=== PATIENT | female | born 1945 | race Caucasian/White ===

== ENCOUNTER 2018-12-29 08:24 | Day surgery (SDC) | payer OTHER ==
[2018-12-29] MEDS ORDERED: Ringers Lactate 0 ML IV ONE (08:47)
[2018-12-29] MEDS ORDERED: CEFAZOLIN/SWI 1gm 1 GM/10 ML SYR ONE (08:47)
[2018-12-29] MEDS ORDERED: NA CHLORIDE 0.9% 1,000 ML ONE (08:52)
[2018-12-29] MEDS ORDERED: GENTAMICIN 100 MG/100 ML BAG 100 ML IV ONE (09:32)
[2018-12-29] MEDS ORDERED: PROPOFOL 200 MG/20 ML VIAL IV ONE (09:50)
[2018-12-29] MEDS ORDERED: FENTANYL CITR 100 MCG/2 ML ONE (09:51)
[2018-12-29] MEDS ORDERED: MIDAZOLAM HCL 2 MG/2 ML INJ ONE (09:51)
[2018-12-29] MEDS ORDERED: LIDOCAINE 2% MPF 5 ML VIAL ONE (09:54)
--- NOTE | 2018-12-29 20:52 | OP ---
Date of Procedure: 12/29/2018 Surgeon: Bakari Greene MD Service Dismantler: ROBBIN Bermudez. Preoperative Diagnoses: Symptomatic scalp mass x3. Two of them were right next to each other, and t he left hand mass. Postoperative Diagnoses: Symptomatic scalp mass x3. Two of them were right next to each other, and the left hand mass. Procedures: Wide excision of scalp mass x3, but 2 of them were in the same location and that area wa s 5 x 3 cm, and the one was by itself, it was 4 x 2 cm with layered closure, and then left hand was 4 x 2 cm with layered closure. Estimated Blood Loss: Minimal. Specimen: Scalp mass and left hand mass, likely benign. Finding: As above. Anesthesia: General. Complications: None. Disposition: The patient tolerated the procedure in stable condition and taken to Recovery in good g eneral condition. Procedure In Detail: The patient was brought to the OR and placed in supine position. General anest hesia was begun. The patient was prepped and draped in usual sterile fashion. Lidocaine 1% was infi ltrated locally. A 15-blade was used to make a 5 x 3 cm incision, and a 4 x 2 cm incision on the sca lp, and a 4 x 2 cm incision on the left hand, and all of the benign cysts were excised down to the davies bcutaneous tissue and then labeled appropriately and sent to Pathology. Wound irrigated. Bleeding c ontrolled with cautery. Flaps created for tension-free closures. 4-0 chromic and 4-0 nylon were use d to close the hand wound. 3-0 chromic and 3-0 nylon were used to close both the scalpel wounds and then sterile dressing was applied. The patient was awakened and taken to Recovery in good general co ndition. /MODL Voice ID: [id number] Report ID: [id number]
--- NOTE | 2018-12-29 20:52 | DS ---
Date of Discharge: 12/29/2018 The patient will go to Day Surgery and home when stable. Disposition: Home. Condition: Stable. Discharge Instructions: Resume home medications and diet. Activity as tolerated. No heavy lifting. Remove outer dressing in 2 days. Shower. Keep wound clean, dry. Follow up in my office in 9 days , call for appointment. Tylenol No. 3 one tablet p.o. q.4 p.r.n. pain. JHONNY/ANGEL Voice ID: [id number] Report ID: [id number]
== END 2018-12-29 12:41 | disposition home or self-care (01) ==
LOC: OR 08:24
PROVIDERS: ATTEND Surgery
PROC: 0JB00ZZ Excision of Scalp Subcutaneous Tissue and Fascia, Open Approach (ICD-10-PCS; 2018-12-29)
PROC: 0JBK0ZX Excision of Left Hand Subcutaneous Tissue and Fascia, Open Approach, Diagnostic (ICD-10-PCS; 2018-12-29)
PROC: 0JB00ZZ Excision of Scalp Subcutaneous Tissue and Fascia, Open Approach (ICD-10-PCS; principal; 2018-12-29 10:00)
PROC: 0JB00ZZ Excision of Scalp Subcutaneous Tissue and Fascia, Open Approach (ICD-10-PCS; 2018-12-29 10:00)
DX: L72.11 Pilar cyst (principal); L98.8 Other specified disorders of the skin and subcutaneous tissue; E11.9 Type 2 diabetes mellitus without complications; E78.5 Hyperlipidemia, unspecified; I10 Essential (primary) hypertension; I48.92 Unspecified atrial flutter; Z79.84 Long term (current) use of oral hypoglycemic drugs; Z79.899 Other long term (current) drug therapy
CPT/HCPCS: 11426 ×3; 12034; 12042; 82962 ×2; 88304; J2704; J2250; J3010; J1580; J0690; J7030; 88305

== ENCOUNTER 2019-02-15 08:49 | Observation (INO) | payer OTHER ==
[2019-02-15 10:03] LABS: Absolute Lymphocytes (CBC) 0.5 K/uL (0.7-4.9); Basophils % 0.2 % (0-1.3); Eosinophils % 2.7 % (0-4.4); Hematocrit 30.9 % (36.0-45.0); Lymphocytes % 7.2 % (15.3-44.8); MPV 8.7 fL (7.6-11.3); Monocytes % 11.5 % (3.3-12.3); RBC Red Blood Cell Count 3.43 M/uL (3.86-4.86)
[2019-02-15 10:18] LABS: Urine Blood TRACE (NEG); Urine Glucose 1+ (NEG); Urine Protein 2+ (NEG); Urine Specific Gravity 1.015 (1.005-1.030)
[2019-02-15 10:20] LABS: Albumin 3.7 g/dL (3.4-5.0); Bilirubin Direct 0.2 mg/dL (0-0.2); Bilirubin Total 0.8 mg/dL (0.2-1.0); Protein, Total 7.2 g/dL (6.4-8.2)
--- NOTE | 2019-02-15 10:38 | RAD REPORT ---
EXAM DESCRIPTION: RAD - Chest Single View - 02/15/2019 9:42 am CLINICAL HISTORY: Dyspnea, hypoglycemia COMPARISON: December 21, 2018 TECHNIQUE: AP portable chest image was obtained 0938 hours . FINDINGS: Low lung volumes are noted. This accentuates the baseline interstitial pattern. No signifi cant failure or volume overload. No pulmonary edema pattern. Heart and vasculature are normal. No loyda surable pleural effusion and no pneumothorax. No acute bony abnormality seen. No acute aortic finding s suspected. IMPRESSION: Shallow inspiration film without acute cardiopulmonary finding.
[2019-02-15] MEDS ORDERED: D5 0.45 NS 1,000 ML IV ONE (10:42)
[2019-02-15 10:49] LABS: Urine Amorphous Sediment 3+ /HPF (NONE SEEN); Urine Bacteria LOADED /HPF (<20); Urine Culture Reflex Order REFLEXED; Urine RBC NONE SEEN /HPF (NONE SEEN)
--- NOTE | 2019-02-15 11:03 | RAD REPORT ---
EXAM DESCRIPTION: CT - Abdomen Pelvis Wo Contrast - 02/15/2019 10:45 am CLINICAL HISTORY: Abdominal pain COMPARISON: None TECHNIQUE: Computed axial tomography of the abdomen and pelvis was obtained. IV and oral contrast we re not requested. All CT scans are performed using dose optimization technique as appropriate and may include automated exposure control or mA/KV adjustment according to patient size. FINDINGS: The evaluation of solid organs, vessels and bowel is limited secondary to the lack of con trast administration. Gallstone without gallbladder wall thickening The liver, spleen, pancreas, adrenals and kidneys appear grossly normal. The appendix is normal. There is no evidence of diverticulitis. The cecum is present within the right upper quadrant. Minimal posterior subluxation L1 on L2 with subchondral sclerosis and cortical irregularity involving the vertebral endplates A hysterectomy Small pericardial effusion IMPRESSION: Minimal posterior subluxation L1 on L2 with subchondral sclerosis and cortical irregular ity involving the vertebral endplates. This all could be secondary to degenerative changes. Inflammat ion/infection also have this appearance and should be correlated clinically with appropriate lab valu es Cholelithiasis Small pericardial effusion
[2019-02-15] MEDS ORDERED: POTASSIUM CL SA 10 MEQ TAB PO ONE (11:27)
[2019-02-15] MEDS ORDERED: CEFTRIAXONE/SWI 1gm 1 GM/10 ML SYR ONE (11:27)
--- NOTE | 2019-02-15 12:41 | EDPHYS ---
Physician Documentation [facility] Name: Lazara Lozano Age: 73 yrs Sex: Female : 1945 Arrival Date: 02/15/2019 Time: 08:51 Bed 16 Private MD: ED Physician Marcelo Barnes HPI: 02/15 09:09 This 73 yrs old Female presents to ER via EMS with complaints of Low Blood jr8 Sugar. 09:09 Patient stated that she took her lantus this morning. Upon awakening patient felt jr8 slower then normal. Checked BGL showing to be 67. EMS called at that time and upon arrival sugar was 19 with slurred speech. Patient was given D50 and enroute sugar was in the 200s now in the 100s upon arrival. Patient pale in appearance. Stated that she has had black diarrhea for several months now. Severity of symptoms: At their worst the symptoms were moderate in the emergency department the symptoms are unchanged. The patient has not experienced similar symptoms in the past. The patient has not recently seen a physician. Historical: - Allergies: 09: No Known Allergies; bp - Home Meds: 09:01 Insulin: Lantus Sub-Q [Active]; bp - PMHx: 09:01 Diabetes - IDDM; Hypertension; bp - PSHx: 09:01 Hysterectomy; bp - Immunization history:: Adult Immunizations up to date. - Social history:: Smoking status: Patient/guardian denies using tobacco. - Ebola Screening: : No symptoms or risks identified at this time. ROS: 12:35 Eyes: Negative for injury, pain, redness, and discharge, ENT: Negative for injury, jr8 pain, and discharge, Neck: Negative for injury, pain, and swelling, Cardiovascular: Negative for chest pain, palpitations, and edema, Respiratory: Negative for shortness of breath, cough, wheezing, and pleuritic chest pain, Abdomen/GI: Negative for abdominal pain, nausea, vomiting, diarrhea, and constipation, Back: Negative for injury and pain, MS/Extremity: Negative for injury and deformity, Skin: Negative for injury, rash, and discoloration. 12:35 Neuro: Positive for altered mental status. Exam: 11:29 Eyes: Pupils equal round and reactive to light, extra-ocular motions intact. Lids and jr8 lashes normal. Conjunctiva and sclera are non-icteric and not injected. Mild pallor noted. Cornea within normal limits. Periorbital areas with no swelling, redness, or edema. ENT: Nares patent. No nasal discharge, no septal abnormalities noted. Tympanic membranes are normal and external auditory canals are clear. Oropharynx with no redness, swelling, or masses, exudates, or evidence of obstruction, uvula midline. Mucous membranes moist. Neck: Trachea midline, no thyromegaly or masses palpated, and no cervical lymphadenopathy. Supple, full range of motion without nuchal rigidity, or vertebral point tenderness. No Meningismus. Cardiovascular: Regular rate and rhythm with a normal S1 and S2. No gallops, murmurs, or rubs. Normal PMI, no JVD. No pulse deficits. Respiratory: Lungs have equal breath sounds bilaterally, clear to auscultation and percussion. No rales, rhonchi or wheezes noted. No increased work of breathing, no retractions or nasal flaring. Back: No spinal tenderness. No costovertebral tenderness. Full range of motion. Skin: Warm, dry with normal turgor. Normal color with no rashes, no lesions, and no evidence of cellulitis. MS/ Extremity: Pulses equal, no cyanosis. Neurovascular intact. Full, normal range of motion. Neuro: Awake and alert, GCS 15, oriented to person, place, time, and situation. Cranial nerves II-XII grossly intact. Motor strength 5/5 in all extremities. Sensory grossly intact. Cerebellar exam normal. Normal gait. 11:29 Abdomen/GI: Inspection: abdomen appears normal, Bowel sounds: active, all quadrants, Palpation: abdomen is soft and non-tender, in all quadrants, Rectal exam: rectal tone normal, Stool: guaiac negative, black, soft, Patient has been on Pepto-Bismol , hemorrhoid(s), external, without bleeding, without inflammation, without thrombosis, without pain, Indicators: McBurney's point is not tender, Chambers's sign is negative, Rovsing's sign is negative, Liver: tenderness, is not appreciated. 11:29 Skin: Appearance: Color: dusky, Temperature: cool. jr8 Vital Signs: 09:01 Weight 63.96 kg; bp 09:11 BP 99 / 77; Pulse 77; Resp 14; Temp 96.2; Pulse Ox 95% on R/A; Weight 63.96 kg; Pain ls4 0/10; 09:45 BP 104 / 70; Pulse 72; Resp 14; Pulse Ox 99% on R/A; Pain 0/10; ls4 10:45 BP 103 / 61; Pulse 72; Resp 14; Pulse Ox 95% on R/A; Pain 0/10; ls4 11:45 BP 114 / 70; Pulse 71; Resp 16; Temp 96.9; Pulse Ox 98% ; Pain 0/10; ls4 12:45 BP 121 / 71; Pulse 71; Resp 18; Pulse Ox 95% ; ls4 13:30 BP 112 / 69; Pulse 72; Resp 19; Temp 96.9; Pulse Ox 99% on R/A; Pain 0/10; ls4 MDM: 08:54 Patient medically screened. jr8 12:35 Data reviewed: vital signs, nurses notes, lab test result(s), EKG, radiologic studies, jr8 CT scan, plain films. Data interpreted: Pulse oximetry: on room air is 95 %. Interpretation: normal. Counseling: I had a detailed discussion with the patient and/or guardian regarding: the historical points, exam findings, and any diagnostic results supporting the discharge/admit diagnosis, lab results, radiology results, the need for further work-up and treatment in the hospital. Physician consultation: Vahid Mix MD was called at 12:36, was contacted at 12:36, regarding admission, to the telemetry unit. consult, patient's condition, and will see patient in ED. ED course: Patient's BGL continues to drop even on D5 drip. Will up the drip and admit . 02/15 09:03 Order name: Basic Metabolic Panel; Complete Time: 10:45 02/15 09:03 Order name: CBC with Diff; Complete Time: 10:18 02/15 09:03 Order name: Creatinine for Radiology; Complete Time: 10:19 02/15 09:03 Order name: Hepatic Function; Complete Time: 10:45 02/15 09:03 Order name: Lipase; Complete Time: 10:45 02/15 09:03 Order name: TS; Complete Time: 10:56 02/15 09:03 Order name: Urine Microscopic Only; Complete Time: 10:56 02/15 10:08 Order name: Urine Dipstick--Ancillary (enter results); Complete Time: 10:19 ag 02/15 10:54 Order name: Urine Culture [facility] 02/15 12:31 Order name: Glucose, Ancillary Testing; Complete Time: 12:33 [facility] 02/15 12:31 Order name: Glucose, Ancillary Testing [facility] 02/15 12:31 Order name: Glucose, Ancillary Testing; Complete Time: 12:33 [facility] 02/15 12:31 Order name: Glucose, Ancillary Testing; Complete Time: 12:33 [facility] 02/15 12:31 Order name: Glucose, Ancillary Testing; Complete Time: 12:33 [facility] 02/15 09:03 Order name: IV Saline Lock; Complete Time: 09:56 [facility] 02/15 09:03 Order name: Labs collected and sent; Complete Time: 09:56 [facility] 02/15 09:03 Order name: Urine Dipstick-Ancillary (obtain specimen); Complete Time: 09:56 [facility] 02/15 09:03 Order name: Straight Cath - Urine; Complete Time: 09:56 [facility] 02/15 09:03 Order name: XRAY Chest (1 view); Complete Time: 10:45 [facility] 02/15 10:20 Order name: CT Abd/Pelvis - Without Contrast; Complete Time: 11:04 [facility] Administered Medications: 10:47 Drug: D5-1/2 NS 1000 ml Route: IV; Rate: 75 calculated rate; Site: left antecubital; ls4 11:20 Drug: Potassium Chloride 40 mEq Route: PO; ls4 11:20 Drug: Rocephin 1 grams Route: IV; Rate: calculated rate; Site: left antecubital; ls4 12:15 Follow up: Response: No adverse reaction ls4 Point of Care Testing: Blood Glucose: 09:40 Blood Glucose: 118 mg/dL; ls4 Ranges: Critical Glucose Levels:Adult <50 mg/dl or >400 mg/dl <40 mg/dl or >180 mg/dl Disposition: 02/16 07:00 Co-signature as Attending Physician, Marcelo Barnes MD I agree with the assessment and wa plan of care. Disposition: 02/15/19 12:40 Hospitalization ordered by Vahid Mix for Observation. Preliminary diagnosis are Urinary tract infection, site not specified, Hypokalemia, Hypoglycemia, unspecified - Resistent to treatment . - Bed requested for Telemetry/MedSurg (observation). - Status is Observation. ls4 - Condition is Stable. - Problem is new. - Symptoms are unchanged. UTI on Admission? Yes Signatures: Dispatcher [employer] EDMS Filipe Marion PA PA jr8 eGSabina ag Marcelo Barnes MD MD wa Peltier, Brian, RN RN bp Maru Gonzalez RN RN ls4 Corrections: (The following items were deleted from the chart) 02/15 11:31 11:29 Eyes: Pupils equal round and reactive to light, extra-ocular motions intact. Lids jr8 and lashes normal. Conjunctiva and sclera are non-icteric and not injected. Cornea within normal limits. Periorbital areas with no swelling, redness, or edema. ENT: Nares patent. No nasal discharge, no septal abnormalities noted. Tympanic membranes are normal and external auditory canals are clear. Oropharynx with no redness, swelling, or masses, exudates, or evidence of obstruction, uvula midline. Mucous membranes moist. Neck: Trachea midline, no thyromegaly or masses palpated, and no cervical lymphadenopathy. Supple, full range of motion without nuchal rigidity, or vertebral point tenderness. No Meningismus. Cardiovascular: Regular rate and rhythm with a normal S1 and S2. No gallops, murmurs, or rubs. Normal PMI, no JVD. No pulse deficits. Respiratory: Lungs have equal breath sounds bilaterally, clear to auscultation and percussion. No rales, rhonchi or wheezes noted. No increased work of breathing, no retractions or nasal flaring. Back: No spinal tenderness. No costovertebral tenderness. Full range of motion. Skin: Warm, dry with normal turgor. Normal color with no rashes, no lesions, and no evidence of cellulitis. MS/ Extremity: Pulses equal, no cyanosis. Neurovascular intact. Full, normal range of motion. Neuro: Awake and alert, GCS 15, oriented to person, place, time, and situation. Cranial nerves II-XII grossly intact. Motor strength 5/5 in all extremities. Sensory grossly intact. Cerebellar exam normal. Normal gait. jr8 14:05 12:40 Hospitalization Ordered by Vahid Mix MD for Observation. Preliminary diagnosis ag is Urinary tract infection, site not specified; Hypokalemia; Hypoglycemia, unspecified - Resistent to treatment . Bed requested for Telemetry/MedSurg (observation). Status is Observation. Condition is Stable. Problem is new. Symptoms are unchanged. UTI on Admission? Yes. jr8 16:34 14:05 02/15/2019 12:40 Hospitalization Ordered by Vahid Mix MD for Observation. ls4 Preliminary diagnosis is Urinary tract infection, site not specified; Hypokalemia; Hypoglycemia, unspecified - Resistent to treatment . Bed requested for Telemetry/MedSurg (observation). Status is Observation. Condition is Stable. Problem is new. Symptoms are unchanged. UTI on Admission? Yes. ag
--- NOTE | 2019-02-15 12:41 | ER ---
Nurse's Notes [facility] Name: Lazara Lozano Age: 73 yrs Sex: Female : 1945 Arrival Date: 02/15/2019 Time: 08:51 Bed 16 Private MD: Diagnosis: Urinary tract infection, site not specified;Hypokalemia;Hypoglycemia, unspecified-Resistent to treatment Presentation: 02/15 08:56 Presenting complaint: EMS states: BGL 19 ON SCENE. Transition of care: patient was not bp received from another setting of care. Onset of symptoms is unknown. Risk Assessment: Do you want to hurt yourself or someone else? Patient reports no desire to harm self or others. Initial Sepsis Screen: Does the patient meet any 2 criteria? No. Patient's initial sepsis screen is negative. Does the patient have a suspected source of infection? No. Patient's initial sepsis screen is negative. Care prior to arrival: Medication(s) given: D50, 1 amp, IV initiated. 18 GA, in the right antecubital area, Glucose check: 223. 08:56 Method Of Arrival: EMS: [facility] bp 08:56 Acuity: ISAIAH 2 bp Triage Assessment: 09:01 General: Appears distressed, obese, Behavior is calm, cooperative. Pain: Denies pain. bp Historical: - Allergies: 09: No Known Allergies; bp - Home Meds: 09:01 Insulin: Lantus Sub-Q [Active]; bp - PMHx: 09:01 Diabetes - IDDM; Hypertension; bp - PSHx: 09:01 Hysterectomy; bp - Immunization history:: Adult Immunizations up to date. - Social history:: Smoking status: Patient/guardian denies using tobacco. - Ebola Screening: : No symptoms or risks identified at this time. Screenin:11 Abuse screen: Denies threats or abuse. Denies injuries from another. Nutritional ls4 screening: No deficits noted. Tuberculosis screening: No symptoms or risk factors identified. Fall Risk None identified. Assessment: 09:01 General: Appears in no apparent distress. ill, Behavior is calm, cooperative. Pain: ls4 Denies pain. Neuro: Level of Consciousness is awake, alert, obeys commands, Oriented to person, place, time, situation, slow responses . Air Conditioning Engineer are weak on left. Respiratory: No deficits noted. Reports Airway is patent Respiratory effort is even, unlabored, Respiratory pattern is regular. Derm: Skin is dry, Skin is dusky, pale, Skin temperature is warm. Musculoskeletal: 10:00 Reassessment: Patient and/or family updated on plan of care and expected duration. Pain ls4 level reassessed. Patient is alert, oriented x 3, equal unlabored respirations, skin warm/dry/pink. 11:00 Reassessment: Patient and/or family updated on plan of care and expected duration. Pain ls4 level reassessed. Patient is alert, oriented x 3, equal unlabored respirations, skin warm/dry/pink. 12:00 Reassessment: Patient appears in no apparent distress at this time. Patient and/or ls4 family updated on plan of care and expected duration. Pain level reassessed. Patient is alert, oriented x 3, equal unlabored respirations, skin warm/dry/pink. pt speech normal and at baseline. Patient states feeling better. Patient states symptoms have improved. 13:00 Reassessment: Patient appears in no apparent distress at this time. Patient and/or ls4 family updated on plan of care and expected duration. Pain level reassessed. Patient is alert, oriented x 3, equal unlabored respirations, skin warm/dry/pink. 14:37 Reassessment: Patient appears in no apparent distress at this time. Patient and/or ls4 family updated on plan of care and expected duration. Pain level reassessed. Patient is alert, oriented x 3, equal unlabored respirations, skin warm/dry/pink. 14:37 Reassessment: called to give report to floor, Marielle stated they will call back because ls4 they dont have a nurse yet. Vital Signs: 09:01 Weight 63.96 kg; bp 09:11 BP 99 / 77; Pulse 77; Resp 14; Temp 96.2; Pulse Ox 95% on R/A; Weight 63.96 kg; Pain ls4 0/10; 09:45 BP 104 / 70; Pulse 72; Resp 14; Pulse Ox 99% on R/A; Pain 0/10; ls4 10:45 BP 103 / 61; Pulse 72; Resp 14; Pulse Ox 95% on R/A; Pain 0/10; ls4 11:45 BP 114 / 70; Pulse 71; Resp 16; Temp 96.9; Pulse Ox 98% ; Pain 0/10; ls4 12:45 BP 121 / 71; Pulse 71; Resp 18; Pulse Ox 95% ; ls4 13:30 BP 112 / 69; Pulse 72; Resp 19; Temp 96.9; Pulse Ox 99% on R/A; Pain 0/10; ls4 ED Course: 08:51 Patient arrived in ED. bp 08:54 Filipe Marion PA is PHCP. jr8 08:54 Marcelo Barnes MD is Attending Physician. jr8 08:58 Triage completed. bp 09:00 Maru Gonzalez, LISA is Primary Nurse. ls4 09:01 Arm band placed on right wrist. bp 09:13 Patient has correct armband on for positive identification. Bed in low position. Call ls4 light in reach. Side rails up X 1. monitoring analyst on. Pulse ox on. NIBP on. Warm blanket given. Pillow given. Verbal reassurance given. 09:15 No provider procedures requiring assistance completed. Inserted saline lock: 20 gauge ls4 in left antecubital area, using aseptic technique. Blood collected. 09:41 X-ray completed. Portable x-ray completed in exam room. Patient tolerated procedure jb2 well. 09:42 XRAY Chest (1 view) In Process Unspecified. EDMS 10:45 CT Abd/Pelvis - Without Contrast In Process Unspecified. EDMS 10:45 CT completed. Patient tolerated procedure well. Patient moved to CT via stretcher. jg6 Patient moved back from CT. 12:39 Vahid Mix MD is Hospitalizing Provider. jr8 Administered Medications: 10:47 Drug: D5-1/2 NS 1000 ml Route: IV; Rate: 75 calculated rate; Site: left antecubital; ls4 11:20 Drug: Potassium Chloride 40 mEq Route: PO; ls4 11:20 Drug: Rocephin 1 grams Route: IV; Rate: calculated rate; Site: left antecubital; ls4 12:15 Follow up: Response: No adverse reaction ls4 Point of Care Testing: Blood Glucose: 09:40 Blood Glucose: 118 mg/dL; ls4 Ranges: Outcome: 12:40 Decision to Hospitalize by Provider. jr8 16:34 Patient left the ED. ls4 Signatures: Dispatcher [employer] EDMS Jaquan Black jb2 Filipe Marion PA PA jr8 Kalen Comer, LISA RN Sahara Davis jg6 Maru Gonzalez, RN RN ls4 Corrections: (The following items were deleted from the chart) 13:32 12:00 Reassessment: Patient appears in no apparent distress at this time. Patient ls4 and/or family updated on plan of care and expected duration. Pain level reassessed. Patient is alert, oriented x 3, equal unlabored respirations, skin warm/dry/pink. ls4
--- NOTE | 2019-02-15 16:24 | HP ---
Date of Admission: 02/15/2019 Primary Care Physician: Dr. López. Chief Complaint: Altered mental status, hypoglycemia. Code Status: Full History Of Present Illness: The patient is a 73-year-old female with past medical history of hypertension, diabetes, insulin-requiring, who was in her usual state of health until the night prior to admission when the patient had some episodes of confusion, did not eat dinner, and instead taking her Lantus. The patient was very lethargic this morning, had generalized weakness, found to have a sugar of 19, had some slurred speech. The patient was given D50 and brought by EMS. The patient's symptoms were constantly monitored, progressively worsening. No chest pain, palpitations. The patient had some nausea, but no vomiting. The patient did have some diarrhea, is being worked up by GI as outpatient. In the ER, her workup showed a white blood cell count of 6, creatinine was elevated at 1.88. The patient had a positive UA. She was given IV antibiotics and then referred for admission. When seen in the ER, she was awake, still somewhat lethargic. Her blood glucose has improved, but had been low and staying low despite D5 half NS for several hours. Past Medical History: Insulin-requiring diabetes, hypertension. Medications: List reviewed. Allergies: NO KNOWN DRUG ALLERGIES. Surgical History: Hysterectomy. The patient had minor surgery with lesions on her scalp and hand removed. Social History: The patient denies any tobacco use or alcohol use for the past 20 years. Lives at home with and daughter. Independent in her activities of daily living. Does not require any assistive ambulatory devices. Family History: Positive for coronary artery disease in the mom who after having heart catheterization and heart disease. Review of Systems: Ten-point system reviewed, negative except as per HPI. Physical Examination: Vital Signs: Blood pressure 99/77, pulse 77, respirations 14, temperature 96.2 , O2 95% on room air. General: Awake, alert, oriented x3, not in any acute distress. Elderly female , lethargic. HEENT: Normocephalic, atraumatic. PERRLA. EOMI. Dry mucous membranes. Oropharynx is clear. Conjunctivae anicteric. Neck: Supple. No JVD. Trachea midline. CV: S1, S2. Regular rate and rhythm. No murmurs. Respiratory: Moving air well bilaterally. No wheezing or stridor. Gastrointestinal: Abdomen is soft, nontender, nondistended. Positive bowel sounds. No guarding or rigidity. Extremities: No clubbing, cyanosis, or edema. No calf tenderness. Neuro: Cranial nerves 2-12 intact grossly. No focal neurological deficit. Speech is normal. Skin: No rashes. Normal skin turgor. Psych: Mood is okay. Affect is full. Insight and judgment are fair. Laboratory Data: Sodium 138, potassium 3, chloride 104, CO2 26, BUN 21, creatinine 1.88, glucose 103, calcium 9.9, albumin 3.7. WBC 6.8, H and H 10.6 and 30.9, platelets 214, neutrophils 78%. UA; negative nitrite, negative leukocyte esterase, less than 5 wbc's, loaded bacteria. Chest x-ray shows shallow inspiration film without acute pulmonary finding. CT scan of the abdomen and pelvis shows minimal posterior subluxation L1 on L2 with subchondral sclerosis and cortical irregularity involving the vertebral endplates, could all be secondary to degenerative changes. Inflammation, infection may also have this appearance and should be correlated clinically with appropriate lab values; physis, small pericardial effusion. Assessment And Plan: A 73-year-old female with: 1. Acute metabolic encephalopathy, likely secondary to urinary tract infection and hypoglycemia, which is persistent, improving. We will place her on bedrest with bedside commode and have PT work with the patient. 2. Acute cystitis without hematuria. We will continue with Rocephin. We will follow up on urine culture results. 3. Abnormal cortical irregularity involving the L1, L2 vertebral endplate, possible degenerative changes, however, need to rule out inflammation infection. We will check ESR and CRP. The patient may need MRI to rule out infectious process involving the lumbar spine. 4. Essential hypertension, acute hypotension. We will continue with IV fluids. 5. Hypokalemia. We will replace and monitor. 6. Acute on chronic kidney injury, stage 3. We will avoid NSAIDs and continue with IV fluids. Avoid nephrotoxins. 7. Diabetes mellitus type 2 with hypoglycemia, persistent, recurrent. We will continue with D5 half NS and monitor blood glucose levels for next 2 hours x2, if continue to be elevated above 80 then we will space out the a.c., at bedtime, hold off sliding scale insulin for the time being due to hypoglycemia. 8. Obesity. 9. Deep venous thrombosis prophylaxis with SCDs. Plan: Admit the patient to Med-Surg, place under observation. ELSY Voice ID: [id number]
[2019-02-15] MEDS ORDERED: D5 0.45 NS 1,000 ML IV SCH (18:03)
[2019-02-15] MEDS ORDERED: ONDANSETRON 4 MG/2 ML VIAL IV PRN (18:03)
[2019-02-15] MEDS ORDERED: ACETAMINOPHEN 500 MG TAB PO PRN (18:03)
[2019-02-15] MEDS ORDERED: D50W 25 GM/50 ML SYRINGE IV PRN (19:05)
[2019-02-15] MEDS ORDERED: GLUCAGON 1 MG/VIAL IM PRN (19:05)
[2019-02-15] MEDS: INSULIN -REGULAR HUMAN 50 UNIT/0.5 ML ML SQ SCH (21:15)
[2019-02-16 05:30] LABS: Absolute Lymphocytes (CBC) 1.5 K/uL (0.7-4.9); Basophils % 0.4 % (0-1.3); Eosinophils % 5.1 % (0-4.4); Hematocrit 28.7 % (36.0-45.0); MPV 8.2 fL (7.6-11.3); Monocytes % 11.3 % (3.3-12.3); RBC Red Blood Cell Count 3.17 M/uL (3.86-4.86)
[2019-02-16 05:56] LABS: ALT/SGPT 12 U/L (12-78); AST/SGOT 8 U/L (15-37); Albumin 3.2 g/dL (3.4-5.0); BUN Blood Urea Nitrogen 21 mg/dL (7-18); Bicarbonate 25 mmol/L (21-32); Bilirubin Total 0.5 mg/dL (0.2-1.0); Glucose Level 51 mg/dL (74-106); Potassium 3.5 mmol/L (3.5-5.1); Protein, Total 6.5 g/dL (6.4-8.2); Sodium Level 142 mmol/L (136-145)
[2019-02-16 05:59] LABS: Alkaline Phosphatase ND U/L (45-117)
[2019-02-16] MEDS: INSULIN -REGULAR HUMAN 50 UNIT/0.5 ML ML SQ SCH ×4 (07:30→21:47)
--- NOTE | 2019-02-16 07:55 | P.PN ---
Date of Service: 02/16/19 Called by nursing staff regarding patient with tachyarrhythmia. Heart rate went into the 130s. This was sinus. Came down on its own. Echocardiogram pending. May need cardiology consultation that may be done as an outpatient depending on patient's symptoms.
--- NOTE | 2019-02-16 08:28 | ECHO ---
HEIGHT: 5 ft 3 in WEIGHT: 140 lb oz DATE OF STUDY: 02/15/[address]: Vahid Mix MD 2-DIMENSIONAL: YES M.MODE: YES DOPPLER: YES COLOR FLOW: YES TDS: NO PORTABLE: NO DEFINITY: NO BUBBLE STUDY: NO DIAGNOSIS: PERICARDIAL EFFUSION CARDIAC HISTORY: CATHERIZATION: NO SURGERY: NO PROSTHETIC VALVE: NO PACEMAKER: NO MEASUREMENTS (cm) DIASTOLIC (NORMALS) SYSTOLIC (NORMALS) IVSd 0.9 (0.6-1.2) LA Diam 2.1 (1.9-4.0) LVEF 43% LVIDd 2.6 (3.5-5.7) LVIDs 2.0 (2.0-3.5) %FS 20% LVPWd 0.8 (0.6-1.2) Ao Diam 2.8 (2.0-3.7) 2 DIMENSIONAL ASSESSMENT: RIGHT ATRIUM: NORMAL LEFT ATRIUM: NORMAL RIGHT VENTRICLE: NORMAL LEFT VENTRICLE: NORMAL TRICUSPID VALVE: NORMAL MITRAL VALVE: MITRAL ANNULAR CALCIFICATION PULMONIC VALVE: NORMAL AORTIC VALVE: SCLEROSIS PERICARDIAL EFFUSION: SMALL AORTIC ROOT: NORMAL LEFT VENTRICULAR WALL MOTION: NORMAL DOPPLER/COLOR FLOW: MILD AORITC AND TRICUSPID REGURGITATION. COMMENTS: MILD AORITC AND TRICUSPID REGURGITATION. NORMAL LEFT VENTRICULAR EJECTION FRACTION AND SIZE. SMALL PERICARDIAL EFFUSION. NO TAMPONADE. MITRAL ANNULAR CALCIFICATION. AORITC SCLEROSIS WITH NO STENOSIS. TECHNOLOGIST: Matthew LONGORIA
[2019-02-16] MEDS: CEFTRIAXONE/SWI 1gm 1 GM/10 ML SYR IVP SCH (08:56)
[2019-02-16] MEDS ORDERED: CEFTRIAXONE 1 GM/NS 50 ML 1 GM/50 ML BAG IV SCH (09:00)
--- NOTE | 2019-02-16 14:01 | P.PN ---
Subjective Date of Service: 02/16/19 Chief Complaint: Hypoglycemia Subjective: Improving Patient seen and examined at bedside. No family at bedside. Chart reviewed and case discussed with nursing staff. Mentation back to baseline. No acute events noted overnight. Review of Systems 10-point ROS is otherwise unremarkable Physical Examination - Vital Signs Temperature: 98.6 F Blood Pressure: 117/71 Pulse: 96 Respirations: 18 Pulse Ox (%): 92 - Physical Exam General: Alert, In no apparent distress, Oriented x3 HEENT: Atraumatic, PERRLA, EOMI Neck: Supple, JVD not distended Respiratory: Clear to auscultation bilaterally, Normal air movement Cardiovascular: Normal S1 S2, Irregular heart rate/rhythm (Tachycardia) Gastrointestinal: Normal bowel sounds, No tenderness Musculoskeletal: No tenderness Integumentary: No rashes Neurological: Normal speech, Normal tone, Normal affect Lymphatics: No axilla or inguinal lymphadenopathy Assessment And Plan - Current Problems (Diagnosis) (1) Acute metabolic encephalopathy Current Visit: Yes Status: Resolved Plan: likely secondary to urinary tract infection and hypoglycemia. - Now back to baseline - We will place her on bedrest with bedside commode and have PT work with the patient. (2) Acute cystitis Current Visit: Yes Status: Acute Plan: We will continue with Rocephin. - We will follow up on urine culture results Qualifiers: Hematuria presence: without hematuria Qualified Code(s): N30.00 - Acute cystitis without hematuria (3) Abnormal cortical irregularity Current Visit: Yes Status: Acute Plan: involving the L1, L2 vertebral endplate, possible degenerative changes - ESR Normal and elevated CRP. (4) Essential (primary) hypertension Current Visit: Yes Status: Chronic Plan: Continue home medications. BP now stable. (5) Hypokalemia Current Visit: Yes Status: Resolved (6) Acute on chronic kidney failure Current Visit: Yes Status: Acute Plan: We will avoid NSAIDs and continue with IV fluids. Avoid nephrotoxins. (7) Diabetes mellitus Current Visit: No Status: Acute Plan: Diabetes mellitus type 2 with hypoglycemia, persistent, recurrent. - D5 half NS now discontinued. - Monitor blood glucose levels Qualifiers: Diabetes mellitus type: type 2 Diabetes mellitus usp insulin use: without manager intermediate use Diabetes mellitus complication status: with hypoglycemia Diabetes mellitus complication detail: without coma Qualified Code(s): E11.649 - Type 2 diabetes mellitus with hypoglycemia without coma (8) Failure of outpatient treatment Current Visit: Yes Status: Acute Plan: Completed 2 week course of nitrofurantoin as outpatient. - Plan DVT prophylaxis: SCDs GI Prophylaxis: None Diet: Heart Healthy/Diabetic Disposition: Pending improvement/stabalization of hypoglycemia and urine cultures. Discharge on PO antibiotics once cultures finalized and BS improved.
[2019-02-17] MEDS: INSULIN -REGULAR HUMAN 50 UNIT/0.5 ML ML SQ SCH ×2 (07:30→11:48)
[2019-02-17] MEDS: CEFTRIAXONE/SWI 1gm 1 GM/10 ML SYR IVP SCH (08:54)
--- NOTE | 2019-02-17 11:14 | P.SSS ---
Patient History Date of Service: 02/17/19 Reason for admission: Hypoglycemia History of Present Illness: The patient is a 73-year-old female with past medical history of hypertension, diabetes, insulin-requiring, who was in her usual state of health until the night prior to admission when the patient had some episodes of confusion, did not eat dinner, and instead taking her Lantus. The patient was very lethargic this morning, had generalized weakness, found to have a sugar of 19, had some slurred speech. The patient was given D50 and brought by EMS. The patient's symptoms were constantly monitored, progressively worsening. No chest pain, palpitations. The patient had some nausea, but no vomiting. The patient did have some diarrhea, is being worked up by GI as outpatient. In the ER, her workup showed a white blood cell count of 6, creatinine was elevated at 1.88. The patient had a positive UA. She was given IV antibiotics and then referred for admission. When seen in the ER, she was awake, still somewhat lethargic. Her blood glucose has improved, but had been low and staying low despite D5 half NS for several hours. Allergies No Known Allergies Allergy (Verified 12/29/18 08:25) Home medications list reviewed: Yes Home Medications: Carvedilol 12.5 mg PO BID 02/16/19 Fenugreek 610 Mg 2 tab PO BID 02/16/19 Flaxseed Oil 1,000 mg PO BID 02/16/19 Glimepiride 4 mg PO BID 02/16/19 [place] [[place] Berries] 2 cap PO BID 02/16/19 Losartan Potassium 50 mg PO DAILY 02/16/19 Metformin HCl 1,000 mg PO BIDWM 02/16/19 Pravastatin Sodium 40 mg PO BEDTIME 02/16/19 Women's 50+ Advanced 1 tab PO DAILY 02/16/19 hydroCHLOROthiazide [Hydrochlorothiazide] 12.5 mg PO DAILY 02/16/19 - Past Medical/Surgical History Has patient received pneumonia vaccine in the past: Yes Diabetic: Yes -: A-fibb -: HTN -: hyperlipidema -: 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 moist/pink, EOMI, Sclerae nonicteric Neck: Supple, 2+ carotid pulse no bruit, No LAD, Without JVD or thyroid abnormality Respiratory: Clear to auscultation bilaterally, Normal air movement Cardiovascular: Regular rate/rhythm, Normal S1 S2 Gastrointestinal: Normal bowel sounds, No tenderness Musculoskeletal: No tenderness Integumentary: No rashes Neurological: Normal gait, Normal speech, Normal strength at 5/5 x4 extr, Normal tone, Normal affect Lymphatics: No axilla or inguinal lymphadenopathy - Studies Microbiology Data (last 24 hrs): 02/15/19 09:49 Clean Catch Urine [place] Count - Final >100,000 CFU/ML. 02/15/19 09:49 Clean Catch Urine - Final Escherichia Coli - Diagnosis (Problem(s)) (1) Acute metabolic encephalopathy Current Visit: Yes Status: Resolved (2) Acute cystitis Current Visit: Yes Status: Acute Qualifiers: Hematuria presence: without hematuria Qualified Code(s): N30.00 - Acute cystitis without hematuria (3) Abnormal cortical irregularity Current Visit: Yes Status: Acute (4) Essential (primary) hypertension Current Visit: Yes Status: Chronic (5) Hypokalemia Current Visit: Yes Status: Resolved (6) Acute on chronic kidney failure Current Visit: Yes Status: Acute (7) Diabetes mellitus Current Visit: No Status: Acute Qualifiers: Diabetes mellitus type: type 2 Diabetes mellitus prison insulin use: without ad terminal makeup operator use Diabetes mellitus complication status: with hypoglycemia Diabetes mellitus complication detail: without coma Qualified Code(s): E11.649 - Type 2 diabetes mellitus with hypoglycemia without coma (8) Failure of outpatient treatment Current Visit: Yes Status: Acute Treatment Summary: Patient was admitted for acute metabolic encephalopathy, likely secondary to urinary tract infection, failure outpatient treatment and hypoglycemia. She was provided with IV antibiotics and IV fluids to help with her hypoglycemia. Her symptoms of metabolic encephalopathy resolved, her mentation returned back to baseline. She worked well with physical therapy. Her urine cultures were positive for E. coli, sensitive to Augmentin. She was switched from IV antibiotics to oral Augmentin on discharge. An echocardiogram was done, which was normal. She did have some abnormal cortical irregularity on her imaging involving L1, L2 vertebral endplate suspicious for possible degenerative changes. Her ESR was normal and her CRP was elevated. She had no complaints of back pain. She otherwise remained hemodynamically stable. Her blood sugars improved. Prior to discharge, she was alert oriented x3, in no acute distress, mentation was back to baseline and she was tolerating oral. She was working well with physical therapy. She was discharged home on oral Augmentin. And diagnoses and treatment plan were explained to her, all questions were answered and she verbalized understanding. She was then discharged home in a safe and stable manner. She will follow up with her primary care physician in 2-3 days. - Disposition Discharge Date: 02/17/19 Disposition: ROUTINE DISCHARGE Condition: GOOD Patient Discharge Instructions: Please follow up with the primary care physician in 2-3 days. Please return to the emergency room for worsening symptoms. New medications: Augmentin, an antibiotic for your urinary tract infection. Diet: ADA Activity: Ad grupo Time Spent Managing Pts Care (In Minutes): 45
[2019-02-17 17:34] VITALS: BP 135/79; TEMP 97.5; O2SAT 94; BMI 25.0
== END 2019-02-17 13:41 | disposition home or self-care (01) ==
LOC: ER 08:49 → ERHOLD 13:05 → 2ND 16:08
PROVIDERS: ADMIT Family Medicine; ATTEND Family Medicine
DX: N39.0 Urinary tract infection, site not specified (principal); B96.20 Unspecified Escherichia coli [E. coli] as the cause of diseases classified elsewhere; G93.41 Metabolic encephalopathy; I48.91 Unspecified atrial fibrillation; E78.5 Hyperlipidemia, unspecified; E87.6 Hypokalemia; I12.9 Hypertensive chronic kidney disease with stage 1 through stage 4 chronic kidney disease, or unspecified chronic kidney disease; E11.22 Type 2 diabetes mellitus with diabetic chronic kidney disease; N18.3 Chronic kidney disease, stage 3 (moderate); N17.9 Acute kidney failure, unspecified; E11.649 Type 2 diabetes mellitus with hypoglycemia without coma; E66.9 Obesity, unspecified; Z68.25 Body mass index [BMI] 25.0-25.9, adult
CPT/HCPCS: 93306; 87088; 85025 ×2; 87086; 80048; 36415; 86900; 86850; 86901; 82962 ×14; 80076; 85652; 87077; 87186; 83690; 80053; 86140; 74176; 71045; 97116; 97163; 97530; 94760 ×5; 96374; 99285; J0696 ×3; G0378 ×2; 81003; 81015

== ENCOUNTER 2019-11-08 06:43 | Emergency (ER) | payer OTHER ==
[2019-11-08] MEDS ORDERED: NA CHLORIDE 0.9% 500 ML ONE (07:38)
[2019-11-08 08:47] LABS: Absolute Lymphocytes (CBC) 1.2 K/uL (0.7-4.9); Basophils % 0.7 % (0-1.3); Hematocrit 26.3 % (36.0-45.0); MPV 8.1 fL (7.6-11.3); RBC Red Blood Cell Count 2.88 M/uL (3.86-4.86)
[2019-11-08 08:51] LABS: Protime INR 0.96
[2019-11-08 08:54] LABS: Potassium 4.4 mmol/L (3.5-5.1)
--- NOTE | 2019-11-08 08:54 | RAD REPORT ---
EXAM DESCRIPTION: USExtremity Venous Uni Ltd3 8:23 am CLINICAL HISTORY: Right leg swelling. COMPARISON: None. FINDINGS: Right common femoral, superficial femoral, popliteal and right posterior tibial veins are compressible and demonstrate augmentation. Doppler demonstrates good flow. IMPRESSION: No evidence of deep venous thrombosis involving the right lower extremity.
--- NOTE | 2019-11-08 08:54 | RAD REPORT ---
EXAM DESCRIPTION: US - UPPER EXTREMITY VENOUS UNILATE - 11/08/2019 8:23 am CLINICAL HISTORY: Right upper extremity swelling COMPARISON: None. FINDINGS: The right internal jugular, subclavian, brachial, axillary, cephalic, basilic, radial and ulnar veins demonstrate phasic signal. The veins are generally compressible. Doppler demonstrates good flow IMPRESSION: No evidence of thrombus involving the right upper extremity
--- NOTE | 2019-11-08 09:58 | RAD REPORT ---
EXAM DESCRIPTION: CT - Upper Ext Wo Con W/ Mpr - 11/08/2019 9:25 am CLINICAL HISTORY: Right shoulder pain status post fall COMPARISON: None. TECHNIQUE: Computed axial tomography right shoulder obtained with coronal and sagittal reconstructio n All CT scans are performed using dose optimization technique as appropriate and may include automated exposure control or mA/KV adjustment according to patient size. FINDINGS: A comminuted fracture involves the right humeral neck extending into the humeral diaphysis . There is moderate to marked displacement of fracture fragments and angulation present at the fracture site. No dislocation noted Incidental note is made of gallstones. IMPRESSION: Comminuted right humeral fracture
--- NOTE | 2019-11-08 10:34 | ER ---
Nurse's Notes [facility] Name: Lazara Lozano Age: 74 yrs Sex: Female : 1945 Arrival Date: 11/08/2019 Time: 06:45 Bed 14 Private MD: Diagnosis: Displaced comminuted fracture of shaft of humerus, right arm;Dehydration;Urinary tract infection, site not specified Presentation: 11/07 06:57 Chief complaint: Patient's son or daughter states: her right hand got swollen last rr5 night, then today morning her legs became swollen too. she complaints while in the bathroom she almost pass out. Coronavirus screen: Patient denies fever greater than 100.4F, cough, shortness of breath, or difficulty breathing. Proceed with normal triage process. Ebola Screen: Patient negative for fever greater than or equal to 101.5 degrees Fahrenheit, and additional compatible Ebola Virus Disease symptoms Patient denies exposure to infectious person. Patient denies travel to an Ebola-affected area in the 21 days before illness onset. Initial Sepsis Screen: Does the patient meet any 2 criteria? No. Patient's initial sepsis screen is negative. Initial Sepsis Screen: Does the patient have a suspected source of infection? No. Patient's initial sepsis screen is negative. Risk Assessment: Do you want to hurt yourself or someone else? Patient reports no desire to harm self or others. Note she had a history of fall last october 29 2019 they put a splint on her right arm and advised to follow up to dr. pan. Onset of symptoms was November 07, 2019. 06:57 Method Of Arrival: Wheelchair rr5 06:57 Acuity: ISAIAH 3 rr5 06:57 Note CBG checked at home 279 mg/dl. rr5 Triage Assessment: 06:57 General: Appears in no apparent distress. comfortable, Behavior is calm, cooperative, rr5 appropriate for age. 06:57 Pain: Complains of pain in right arm Pain does not radiate. Pain currently is 3 out of rr5 10 on a pain scale. at worst was 8 out of 10 on a pain scale. Quality of pain is described as aching, Pain began gradually, Is intermittent. Neuro: Level of Consciousness is awake, alert, obeys commands, Oriented to person, place, time, situation. Cardiovascular: Capillary refill < 3 seconds Patient's skin is warm and dry. Edema right arm and lower legs. Respiratory: Airway is patent Respiratory effort is even, unlabored, Respiratory pattern is regular, symmetrical. Historical: - Allergies: :57 No Known Allergies; rr5 - Home Meds: 06:57 hydrochlorothiazide 25 mg Oral tab 1 tab once daily [Active]; metformin 500 mg Oral tab rr5 1 tab 2 times per day [Active]; glimepiride 4 mg Oral tab 1 tab [Active]; losartan 50 mg oral tab 1 tab 2 times per day [Active]; pravastatin oral oral [Active]; cranberry oral oral [Active]; Aspirin Oral [Active]; Vitamin C Oral [Active]; multivitamin oral oral [Active]; - PMHx: :57 Hypertension; Diabetes - NIDDM; Hyperlipidemia; rr5 - PSHx: :57 Hysterectomy; Tonsillectomy; D \\T\\ C; rr5 - Immunization history:: Adult Immunizations up to date, Flu vaccine is up to date. - Social history:: Smoking status: unknown Patient/guardian denies using alcohol, street drugs, tobacco products. - Family history:: not pertinent. - Hospitalizations: : No recent hospitalization is reported. Screenin:00 Abuse screen: Denies threats or abuse. Denies injuries from another. Nutritional rr5 screening: No deficits noted. Tuberculosis screening: No symptoms or risk factors identified. Fall Risk Fall in past 12 months (25 points). Gait- Weak (10 pts.). Total Wilkins Fall Scale indicates Low Risk Score (25-44 pts). Fall prevention measures have been instituted. Side Rails Up X 2 Placed close to Nursing Station Frequent Obs/Assesments occuring Family Present and informed to notify staff if they need to leave bedside As available Patient and Family Educated on Fall Prevention Program and strategies. Assessment: 07:38 Reassessment: Patient appears in no apparent distress at this time. Patient and/or ph family updated on plan of care and expected duration. Pain level reassessed. Patient is alert, oriented x 3, equal unlabored respirations, skin warm/dry/pink. Pt taken to US via wheelchair. 08:20 General: Appears in no apparent distress. comfortable, well groomed, Behavior is calm, ph cooperative, appropriate for age, Denies fever, feeling ill. Pain: Complains of pain in right arm. Neuro: Level of Consciousness is awake, alert, obeys commands, Oriented to person, place, time, situation. Neuro: Reports weakness in "all over". Cardiovascular: Capillary refill < 3 seconds in bilateral fingers Edema is 2+ to right upper arm, right elbow, right forearm, right wrist, right hand, right upper thigh, right lower thigh, right knee, right midcalf, right ankle, right foot and right toes. Respiratory: Airway is patent Respiratory effort is even, unlabored, Respiratory pattern is regular, symmetrical. GI: No signs and/or symptoms were reported involving the gastrointestinal system. Derm: Skin is intact, is fragile, is thin, Skin is pink, warm \\T\\ dry. Bruising that is green, yellow, on right arm. Musculoskeletal: Circulation, motion, and sensation intact. 09:30 Reassessment: Patient appears in no apparent distress at this time. Patient and/or ph family updated on plan of care and expected duration. Pain level reassessed. Patient is alert, oriented x 3, equal unlabored respirations, skin warm/dry/pink. 10:30 Reassessment: Patient appears in no apparent distress at this time. Patient and/or ph family updated on plan of care and expected duration. Pain level reassessed. Patient is alert, oriented x 3, equal unlabored respirations, skin warm/dry/pink. Vital Signs: 06:57 BP 136 / 82; Pulse 109; Resp 19; Temp 98.5; Pulse Ox 96% ; Weight 58.97 kg; Height 5 rr5 ft. 3 in. (160.02 cm); Pain 3/10; 08:30 BP 140 / 92; Pulse 92; Resp 18; Pulse Ox 100% on R/A; ph 10:04 BP 152 / 87; Pulse 102; Resp 18; Pulse Ox 95% on R/A; ph 11:10 BP 144 / 82; Pulse 94; Resp 18; Temp 97.9; Pulse Ox 100% on R/A; ph 06:57 Body Mass Index 23.03 (58.97 kg, 160.02 cm) rr5 ED Course: 06:45 Patient arrived in ED. ds1 06:57 Arm band placed on right wrist. rr5 07:00 Braxton Jorge MD is Attending Physician. rn 07:00 Patient has correct armband on for positive identification. Bed in low position. Call rr5 light in reach. Pulse ox on. NIBP on. 07:02 Triage completed. rr5 07:20 Jenny Quinteros, RN is Primary Nurse. ph 07:46 Primary Nurse role handed off by Jenny Quinteros RN bd 08:24 Extremity Venous Uni Ltd US In Process Unspecified. EDMS 08:24 UPPER EXTREMITY VENOUS UNILATE In Process Unspecified. EDMS 08:25 Initial lab(s) drawn, by hi, sent to lab. Inserted saline lock: 20 gauge in left ph antecubital area, using aseptic technique. Blood collected. 08:36 Radiology exam delayed due to lab results not completed at this time. (BUN/Creatinine). sj 08:48 Jenny Quinteros RN is Primary Nurse. ph 09:26 Upper Ext Wo Con W/ Mpr In Process Unspecified. EDMS 10:40 Urine collected: clean catch specimen, cloudy. dh3 11:08 No provider procedures requiring assistance completed. IV discontinued, intact, ph bleeding controlled, No redness/swelling at site. Pressure dressing applied. Administered Medications: 08:30 Drug: NS 0.9% 500 ml Route: IV; Rate: bolus; Site: left antecubital; ph 11:07 Follow up: Response: No adverse reaction; IV Status: Completed infusion; IV Intake: ph 500ml Intake: 11:07 IV: 500ml; Total: 500ml. ph Outcome: 10:31 Discharge ordered by . rn 11:09 Discharged to home via wheelchair, with family. ph 11:09 Condition: good 11:09 Discharge instructions given to patient, family, Instructed on discharge instructions, follow up and referral plans. medication usage, Demonstrated understanding of instructions, follow-up care, medications, Prescriptions given X 1. 11:11 Patient left the ED. ph Addendum: 11/12/2019 07:31 Addendum: Culture Results: Positive urine culture. No further action required. Bacteria e b sensitive to prescribed antibiotic. Signatures: Dispatcher [employer] EDMS Princess Bobby Susan sj Sanford, Veronique ds1 Braxton Jorge MD MD rn Hall, Patricia, RN RN Faye Recio 3 Evelin Fish Raymond, RN RN rr5
--- NOTE | 2019-11-08 10:34 | EDPHYS ---
Physician Documentation [facility] Name: Lazara Lozano Age: 74 yrs Sex: Female : 1945 Arrival Date: 11/08/2019 Time: 06:45 Bed 14 Private MD: ED Physician Braxton Jorge HPI: 11/07 07:20 This 74 yrs old Female presents to ER via Wheelchair with complaints of R Arm rn Swelling, Weakness. 07:20 The patient or guardian complains of pain, swelling. The complaints affect the right rn antecubital area, dorsal aspect of right forearm and right hand. Onset: The symptoms/episode began/occurred. 07:21 Onset: The symptoms/episode began/occurred yesterday. Modifying factors: The symptoms rn are alleviated by nothing. the symptoms are aggravated by nothing. Severity of symptoms: At their worst the symptoms were mild, in the emergency department the symptoms are unchanged. The patient has not experienced similar symptoms in the past. Reports diagnosed with right radial head fracture 10 days ago, already f/u with ortho, reports persistent pain but increased swelling as of yesterday from right elbow to right hand. Also noticed swelling to RLE. No blood thinners, no hx of DVT. . Historical: - Allergies: 06:57 No Known Allergies; rr5 - Home Meds: 06:57 hydrochlorothiazide 25 mg Oral tab 1 tab once daily [Active]; metformin 500 mg Oral tab rr5 1 tab 2 times per day [Active]; glimepiride 4 mg Oral tab 1 tab [Active]; losartan 50 mg oral tab 1 tab 2 times per day [Active]; pravastatin oral oral [Active]; cranberry oral oral [Active]; Aspirin Oral [Active]; Vitamin C Oral [Active]; multivitamin oral oral [Active]; - PMHx: 06:57 Hypertension; Diabetes - NIDDM; Hyperlipidemia; rr5 - PSHx: 06:57 Hysterectomy; Tonsillectomy; D \T\ C; rr5 - Immunization history:: Adult Immunizations up to date, Flu vaccine is up to date. - Social history:: Smoking status: unknown Patient/guardian denies using alcohol, street drugs, tobacco products. - Family history:: not pertinent. - Hospitalizations: : No recent hospitalization is reported. ROS: 07:21 Constitutional: Negative for fever, chills, and weight loss, Eyes: Negative for injury, rn pain, redness, and discharge, Neck: Negative for injury, pain, and swelling, Cardiovascular: Negative for chest pain, palpitations, and edema, Respiratory: Negative for shortness of breath, cough, wheezing, and pleuritic chest pain, Abdomen/GI: Negative for abdominal pain, nausea, vomiting, diarrhea, and constipation, Back: Negative for injury and pain, MS/Extremity: + RUE and RLE swelling and pain Skin: + bruising to right forearm and hand Neuro: Negative for headache, weakness, numbness, tingling, and seizure. Exam: 07:21 Constitutional: This is a well developed, well nourished patient who is awake, alert, rn and in no acute distress. Head/Face: Normocephalic, atraumatic. ENT: dry MM Cardiovascular: Tachycardic, regular, intact distal pulses Respiratory: No increased work of breathing, no retractions or nasal flaring. Abdomen/GI: soft, non-tender Skin: warm, dry, ecchymosis to right hand and forearm. MS/ Extremity: Pulses equal, no cyanosis. Neurovascular intact. No pain with muscular contraction, compartments soft. + swelling and likely hematoma right proximal forearm that is mobile and without warmth. Neuro: Awake and alert, GCS 15, Motor strength 5/5 in all extremities. Sensory grossly intact. Vital Signs: 06:57 BP 136 / 82; Pulse 109; Resp 19; Temp 98.5; Pulse Ox 96% ; Weight 58.97 kg; Height 5 rr5 ft. 3 in. (160.02 cm); Pain 3/10; 08:30 BP 140 / 92; Pulse 92; Resp 18; Pulse Ox 100% on R/A; ph 10:04 BP 152 / 87; Pulse 102; Resp 18; Pulse Ox 95% on R/A; ph 11:10 BP 144 / 82; Pulse 94; Resp 18; Temp 97.9; Pulse Ox 100% on R/A; ph 06:57 Body Mass Index 23.03 (58.97 kg, 160.02 cm) rr5 MDM: 07:00 Patient medically screened. rn 09:06 ED course: Denies sob, blood in stool/dark stool/dizziness or feeling lightheaded.. rn 09:46 ED course: Pt with proximal humerus fracture, unknown to patient, had been told had rn possible radial head hairline fracture, updated patient, and may be the reason for more pronounced swelling than originally thought. . 10:29 Differential diagnosis: closed fracture, hematoma, dehydration, hyperglycemia. Data rn reviewed: vital signs, nurses notes, lab test result(s), EKG, radiologic studies, CT scan, ultrasound, and as a result, I will discharge patient. Counseling: I had a detailed discussion with the patient and/or guardian regarding: the historical points, exam findings, and any diagnostic results supporting the discharge/admit diagnosis, lab results, radiology results, the need for outpatient follow up, to return to the emergency department if symptoms worsen or persist or if there are any questions or concerns that arise at home. Response to treatment: the patient's condition has returned to base line, the patient is now symptom free, and as a result, I will discharge patient. ED course: Neg doppler for RUE/RLE DVT, will dc home with return precautions and ortho f/u. Has sling already. . 11/07 07:15 Order name: CBC with Diff; Complete Time: 08:55 11/07 07:15 Order name: Basic Metabolic Panel; Complete Time: 08:56 11/07 07:15 Order name: Protime (+inr); Complete Time: 08:55 11/07 07:15 Order name: Ptt, Activated; Complete Time: 08:55 11/07 10:56 Order name: Urine Microscopic Only 11/07 10:56 Order name: Urine Culture 11/07 07:15 Order name: Extremity Venous Uni Ltd US; Complete Time: 09:01 11/07 07:15 Order name: IV Start; Complete Time: 08:50 rn 11/07 07:19 Order name: UPPER EXTREMITY VENOUS UNILATE; Complete Time: 09:01 EDIN 11/07 09:04 Order name: Upper Ext Wo Con W/ Mpr; Complete Time: 10:16 EDIN 11/07 10:56 Order name: Urine Dipstick--Ancillary (enter results) 11/07 08:56 Order name: Urine Dipstick-Ancillary (obtain specimen); Complete Time: 10:50 rn Administered Medications: 08:30 Drug: NS 0.9% 500 ml Route: IV; Rate: bolus; Site: left antecubital; ph 11:07 Follow up: Response: No adverse reaction; IV Status: Completed infusion; IV Intake: ph 500ml Disposition: 11/08/19 10:31 Discharged to Home. Impression: Displaced comminuted fracture of shaft of humerus, right arm, Dehydration, Urinary tract infection, site not specified. - Condition is Stable. - Discharge Instructions: Dehydration, Adult, Hematoma, Humerus Fracture Treated With Immobilization, Urinary Tract Infection, Adult, How to Use a Sling. - Prescriptions for Bactrim DS 800- 160 mg Oral Tablet - take 1 tablet by ORAL route every 12 hours for 10 days; 20 tablet. - Medication Reconciliation Form, Thank You Letter, Antibiotic Education, Prescription Opioid Use form. - Follow up: Private Physician; When: 2 - 3 days; Reason: Recheck today's complaints, Re-evaluation by your physician. - Problem is new. - Symptoms are unchanged. Signatures: Dispatcher [employer] EDIN Braxton Jorge MD MD rn Hall, Patricia, RN RN ph Roque, Raymond, RN RN rr5 Corrections: (The following items were deleted from the chart) 07:34 07:21 Constitutional: This is a well developed, well nourished patient who is awake, rn alert, and in no acute distress. Head/Face: Normocephalic, atraumatic. ENT: dry MM Cardiovascular: Tachycardic, regular, intact distal pulses Respiratory: No increased work of breathing, no retractions or nasal flaring. Skin: warm, dry, ecchymosis to right hand and forearm. MS/ Extremity: Pulses equal, no cyanosis. Neurovascular intact. No pain with muscular contraction, compartments soft. + swelling and likely hematoma right proximal forearm that is mobile and without warmth. Neuro: Awake and alert, GCS 15, Motor strength 5/5 in all extremities. Sensory grossly intact. rn 09:04 07:20 Upper Extremity W/ Cont ordered. [facility] EDIN 11:00 10:31 11/08/2019 10:31 Discharged to Home. Impression: Displaced comminuted fracture of rn shaft of humerus, right arm; Dehydration. Condition is Stable. Forms are Medication Reconciliation Form, Thank You Letter, Antibiotic Education, Prescription Opioid Use. Follow up: Private Physician; When: 2 - 3 days; Reason: Recheck today's complaints, Re-evaluation by your physician. Problem is new. Symptoms are unchanged. rn 11:11 11:00 11/08/2019 10:31 Discharged to Home. Impression: Displaced comminuted fracture of ph shaft of humerus, right arm; Dehydration; Urinary tract infection, site not specified. Condition is Stable. Discharge Instructions: Dehydration, Adult, Hematoma, Humerus Fracture Treated With Immobilization, How to Use a Sling, Urinary Tract Infection, Adult. Prescriptions for Bactrim DS 800-160 mg Oral Tablet - take 1 tablet by ORAL route every 12 hours for 10 days; 20 tablet. and Forms are Medication Reconciliation Form, Thank You Letter, Antibiotic Education, Prescription Opioid Use. Follow up: Private Physician; When: 2 - 3 days; Reason: Recheck today's complaints, Re-evaluation by your physician. Problem is new. Symptoms are unchanged. rn
[2019-11-08 11:18] LABS: Urine Bacteria >50 /HPF (<20); Urine Culture Reflex Order NOT NEEDED; Urine RBC <5 /HPF (NONE SEEN)
[2019-11-08 11:19] LABS: Urine Blood TRACE (NEG); Urine Glucose NEGATIVE (NEG); Urine Protein TRACE (NEG)
[2019-11-08 11:25] VITALS: BP 144/82; TEMP 97.9; O2SAT 100
== END 2019-11-08 11:11 | disposition home or self-care (01) ==
LOC: ER 06:43
DX: S42.351A Displaced comminuted fracture of shaft of humerus, right arm, initial encounter for closed fracture (principal); E86.0 Dehydration; N39.0 Urinary tract infection, site not specified; X58.XXXA Exposure to other specified factors, initial encounter; Y93.9 Activity, unspecified; Y92.9 Unspecified place or not applicable; I10 Essential (primary) hypertension; E11.9 Type 2 diabetes mellitus without complications; E78.5 Hyperlipidemia, unspecified
CPT/HCPCS: 96361; 87088; 85025; 87086; 80048; 36415; 85610; 85730; 87077; 87186; 73200; 76377; 93971 ×2; 96360; 99284; J7040; 81003; 81015

== ENCOUNTER 2020-05-09 06:01 | Emergency (ER) | payer OTHER ==
--- OUTSIDE RECORDS SUMMARY | 2020-05-09 06:03 | XMS REPORT | Continuity of Care Document ---
:1945 Author Organization [facility] t Address [address] [place] [address] Care Team Providers Name Role Phone Edu SILVESTRE, L Attending Clinician Payers Payer Name Policy Type Policy Number Effective Date Expiration Date S ource Problems This patient has no known problems. Allergies, Adverse Reactions, Alerts Allergy Allergy Status Severity Reaction(s) Onset Inactive Treating Comm ents Source Name Type Date Date Clinician No Known DA Active U [facility] Allergie 05 Clear s 00:00: Hare 00 [facility] Medications This patient has no known medications. Procedures This patient has no known procedures. Encounters Start End Encounter Admission Attending Care Care Encounter Source Date/Time Date/Time Type Type Clinicians Facility Department ID 2019-12-03 2019-12-03 Office CHERYL Sorensen [id number] 07:52:08 08:03:[address] [facility] [id number] Surgical [id number] Specialti [id number] es [address] [place] Results Test Description Test Time Test Comments Results Result Comments Source GLUBED 2020-01-29 13:00:00 Test Item Value Reference Range Interpretation Comme nts GLUBED (test code = GLUBED) 167 MG/DL 70-110 H Performed by certified power plant operators supervisor at [facility] [id number] 09:47:00 Test Item Value Reference Range Interpretation Comments GLUBED (test code = 149 MG/DL 70-110 H Performe d by certified GLUBED) power plant operators supervisor at [facility] BASIC METABOLIC [id number] 08:32:00 Test Item Value Reference Range Interpretation Comments SODIUM (test code = NA) 136 mEq/L 134-147 N POTASSIUM (test code = 3.4 mEq/L 3.4-5.0 N K) CHLORIDE (test code = 105 mEq/L 100-108 N CL) CARBON DIOXIDE (test 24 mEq/L 21-33 N code = CO2) ANION GAP (test code = 10 0-20 N GAP) GLUCOSE (test code = 153 mg/dL 70-110 H GLU) BLOOD UREA NITROGEN 17 mg/dL 7-18 N (test code = BUN) GLOMERULAR FILTRATION 44.2 70-80 L Units of measure = RATE (test code = GFR) ml/mi n/1.73 m2 CREATININE (test code = 1.2 mg/dL 0.6-1.3 N CREAT) CALCIUM (test code = 9.4 mg/dL 8.0-10.5 N CA) [id number] 22:07:00 Test Item Value Reference Range Interpretation Comments GLUBED (test code = 178 MG/DL 70-110 H Performe d by certified GLUBED) power plant operators supervisor at [facility] [id number] 18:03:00 Test Item Value Reference Range Interpretation Comments GLUBED (test code = 227 MG/DL 70-110 H Performe d by certified GLUBED) power plant operators supervisor at [facility] [id number] 18:03:00 Test Item Value Reference Range Interpretation Comments GLUBED (test code = 206 MG/DL 70-110 H Performe d by certified GLUBED) power plant operators supervisor at [facility] [id number] 16:58:00 Test Item Value Reference Range Interpretation Comments GLUBED (test code = 190 MG/DL 70-110 H Performe d by certified GLUBED) power plant operators supervisor at [facility] [id number] 09:32:00 Test Item Value Reference Range Interpretation Comments GLUBED (test code = 134 MG/DL 70-110 H Performe d by certified GLUBED) power plant operators supervisor at [facility] BASIC METABOLIC [id number] 08:36:00 Test Item Value Reference Range Interpretation Comments SODIUM (test code = NA) 136 mEq/L 134-147 N POTASSIUM (test code = 3.5 mEq/L 3.4-5.0 N K) CHLORIDE (test code = 105 mEq/L 100-108 N CL) CARBON DIOXIDE (test 22 mEq/L 21-33 N code = CO2) ANION GAP (test code = 13 0-20 N GAP) GLUCOSE (test code = 129 mg/dL 70-110 H GLU) BLOOD UREA NITROGEN 20 mg/dL 7-18 H (test code = BUN) GLOMERULAR FILTRATION 40.3 70-80 L Units of measure = RATE (test code = GFR) ml/mi n/1.73 m2 CREATININE (test code = 1.3 mg/dL 0.6-1.3 N CREAT) CALCIUM (test code = 9.3 mg/dL 8.0-10.5 N CA) [id number] 22:49:00 Test Item Value Reference Range Interpretation Comments GLUBED (test code = 190 MG/DL 70-110 H Performe d by certified GLUBED) power plant operators supervisor at [facility] [id number] 16:45:00 Test Item Value Reference Range Interpretation Comments GLUBED (test code = 224 MG/DL 70-110 H Performe d by certified GLUBED) power plant operators supervisor at [facility] [id number] 11:57:00 Test Item Value Reference Range Interpretation Comments GLUBED (test code = 242 MG/DL 70-110 H Performe d by certified GLUBED) power plant operators supervisor at [facility] BASIC METABOLIC [id number] 08:33:00 Test Item Value Reference Range Interpretation Comments SODIUM (test code = NA) 136 mEq/L 134-147 N POTASSIUM (test code = 3.7 mEq/L 3.4-5.0 N K) CHLORIDE (test code = 100 mEq/L 100-108 N CL) CARBON DIOXIDE (test 24 mEq/L 21-33 N code = CO2) ANION GAP (test code = 16 0-20 N GAP) GLUCOSE (test code = 122 mg/dL 70-110 H GLU) BLOOD UREA NITROGEN 23 mg/dL 7-18 H (test code = BUN) GLOMERULAR FILTRATION 37.0 70-80 L Units of measure = RATE (test code = GFR) ml/mi n/1.73 m2 CREATININE (test code = 1.4 mg/dL 0.6-1.3 H CREAT) CALCIUM (test code = 9.7 mg/dL 8.0-10.5 N CA) [id number] 08:13:00 Test Item Value Reference Range Interpretation Comments GLUBED (test code = 153 MG/DL 70-110 H Performe d by certified GLUBED) power plant operators supervisor at [facility] CBC W/AUTO [id number] 07:53:00 Test Item Value Reference Range Interpretation Comments WHITE BLOOD CELL (test code = 8.64 x10 3/uL 4.5-11.0 N WBC) RED BLOOD CELL (test code = 3.03 x10 6/uL 3.54-5.02 L RBC) HEMOGLOBIN (test code = HGB) 9.3 g/dL 11.0-15.0 L HEMATOCRIT (test code = HCT) 28.7 % 33.0-45.0 L MEAN CELL VOLUME (test code = 94.7 fL 81.0-99.0 N MCV) MEAN CELL HGB (test code = MCH) 30.7 pg 27.0-33.0 N MEAN CELL HGB CONCETRATION 32.4 g/dL 33.0-37.0 L (test code = MCHC) RED CELL DISTRIBUTION WIDTH CV 12.6 % 11.5-14.5 N (test code = RDW) RED CELL DISTRIBUTION WIDTH SD 43.8 fL 37.0-54.0 N (test code = RDW-SD) PLATELET COUNT (test code = 209 x10 3/uL 150-400 N PLT) MEAN PLATELET VOLUME (test code 11.3 fL 7.0-9.0 H = MPV) NEUTROPHIL % (test code = NT%) 72.8 % 56.0-77.0 N IMMATURE GRANULOCYTE % (test 0.3 % 0.0-2.0 N code = IG%) LYMPHOCYTE % (test code = LY%) 13.9 % 14.0-32.0 L MONOCYTE % (test code = MO%) 10.3 % 4.8-9.0 H EOSINOPHIL % (test code = EO%) 2.2 % 0.3-3.7 N BASOPHIL % (test code = BA%) 0.5 % 0.0-2.0 N NUCLEATED RBC % (test code = 0.0 % 0-0 N NRBC%) NEUTROPHIL # (test code = NT#) 6.29 x10 3/uL 2.0-7.6 N IMMATURE GRANULOCYTE # (test 0.03 x10 3/uL 0.00-0.03 N code = IG#) LYMPHOCYTE # (test code = LY#) 1.20 x10 3/uL 1.0-3.8 N MONOCYTE # (test code = MO#) 0.89 x10 3/uL 0.1-0.8 H EOSINOPHIL # (test code = EO#) 0.19 x10 3/uL 0.0-0.2 N BASOPHIL # (test code = BA#) 0.04 x10 3/uL 0.0-0.2 N NUCLEATED RBC # (test code = 0.00 x10 3/uL 0.0-0.1 N NRBC#) MANUAL DIFF REQUIRED (test code NO = MDIFF) [id number] 02:43:00 Test Item Value Reference Range Interpretation Comments GLUBED (test code = 133 MG/DL 70-110 H Performe d by certified GLUBED) power plant operators supervisor at [facility] UA RFLX MICR CULT IF [id number] 18:42:00 Test Item Value Reference Range Interpretation Comments UA COLOR (test code = COLU) YELLOW YEL/STRAW UA APPEARANCE (test code = CLEAR CLEAR APPU) UA GLUCOSE DIPSTICK (test code 3+ NEGATIVE A = DGLUU) UA BILIRUBIN DIPSTICK (test NEGATIVE NEGATIVE code = BILU) UA KETONE DIPSTICK (test code = 1+ NEGATIVE A KETU) UA SPECIFIC GRAVITY (test code 1.009 1.005-1.030 N = SGU) UA BLOOD DIPSTICK (test code = NEGATIVE NEGATIVE HERBERTH) UA PH DIPSTICK (test code = 5.0 5.0-7.0 N CHANDNI) UA PROTEIN DIPSTICK (test code NEGATIVE NEGATIVE = PROU) UA UROBILINIOGEN DIPSTICK (test 0.2 mg/dL 0.2-1.0 code = URO) UA NITRITE DIPSTICK (test code NEGATIVE NEGATIVE = SREE) UA LEUKOCYTE ESTERASE DIPSTICK TRACE NEGATIVE A (test code = LEUU) UA WBC (test code = WBCU) 21-50 WBC/HPF 0-3 A UA RBC (test code = RBCU) 0-3 RBC/HPF 0-3 UA WBC NO REFLEX (test code = 21-50 WBC/HPF 0-3 A WBCUCL) UA BACTERIA (test code = BACU) TRACE /HPF NONE SEEN UA SQUAMOUS CELLS (test code = 0-5 /HPF NONE SEEN SQU) Indication for culture: Delirium-if no other srcSpecimen Description: INDWELLING CATH (BARNETT)Cath Status: [id number] 17:29:00 Test Item Value Reference Range Interpretation Comments GLUBED (test code = 265 MG/DL 70-110 H Performe d by certified GLUBED) power plant operators supervisor at [facility] [id number] 12:26:00 Test Item Value Reference Range Interpretation Comments GLUBED (test code = 186 MG/DL 70-110 H Performe d by certified GLUBED) power plant operators supervisor at [facility] [id number] 08:35:00 Test Item Value Reference Range Interpretation Comments GLUBED (test code = 117 MG/DL 70-110 H Performe d by certified GLUBED) power plant operators supervisor at [facility] CBC W/O [id number] 08:13:00 Test Item Value Reference Range Interpretation Comments WHITE BLOOD CELL (test code = 7.10 x10 3/uL 4.5-11.0 N WBC) RED BLOOD CELL (test code = 3.04 x10 6/uL 3.54-5.02 L RBC) HEMOGLOBIN (test code = HGB) 9.3 g/dL 11.0-15.0 L HEMATOCRIT (test code = HCT) 28.3 % 33.0-45.0 L MEAN CELL VOLUME (test code = 93.1 fL 81.0-99.0 N MCV) MEAN CELL HGB (test code = MCH) 30.6 pg 27.0-33.0 N MEAN CELL HGB CONCETRATION 32.9 g/dL 33.0-37.0 L (test code = MCHC) RED CELL DISTRIBUTION WIDTH CV 12.7 % 11.5-14.5 N (test code = RDW) RED CELL DISTRIBUTION WIDTH SD 43.4 fL 37.0-54.0 N (test code = RDW-SD) PLATELET COUNT (test code = 237 x10 3/uL 150-400 N PLT) MEAN PLATELET VOLUME (test code 10.7 fL 7.0-9.0 H = MPV) BASIC METABOLIC [id number] 08:12:00 Test Item Value Reference Range Interpretation Comments SODIUM (test code = NA) 132 mEq/L 134-147 L POTASSIUM (test code = 3.8 mEq/L 3.4-5.0 N K) CHLORIDE (test code = 98 mEq/L 100-108 L CL) CARBON DIOXIDE (test 23 mEq/L 21-33 N code = CO2) ANION GAP (test code = 15 0-20 N GAP) GLUCOSE (test code = 113 mg/dL 70-110 H GLU) BLOOD UREA NITROGEN 30 mg/dL 7-18 H (test code = BUN) GLOMERULAR FILTRATION 29.5 70-80 L Units of measure = RATE (test code = GFR) ml/mi n/1.73 m2 CREATININE (test code = 1.7 mg/dL 0.6-1.3 H CREAT) CALCIUM (test code = 9.6 mg/dL 8.0-10.5 N CA) [id number] 07:11:00 Test Item Value Reference Range Interpretation Comments GLUBED (test code = 242 MG/DL 70-110 H Performe d by certified GLUBED) power plant operators supervisor at [facility] [id number] 07:11:00 Test Item Value Reference Range Interpretation Comments GLUBED (test code = 243 MG/DL 70-110 H Performe d by certified GLUBED) power plant operators supervisor at [facility] [id number] 20:58:00 Test Item Value Reference Range Interpretation Comments GLUBED (test code = 182 MG/DL 70-110 H Performe d by certified GLUBED) power plant operators supervisor at [facility] [id number] 19:09:00 Test Item Value Reference Range Interpretation Comments GLUBED (test code = 168 MG/DL 70-110 H Performe d by certified GLUBED) power plant operators supervisor at [facility] [id number] 08:33:00 Test Item Value Reference Range Interpretation Comments GLUBED (test code = 186 MG/DL 70-110 H Performe d by certified GLUBED) power plant operators supervisor at [facility] CBC W/O [id number] 07:35:00 Test Item Value Reference Range Interpretation Comments WHITE BLOOD CELL (test code = 7.45 x10 3/uL 4.5-11.0 WBC) RED BLOOD CELL (test code = 2.99 x10 6/uL 3.54-5.02 L RBC) HEMOGLOBIN (test code = HGB) 9.0 g/dL 11.0-15.0 L HEMATOCRIT (test code = HCT) 28.2 % 33.0-45.0 L MEAN CELL VOLUME (test code = 94.3 fL 81.0-99.0 N MCV) MEAN CELL HGB (test code = MCH) 30.1 pg 27.0-33.0 N MEAN CELL HGB CONCETRATION 31.9 g/dL 33.0-37.0 L (test code = MCHC) RED CELL DISTRIBUTION WIDTH CV 12.9 % 11.5-14.5 N (test code = RDW) RED CELL DISTRIBUTION WIDTH SD 44.2 fL 37.0-54.0 N (test code = RDW-SD) PLATELET COUNT (test code = 246 x10 3/uL 150-400 N PLT) MEAN PLATELET VOLUME (test code 9.6 fL 7.0-9.0 H = MPV) BASIC METABOLIC [id number] 07:23:00 Test Item Value Reference Range Interpretation Comments SODIUM (test code = NA) 133 mEq/L 134-147 L POTASSIUM (test code = 4.4 mEq/L 3.4-5.0 N K) CHLORIDE (test code = 98 mEq/L 100-108 L CL) CARBON DIOXIDE (test 26 mEq/L 21-33 N code = CO2) ANION GAP (test code = 13 0-20 N GAP) GLUCOSE (test code = 139 mg/dL 70-110 H GLU) BLOOD UREA NITROGEN 33 mg/dL 7-18 H (test code = BUN) GLOMERULAR FILTRATION 24.5 70-80 L Units of measure = RATE (test code = GFR) ml/mi n/1.73 m2 CREATININE (test code = 2.0 mg/dL 0.6-1.3 H CREAT) CALCIUM (test code = 9.3 mg/dL 8.0-10.5 N CA) [id number] 21:04:00 Test Item Value Reference Range Interpretation Comments GLUBED (test code = 191 MG/DL 70-110 H Performe d by certified GLUBED) power plant operators supervisor at [facility] [id number] 17:29:00 Test Item Value Reference Range Interpretation Comments GLUBED (test code = 233 MG/DL 70-110 H Performe d by certified GLUBED) power plant operators supervisor at [facility] [id number] 11:17:00 Test Item Value Reference Range Interpretation Comments GLUBED (test code = 116 MG/DL 70-110 H Performe d by certified GLUBED) power plant operators supervisor at [facility] - XR FLUOROSCOPY 0-60 [id number] 11:17:00 FAX: Nuno Perkins Jr [phone] [place]: St: ADM Name: CATHERINE RATLIFF [facility] : 1945 Age/S: 74/F [address] [place] [address] Unit#: [id number] Loc: [place] [address] Phys: Nuno Polk Jr, MD Acct: [id number] Dis Date: Status: ADM IN PHONE #: [phone] Exam Date: 01/24/2020 1043 FAX #: [phone] Reason: RIGHT HUMERUS FRACTURE EXAMS: CPT CODE: [id number] XR FLUOROSCOPY 0-60 MIN 06145 Intraprocedural fluoroscopy was provided by the Department of Radiology. Any images obtained were interpreted by the surgeon intraoperatively. FLUOROSCOPY TIME: 13.5 seconds REFERENCE AIR KERMA : 0.45 mGy SL: [id number] at 1117 Reported and signed by: Carlyle Penn CC: Nuno Polk Jr, MD Technologist: Crystal Villarreal RTMadeline) Trnscrd Date/Time/By: 01/24/2020 (1112) : By: Pepito Orig Print D/T: S: 01/24/2020 (3526) PAGE 1 Signed [id number] 08:09:00 Test Item Value Reference Range Interpretation Comments GLUBED (test code = 87 MG/DL 70-110 N Performe d by certified GLUBED) power plant operators supervisor at [facility] Novel Coronavirus 2019 [id number] 16:43:00 Test Item Value Reference Range Interpretation Comments Novel Coronavirus 2019 Inhouse (test Negative Negative code = COVNONPUI) - XR CHEST 2 [id number] 16:11:00 FAX: Nuno Perkins Jr [phone] [place]: St: PRE FAX: Francisca Isbell N Name: CATHERINE RATLIFF [facility] : 1945 Age/S: 74/F [address] [place] [address] Unit #: [id number] Loc: [place] [address] Phys: Francisca Isbell CLINICAL ENGINEER Acct: [id number] Dis Date: Status: PRE [facility] PHONE #: [phone] Exam Date: 01/21/2020 1602 FAX #: [phone] Reason: PRE-OP ORIF EXAMS: CPT CODE: [id number] XR CHEST 2 V 22382 EXAM: PA and lateral chest. EXAM DATE: January 21, 2020 CLINICAL HISTORY: PRE-OP ORIF COMPARISON: None Heart size is normal. Atherosclerotic calcifications and tortuosity of the intrathoracic aorta is identified.. Implantable monitoring engineer is identified over the lower left chest region. The lungs appear free of acute disease. Displaced fracture is noted in the proximal right humerus. This finding is not well assessed on this exam. IMPRESSION: 1. No evidence of acute cardiopulmonary disease. 2. Fracture proximal right humerus at 1611 Reported and signed by: Francisca Castellano M.D. CC: Nuno Polk Jr, MD; Francisca Isbell NP Technologist: RT Jose(Stephanie) Trnscrd Date/Time/By: 01/21/2020 (161) : By: WalterCER Orig Print D/T: S: 01/21/2020 (1615) PAGE 1 Signed ReportBASIC METABOLIC [id number] 16:10:00 Test Item Value Reference Range Interpretation Comments SODIUM (test code = NA) 136 mEq/L 134-147 N POTASSIUM (test code = 3.6 mEq/L 3.4-5.0 N K) CHLORIDE (test code = 99 mEq/L 100-108 L CL) CARBON DIOXIDE (test 24 mEq/L 21-33 N code = CO2) ANION GAP (test code = 17 0-20 N GAP) GLUCOSE (test code = 236 mg/dL 70-110 H GLU) BLOOD UREA NITROGEN 24 mg/dL 7-18 H (test code = BUN) GLOMERULAR FILTRATION 29.5 70-80 L Units of measure = RATE (test code = GFR) ml/mi n/1.73 m2 CREATININE (test code = 1.7 mg/dL 0.6-1.3 H CREAT) CALCIUM (test code = 9.4 mg/dL 8.0-10.5 N CA) BASIC METABOLIC [id number] 16:07:00 Test Item Value Reference Range Interpretation Comments SODIUM (test code = NA) 136 mEq/L 134-147 N POTASSIUM (test code = K) 3.6 mEq/L 3.4-5.0 N CHLORIDE (test code = CL) 99 mEq/L 100-108 L CARBON DIOXIDE (test code = CO2) 24 mEq/L 21-33 N ANION GAP (test code = GAP) 17 0-20 N GLUCOSE (test code = GLU) 236 mg/dL 70-110 H BLOOD UREA NITROGEN (test code = 24 mg/dL 7-18 H BUN) GLOMERULAR FILTRATION RATE (test 70-80 code = GFR) CREATININE (test code = CREAT) mg/dL 0.6-1.3 CALCIUM (test code = CA) 9.4 mg/dL 8.0-10.5 N CBC W/AUTO [id number] 15:53:00 Test Item Value Reference Range Interpretation Comments WHITE BLOOD CELL (test code = 4.93 x10 3/uL 4.5-11.0 N WBC) RED BLOOD CELL (test code = 3.13 x10 6/uL 3.54-5.02 L RBC) HEMOGLOBIN (test code = HGB) 9.6 g/dL 11.0-15.0 L HEMATOCRIT (test code = HCT) 29.2 % 33.0-45.0 L MEAN CELL VOLUME (test code = 93.3 fL 81.0-99.0 N MCV) MEAN CELL HGB (test code = MCH) 30.7 pg 27.0-33.0 N MEAN CELL HGB CONCETRATION 32.9 g/dL 33.0-37.0 L (test code = MCHC) RED CELL DISTRIBUTION WIDTH CV 12.7 % 11.5-14.5 N (test code = RDW) RED CELL DISTRIBUTION WIDTH SD 43.8 fL 37.0-54.0 N (test code = RDW-SD) PLATELET COUNT (test code = 280 x10 3/uL 150-400 N PLT) MEAN PLATELET VOLUME (test code 9.3 fL 7.0-9.0 H = MPV) NEUTROPHIL % (test code = NT%) 51.2 % 56.0-77.0 L IMMATURE GRANULOCYTE % (test 0.2 % 0.0-2.0 N code = IG%) LYMPHOCYTE % (test code = LY%) 35.9 % 14.0-32.0 H MONOCYTE % (test code = MO%) 8.5 % 4.8-9.0 N EOSINOPHIL % (test code = EO%) 3.2 % 0.3-3.7 N BASOPHIL % (test code = BA%) 1.0 % 0.0-2.0 N NUCLEATED RBC % (test code = 0.0 % 0-0 N NRBC%) NEUTROPHIL # (test code = NT#) 2.52 x10 3/uL 2.0-7.6 N IMMATURE GRANULOCYTE # (test 0.01 x10 3/uL 0.00-0.03 N code = IG#) LYMPHOCYTE # (test code = LY#) 1.77 x10 3/uL 1.0-3.8 N MONOCYTE # (test code = MO#) 0.42 x10 3/uL 0.1-0.8 N EOSINOPHIL # (test code = EO#) 0.16 x10 3/uL 0.0-0.2 N BASOPHIL # (test code = BA#) 0.05 x10 3/uL 0.0-0.2 N NUCLEATED RBC # (test code = 0.00 x10 3/uL 0.0-0.1 N NRBC#) MANUAL DIFF REQUIRED (test code NO = MDIFF)
[2020-05-09] MEDS ORDERED: ONDANSETRON 4 MG/2 ML VIAL ONE (07:02)
[2020-05-09] MEDS ORDERED: MORPHINE 4 MG/ML SYR ONE ×2 (07:02→08:36)
--- NOTE | 2020-05-09 07:12 | RAD REPORT ---
EXAM DESCRIPTION: CT - CTHCSPWOC - 05/09/2020 6:56 am CLINICAL HISTORY: PAINfall, head and neck trauma, headache, neck pain COMPARISON: No comparisons TECHNIQUE: Axial 5 mm thick images of the head were obtained. Axial 2 mm thick images of the cervic al spine were obtained with sagittal and coronal reconstruction images generated and reviewed. All CT scans are performed using dose optimization technique as appropriate and may include automated exposure control or mA/KV adjustment according to patient size. FINDINGS: No intracranial hemorrhage, mass, edema or acute intracranial finding. No suspicion for ac [place] infarction. No cortical edema or sulcal effacement. Moderate chronic ischemic change seen in the cerebral white matter. Atrophy changes are mild to moderate. 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 Ventricles are in proportion to volume loss. Mastoid air cells are clear. Polyp or focal m ucosal thickening in the right ethmoid air cells, probably chronic. No globe or orbit abnormality see n. Transverse fracture is present through the base the dens extending into the left-side body of C2. Fra cture involves the left-side transverse foramen. There is 2-3 mm of anterior subluxation of the dens and left side of the body fracture fragment. No compromise of the central canal. Dense as normal posi tioning to the intact C1 ring. C1 is normally positioned to the occipital condyles. Remaining cervical height is normal. C4-5 disc space narrowing present. C5-6 disc space narrowing pre sent with a slight 1- 2 mm retrolisthesis. Advanced T2-3 degenerative disc disease and endplate spurr ing present. There is 1.5 mm anterior subluxation of T2 relative to T3. Slight wedging of the T1 body is present. There is a questionable faint fracture line along the super ior body and left-side articular surface. No pathologic bone process. Central canal detail is inhere ntly limited. No paraspinal mass or hematoma. IMPRESSION: Atrophy and chronic ischemic changes are present. No acute intracranial finding. C2 dens fracture is present extending in the left-side body of C2. There is 2-3 mm of anterior sublux ation of the dens. Slight wedging of the T1 body. There is faint lucency in the superior aspect of the body. This is que stionable but not definitive for fracture. Additional significant disc and endplate degenerative changes are present in the cervical spine at C5 -6 and C4-5. Foraminal encroachment changes are present. Negative CT cervical spine examination for acute or significant finding.
--- NOTE | 2020-05-09 08:14 | RAD REPORT ---
EXAM DESCRIPTION: RAD - Femur Right - 05/09/2020 7:43 am CLINICAL HISTORY: PAIN, fall COMPARISON: No comparisons FINDINGS: Transverse fracture is present at the bases femoral neck. Greater trochanter involvement i s suspected. No pathologic component. No AVN or focal femoral head finding identifiable. Bones are os teopenic. Shaft of the femur and condyles are intact. No joint effusion at the knee. Arterial calcifi cations are present. No air or foreign body in the soft tissues. IMPRESSION: Transverse fracture present at the base of the right femoral neck. No pathologic changes . There is possible intertrochanteric or greater trochanter involvement with this fracture. This possible intertrochanteric involvement may alter surgical management and follow-up thin section CT imaging of the right hip may be helpful for further characterization of the fracture.
--- NOTE | 2020-05-09 08:16 | RAD REPORT ---
EXAM DESCRIPTION: RAD - Knee Right 2 View - 05/09/2020 7:43 am CLINICAL HISTORY: PAIN, fall with knee pain COMPARISON: No comparisons FINDINGS: No fracture, dislocation or periosteal reaction.No joint effusion seen. No joint space renetta rowing. No foreign body or soft tissue abnormality. Bones are osteopenic. Arterial tree calcifications are present. IMPRESSION: No acute bone or joint finding.
--- NOTE | 2020-05-09 08:30 | EDPHYS ---
Physician Documentation [facility] Name: Lazara Lozano Age: 74 yrs Sex: Female : 1945 Arrival Date: 05/09/2020 Time: 06:03 Bed 8 Private MD: ED Physician Shon Zamora HPI: 05/09 06:37 This 74 yrs old Female presents to ER via Wheelchair with complaints of Fall kb Injury, Neck Problem. 06:37 Details of fall: The patient fell from an upright position, while walking. Onset: The kb symptoms/episode began/occurred last night, at 21:30. Associated injuries: The patient sustained neck injury, pain, pain with movement, lateral aspect of right thigh and right knee, painful injury. Severity of symptoms: At their worst the symptoms were moderate, in the emergency department the symptoms are unchanged. The patient has not experienced similar symptoms in the past. The patient has not recently seen a physician. Family reports pt fell at approx 2130 last night. States pt has had some right knee pain and felt like it gave out on her causing her to fall. Reports pain to right thigh and neck. Pt was given Tylenol with codeine after the fall and it decreased the pain. This morning pt was having more pain to the neck. Denies LOC, AMS.. Historical: - Allergies: 06:37 No Known Allergies; bb - Home Meds: 06:37 aspirin 81 mg oral chew 1 tab once daily [Active]; metformin 500 mg Oral tab 1 tab 2 bb times per day [Active]; glimepiride 4 mg Oral tab 1 tab twice a day [Active]; pioglitazone 15 mg oral tab 1 tab once daily [Active]; losartan 50 mg Oral tab 1 tab 2 times per day [Active]; pravastatin 40 mg oral tab 1 tab once daily [Active]; escitalopram oxalate 10 mg oral tab 1 tab once daily [Active]; donepezil 10 mg oral tab 1 tab once daily [Active]; hydrochlorothiazide 12.5 mg oral tab 1 tab once daily [Active]; cranberry Oral [Active]; multivitamin Oral [Active]; Vitamin C Oral [Active]; - PMHx: 06:38 Diabetes - NIDDM; Hyperlipidemia; Hypertension; bb - Immunization history: Last tetanus immunization: unknown. - Social history:: Smoking status: unknown. ROS: 07:33 Constitutional: Negative for fever, chills, and weight loss, Cardiovascular: Negative kb for chest pain, palpitations, and edema, Respiratory: Negative for shortness of breath, cough, wheezing, and pleuritic chest pain, Abdomen/GI: Negative for abdominal pain, nausea, vomiting, diarrhea, and constipation, Back: Negative for injury and pain, Skin: Negative for injury, rash, and discoloration, Neuro: Negative for headache, weakness, numbness, tingling, and seizure. 07:33 Neck: Positive for pain with movement, pain at rest, of the neck. 07:33 MS/extremity: Positive for pain, tenderness, of the right quadriceps and right knee. Exam: 07:33 Constitutional: This is a well developed, well nourished patient who is awake, alert, kb and in no acute distress. Head/Face: Normocephalic, atraumatic. Neck: Trachea midline, no thyromegaly or masses palpated, and no cervical lymphadenopathy. Supple, full range of motion without nuchal rigidity, or vertebral point tenderness. No Meningismus. Chest/axilla: Normal chest wall appearance and motion. Nontender with no deformity. No lesions are appreciated. Cardiovascular: Regular rate and rhythm with a normal S1 and S2. No gallops, murmurs, or rubs. Normal PMI, no JVD. No pulse deficits. Respiratory: Lungs have equal breath sounds bilaterally, clear to auscultation and percussion. No rales, rhonchi or wheezes noted. No increased work of breathing, no retractions or nasal flaring. Abdomen/GI: Soft, non-tender, with normal bowel sounds. No distension or tympany. No guarding or rebound. No evidence of tenderness throughout. Skin: Warm, dry with normal turgor. Normal color with no rashes, no lesions, and no evidence of cellulitis. Neuro: Awake and alert, GCS 15, oriented to person, place, time, and situation. Cranial nerves II-XII grossly intact. Motor strength 5/5 in all extremities. Sensory grossly intact. Cerebellar exam normal. Normal gait. 07:33 Musculoskeletal/extremity: Extremities: grossly normal except: noted in the right quadriceps and right knee: pain, tenderness, ROM: limited passive range of motion due to pain, in the right quadriceps and right knee, Circulation is intact in all extremities. Sensation intact. Vital Signs: 06:28 BP 182 / 82; Pulse 84; Resp 16 S; Temp 98.1(O); Pulse Ox 97% on R/A; Weight 56.7 kg bb (R); Height 5 ft. 3 in. (160.02 cm) (R); Pain 10/10; 07:00 BP 168 / 88; Pulse 80; Resp 16; Temp 98(TE); Pulse Ox 97% ; sv 08:00 BP 178 / 89; Pulse 80; Resp 17; Temp 98; Pulse Ox 99% on R/A; sv 09:00 Pain 2/10; sv 06:28 Body Mass Index 22.14 (56.70 kg, 160.02 cm) bb [place] Coma Score: 06:28 Eye Response: spontaneous(4). Verbal Response: oriented(5). Motor Response: obeys bb commands(6). Total: 15. 06:33 Eye Response: spontaneous(4). Verbal Response: oriented(5). Motor Response: obeys rv commands(6). Total: 15. 07:00 Eye Response: spontaneous(4). Verbal Response: oriented(5). Motor Response: obeys sv commands(6). Total: 15. 08:00 Eye Response: spontaneous(4). Verbal Response: oriented(5). Motor Response: obeys sv commands(6). Total: 15. Trauma Score (Adult): 06:28 Eye Response: spontaneous(1); Verbal Response: oriented(1); Motor Response: obeys bb commands(2); Systolic BP: > 89 mm Hg(4); Respiratory Rate: 10 to 29 per min(4); [place] Score: 15; Trauma Score: 12 06:33 Eye Response: spontaneous(1); Verbal Response: oriented(1); Motor Response: obeys rv commands(2); Systolic BP: > 89 mm Hg(4); Respiratory Rate: 10 to 29 per min(4); [place] Score: 15; Trauma Score: 12 07:00 Eye Response: spontaneous(1); Verbal Response: oriented(1); Motor Response: obeys sv commands(2); Systolic BP: > 89 mm Hg(4); Respiratory Rate: 10 to 29 per min(4); [place] Score: 15; Trauma Score: 12 08:00 Eye Response: spontaneous(1); Verbal Response: oriented(1); Motor Response: obeys sv commands(2); Systolic BP: > 89 mm Hg(4); Respiratory Rate: 10 to 29 per min(4); [place] Score: 15; Trauma Score: 12 MDM: 06:32 Patient medically screened. kb 06:40 Data reviewed: vital signs, nurses notes. Data interpreted: Pulse oximetry: on room air kb is 97 %. Interpretation: normal. 07:34 ED course: Pt given pain medication prior to palpation of neck. Pt reports pain in neck kb is resolved after medication, but she did have tenderness this morning. Normal sensation and strength in all extremities. Pt has pain on passive ROM of right knee and into upper leg. No pain on palpation or movement of hip. . 08:27 Counseling: I had a detailed discussion with the patient and/or guardian regarding: the kb historical points, exam findings, and any diagnostic results supporting the discharge/admit diagnosis, radiology results, the need to transfer to another facility, for higher level of care, [facility] does not immediately have the required specialist. 08:43 ED course: PT accepted for transfer without consult. kb 05/09 06:36 Order name: CT Head C Spine; Complete Time: 07:16 tt3 05/09 06:37 Order name: Femur Right XRAY; Complete Time: 08:16 kb 05/09 07:42 Order name: Knee Right 2 View; Complete Time: 08:20 EDMS 05/09 06:47 Order name: IV Start; Complete Time: 07:07 kb Administered Medications: 07:07 Drug: morphine 4 mg {Note: rass 0.} Route: IVP; Site: left antecubital; rv 08:00 Follow up: Response: No adverse reaction; Pain is decreased; RASS: Alert and Calm (0) sv 07:07 Drug: Zofran (Ondansetron) 4 mg Route: IVP; Site: left antecubital; rv 08:00 Follow up: Response: No adverse reaction sv 08:33 Drug: morphine 4 mg {Note: rass0.} Route: IVP; Site: left antecubital; sv 09:00 Follow up: Pain 2/10 Adult; Response: No adverse reaction; RASS: Drowsy (-1) sv Disposition: 05/09/20 08:29 Transfer ordered to [facility]. Diagnosis are Transverse fracture of right femoral neck, C2 dens fracture. - Reason for transfer: Higher level of care. - Accepting physician is Dr Reina. - Condition is Stable. - Problem is new. - Symptoms are unchanged. Addendum: 05/12/2020 17:08 Co-signature as Attending Physician, Shon Zamora MD I agree with the assessment and t w4 plan of care. Signatures: Dispatcher [employer] EDAR Kayla Krueger, APPAREL EMBROIDERY DIGITIZER-C APPAREL EMBROIDERY DIGITIZER-Ckb Jeri Jay, RN RN sv Parisa Quispe, RN RN bb Shon Zamora MD MD tw4 Rickey Ann, RN RN rv Corrections: (The following items were deleted from the chart) 05/09 07:36 06:37 Family reports pt fell at approx 2130 last night. States pt has had some right kb knee pain and felt like it gave out on her causing her to fall. Reports pain to right thigh and neck. Pt was given Tylenol with codeine after the fall and it decreased the pain. This morning pt was having more pain to the neck. . kb 07:42 06:46 Knee Right 3 View+RAD.RAD.BRZ ordered. [facility] EDMS 08:43 08:29 05/09/2020 08:29 Transfer ordered to [facility]. Diagnosis is kb Transverse fracture of right femoral neck; C2 dens fracture. Reason for transfer: Higher level of care. Accepting physician is Jacky. Condition is Stable. Problem is new. Symptoms are unchanged. kb 10:53 08:43 05/09/2020 08:29 Transfer ordered to [facility]. Diagnosis is sv Transverse fracture of right femoral neck; C2 dens fracture. Reason for transfer: Higher level of care. Accepting physician is Dr Reina. Condition is Stable. Problem is new. Symptoms are unchanged. kb
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
[2020-05-09 11:08] VITALS: TEMP 98
[2020-05-09 11:09] VITALS: BP 178/89; O2SAT 99
== END 2020-05-09 10:53 | disposition short-term general hospital (02) ==
LOC: ER 06:01
DX: S12.110A Anterior displaced Type II dens fracture, initial encounter for closed fracture (principal); S72.091A Other fracture of head and neck of right femur, initial encounter for closed fracture; W19.XXXA Unspecified fall, initial encounter; Y93.01 Activity, walking, marching and hiking; Y92.9 Unspecified place or not applicable; Z79.82 Long term (current) use of aspirin; I10 Essential (primary) hypertension; E78.5 Hyperlipidemia, unspecified; E11.9 Type 2 diabetes mellitus without complications
CPT/HCPCS: 70450; 72125; 73560; 73552; 96375; 96374; 99285; J2405; G0390

== ENCOUNTER 2020-09-09 15:28 | Observation (INO) | payer OTHER ==
--- OUTSIDE RECORDS SUMMARY | 2020-09-09 16:22 | XMS REPORT | Continuity of Care Document ---
:1945 Author Organization [facility] t Address [address] [place] [address] Care Team Providers Name Role Phone JACKSON Attending Clinician Unavailable Doctor Unassigned, Name Attending Clinician Unavailable Juan Cerna Attending Clinician Payers Payer Name Policy Type Policy Number Effective Date Expiration Date S ource Problems Condition Condition Condition Status Onset Resolution Last Treating Co mments Source Name Details Category Date Date Treatment Clinician Date Pain of Pain of Problem Active [facility] right right ity of femur femur [place] [facility] Status Status Problem Active [facility] post right post right it y of hip hip [place] [facility] ys[facility] t t ans Allergies, Adverse Reactions, Alerts Allergy Allergy Status Severity Reaction(s) Onset Inactive Treating Comm ents Source Name Type Date Date Clinician No Known DA Active [facility] Allergie 01-20 Clear s 00:00: Hare 00 [facility] Medications This patient has no known medications. Procedures Procedure Date / Time Performed Performing Clinician Sourc e [U] XRAY HIP 2020-06-20 00:00:00 [facility] [place] UNILATERAL MIN 2 VWS Physicians RIGHT [id number] Hip 2/3 views uni DX 2020-06-20 00:00:00 [facility] Physicians [U] XRAY HIP 2020-05-31 00:00:00 [facility] UNILATERAL MIN 2 VWS Physicians RIGHT [id number] Post Op Promis 29 2020-05-30 00:00:00 [facility] Survey Physicians Plan of Care Planned Activity Planned Date Details Comments Source Future Appointment 2021-01-30 Francie GUTIERREZ [facility] 13:00:00 [facility] Physicians Encounters Start End Encounter Admission Attending Care Care Encounter Source Date/Time Date/Time Type Type Clinicians Facility Department ID 2020-08-01 2020-08-01 ALBA [facility] [id number] [facility] 10:00:00 10:00:00 t; Francie GUTIERREZ at [facility] MATT Orthopedic Physi ci M.DJavier and [facility], POD 3 2020-06-20 2020-06-20 Abilio JACKSON [facility] Orthopedics [id number] [facility] 08:30:00 08:30:00 t; Francie GUTIERREZ at [facility] MATT Orthopedic Physi ci M.DJavier and [facility] 2020-06-20 2020-06-20 Orders Doctor VASQUEZ [id number] 00:00:00 00:00:00 Only Unassigned, TRACY [id number] [facility] [id number] 2020-06-15 2020-06-15 Office CHERYL Morales [id number] 14:51:12 15:39:19 Visit [facility] [id number] Surgical [id number] Specialti [id number] [place] 2020-05-24 2020-05-24 Appointalyssa JACKSON [facility] Orthopedics 69 [id number] Univers 15:15:00 15:15:00 t; Francie GUTIERREZ at [facility] MATT Orthopedic Physi ci M.DJavier and [facility] Results Test Description Test Time Test Comments Results Result Comments Source Post Op Promis 29 Survey 2020-07-17 08:41:11 Test Item Value Reference Range Interpretation Comme nts Pain Interference: (test code = Pain Interference:) 56 1 N Pain Intensity: (test code = Pain Intensity:) 42.6 1 N Physical Function: (test code = Physical Function:) 23.9 1 N Satisfaction Role: (test code = Satisfaction Role:) 45.8 1 N [facility] [id number] 13:00:00 Test Item Value Reference Range Interpretation Comments GLUBED (test code = 167 MG/DL 70-110 H Performe d by certified GLUBED) skidder operator at [facility] [id number] 09:47:00 Test Item Value Reference Range Interpretation Comments GLUBED (test code = 149 MG/DL 70-110 H Performe d by certified GLUBED) skidder operator at [facility] BASIC METABOLIC [id number] 08:32:00 Test Item Value Reference Range Interpretation [...] code = 9.4 mg/dL 8.0-10.5 N CA) [id number] 22:07:00 Test Item Value Reference Range Interpretation Comments GLUBED (test code = 178 MG/DL 70-110 H Performe d by certified GLUBED) skidder operator at [facility] [id number] 18:03:00 Test Item Value Reference Range Interpretation Comments GLUBED (test code = 227 MG/DL 70-110 H Performe d by certified GLUBED) skidder operator at [facility] [id number] 18:03:00 Test Item Value Reference Range Interpretation Comments GLUBED (test code = 206 MG/DL 70-110 H Performe d by certified GLUBED) skidder operator at [facility] [id number] 16:58:00 Test Item Value Reference Range Interpretation Comments GLUBED (test code = 190 MG/DL 70-110 H Performe d by certified GLUBED) skidder operator at [facility] [id number] 09:32:00 Test Item Value Reference Range Interpretation Comments GLUBED (test code = 134 MG/DL 70-110 H Performe d by certified GLUBED) skidder operator at [facility] BASIC METABOLIC [id number] 08:36:00 Test Item Value Reference Range Interpretation [...] code = 9.3 mg/dL 8.0-10.5 N CA) [id number] 22:49:00 Test Item Value Reference Range Interpretation Comments GLUBED (test code = 190 MG/DL 70-110 H Performe d by certified GLUBED) skidder operator at [facility] [id number] 16:45:00 Test Item Value Reference Range Interpretation Comments GLUBED (test code = 224 MG/DL 70-110 H Performe d by certified GLUBED) skidder operator at [facility] [id number] 11:57:00 Test Item Value Reference Range Interpretation Comments GLUBED (test code = 242 MG/DL 70-110 H Performe d by certified GLUBED) skidder operator at [facility] BASIC METABOLIC [id number] 08:33:00 Test Item Value Reference Range Interpretation [...] code = 9.7 mg/dL 8.0-10.5 N CA) [id number] 08:13:00 Test Item Value Reference Range Interpretation Comments GLUBED (test code = 153 MG/DL 70-110 H Performe d by certified GLUBED) skidder operator at [facility] CBC W/AUTO [id number] 07:53:00 Test Item Value Reference Range Interpretation [...] DIFF REQUIRED (test code NO = MDIFF) [id number] 02:43:00 Test Item Value Reference Range Interpretation Comments GLUBED (test code = 133 MG/DL 70-110 H Performe d by certified GLUBED) skidder operator at [facility] UA RFLX MICR CULT IF [id number] 18:42:00 Test Item Value Reference Range Interpretation [...] other srcSpecimen Description: INDWELLING CATH (BARNETT)Cath Status: [id number] 17:29:00 Test Item Value Reference Range Interpretation Comments GLUBED (test code = 265 MG/DL 70-110 H Performe d by certified GLUBED) skidder operator at [facility] [id number] 12:26:00 Test Item Value Reference Range Interpretation Comments GLUBED (test code = 186 MG/DL 70-110 H Performe d by certified GLUBED) skidder operator at [facility] [id number] 08:35:00 Test Item Value Reference Range Interpretation Comments GLUBED (test code = 117 MG/DL 70-110 H Performe d by certified GLUBED) skidder operator at [facility] CBC W/O [id number] 08:13:00 Test Item Value Reference Range Interpretation [...] fL 7.0-9.0 H = MPV) BASIC METABOLIC [id number] 08:12:00 Test Item Value Reference Range Interpretation [...] code = 9.6 mg/dL 8.0-10.5 N CA) [id number] 07:11:00 Test Item Value Reference Range Interpretation Comments GLUBED (test code = 242 MG/DL 70-110 H Performe d by certified GLUBED) skidder operator at [facility] [id number] 07:11:00 Test Item Value Reference Range Interpretation Comments GLUBED (test code = 243 MG/DL 70-110 H Performe d by certified GLUBED) skidder operator at [facility] [id number] 20:58:00 Test Item Value Reference Range Interpretation Comments GLUBED (test code = 182 MG/DL 70-110 H Performe d by certified GLUBED) skidder operator at [facility] [id number] 19:09:00 Test Item Value Reference Range Interpretation Comments GLUBED (test code = 168 MG/DL 70-110 H Performe d by certified GLUBED) skidder operator at [facility] [id number] 08:33:00 Test Item Value Reference Range Interpretation Comments GLUBED (test code = 186 MG/DL 70-110 H Performe d by certified GLUBED) skidder operator at [facility] CBC W/O [id number] 07:35:00 Test Item Value Reference Range Interpretation [...] fL 7.0-9.0 H = MPV) BASIC METABOLIC [id number] 07:23:00 Test Item Value Reference Range Interpretation [...] code = 9.3 mg/dL 8.0-10.5 N CA) [id number] 21:04:00 Test Item Value Reference Range Interpretation Comments GLUBED (test code = 191 MG/DL 70-110 H Performe d by certified GLUBED) skidder operator at [facility] [id number] 17:29:00 Test Item Value Reference Range Interpretation Comments GLUBED (test code = 233 MG/DL 70-110 H Performe d by certified GLUBED) skidder operator at [facility] [id number] 11:17:00 Test Item Value Reference Range Interpretation Comments GLUBED (test code = 116 MG/DL 70-110 H Performe d by certified GLUBED) skidder operator at [facility] - XR FLUOROSCOPY 0-60 [id number] 11:17:00 FAX: Nuno Perkins Jr [phone] [place]: St: ADM Name: CATHERINE RATLIFF [facility] : 1945 Age/S: 74/F [address] [place] [address] Unit#: [id number] Loc: [place] [address] Phys: Nuno Polk Jr, MD Acct: [id number] Dis Date: Status: ADM IN PHONE #: [phone] Exam Date: 01/24/2020 104 FAX #: [phone] Reason: RIGHT HUMERUS FRACTURE EXAMS: CPT CODE: [id number] XR FLUOROSCOPY 0-60 MIN 19083 Intraprocedural fluoroscopy was provided by the Department of Radiology. Any images obtained were interpreted by the surgeon intraoperatively. FLUOROSCOPY TIME: 13.5 seconds REFERENCE AIR KERMA : 0.45 mGy SL: [id number] at 1117 Reported and signed by: Sonny Driscoll M.D. CC: Nuno Polk Jr, MD Technologist: RT Lan(R) Trnscrd Date/Time/By: 01/24/2020 (1117) : By: Pepito Orig Print D/T: S: 01/24/2020 (1120) PAGE 1 Signed [id number] 08:09:00 Test Item Value Reference Range Interpretation Comments GLUBED (test code = 87 MG/DL 70-110 N Performe d by certified GLUBED) skidder operator at [facility] Novel Coronavirus 2019 [id number] 16:43:00 Test Item Value Reference Range Interpretation Comments Novel Coronavirus 2019 Inhouse (test Negative Negative code = COVNONPUI) - XR CHEST 2 [id number] 16:11:00 FAX: Nuno Perkins Jr [phone] [place]: St: PRE FAX: Francisca Isbell Name: CATHERINE RATLIFF [facility] : 1945 Age/S: 74/F [address] [place] [address] Unit #: [id number] Loc: [facility] OSMAN [address] Phys: Francisca Isbell NP Acct: Kelvin [id number] Dis Date: Status: PRE SDC PHONE #: [phone] Exam Date: 01/21/2020 1602 FAX #: [phone] Reason: PRE-OP ORIF EXAMS: CPT CODE: [id number] XR CHEST 2 V 55071 EXAM: PA andlateral chest. EXAM DATE: January 21, 2020 CLINICAL HISTORY: PRE-OP ORIF COMPARISON: None Heart size is normal. Atherosclerotic calcifications and tortuosity of the intrathoracic aorta is identified.. Implantable manager monitoring is identified over the lower left chest [...] Polk Jr, MD; Francisca Isbell NP Technologist: YUKI Garcia) Trnmarion Date/Time/By: 01/21/2020 (559) : By: WalterCER Orig Print D/T: S: 01/21/2020 (2019) PAGE 1 Signed ReportBASIC METABOLIC [id number] 16:10:00 Test Item Value Reference Range Interpretation [...] 9.4 mg/dL 8.0-10.5 N CA) BASIC METABOLIC [id number] 16:07:00 Test Item Value Reference Range Interpretation [...] CA) 9.4 mg/dL 8.0-10.5 N CBC W/AUTO [id number] 15:53:00 Test Item Value Reference Range Interpretation [...]
--- OUTSIDE RECORDS SUMMARY | 2020-09-09 16:22 | XMS REPORT | Summary of Care ---
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 Orthopaedic Leonid Morales H istory of total right Surgery- [place] PAC hip replacement [address], [address] (Primary Dx) [address] [place] [address] [place], [place] [phone] Allergies No Known Allergiesdocumented as of this encounter (statuses as of 06/15/2020) Medications Medication Sig Dispensed Refills Start Date End Date Status glimepiride 4 mg tablet TAKE 1 TABLET BY 0 0 Active MOUTH TWICE DAILY FOR 90 DAYS losartan 50 mg tablet 0 10/02/2019 Active pioglitazone 15 mg 0 10/02/2019 Active tablet sulfamethoxazole-trimet TAKE 1 TABLET BY 0 0 Active hoprim 800-160 mg per MOUTH EVERY 12 tablet HOURS FOR 10 DAYS documented as of this encounter (statuses as of 06/15/2020) Active Problems Not on filedocumented as of this encounter (statuses as of 06/15/2020) Social History Tobacco Use Types Packs/Day Years Used Date Never Smoker Smokeless Tobacco: Never Used Alcohol Use Drinks/Week oz/Week Comments Never Alcohol Habits Answer Date Recorded How often do you have a drink containing alcohol? Never 01/14/2020 How many drinks containing alcohol do you have on a typical Not asked day when you are drinking? How often do you have six or more drinks on one occasion? No t asked Sex Assigned at Date Recorded Not on file COVID-19 Exposure Response Date Recorded In the last month, have you been in contact with No / Unsure 06/15/2020 2:55 PM CDT someone who was confirmed or suspected to have Coronavirus / COVID-19? documented as of this encounter Last Filed Vital Signs Vital Sign Reading Time Taken Comments Blood Pressure - - Pulse - - Temperature - - Respiratory Rate - - Oxygen Saturation - - Inhaled Oxygen Concentration - - Weight 59 kg (130 lb) 06/15/2020 2:58 PM CDT Height 157.5 cm (5' 2") 06/15/2020 2:58 PM CDT Body Mass Index 23.78 06/15/2020 2:58 PM CDT documented in this encounter Progress Notes Leonid Morales S, PAC - 06/15/2020 2:45 PM CDT Cc: Chief Complaint Patient presents with Hip Pain THR RT 05/10/2020 - 1st post op Daughter reports this is patient's 1st post-op from a THR on 05/10/2020. Performed by a doctor at [facility]. Arrived in wheelchair. Oj remain intact. Films from [facility]. At [facility] for PT. Halle Ritter 06/15/2020 3:01 PM Lazara Lozano is a 74 year old female. For follow-up on total hip replacement that was performed for hip fracture by [facility] [place] [facility].She is staying in [facility]. She missed her 2 week follow-up appointment and is here one month from the date of surgery with her oj still in from the original surgery. They attempted to take her to her follow-up appointment but it was too far to make it to [facility] from [facility]. Allergies Lazara has No Known Allergies. Medications Outpatient Medications Prior to Visit Medication Sig Dispense Refill glimepiride 4 mg tablet TAKE 1 TABLET BY MOUTH TWICE DAILY FOR 90 DAYS losartan 50 mg tablet pioglitazone 15 mg tablet sulfamethoxazole-trimethoprim 800-160 mg per tablet TAKE 1 TABLET BY MOUTH EVERY 12 HOURS FOR 10DAYS No facility-administered medications prior to visit. Histories History reviewed. No pertinent past medical history. History reviewed. No pertinent surgical history. Social History Socioeconomic History Marital status: Spouse name: Not on file Number of children: Not on file Years of education: Not on file Highest education level: Not on file Occupational History Not on file Social Needs Financial resource strain: Not on file Food insecurity Worry: Not on file Inability: Not on file Transportation needs Medical: Not on file Non-medical: Not on file Tobacco Use Smoking status: Never Smoker Smokeless tobacco: Never Used Substance and Sexual Activity Alcohol use: Never Frequency: Never Drug use: Not on file Sexual activity: Not on file Lifestyle Physical activity Days per week: Not on file Minutes per session: Not on file Stress: Not on file Relationships Social connections Talks on phone: Not on file Gets together: Not on file Attends yarsani service: Not on file Active member of club or organization: Not on file Attends meetings of clubs or organizations: Not on file Relationship status: Not on file Intimate partner violence Fear of current or ex partner: Not on file Emotionally abused: Not on file Physically abused: Not on file Forced sexual activity: Not on file Other Topics Concern Not on file Social History Narrative Not on file History reviewed. No pertinent family history. Review of Systems Eyes: Negative. Respiratory: Negative. Cardiovascular: Negative. Gastrointestinal: Negative. Genitourinary: Negative. Musculoskeletal: Positive for gait problem and joint swelling. Psychiatric/Behavioral: Negative. Endocrine: Endocrine negative Vital Signs Ht 62" (157.5 cm) | Wt 59 kg (130 lb) | BMI 23.78 kg/m Physical Exam Musculoskeletal: Comments: Physical Exam Constitutional: oriented to person, place, and time. He is wheelchair-bound and came in recumbent yumi wheelchair appears well-developed and well-nourished. HENT: Head: Normocephalic and atraumatic. Right Ear: External ear normal. Left Ear: External ear normal. Eyes: Conjunctivae are normal. Neck: Normal range of motion. No strabismus Neck supple. Cardiovascular: Normal rate and regular rhythm. Pulmonary/Chest: Normal respiratory rate equal chest rise and fall in no apparent distress Abdominal: Abdomen nondistended nontender Neurological: alert and oriented to person, place, and time. No asymmetry Skin: Skin is warm and dry. Psychiatric: normal mood and affect. behavior is normal. Judgment and thought content normal. Nursing note and vitals reviewed. Wound is well approximated there is no erythema edema or ecchymosis there is no drainage Films from [facility] Conclusion: no acute osseous abnormality. Status post hip replacement. Recommend close interval follow-up is symptoms continue to persist or progress to exclude a subtle or occult fracture which may bemore apparent on follow-up evaluation. Electronically signed by Billy Benavides M.D. She arrived with x-rays from [facility] there is a total hip replacement the cup is not well seated there were 2 screws there is a stem there are multiple fragments near the greater trochanter the stem is cemented and cabled Assessment/Plan At his post-total hip replacement Trays were reviewed by Dr. Sorensen this was a difficult surgery at this point we would not recommend weightbearing on this fracture I'm going to have them stayed nonweightbearing another 2 weeks but Icalled his practice Dr. Vieira and left a message for them to direct the management of this case remove the oj for them today. documented in this encounter Plan of Treatment Health Maintenance Due Date Last Done Comments HEPATITIS C (HCV) SCREEN 1945 DTaP,Tdap,and Td Vaccines (1 - Tdap) 1966 Breast Cancer Screening (MAMMOGRAM) 1987 COLON CANCER SCREENING ANNUAL FIT/FOBT 1997 COLON CANCER SCREENING FIT DNA EVERY 3 YEARS 1997 COLON CANCER SCREENING SIGMOIDOSCOPY EVERY 5 YEARS 1997 COLONOSCOPY 1997 Colorectal Cancer Screening 1997 Zoster Recombinant Vaccine (SHINGRIX) (1 of 2) 1997 Medicare Wellness Visit 2012 Osteoporosis Screening 2012 PNEUMOCOCCAL VACCINES 65+ (1 of 1 - PPSV23) 2012 INFLUENZA VACCINE (#1) 2020 Depression Screening 12/02/2020 12/03/2019 documented as of this encounter Results Not on filedocumented in this encounter Visit Diagnoses Diagnosis History of total right hip replacement - Primary documented in this encounter Insurance Payer Benefit Plan / Subscriber ID Effective Dates Phone Addre ss Type Group [employer] [id number] 2019-Present Medicare Adv spring HMO documented as of this encounter
--- OUTSIDE RECORDS SUMMARY | 2020-09-09 16:23 | XMS REPORT | Summary of Care ---
:1945 Author Name Magdiel Avina Address Unavailable Unavailable , Care Team Providers Name Role Phone RENETTA Marmolejo Unavailable Unavailable EMY SILVESTRE Unavailable Unavailable RENETTA SILVESTRE Unavailable Unavailable Functional Status Name Dates Details Functional status health issues are not documented Status: Name Dates Details Cognitive status health issues are not documented Status: Problems Name Dates Details Pain of right femur (733.90, M89.8X5) St atus: Active Status post right hip replacement (V43.64, Z96.641) Status: Active Medications Name Dates Details Medications not documented Allergies and Adverse Reactions Name Dates Details Allergy history not documented Status: Procedures Procedure Dates Details Post Op Promis 29 Survey Date: 30-May-2020 [U] XRAY HIP UNILATERAL MIN 2 VWS RIGHT [id number] Date: 20-Jun-20 20 Hip 2/3 views uni DX Date: 20-Jun-2020 Immunization Name Dates Details Immunizations not documented Social History Name Dates Details Tobacco smoking consumption unknown (finding) Vital Signs Date Test Result Details No Known Vitals to report Results Date Description Value Details Results not documented Plan of Care Name Dates Details Planned Observations Planned Goals not documented Planned Encounters Appointment; MATT JACKSON M.D. On: 01-Aug-2020 13:0 0 Interventions Provided Labs/Procedures/Imaging[U] XRAY HIP UNILATERAL MIN 2 VWS RIGHT [id number]; To Be Done: 20 Jun 2020Hip 2/3 views uni DX; To Be Done: 20 Jun 2020PlanPatient Education/Instructions: Patient education and reassurance was provided for better understanding of the diagnosis and treatment plan. An opportunity to ask questions was provided. A gradual return to normal physical activities as tolerated was recommended. Understanding was acknowledged. A home exercise program was recommended to reduce symptoms and to improve/restore function. Understanding was acknowledged. Instructions were provided to view the [facility] patient information website ([email or web address]) and [facility] website ([email or web address]) for additional information. X-ray images/reports were reviewed. Findings were discussed in detail. Weightbearing status: full weight bearing as tolerated. Orders: Physical Therapy Follow Up: Return to the clinic in 6 weeks or as needed. Instructions Name Dates Details Instructions not documented Encounters Appointment; MATT JACKSON M.D. On: 20-Jun-2020 8:30 Encounter Diagnosis: Problem not documented
--- OUTSIDE RECORDS SUMMARY | 2020-09-09 16:23 | XMS REPORT | Summary of Care ---
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 Leonid Morales, Leonid Morales, LIBRARY SERVICES DEAN / Procedures CONSULT/REFERRAL ORTHOPAEDIC SURGERY NEW VISIT (FIRST TIME) PAC PAC Orthopedic Surgery [address] [place] [phone] Phone: Fax: Encounter Details Date Type Department Care Team Description 06/15/2020 Office Visit [facility] Orthopaedic Leonid Morales H istory of total right Surgery- [place] PAC hip replacement [address], [address] (Primary Dx) [address] [place] [address] [place], [place] [phone] Allergies No Known Allergiesdocumented as of [...] on 05/10/2020. Performed by a doctor at [facility]. Arrived in wheelchair. Oj remain intact. Films from [facility]. At [facility] for PT. Halle Ritter 06/15/2020 3:01 PM Lazara Lozano is a 74 year old female. For follow-up on total hip replacement that was performed for hip fracture by At [place] [facility].She is staying in [facility]. She missed her 2 week follow-up appointment and is here one month from the date of surgery with her oj still in from the original surgery. They attempted to take her to her follow-up appointment but it was too far to make it to humble from [facility]. Allergies Lazara has No Known [...] file Gets together: Not on file Attends pentecostalism service: Not on file Active member of [...] Benavides M.D. She arrived with x-rays from [facility] there is a total hip [...] Effective Dates Phone Addre ss Type Group Blood cell Storage [phone] 08/18/2019-Present Medicare Adv spring HMO documented as of this encounter
--- OUTSIDE RECORDS SUMMARY | 2020-09-09 16:23 | XMS REPORT | Summary of Care ---
:1945 Author Name RENETTA Marmolejo Address Unavailable Unavailable , Care Team Providers Name Role Phone RENETTA Marmolejo Unavailable Unavailable EMY SILVESTRE Unavailable Unavailable RENETTA ALFRED MD Unavailable Unavailable Functional Status Name Dates Details [...] not documented Status: Procedures Procedure Dates Details Hip 2/3 views uni DX Date: 20-Jun-2020 Immunization Name Dates Details Immunizations not documented Social History Name Dates Details Tobacco smoking consumption unknown (finding) Vital Signs Date Test Result Details No Known Vitals to report Results Date Description Value Details [id number] Post Op Promis 29 Survey Pain Interference: 56 (Normal) Pain Intensity: 42.6 (Normal) Physical Function: 23.9 (Normal) Satisfaction Role: 45.8 (Normal) Plan of Care Name Dates Details Planned Observations Planned Goals not documented Planned Encounters Appointment; MATT JACKSON M.D. On: 30-Jan-2021 13:0 0 Interventions Provided PlanPatient Education/Instructions: Patient education and reassurance was provided for better understanding of the diagnosis and treatment plan. An opportunity to ask questions was provided. A home exercise program was recommended to reduce symptoms and to improve/restore function. Understanding was acknowledged. Instructions were provided to view the [facility] patient information website (www.orthoinfo.org) and [facility] website ([email or web address]) for additional information. X-ray images/reports were reviewed. Findings were discussed in detail. Weightbearing status: full weight bearing as tolerated. Orders: Physical Therapy Follow Up: Return to the clinic in 6 months or as needed. X-rays to be completed at next visit: Hip Instructions Name Dates Details Instructions not documented Encounters Appointment; MATT JACKSON M.D. On: 20-Jun-2020 8:30 Encounter Diagnosis: Problem not documented Appointment; MATT JACKSON M.D. On: 01-Aug-2020 10:0 0 Encounter Diagnosis: Problem not documented
--- OUTSIDE RECORDS SUMMARY | 2020-09-09 16:23 | XMS REPORT | Summary of Care ---
[...] right femur (733.90, M89.8X5) St atus: Active Medications Name Dates Details Medications not documented Allergies and Adverse Reactions Name Dates Details Allergy history not documented Status: Procedures Procedure Dates Details Post Op Promis 29 Survey Date: 30-May-2020 Immunization Name Dates Details Immunizations not documented Social History Name Dates Details Tobacco smoking consumption unknown (finding) Vital Signs Date Test Result Details No Known Vitals to report Results Date Description Value Details Results not documented Plan of Care Name Dates Details Planned Observations Planned Goals not documented Planned Encounters Appointment; MATT JACKSON M.D. On: 20-Jun-2020 8:30 Instructions Name Dates Details Instructions not documented Encounters Appointment; MATT JACKSON M.D. On: 24-May-2020 15:15 Encounter Diagnosis: Problem not documented
--- OUTSIDE RECORDS SUMMARY | 2020-09-09 16:23 | XMS REPORT | Summary of Care ---
:1945 Author Organization [facility] Address [address] [place] [address] Care Team Providers Name Role Phone Pcp, Patient Does Not Have A Primary Care Provider +1-000-00 0-0000 Encounter Details Date Type Department Care Team Description 06/20/2020 Orders Only [facility] Doctor Unassigned, No [address] [facility] [place] [address] [address] [place] [address] Allergies No Known Allergiesdocumented as of this encounter (statuses as of 06/20/2020) Medications Medication Sig Dispensed Refills Start Date [...] as of this encounter (statuses as of 06/20/2020) Active Problems Not on filedocumented as of this encounter (statuses as of 06/20/2020) Social History Tobacco Use Types Packs/Day Years [...] of this encounter Last Filed Vital Signs Not on filedocumented in this encounter Plan of Treatment Health [...] 12/02/2020 12/03/2019 documented as of this encounter Procedures Procedure Name Priority Date/Time Associated Diagnosis Comme nts EXTERNAL PROVIDER Routine 06/20/2020 12:01 AM CANE WEIGHER HELPER RECORDS documented in this encounter Results Not on filedocumented in this encounter Insurance Payer Benefit Plan / Subscriber ID Effective Dates Phone Addre ss Type Group [employer] [id number] 2019-Present Medicare Adv spring HMO documented as of this encounter
--- OUTSIDE RECORDS SUMMARY | 2020-09-09 16:23 | XMS REPORT | Summary of Care ---
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 Leonid Morales, Leonid Morales, CONDOMINIUM PROPERTY MANAGER / Procedures CONSULT/REFERRAL ORTHOPAEDIC SURGERY NEW VISIT (FIRST TIME) PAC PAC Orthopedic Surgery [address] [place] [phone] Phone: Fax: Encounter Details Date Type Department Care Team Description 06/15/2020 Office Visit [facility] Orthopaedic Leonid Morales H istory of total right Surgery- [place] PAC hip replacement [address], [address] (Primary Dx) [place] [address] [place], [place] [phone] Allergies No Known Allergiesdocumented as of [...] in wheelchair. Oj remain intact. Films from [facility]. At [facility] for PT. Halle Ritter 06/15/2020 3:01 PM Lazara Lozano is a 74 year old female. For follow-up on total hip replacement that was performed for hip fracture by At [place] [facility].She is staying in [facility]. She missed her 2 week follow-up appointment and is here one month from the date of surgery with her oj still in from the original surgery. They attempted to take her to her follow-up appointment but it was too far to make it to humble from [facility]. Allergies Lazara has No [...] file Gets together: Not on file Attends buddhism service: Not on file Active member of [...] Benavides M.D. She arrived with x-rays from [facility] there is a total [...] Effective Dates Phone Addre ss Type Group [address] [id number] 2019-Present Medicare Adv spring HMO documented as of this encounter
--- OUTSIDE RECORDS SUMMARY | 2020-09-09 16:23 | XMS REPORT | Summary of Care ---
:1945 Author Name Dwight Address Unavailable Unavailable , Care Team Providers Name Role Phone EMY SILVESTRE Unavailable Unavailable RENETTA ALFRED MD [...] Name Dates Details Instructions not documented Encounters No Encounter data documented On: 15-Jun-2020 Encounter Diagnosis: Problem not documented
--- OUTSIDE RECORDS SUMMARY | 2020-09-09 16:23 | XMS REPORT | Summary of Care ---
[...] to report Results Date Description Value Details [id number] Post Op Promis 29 Survey Pain Interference: 56 (Normal) Pain Intensity: 42.6 (Normal) Physical Function: 23.9 (Normal) Satisfaction Role: 45.8 (Normal) Plan of Care Name Dates Details Planned Observations Planned Goals not documented Planned Encounters Appointment; MATT JACKSON M.D. On: 30-Jan-2021 13:0 0 Instructions Name Dates Details Instructions not documented Encounters Appointment; MATT JACKSON M.D. On: 20-Jun-2020 8:30 Encounter Diagnosis: Problem not documented Appointment; MATT JACKSON M.D. On: 01-Aug-2020 10:0 0 Encounter Diagnosis: Problem not documented
--- OUTSIDE RECORDS SUMMARY | 2020-09-09 16:23 | XMS REPORT | Summary of Care ---
:1945 Author Name AMANDEEP SHORT HAUL DRIVER Address Unavailable Unavailable , Care Team Providers Name Role Phone AMANDEEP SHORT HAUL DRIVER Unavailable Unavailable EMY SILVESTRE Unavailable Unavailable RENETTA [...] not documented Status: Procedures Procedure Dates Details Procedures not documented Immunization Name Dates Details Immunizations not documented [...]
[2020-09-09 17:26] VITALS: BMI 19.3
[2020-09-09] MEDS ORDERED: ONDANSETRON 4 MG/2 ML VIAL IV PRN (18:35)
[2020-09-09] MEDS ORDERED: ACETAMINOPHEN 500 MG TAB PO PRN (18:35)
--- NOTE | 2020-09-09 18:51 | P.HP ---
Certification for Inpatient Patient admitted to: Observation With expected LOS: <2 Midnights Patient will require the following post-hospital care: None Practitioner: I am a practitioner with admitting privileges, knowledge of patient current condition, hospital course, and medical plan of care. Services: Services provided to patient in accordance with Admission requirements found in Title 42 Section 412.3 of the Code of Federal Regulations <Aashish Villagran - Last Filed: 09/09/20 18:44> Patient History Date of Service: 09/09/20 Reason for admission: PE History of Present Illness: 74-year-old female with history of diabetes mellitus type 2, hypertension, hyperlipidemia, dementia presented to you stand-alone emergency department for right-sided chest/right upper quadrant pain for the last 1 week. Patient was evaluated, found to have pulmonary embolism. Labs significant for elevated D-dimer 1960 chemistries unremarkable CBC hemoglobin 10 hematocrit 28.1, patient not requiring supplemental oxygen. CT shows filling defect noted in the proximal right pulmonary artery, additional filling defects noted extending into the left lobe pulmonary arteries probable filling defects also seen in the right lower lobe. Small right pleural effusion 7 mm nodule in the right superior segment of the lower lobe with another similar finding measuring 1.1 cm, trace pleural effusion. Pulmonary nodules probably related to pulmonary infarct, radiologist recommended followup CT chest in 3 months. Additional findings included partially distended gallbladder without surrounding inflammatory changes several small gallstones noted, liver normal LFTs normal. Suspected atrophy of the pancreas with dilatation of the main pancreatic duct, scattered multiple hypodensities scattered throughout the pancreas measuring up to 1.3 cm. Amylase within normal limits, lipase unable to be obtained at transferring facility. Patient denies shortness of breath, chest pain, leg pain, leg swelling. Nonsmoker. - Past Medical/Surgical History Has patient received pneumonia vaccine in the past: No Diabetic: Yes -: AFib? -: Hypertension -: hyperlipidema -: Diabetes mellitus type 2 -: Dementia -: TNA -: Hysterectomy -: D&C Psychosocial/ Personal History: Patient lives with her daughter at home. - Family History Mother -: Heart disease, Stroke - Social History Smoking Status: Never smoker Alcohol use: No CD- Drugs: No Caffeine use: Yes Place of Residence: Home <PrafuljohnyAashish - Last Filed: 09/09/20 18:44> Date of Service: 09/10/20 <Marty Jorge Last Filed: 09/10/20 20:36> Allergies No Known Allergies Allergy (Verified 12/29/18 08:25) Home Medications: Acetaminophen with Codeine [Acetaminophen-Cod #3 Tablet] 1 each PO Q4HP PRN 09/09/20 Aspirin 81 mg PO DAILY 09/09/20 Cranberry Fruit Extract [Cranberry] 250 mg PO DAILY 09/09/20 Donepezil [Aricept] 10 mg PO BEDTIME 09/09/20 Escitalopram [Lexapro] 10 mg PO DAILY 09/09/20 Glimepiride [Amaryl] 4 mg PO BID 09/09/20 Losartan Potassium [Cozaar] 50 mg PO BID 09/09/20 Memantine HCl [Namenda] 5 mg PO DAILY 09/09/20 Metformin HCl [Glucophage] 500 mg PO BIDWM 09/09/20 Pioglitazone [Actos] 15 mg PO DAILY 09/09/20 Pravastatin Sodium 40 mg PO DAILY 09/09/20 hydroCHLOROthiazide [Hydrochlorothiazide*] 12.5 mg PO DAILY 09/09/20 Review of Systems 10-point ROS is otherwise unremarkable Gastrointestinal: Abdominal Pain <Aashish Villagran - Last Filed: 09/09/20 18:44> Physical Examination - Vital Signs Temperature: 97.9 F Blood Pressure: 141/80 Pulse: 94 Respirations: 18 Pulse Ox (%): 98 - Physical Exam General: Alert, In no apparent distress HEENT: Atraumatic, PERRLA, Mucous membr. moist/pink Neck: Supple, 2+ carotid pulse no bruit, No LAD Respiratory: Clear to auscultation bilaterally, Normal air movement Cardiovascular: Regular rate/rhythm, Normal S1 S2 Capillary refill: <2 Seconds Gastrointestinal: Normal bowel sounds, Tenderness (Mild tenderness right upper quadrant) Musculoskeletal: No tenderness Integumentary: No rashes Neurological: Normal speech, Normal strength at 5/5 x4 extr, Normal tone, Normal affect <Aashish Villagran - Last Filed: 09/09/20 18:44> - Studies Laboratory Data (last 24 hrs) 09/10/20 05:13: WBC 5.2, Hgb 8.6 L, Hct 25.2 L, Plt Count 244 09/10/20 05:13: Sodium 139, Potassium 3.7, BUN 27 H, Creatinine 0.94, Glucose 47 L*, Magnesium 1.5 L, Lipase 78 <Marty Jorge - Last Filed: 09/10/20 20:36> Assessment and Plan - Plan Assessment Acute bilateral pulmonary embolism with suspected pulmonary infarct Right upper quadrant pain with mildly distended gallbladder without inflammatory changes Pancreatic duct dilatation and scattered hypodensities throughout the pancreas Diabetes mellitus type 2 Hypertension Hyperlipidemia Dementia Plan Acute bilateral pulmonary embolism with suspected pulmonary infarct: Continue with full-dose Lovenox, supple oxygen as needed. Daily room air saturations. Bilateral venous Doppler lower extremities to rule out DVT. Likely transition to oral anticoagulation, possible discharge tomorrow. Right upper quadrant pain with mildly distended gallbladder without inflammatory changes: Ultrasound right upper quadrant, LFTs normal, liver normal, CBD normal. Lipase ordered. Mild tenderness to palpation, doubt acute cholecystitis. Pancreatic duct dilatation and scattered hypodensities throughout the pancreas: Discussed with patient, will need to follow up with gastroenterology on an outpatient basis, lipase pending the amylase normal. Diabetes mellitus type 2: A.c. HS Accu-Cheks, sliding scale insulin therapy. ADA diet. Hypertension: Home medications continued Hyperlipidemia: Home medications continued Dementia: Home medications continued Discharge Plan: Home Plan to discharge in: 24 Hours - Advance Directives Does patient have a Living Will: Yes Does patient have a Durable POA for Healthcare: Yes - Code Status/Comfort Care Code Status Assessed: Yes (Full code) Critical Care: No Time Spent Managing Pts Care (In Minutes): 55 <Aashish Villagran - Last Filed: 09/09/20 18:44> - Plan Agree with plan of care as noted above by Aashish Villagran. lovenox for now, transition to PO anticoag on dc, will check with pharmacy for coverage of DOACs <Marty Jorge - Last Filed: 09/10/20 20:36>
[2020-09-09] MEDS: INSULIN -REGULAR HUMAN 50 UNIT/0.5 ML ML SQ SCH (20:55)
[2020-09-09] MEDS: LOSARTAN POTASSIUM 50 MG TABLET PO SCH (20:56)
[2020-09-09] MEDS: DONEPEZIL HCL 5 MG TAB PO SCH (20:58)
[2020-09-09] MEDS ORDERED: ENOXAPARIN 60 MG/0.6 ML SQ SCH (21:00)
[2020-09-10 05:58] LABS: Absolute Lymphocytes (CBC) 1.9 K/uL (0.7-4.9); Basophils % 0.8 % (0-1.3); Hematocrit 25.2 % (36.0-45.0); Lymphocytes % 35.6 % (15.3-44.8); MPV 8.5 fL (7.6-11.3)
[2020-09-10 06:18] LABS: Magnesium 1.5 mg/dL (1.8-2.4); Potassium 3.7 mmol/L (3.5-5.1); Thyroid Stimulating Hormone 1.79 uIU/mL (0.360-3.740)
[2020-09-10] MEDS ORDERED: D50W 25 GM/50 ML SYRINGE IV PRN (06:29)
[2020-09-10] MEDS ORDERED: D50W 25 GM/50 ML SYRINGE IV ONE (06:49)
[2020-09-10] MEDS ORDERED: POTASSIUM CL SA 10 MEQ TAB PO ONE (07:22)
[2020-09-10] MEDS ORDERED: MAGNESIUM OXIDE 400 MG TAB PO ONE (07:22)
[2020-09-10] MEDS: INSULIN -REGULAR HUMAN 50 UNIT/0.5 ML ML SQ SCH ×4 (07:30→21:11)
--- NOTE | 2020-09-10 07:35 | RAD REPORT ---
EXAM DESCRIPTION: US - Extrem Venous W Compress David - 09/09/2020 9:24 pm CLINICAL HISTORY: R/O DVT COMPARISON: None. TECHNIQUE: Real-time sonographic evaluation of the bilateral lower extremity common femoral, superfi cial femoral, popliteal and posterior tibial veins was performed. FINDINGS: Normal compressibility, flow augmentation, phasic flow and spontaneous flow are identified in the right lower extremity common femoral, superficial femoral, popliteal and posterior tibial vei ns. No intraluminal filling defects seen. Echogenic material is present filling or partially filling the left common femoral, superficial femor al and popliteal deep veins. Absent or diminished compression noted in these regions as well. Flow is diminished but not absent. Posterior tibial vein is patent on the left. Preliminary findings provided to Etta of the nursing service at the time of the study. IMPRESSION: Acute deep venous thrombosis in the left lower extremity from groin to knee. No deep venous thrombosis in the right lower extremity.
--- NOTE | 2020-09-10 07:50 | RAD REPORT ---
EXAM DESCRIPTION: US - Abdomen Exam Limited - 09/09/2020 9:24 pm CLINICAL HISTORY: RUQ pain, CT shows gallstones COMPARISON: Renal Ultrasound-Complete dated 03/01/2019 FINDINGS: Gallbladder is partially contracted which accentuates wall thickness. No pericholecystic f luid identified. There are several 8 mm or less sized gallstones collecting near the neck of the gall bladder. Sludge is present adjacent to the gallstones as well. No common duct stone or biliary tree dilatation identified. IMPRESSION: Multiple 8 mm or less gallstones with adjacent sludge. Gallbladder is contracted. This accentuates wall thickness making it difficult to evaluate for additi onal cholecystitis findings. No duct stone or biliary tree abnormality.
[2020-09-10] MEDS: ENOXAPARIN 60 MG/0.6 ML SQ SCH ×2 (08:49→21:00)
[2020-09-10] MEDS: ATORVASTATIN 10 MG TAB PO SCH (08:49)
[2020-09-10] MEDS: ASPIRIN 81 MG CHEWABLE TABLET PO SCH (08:50)
[2020-09-10] MEDS: LOSARTAN POTASSIUM 50 MG TABLET PO SCH ×2 (08:53→21:10)
[2020-09-10] MEDS: ESCITALOPRAM 20 MG TAB PO SCH (08:53)
[2020-09-10] MEDS: MEMANTINE HCL 10 MG TABLET PO SCH (08:54)
[2020-09-10] MEDS: hydroCHLOROthiazide 12.5 MG CAP PO SCH (08:54)
[2020-09-10] MEDS: CRANBERRY FRUIT EXTRACT 500 MG PO SCH (08:57)
--- NOTE | 2020-09-10 11:15 | P.PN ---
Subjective Date of Service: 09/10/20 Chief Complaint: PE Subjective: No new changes (Reports feeling okay, breathing okay, has not gotten out of bed to ambulate. Positive DVT in left leg. Continues with pain in right ribs and right upper quadrant/epigastric area) Review of Systems 10-point ROS is otherwise unremarkable Physical Examination - Vital Signs Temperature: 97.9 F Blood Pressure: 130/64 Pulse: 118 Respirations: 18 Pulse Ox (%): 95 - Studies Laboratory Data (last 24 hrs) 09/10/20 05:13: WBC 5.2, Hgb 8.6 L, Hct 25.2 L, Plt Count 244 09/10/20 05:13: Sodium 139, Potassium 3.7, BUN 27 H, Creatinine 0.94, Glucose 47 L*, Magnesium 1.5 L, Lipase 78 Assessment & Plan Physician Review Additional Text: Physical exam Gen: NAD, laying in bed HEENT: Normal conjunctiva CV: Regular rate and rhythm, no edema Pulm: Diminished breath sounds at bilateral bases, on 2 L nasal cannula, nonlabored Abdomen: Moderate tenderness to palpation epigastric area, mild tenderness in RUQ MSK: TTP at lower R ribs Problem list: Acute bilateral pulmonary embolism with suspected pulmonary infarct Acute DVT in left common femoral, superficial femoral, popliteal deep veins. RUQ pain, with mildly distended gallbladder without inflammatory changes Pancreatic duct dilatation and scattered hypodensities throughout the pancreas Diabetes mellitus type 2 Hypertension Hyperlipidemia Dementia Plan Acute bilateral pulmonary embolism with suspected pulmonary infarct: Acute DVT in left common femoral, superficial femoral, popliteal deep veins. continue full dose Lovenox, O2 as needed. Daily RA sats Unclear at this point if patient will need home oxygen, and unsure if covered by insurance confirmed DVT in L leg call pharmacy to see which oral anticoagulation is covered by insurance RUQ pain with mildly distended gallbladder without inflammatory changes: -U/S: Multiple stones, contracted gallbladder, difficult to fully rule out acute cholecystitis. -general surgery consulted, patient will need a HIDA scan for further evaluation Pancreatic duct dilatation and scattered hypodensities throughout the pancreas: will discuss with general surgery as well At minimum will need followup with GI Diabetes mellitus type 2: A.c. HS Accu-Cheks, sliding scale insulin therapy. ADA diet. Hypertension: Home medications continued Hyperlipidemia: Home medications continued Dementia: Home medications continued VTE: Therapeutic Lovenox Code: Full Dispo: Anticipate discharge tomorrow has HH/home PT set up already. might need home O2 Time Spent Managing Pts Care (In Minutes): 40
--- NOTE | 2020-09-10 14:19 | CON ---
Date of Consultation: 09/10/2020 Reason For Consultation: Abdominal pain and cholelithiasis. History Of Present Illness: The patient is a 74-year-old female, who was admitted with right upper q uadrant and right lower chest pain. Workup had revealed at [facility] that she had bilateral pulmonary em boli as well as gallstones on the CAT scan and some hyperdense regions in the pancreas. She was nunn sferred to our hospital, was started on anticoagulation. Had an ultrasound ordered, which showed gal lstones, no pericholecystic fluid, but thickness of the gallbladder wall could not be ascertained as the gallbladder was contracted and as the patient is having right upper quadrant pain and right lower chest pain. I was asked to evaluate. She is awake and alert. She had breakfast this morning. She had no pain following breakfast. No nausea or vomiting. No bloating, belching, or heartburn curren tly. No diarrhea. Occasional constipation. No blood in her stool. No dysuria or hematuria. The p atient had 2 major Orthopedic surgeries within the last 9 months. About 9 months ago, she had a righ t upper extremity surgery and right hip surgery 6 months ago. No sore throat, runny nose, cough, hea daches, or dizziness. No chest pain. No fever or chills. Review of Systems: Otherwise unremarkable. Past Medical History: Significant for hypertension, hyperlipidemia, diabetes, dementia, questionable history of AFib. Past Surgical History: Significant for hysterectomy, D and C, right shoulder and right hip surgery. Allergies: NONE. Social History: The patient does not smoke or drink alcohol. Family History: Significant for heart disease and stroke. Physical Examination: Vital Signs: Stable, but she is tachycardic and she is afebrile. General: She is awake, alert, oriented x2. Head and Neck: Cranial nerves 2 through 12 are grossly within normal limits. No neck masses. No JV D. Throat is clear. Neck supple. Chest: Clear. Heart: S1 and S2. Abdomen: Soft, nondistended. Positive bowel sounds. Positive right upper quadrant tenderness. No rebound, rigidity, or guarding. This is in the right lower chest and right upper quadrant region. Extremity: Adequately perfused. Nontender. Neuro: Nonfocal. Diagnostic Data: White count is 5.2, there is no left shift. Chemistry, her LFTs, amylase, and lipa se were normal at [facility]. Electrolytes reviewed today. Ultrasound and CAT scan of the abdomen and pe lvis reviewed and basically the ultrasound shows multiple 8 mm or less gallstones with adjacent sludg e. The gallbladder is contracted, which accentuates wall thickness, making difficult to evaluate for additional cholecystic findings. No duct stone or biliary tree abnormality seen. Extremity venous study shows blood clot in the left femoral vein. CT of the chest, abdomen and pelvis reviewed, the r eport was reviewed and it showed bilateral pulmonary emboli as well as other findings in the HPI. Th e DVT is from the left groin to the left knee. Assessment: A 74-year-old female with multiple medical problems with bilateral pulmonary emboli, lef t thigh deep vein thrombosis, abdominal pain, cholelithiasis. Recommendations: At this time, the patient's PE takes priority over gallstone findings. We will see whether the patient has acute cholecystitis or not with a HIDA scan. As she is asymptomatic after e ating, I do not think that the gallbladder is the issue here. I think we need to treat the DVT as we ll as the emboli with anticoagulation. Once this is stabilized and once the patient is cleared for s urgery, which is probably usually around 6 months after an acute event like this, then we may conside r an elective cholecystectomy. We will try to manage the gallstone if she does have symptoms in the future conservatively as much as we can. Plan of care discussed with the daughter an d the patient and Dr. Jorge. JHONNY/ANGEL Voice ID: [id number] Report ID: [id number]
[2020-09-10] MEDS: DONEPEZIL HCL 5 MG TAB PO SCH (21:10)
[2020-09-11 05:35] LABS: Hematocrit 24.2 % (36.0-45.0); MPV 8.3 fL (7.6-11.3); RBC Red Blood Cell Count 2.79 M/uL (3.86-4.86)
[2020-09-11 06:11] LABS: AST/SGOT 10 U/L (15-37); Albumin 2.4 g/dL (3.4-5.0); Alkaline Phosphatase 79 U/L (45-117); Bicarbonate 28 mmol/L (21-32); Bilirubin Total 0.3 mg/dL (0.2-1.0); Magnesium 1.6 mg/dL (1.8-2.4); Protein, Total 5.5 g/dL (6.4-8.2); Sodium Level 138 mmol/L (136-145)
[2020-09-11 06:41] LABS: Glucose Level 110 mg/dL (74-106)
[2020-09-11 06:42] LABS: ALT/SGPT < 6 U/L (12-78); BUN Blood Urea Nitrogen 25 mg/dL (7-18)
[2020-09-11] MEDS: INSULIN -REGULAR HUMAN 50 UNIT/0.5 ML ML SQ SCH ×4 (07:30→21:00)
--- NOTE | 2020-09-11 08:21 | RAD REPORT ---
EXAM DESCRIPTION: NM - Hepatobiliary System W/ Ph - 09/11/2020 7:10 am CLINICAL HISTORY: cholelithiasis Right upper quadrant abdominal pain COMPARISON: No comparisons TECHNIQUE: The patient was administered 5.9 mCi Tc99m Choletec. Imaging of the right upper quadrant was performed initially for up to 60 minutes. Gallbladder ejection fraction determination was then performed utilizing synthetic 1 mgm CCK over a s low 30 minute infusion. FINDINGS: Normal hepatic uptake and excretion with appropriate clearance of background blood pool ac tivity. Normal visualization of biliary and small bowel activity. Gallbladder visualizes within normal time limits. The calculated ejection fraction is 53% (normal gre ater than 35%). Subjective pain reported by the patient: Pre-procedure - none During or subsequent to synthetic CCK infusion - none IMPRESSION: Patient cystic duct and patent sphincter of Oddi. No delay in visualization of the gallb ladder, biliary tree, or duodenum. Ejection fraction is 53% (normal greater than 35%). Subjective patient pain assessment as detailed above.
[2020-09-11 08:35] LABS: Urine Appearance CLEAR; Urine Color YELLOW
[2020-09-11 08:36] LABS: Urine Bilirubin NEGATIVE (NEG); Urine Blood NEGATIVE (NEG); Urine Glucose NEGATIVE (NEG); Urine Protein TRACE (NEG); Urine Specific Gravity 1.015 (1.005-1.030); Urine Urobilinogen 0.2 mg/dL (0.2-1.0)
[2020-09-11 08:39] LABS: Urine Microscopic Reflex ORDER UMIC
[2020-09-11 08:47] LABS: Urine Bacteria <20 /HPF (<20); Urine RBC <5 /HPF (NONE SEEN)
[2020-09-11] MEDS: CRANBERRY FRUIT EXTRACT 500 MG PO SCH (09:00)
[2020-09-11] MEDS ORDERED: PNEUMOCOCCAL VACCINE 0.5 ML IMVAC ONE (09:00)
[2020-09-11] MEDS ORDERED: INFLUENZA VACCINE (for 3y+) 0.5 ML DOSE IMVAC ONE (09:00)
[2020-09-11] MEDS ORDERED: MAGNESIUM SULFATE 1 gm IVPB 1 GM/100 ML BAG IV ONE (09:00)
[2020-09-11] MEDS: ENOXAPARIN 60 MG/0.6 ML SQ SCH (09:02)
[2020-09-11] MEDS: ASPIRIN 81 MG CHEWABLE TABLET PO SCH (09:04)
[2020-09-11] MEDS: LOSARTAN POTASSIUM 50 MG TABLET PO SCH ×2 (09:04→21:19)
[2020-09-11] MEDS: ATORVASTATIN 10 MG TAB PO SCH (09:04)
[2020-09-11] MEDS: hydroCHLOROthiazide 12.5 MG CAP PO SCH (09:04)
[2020-09-11] MEDS: MEMANTINE HCL 10 MG TABLET PO SCH (09:04)
[2020-09-11] MEDS: ESCITALOPRAM 20 MG TAB PO SCH (09:04)
--- NOTE | 2020-09-11 11:04 | PN ---
Date of Progress Note: 09/11/2020 Subjective: The patient is awake, alert. tolerating her breakfast. Vitals are stable. Afebrile. S he had a HIDA scan, which was abnormal. I also reviewed the CT of the chest, abdomen and pelvis with our radiologist and she does have hypodense areas in the pancreas and IPMN needs to be ruled out, th at is idiopathic pancreatic mucinous neoplasm with an ERCP. We do not have GI available, so we will have to arrange for that as an outpatient. Her sacrum examined. She has a stage II decubitus with e rythema, but no skin breakdown as of yet. Foam is being used adequately. Assessment: A 74-year-old female with multiple medical problems with pancreatic lesion concerning fo r IPMN, cholelithiasis. She is asymptomatic from it at this time. Pulmonary embolism and deep venou s thrombosis which are being managed medically. Recommendations: Continue wound care as ordered. The patient can have a low-fat low-cholesterol t. I will discuss with the hospice regarding arranging for the patient to have an ERCP to better berenice luate these pancreatic lesions. /MODL Voice ID: [id number] Report ID: [id number]
--- NOTE | 2020-09-11 13:20 | RAD REPORT ---
EXAM DESCRIPTION: CT - C Spine Wo Con - 09/11/2020 1:03 pm CLINICAL HISTORY: Neck pain, history dens fracture COMPARISON: CT imaging April 2020 TECHNIQUE: Axial 2 mm thick images of the cervical spine were obtained with sagittal and coronal rec onstruction images generated and reviewed. All CT scans are performed using dose optimization technique as appropriate and may include automated exposure control or mA/KV adjustment according to patient size. FINDINGS: Cervical bodies are normal in height. No change alignment of the vertebrae since the [facility] imaging. C4-5 and C5-6 disc space narrowing have not changed. The advanced T2-3 disc space narro wing with slight anterior subluxation also seen as stable. No acute fracture changes are seen. The C2 dens fracture is faintly visible. There is bony bridging seen across the fracture line. No change in positioning. Degenerative change at the dens C1 anterior arch again noted. Facet joint degenerative changes again noted. Prominent bony hypertrophy near the origin of the right C4-5 foramen causes sten osis. Bilateral uncovertebral joint hypertrophy causes C5-6 bony foraminal stenosis. No paraspinal mass or hematoma. Central canal detail is inherently limited. No gross evidence for a new disc or central canal process . IMPRESSION: No fracture or acute cervical spine findings. The degenerative findings detailed above a re similar to April 2020. At the previously noted dens fracture site, there is near complete bony bridging across the fracture line.
[2020-09-11] MEDS ORDERED: D50W 25 GM/50 ML VIAL IV PRN (15:00)
[2020-09-11] MEDS: CEFTRIAXONE/SWI 1gm 1 GM/10 ML SYR IVP SCH (16:51)
--- NOTE | 2020-09-11 16:57 | P.PN ---
Subjective Date of Service: 09/11/20 Chief Complaint: PE Subjective: Other (Pt confused this morning, breathing comfortably on RA, reports neck pain and h/o fracture.) Review of Systems 10-point ROS is otherwise unremarkable Physical Examination - Vital Signs Temperature: 97.5 F Blood Pressure: 130/79 Pulse: 89 Respirations: 17 Pulse Ox (%): 96 - Studies Laboratory Data (last 24 hrs) 09/11/20 05:08: Sodium 138, Potassium 4.0, BUN 25 H, Creatinine 1.09, Glucose 110 H, Magnesium 1.6 L, Total Bilirubin 0.3, AST 10 L, ALT < 6 L, Alkaline Phosphatase 79 09/11/20 05:08: WBC 4.0 L D, Hgb 8.4 L, Hct 24.2 L, Plt Count 246 Assessment & Plan Physician Review Additional Text: Physical exam Gen: NAD, laying in bed, AAOx1, pleasantly confused HEENT: Normal conjunctiva CV: Regular rate and rhythm, no edema Pulm: Diminished breath sounds at bilateral bases, on RA Abdomen: mild tenderness to palpation in epigastric area MSK: mod-severe TTP at lower R ribs Problem list: Acute bilateral PE with suspected pulmonary infarct Confusion, Metabolic Encephalopathy, likely secondary to UTI Acute DVT in left common femoral, superficial femoral, popliteal deep veins. RUQ pain with mildly distended gallbladder without inflammatory changes: Pancreatic duct dilatation and scattered hypodensities throughout the pancreas, concerning for IPMN (intraductal papillary mucinous neoplasms) Diabetes mellitus type 2 Hypertension Hyperlipidemia Dementia Plan Acute bilateral PE with suspected pulmonary infarct: Acute DVT in left common femoral, superficial femoral, popliteal deep veins. breathing comfortably on RA confirmed DVT in L leg Xarelto: $40, Eliquis: $80. Patient prefers Xarelto on discharge switch to xarelto today Confusion, Metabolic Encephalopathy, likely secondary to UTI Patient with some confusion this morning, not oriented. On further discussion daughter reports she noticed some very slight confusion / seemed off over last 1-2 days, was distracted by the PEs Daughter reports patient gets like this with UTIs UA done, concerning for UTI, not best specimen, but ph is >= 8.0, 2+ leuk esterase RUQ pain with mildly distended gallbladder without inflammatory changes: -General surgery consulted -U/S and HIDA negative for acute cholecystitis Pancreatic duct dilatation and scattered hypodensities throughout the pancreas concerning for IPMN general surgery reviewed with radiology - concerning for IPMN will need outpatient ERCP, patient is asymptomatic Diabetes mellitus type 2: A.c. HS Accu-Cheks, sliding scale insulin therapy. ADA diet. Hypertension: Home medications continued Hyperlipidemia: Home medications continued Dementia: Home medications continued VTE: switch to xarelto Code: Full Dispo: anticipate dc home in 24hrs, PT recommends SNF has HH/home PT set up already. daughter does not want SNF - bad prior experience, pt will have 24/ supervision at home will need ERCP outpatient due to concern for IPMN Time Spent Managing Pts Care (In Minutes): 35
[2020-09-11] MEDS: RIVAROXABAN 15 MG TABLET PO SCH (17:42)
[2020-09-11] MEDS: JUVEN PACKET PO SCH (21:19)
[2020-09-11] MEDS: DONEPEZIL HCL 5 MG TAB PO SCH (21:19)
[2020-09-12 05:07] VITALS: O2SAT 99
[2020-09-12 05:54] LABS: Absolute Lymphocytes (CBC) 1.6 K/uL (0.7-4.9); Basophils % 1.3 % (0-1.3); Hematocrit 26.8 % (36.0-45.0); Lymphocytes % 38.2 % (15.3-44.8); MPV 8.5 fL (7.6-11.3); Magnesium 1.8 mg/dL (1.8-2.4); Potassium 4.2 mmol/L (3.5-5.1); RBC Red Blood Cell Count 3.04 M/uL (3.86-4.86)
[2020-09-12] MEDS ORDERED: MAGNESIUM SULFATE 1 gm IVPB 1 GM/100 ML BAG IV ONE (07:00)
[2020-09-12] MEDS: INSULIN -REGULAR HUMAN 50 UNIT/0.5 ML ML SQ SCH ×2 (07:30→11:55)
[2020-09-12] MEDS: ASPIRIN 81 MG CHEWABLE TABLET PO SCH (08:38)
[2020-09-12] MEDS: CEFTRIAXONE/SWI 1gm 1 GM/10 ML SYR IVP SCH (08:38)
[2020-09-12] MEDS: ATORVASTATIN 10 MG TAB PO SCH (08:38)
[2020-09-12] MEDS: ESCITALOPRAM 20 MG TAB PO SCH (08:38)
[2020-09-12] MEDS: LOSARTAN POTASSIUM 50 MG TABLET PO SCH (08:39)
[2020-09-12] MEDS: MEMANTINE HCL 10 MG TABLET PO SCH (08:39)
[2020-09-12] MEDS: hydroCHLOROthiazide 12.5 MG CAP PO SCH (08:39)
[2020-09-12] MEDS: RIVAROXABAN 15 MG TABLET PO SCH (08:39)
[2020-09-12] MEDS: JUVEN PACKET PO SCH (08:40)
[2020-09-12] MEDS: CRANBERRY FRUIT EXTRACT 500 MG PO SCH (09:00)
--- NOTE | 2020-09-12 11:06 | P.DS ---
Admission Date: 09/09/20 Discharge Date: 09/12/20 Disposition: DC HOME/HOME HEALTH CARE Discharge Condition: FAIR Reason for Admission: PE Brief History of Present Illness: 74-year-old woman with a history of diabetes mellitus type 2, hypertension, hyperlipidemia, and dementia was brought to the emergency department due to upper quadrant pain of 1 week duration. Patient was evaluated in the ED with CTA thorax showing that she has pulmonary embolism. CT scan also reported a distended gallbladder without surrounding edema and multiple gallstones. It also reported possible atrial feel the pancreas with dilation of the main pancr eatic duct, scattered multiple hypodensities within the pancreas. Patient was admitted for further management. Hospital Course: Acute bilateral PE with suspected pulmonary infarct: Acute DVT in left common femoral, superficial femoral, popliteal deep veins. breathing comfortably on RA confirmed DVT in L leg Xarelto: $40, Eliquis: $80. Patient prefers Xarelto on discharge Patient discharged with Xarelto. Confusion, Metabolic Encephalopathy, likely secondary to UTI Patient developed a brief episode of confusion yesterday. She was awake and oriented x3 during my encounter this morning Daughter reports patient gets like this with UTIs. UA suggested the presence of UTI. Urine culture: Polymicrobial growth. Patient discharged with Vantin for UTI. RUQ pain with mildly distended gallbladder without inflammatory changes: -General surgery consulted. -U/S and HIDA done were negative for acute cholecystitis Pancreatic duct dilatation and scattered hypodensities throughout the pancreas concerning for IPMN general surgery reviewed with radiology - concerning for IPMN will need outpatient ERCP, patient is asymptomatic. Follow up with Dr. Mott is recommended. Diabetes mellitus type 2: Managed with A.c. HS Accu-Cheks, sliding scale insulin therapy. ADA diet. Hypertension: Home medications continued during the hospital stay. Hyperlipidemia: Home medications continued Dementia: Home medications continued. Vital Signs/Physical Exam: Temp Pulse Resp BP Pulse Ox 97.4 F 100 H 17 121/77 95 09/12/20 08:00 09/12/20 08:39 09/12/20 08:00 09/12/20 08:39 09/12/20 08:00 General: Alert, In no apparent distress HEENT: Mucous membr. moist/pink Neck: Supple Respiratory: Clear to auscultation bilaterally, Normal air movement Cardiovascular: No edema, Regular rate/rhythm, Normal S1 S2 Gastrointestinal: Soft and benign, Non-distended, No tenderness Musculoskeletal: No swelling Integumentary: No rashes Neurological: Other (No focal deficit.) Laboratory Data at Discharge: WBC 4.30 K/uL (4.3-10.9) 09/12/20 05:05 Hgb 8.9 g/dL (12.0-15.0) L 09/12/20 05:05 Hct 26.8 % (36.0-45.0) L 09/12/20 05:05 Plt Count 294 K/uL (152-406) 09/12/20 05:05 Sodium 137 mmol/L (136-145) 09/12/20 05:05 Potassium 4.2 mmol/L (3.5-5.1) 09/12/20 05:05 BUN 28 mg/dL (7-18) H 09/12/20 05:05 Creatinine 1.24 mg/dL (0.55-1.3) 09/12/20 05:05 Glucose 123 mg/dL (74-106) H 09/12/20 05:05 Magnesium 1.8 mg/dL (1.8-2.4) 09/12/20 05:05 Total Bilirubin 0.3 mg/dL (0.2-1.0) 09/11/20 05:08 AST 10 U/L (15-37) L 09/11/20 05:08 ALT < 6 U/L (12-78) L 09/11/20 05:08 Alkaline Phosphatase 79 U/L (45-117) 09/11/20 05:08 Lipase 78 U/L (73-393) 09/10/20 05:13 Home Medications: Acetaminophen with Codeine [Acetaminophen-Cod #3 Tablet] 1 each PO Q4HP PRN 09/09/20 Aspirin 81 mg PO DAILY 09/09/20 Cranberry Fruit Extract [Cranberry] 250 mg PO DAILY 09/09/20 Donepezil [Aricept*] 10 mg PO BEDTIME 09/09/20 Escitalopram [Lexapro*] 10 mg PO DAILY 09/09/20 Glimepiride [Amaryl*] 4 mg PO BID 09/09/20 Losartan Potassium [Cozaar*] 50 mg PO BID 09/09/20 Memantine HCl [Namenda] 5 mg PO DAILY 09/09/20 Metformin HCl [Glucophage*] 500 mg PO BIDWM 09/09/20 Pioglitazone [Actos*] 15 mg PO DAILY 09/09/20 Pravastatin Sodium 40 mg PO DAILY 09/09/20 hydroCHLOROthiazide [Hydrochlorothiazide*] 12.5 mg PO DAILY 09/09/20 Rivaroxaban [Xarelto] 1 each PO SEECOM 30 Days #1 tab.ds.pk 09/11/20 Cefpodoxime Proxetil 100 mg PO BID #10 tablet 09/12/20 Estuardo [Estuardo*] 1 pkt PO BID #60 powd.pack 09/12/20 New Medications: Cefpodoxime Proxetil 100 mg PO BID #10 tablet Estuardo [Estuardo*] 1 pkt PO BID #60 powd.pack Rivaroxaban [Xarelto] 1 each PO SEECOM 30 Days #1 tab.ds.pk Followup: Bakari Greene MD [ACTIVE - CAN ADMIT] -
[2020-09-12 13:29] VITALS: BP 120/70; TEMP 98.8
== END 2020-09-12 12:29 | disposition home health service (06) ==
LOC: INTOOBSV 16:19 → 2ND 16:19
PROVIDERS: ADMIT Hospitalist; ATTEND Internal Medicine
DX: I26.99 Other pulmonary embolism without acute cor pulmonale (principal); I82.412 Acute embolism and thrombosis of left femoral vein; I82.432 Acute embolism and thrombosis of left popliteal vein; G93.41 Metabolic encephalopathy; N39.0 Urinary tract infection, site not specified; K80.20 Calculus of gallbladder without cholecystitis without obstruction; K82.8 Other specified diseases of gallbladder; K86.89 Other specified diseases of pancreas; I10 Essential (primary) hypertension; E11.9 Type 2 diabetes mellitus without complications; E78.5 Hyperlipidemia, unspecified; F03.90 Unspecified dementia, unspecified severity, without behavioral disturbance, psychotic disturbance, mood disturbance, and anxiety; L89.92 Pressure ulcer of unspecified site, stage 2; Z79.82 Long term (current) use of aspirin; Z82.3 Family history of stroke; Z82.49 Family history of ischemic heart disease and other diseases of the circulatory system
CPT/HCPCS: 87088; 85025 ×2; 87086; 80048 ×2; 36415 ×3; 83735 ×3; 82947 ×12; 84443; 85027; 84439; 83690; 80053; 72125; 93970; 76705; 97116; 97161; 97530 ×2; 78227; J3475 ×2; J1650 ×4; J0696 ×2; G0378 ×5; J2805; A9537; G0379; 81003; 81015; 87077; 87186

== ENCOUNTER 2021-10-08 04:40 | Inpatient (IN) | payer OTHER ==
--- OUTSIDE RECORDS SUMMARY | 2021-10-08 04:44 | XMS REPORT | Continuity of Care Document ---
:1945 Author Organization [facility] t Address [address] [place] [address] Care Team Providers Name Role Phone Priscilla López MD Primary Care Physician NOEL MARTIN Attending Clinician Unavailable JACKSON Attending Clinician Unavailable Nadya Polk Attending Clinician Unavailable Talib Rutherford MD Attending Clinician JACKSON Attending Clinician Unavailable Doctor Unassigned, Name Attending Clinician Unavailable Juan Cerna Attending Clinician Juan PARSON Attending Clinician Unavailable KNOW Attending Clinician Unavailable PRANAY TAYLOR Attending Clinician Unavailable Nadya KEYES Attending Clinician Unavailable NOEL MARTIN Admitting Clinician Unavailable KNOW Admitting Clinician Unavailable Payers Payer Name Policy Type Policy Number Effective Date Expiration Date Juan Nuroa [id number] 2019 00:00:00 SPRING Problems Condition Condition Condition Status Onset Resolution Last Treating Co mments Source Name Details Category Date Date Treatment Clinician Date Status Status Disease Active [facility] post right post right 6-21 Co llege hip hip 00:00: of replacemen replacemen 00 Me dicin t t e Pain of Pain of Disease Active [facility] right right 02-05 College femur femur 00:00: of 00 Medicin e Failure of Failure of Disease Active [facility] outpatient outpatient 02-05 Co llege treatment treatment 00:00: of 00 Medicin e High blood High blood Disease Active [facility] pressure pressure 02-05 Colleg e 00:00: of 00 Medicin e Essential Essential Disease Active [place] [facility] (primary) (primary) 02-05 [facility] hypertensi hypertensi 00:00: of on on 00 Medicin e Diabetes Diabetes Disease Active [place] [facility] mellitus mellitus 02-05 Colleg e (HCCode) (HCCode) 00:00: of 00 Medicin e Anemia Anemia Disease Active [facility] 02-05 [place] 00:00: of 00 Medicin e Acute-on-c Acute-on-c Disease Active [facility] hronic hronic 02-05 College renal renal 00:00: of failure failure 00 Medicin (HCCode) (HCCode) e Acute Acute Disease Active [facility] cystitis cystitis 02-05 Colleg e 00:00: of 00 Medicin e 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 College 00:00: of 00 Medicin e Hypercalce Hypercalce Disease Active [facility] nic nic 17 College 00:00: of 00 Medicin e Stage 3a Stage 3a Disease Active 2018-08 Overview: [facility]lor chronic chronic 0-08 [facility] kidney kidney 00:00: g of this of disease disease 00 note Medicin might be e different from the original. Formattin g of this note might be different from the original. Update for Diagnosis Load Paroxysmal Paroxysmal Disease Active 2018-08 [facility] atrial atrial 0-08 College fibrillati fibrillati 00:00: of on on 00 Medicin (HCCode) (HCCode) e Nephrogeno Nephrogeno Disease Active 2018-08 [facility] us 0-08 College proteinuri proteinuri 00:00: of a a 00 Medicin e Neck pain Neck pain Disease Active 2018-08 [place] [facility] of over 3 of over 3 0-08 [facility] months months 00:00: of duration duration 00 Medici n e Localized Localized Disease Active 2018-08 [place] [facility] edema due edema due 0-08 [facility] to fluid to fluid 00:00: of overload overload 00 Medici n e 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 0-08 College syndrome syndrome 00:00: of with with 00 Medicin diarrhea diarrhea e Hypokalemi Hypokalemi Disease Active 2018-08 [facility] a a 0-08 College 00:00: of 00 Medicin e 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 [facility] nodes of nodes of 0-08 Colleg e left hand left hand 00:00: of 00 Medicin e 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 0-08 Co llege sterolemia sterolemia 00:00: of 00 Medicin e Benign Benign Disease Active 2018-08 [facility] hypertensi hypertensi 0-08 Co llege on with on with 00:00: of chronic chronic 00 Medicin kidney kidney e disease disease Type 2 Type 2 Disease Active 2018-08 [facility] diabetes diabetes 0-08 Colleg e mellitus mellitus 00:00: of with with 00 Medicin chronic chronic e kidney kidney disease disease (HCCode) (HCCode) Chronic Chronic Disease Active 2018-08 [facility] low back low back 0-08 Colleg e pain pain 00:00: of 00 Medicin e Absolute Absolute Disease Active 2018-08 [place] anemia anemia 0-08 [facility] 00:00: of 00 Medicin e Anemia of Anemia of Disease Active 2018-08 [place] [facility] chronic chronic 0-08 College disease disease 00:00: of 00 Medicin e Allergic Allergic Disease Active 2018-08 [place] rhinitis rhinitis 0-08 Colleg e due to due to 00:00: of pollen pollen 00 Medicin e Pain of Pain of Problem Active [facility] right right ity of femur femur [place] [facility] Status Status Problem Active [facility] post right post right it y of hip hip [place] [facility] ans Allergies, Adverse Reactions, Alerts Allergy Allergy Status Severity Reaction(s) Onset Inactive Treating Comm ents Source Name Type Date Date Clinician No Known DA Active [facility] Allergie 6-05 Clear s 00:00: Hare 00 [facility] No Known DA Active [facility] Allergie -05 Clear s 00:00: Hare 00 [facility] NO KNOWN Drug Active Univers ALLERGIE Class ity of S [facility] Social History Social Habit Start Date Stop Date Quantity Comments Source Exposure to Not sure [facility] Gloriag e SARS-CoV-2 (event) of Med icine History [facility] ge Alcohol Std Drinks of Med icine History [facility] Alcohol Binge of Medicine Alcohol intake 2021-05-11 2021-05-11 Ex-drinker [facility] lege 00:00:00 00:00:00 (finding) of Medicine History [facility] 2021-05-11 2021-05-11 1 [facility] ge Alcohol Frequency 00:00:00 00:00:00 of Medi cine Alcohol Comment 2021-05-11 2021-05-[address] [facility] 00:00:00 00:00:00 ago Social of Medicine Tobacco use and 2020-09-27 2020-09-27 Never used [facility] Co llege exposure 00:00:00 00:00:00 of Medicine Sex [birth year] [facility] llege 00:00:00 00:00:00 of Medicine Smoking Status Start Date Stop Date Source Never smoker [facility] o f Medicine Medications Ordered Filled Start Stop Current Ordering Indication Dosage Frequency Signature Comments Components Source Medication Medication Date Date Medication? Clinician (SIG) Name Name pioglitazon Yes 15mg Take 15 mg [facility] e (ACTOS) 6-21 by mouth Colleg e 15 MG 13:58: daily. of tablet 49 Medicin e aspirin EC Yes 81mg Take 81 mg B aylor 81 MG 6-21 by mouth. College tablet 13:58: of 49 Medicin e Cranberry Yes Take by [facility] 250 MG CAPS 6-21 mouth. Colleg e 13:58: of 49 Medicin e ascorbic 2020-0 Yes 500mg Take 500 [facility] acid 500 MG 6-21 mg by College tablet 13:58: mouth. of 49 Medicin e hydrochloro 0 Yes 12.5mg Take 12.5 [facility] thiazide 6-21 mg by College (MICROZIDE) 13:58: mouth. of 12.5 MG 49 Medicin capsule e Multiple 0 Yes 1{tbl} Take 1 [facility] Vitamin 6-21 Tablet by College (ONE-DAILY 13:58: mouth. of MULTIVITAMI 49 Medicin NS) TABS e pravastatin 0 Yes 40mg Take 40 mg [facility] (PRAVACHOL) 6-21 by mouth [facility] 40 MG 13:58: daily. of tablet 49 Medicin e pioglitazon 0 Yes 15mg Take 15 mg [facility] e (ACTOS) 6-21 by mouth Colleg e 15 MG 13:58: daily. of tablet 49 Medicin e aspirin EC 0 Yes 81mg Take 81 mg [facility] 81 MG 6-21 by mouth. College tablet 13:58: of 49 Medicin e Cranberry 0 Yes Take by [facility] 250 MG CAPS 6-21 mouth. Colleg e 13:58: of 49 Medicin e ascorbic 0 Yes 500mg Take 500 [facility] acid 500 MG 6-21 mg by College tablet 13:58: mouth. of 49 Medicin e hydrochloro 0 Yes 12.5mg Take 12.5 [facility] thiazide 6-21 mg by College (MICROZIDE) 13:58: mouth. of 12.5 MG 49 Medicin capsule e Multiple 0 Yes 1{tbl} Take 1 [facility] Vitamin 6-21 Tablet by [place] (ONE-DAILY 13:58: mouth. of MULTIVITAMI 49 Medicin NS) TABS e pravastatin 2020-0 Yes 40mg Take 40 mg [facility] (PRAVACHOL) 6-21 by mouth [facility] 40 MG 13:58: daily. of tablet 49 Medicin e pioglitazon 2020-0 Yes 15mg Take 15 mg [facility] e (ACTOS) 6-21 by mouth Colleg e 15 MG 13:58: daily. of tablet 49 Medicin e aspirin EC 2021-0 Yes 81mg Take 81 mg [facility] 81 MG 6-21 by mouth. College tablet 13:58: of 49 Medicin e Cranberry Yes Take by [facility] 250 MG CAPS 6-21 mouth. Colleg e 13:58: of 49 Medicin e ascorbic 0 Yes 500mg Take 500 [facility] acid 500 MG 6-21 mg by College tablet 13:58: mouth. of 49 Medicin e hydrochloro Yes 12.5mg Take 12.5 [facility] thiazide 6-21 mg by College (MICROZIDE) 13:58: mouth. of 12.5 MG 49 Medicin capsule e Multiple Yes 1{tbl} Take 1 [facility] Vitamin 6-21 Tablet by College (ONE-DAILY 13:58: mouth. of MULTIVITAMI 49 Medicin NS) TABS e pravastatin Yes 40mg Take 40 mg [facility] (PRAVACHOL) 6-21 by mouth [facility] 40 MG 13:58: daily. of tablet 49 Medicin e metformin Yes [facility] (GLUCOPHAGE 2-03 [place] ) 1000 MG 00:00: of tablet 00 Medicin e metformin 0 Yes [facility] (GLUCOPHAGE 2-03 [place] ) 1000 MG 00:00: of tablet 00 Medicin e metformin 0 Yes [facility] (GLUCOPHAGE 2-03 [place] ) 1000 MG 00:00: of tablet 00 Medicin e glimepiride 0 Yes [facility] (AMARYL) 4 2-02 College MG tablet 00:00: of 00 Medicin e losartan 0 Yes [facility] (COZAAR) 50 2-02 College MG tablet 00:00: of 00 Medicin e glimepiride 0 Yes [facility] (AMARYL) 4 2-02 College MG tablet 00:00: of 00 Medicin e losartan 0 Yes [facility] (COZAAR) 50 2-02 College MG tablet 00:00: of 00 Medicin e glimepiride 0 Yes [facility] (AMARYL) 4 2-02 College MG tablet 00:00: of 00 Medicin e losartan 0 Yes [facility] (COZAAR) 50 2-02 College MG tablet 00:00: of 00 Medicin e XARELTO Yes [facility] STARTER 1-26 College PACK 15 & 00:00: of 20 MG TBPK 00 Medicin e XARELTO 0 Yes [facility] STARTER 09-12 College PACK 15 & 00:00: of 20 MG TBPK 00 Medicin e XARELTO 0 Yes [facility] STARTER 09-12 College PACK 15 & 00:00: of 20 MG TBPK 00 Medicin e escitalopra 2020-0 Yes 10mg Take 10 mg [facility] m (LEXAPRO) 4-01 by mouth. Col lege 10 MG 00:00: of tablet 00 Medicin e escitalopra 2020-0 Yes 10mg Take 10 mg [facility] m (LEXAPRO) 4-01 by mouth. Col lege 10 MG 00:00: of tablet 00 Medicin e escitalopra 2020-0 Yes 10mg Take 10 mg [facility] m (LEXAPRO) 4-01 by mouth. Col lege 10 MG 00:00: of tablet 00 Medicin e donepezil 2020-0 Yes TAKE 1 [facility] (ARICEPT) 3-26 TABLET BY Colle ge 10 MG 00:00: MOUTH of tablet 00 EVERY DAY Medicin AT BEDTIME e FOR 30 DAYS donepezil 2020-0 Yes TAKE 1 [facility] (ARICEPT) 3-26 TABLET BY Colle ge 10 MG 00:00: MOUTH of tablet 00 EVERY DAY Medicin AT BEDTIME e FOR 30 DAYS donepezil 2020-0 Yes TAKE 1 [facility] (ARICEPT) 3-26 TABLET BY Colle ge 10 MG 00:00: MOUTH of tablet 00 EVERY DAY Medicin AT BEDTIME e FOR 30 DAYS Vital Signs Vital Name Observation Time Observation Value Comments Source Systolic blood 2021-05-11 14:05:00 151 mm[Hg] [facility] pressure Medicine Diastolic blood 2021-05-11 14:05:00 101 mm[Hg] [facility] pressure Medicine Heart rate 2021-05-11 14:05:00 110 /min O2: 98% [facility] Body temperature 2021-05-11 14:05:00 36.78 [facility] Body height 2021-05-11 14:05:[address] [facility] Body weight 2021-05-11 14:05:[address] [facility] BMI 2021-05-11 14:05:00 23.03 kg/m2 [facility] Body height 2021-02-05 18:59:[address] [facility] Body weight 2021-02-05 18:59:[address] [facility] BMI 2021-02-05 18:59:00 22.85 kg/m2 [facility] Systolic blood 2021-02-05 18:59:00 110 mm[Hg] [facility] Diastolic blood 2021-02-05 18:59:00 73 mm[Hg] [facility] Heart rate 2021-02-05 18:59:00 88 /min 02-97% [facility] Body temperature 2021-02-05 18:59:00 36.11 [facility] Procedures Procedure Date / Time Performed Performing Clinician Sour e BASIC METABOLIC PANEL 2021-02-05 20:08:00 Talib Rtuherford [facility] HEPATIC FUNCTION PANEL 2021-02-05 20:08:00 Talib Rutherford [facility] CBC W/AUTO DIFF WITH 2021-02-05 20:08:00 Talib Rutherford [facility] CANCER ANTIGEN 19-9 2021-02-05 20:08:00 Talib Rutherford [facility] PROTIME & PTT 2021-02-05 20:08:00 Lito Dickerson [facility] Col lege [facility] [U] XRAY HIP 2020-06-20 00:00:00 [employer] [place] UNILATERAL MIN 2 [facility] RIGHT [id number] Hip 2/3 views uni DX 2020-06-20 00:00:00 [facility] [U] XRAY HIP 2020-05-31 00:00:00 [employer] [place] UNILATERAL MIN 2 [facility] Physicians RIGHT [id number] Post Op Promis 29 2020-05-30 00:00:00 [facility] Survey Physicians [id number] 2020-01-24 00:00:00 MOUDA.01 [facility] Plan of Care Planned Activity Planned Date Details Comments Source Future Scheduled 2021-05-11 MRI ABDOMEN W WO 1 Occurrences [facility] Test 09:55:35 CONTRAST MRCP [code starting of Medic ine = 43933-1] 05/11/2021 until 05/11/2022 Future Scheduled 2021-05-11 MRI ABDOMEN W WO [address] [facility] Test 09:55:35 CONTRAST MRCP [code starting of Medic ine = 08415-5] 05/11/2021 until 05/11/2022 Future Scheduled 2021-05-11 Screening for [facility] Col lege Test 09:08:20 malignant neoplasm of Medici ne of colon (procedure) [code = 398697759] Future Scheduled 2021-05-11 Screening for [facility] Col [facility]ge Test 09:08:20 malignant neoplasm of Medici ne of breast (procedure) [code = 690729920] Future Scheduled 2021-05-11 TETANUS SHOT (ADULT) [place] [facility] College Test 09:08:20 [code = TETANUS SHOT of Medi cine (ADULT)] Future Scheduled 2021-05-11 Diabetic foot [facility] Col lege Test 09:08:20 examination of Medicine (regime/therapy) [code = 479135131] Future Scheduled 2021-05-11 ANNUAL DIABETIC [facility] C ollege Test 09:08:20 RETINOPATHY of Medicine SCREENING [code = ANNUAL DIABETIC RETINOPATHY SCREENING] Future Scheduled 2021-05-11 Hepatitis C [facility] Test 09:08:20 screening of Medicine (procedure) [code = 197340862] Future Scheduled 2021-05-11 ZOSTER VACCINE (1 of [facility] Test 09:08:20 2) [code = ZOSTER of Medicin e VACCINE (1 of 2)] Future Scheduled 2021-05-11 FALL SCREEN [code = [facility] Test 09:08:20 FALL SCREEN] of Medicine Future Scheduled 2021-05-11 Screening for [facility] Col lege Test 09:08:20 osteoporosis of Medicine (procedure) [code = 608660381] Future Scheduled 2021-05-11 PNEUMOVAX >=65 [facility] Co llege Test 09:08:20 (PPSV23) [code = of Medicine PNEUMOVAX >=65 (PPSV23)] Future Scheduled 2021-05-11 FLU VACCINE > 6 [facility] C ollege Test 09:08:20 MONTHS [code = FLU of Medici ne VACCINE > 6 MONTHS] Future Scheduled 2021-05-11 Screening for [facility]ge Test 09:08:20 malignant neoplasm of Medici ne of colon (procedure) [code = 509713722] Future Scheduled 2021-05-11 Screening for [facility] Col [facility]ge Test 09:08:20 malignant neoplasm of Medici ne of breast (procedure) [code = 055713858] Future Scheduled 2021-05-11 TETANUS SHOT (ADULT) [place] [facility] [facility] Test 09:08:20 [code = TETANUS SHOT of Medi cine (ADULT)] Future Scheduled 2021-05-11 Diabetic foot [facility] Test 09:08:20 examination of Medicine (regime/therapy) [code = 215223759] Future Scheduled 2021-05-11 ANNUAL DIABETIC [facility] C ollege Test 09:08:20 RETINOPATHY of Medicine SCREENING [code = ANNUAL DIABETIC RETINOPATHY SCREENING] Future Scheduled 2021-05-11 Hepatitis C [facility] Test 09:08:20 screening of Medicine (procedure) [code = 288089652] Future Scheduled 2021-05-11 ZOSTER VACCINE (1 of [place] College Test 09:08:20 2) [code = ZOSTER of Medicin e VACCINE (1 of 2)] Future Scheduled 2021-05-11 FALL SCREEN [code = [facility] [place] College Test 09:08:20 FALL SCREEN] of Medicine Future Scheduled 2021-05-11 Screening for [facility] Col lege Test 09:08:20 osteoporosis of Medicine (procedure) [code = 580652440] Future Scheduled 2021-05-11 PNEUMOVAX >=65 [facility] Co llege Test 09:08:20 (PPSV23) [code = of Medicine PNEUMOVAX >=65 (PPSV23)] Future Scheduled 2021-05-11 FLU VACCINE > 6 [facility] C ollege Test 09:08:20 MONTHS [code = FLU of Medici ne VACCINE > 6 MONTHS] Future Scheduled 2021-02-06 Screening for [facility] Col [facility]ge Test 11:03:52 malignant neoplasm of Medici ne of colon (procedure) [code = 316763643] Future Scheduled 2021-02-06 Screening for [facility] Col lege Test 11:03:52 malignant neoplasm of Medici ne of breast (procedure) [code = 648534242] Future Scheduled 2021-02-06 COVID-19 Vaccine (1) [place] [facility] [facility] Test 11:03:52 [code = COVID-19 of Medicine Vaccine (1)] Future Scheduled 2021-02-06 TETANUS SHOT (ADULT) [facility] Test 11:03:52 [code = TETANUS SHOT of Medi cine (ADULT)] Future Scheduled 2021-02-06 Diabetic foot [facility] Col lege Test 11:03:52 examination of Medicine (regime/therapy) [code = 290583971] Future Scheduled 2021-02-06 ANNUAL DIABETIC [facility] C ollege Test 11:03:52 RETINOPATHY of Medicine SCREENING [code = ANNUAL DIABETIC RETINOPATHY SCREENING] Future Scheduled 2021-02-06 Hepatitis C [facility] Test 11:03:52 screening of Medicine (procedure) [code = 552574987] Future Scheduled 2021-02-06 ZOSTER VACCINE (1 of [facility] Test 11:03:52 2) [code = ZOSTER of Medicin e VACCINE (1 of 2)] Future Scheduled 2021-02-06 FALL SCREEN [code = [facility] Test 11:03:52 FALL SCREEN] of Medicine Future Scheduled 2021-02-06 Screening for [facility] Col lege Test 11:03:52 osteoporosis of Medicine (procedure) [code = 932398746] Future Scheduled 2021-02-06 PNEUMOVAX >=65 [facility] Co llege Test 11:03:52 (PPSV23) [code = of Medicine PNEUMOVAX >=65 (PPSV23)] Future Scheduled 2021-02-06 FLU VACCINE > 6 [facility] C ollege Test 11:03:52 MONTHS [code = FLU of Medici ne VACCINE > 6 MONTHS] Future Scheduled 2021-02-05 MRI ABDOMEN W WO [address] [facility] Test 15:01:11 CONTRAST MRCP [code starting of Medic ine = 96063-8] 02/05/2021 until 02/05/2022 Encounters Start End Encounter Admission Attending Care Care Encounter Source Date/Time Date/Time Type Type Clinicians Facility Department ID 2021-05-26 Outpatient VERONICA [facility] Surgery [id number] [facility] 10:23:08 SHEKHAR 2020-12-23 Outpatient RENETTA [facility] [id number] [place] 03:40:42 [facility] 2020-01-24 Inpatient JANEY Polk [id number] [facility] 08:45:00 Nuno [id number] [facility] 2020-01-21 Inpatient CHASE Polk, HCACL DAYS [id number] [facility] 15:00:00 N[facility] 2021-05-11 2021-05-11 Office Talib Rutherford [facility] [id number] [facility] 07:40:35 08:00:35 Visit Ltio Joe [id number] Co llege [id number] of [id number] [facility] 510 e 2021-02-05 2021-02-05 Office Talib Rutherford [facility] [id number] [facility] 12:56:52 14:54:54 Visit Lito Joe [id number] Co llege 0.2.7.2.686 of [id number] [facility] 510 e 2020-08-01 2020-08-01 Appointmen ALBA JACKSON Orthopedics [id number] Univers 10:00:00 10:00:00 t; Francie GUTIERREZ at [facility] MATT, Orthopedic Physi ci M.D. and Spine [facility], POD 3 2020-06-20 2020-06-20 Appointmen ALBA JACKSON Orthopedics [id number] Univers 08:30:00 08:30:00 t; Francie GUTIERREZ at [facility] MATT Orthopedic Physi ci M.DJavier and Spine [facility] 2020-06-20 2020-06-20 Orders Doctor OVALLE [id number] 00:00:00 00:00:00 Only Unassigned, TRACY [id number] [facility] [id number] 2020-06-15 2020-06-15 Office Carmen INPRABHJOT [id number] 14:51:12 15:39:19 Visit [facility] [id number] Surgical 4.2.7.2.686 Specialti [id number] [place] 2020-06-15 2020-06-15 [facility] [id number] Univers 14:45:00 14:45:00 NIRU [id number] [facility] 2020-06-15 2020-06-15 Outpatient Stephanie PARSON [facility] [id number] Univers 14:45:00 14:45:00 NIRU [facility] 2020-05-24 2020-05-24 Appointalyssa JACKSON [facility] Orthopedics [id number] Univers 15:15:00 15:15:00 t; Franc[facility] Physi ci Francie and Spine [facility] 2020-05-19 2020-05-19 Outpatient KNOW, HCABM OPLA [id number] [facility] 23:34:00 23:34:00 DOES_NOT [facility] 2020-01-18 2020-01-18 Outpatient Stephanie TAYLOR [facility] [id number] Univers 14:40:00 14:40:00 URMILA [facility] 2020-01-18 2020-01-18 Outpatient Stephanie TAYLOR [facility] [id number] Univers 14:40:00 14:40:00 URMILA [facility] 2020-01-14 2020-01-14 Outpatient Stephanie PARSON [facility] [id number] Univers 08:22:20 23:59:00 NIRU [facility] 2020-01-14 2020-01-14 Outpatient Stephanie PARSON [facility] [id number] Univers 08:00:00 08:00:00 NIRU [id number] [facility] 2019-12-31 2019-12-31 Outpatient Stephanie KEYES [facility] [id number] Univers 08:00:00 08:00:00 NAVEED [id number] [facility] 2019-12-31 2019-12-31 Outpatient Stephanie KEYES [facility] [id number] Univers 08:00:00 08:00:00 NAVEED [facility] 2019-12-03 2019-12-03 Outpatient Stephanie KEYES [facility] [id number] Univers 08:00:00 08:00:00 NAVEED [facility] 2019-12-03 2019-12-03 Outpatient Stephanie KEYES [facility] [id number] Univers 08:00:00 08:00:00 NAVEED [id number] [facility] 2019-11-10 2019-11-10 Outpatient Stephanie KEYES [facility] [id number] Univers 14:00:00 14:00:00 NAVEED [facility] Results Test Description Test Time Test Comments Results Result Comments Source CBC W/AUTO DIFF WITH PLATELETS 2021-02-06 15:50:59 Test Item Value Reference Range Interpretation Comme nts WHITE BLOOD CELL COUNT (test See_Comment [Automated message] The system code = 21821-4) which genera richi this result transmitted ref erence range: 3.5 - 11.0 K/UL. Th e reference range was not used to interpret this result as rossana l/abnormal. RED BLOOD CELL COUNT (test See_Comment L [Automated message] The system code = 40131-7) which genera richi this result transmitted ref erence range: 3.80 - 5.40 M/U L. The reference range was not u sed to interpret this result as normal/abnormal. HEMOGLOBIN (test code = 718-7) See_Comment L [Automated message] The system which generated this result transmitted ref erence range: 11.5 - 15.5 G/D L. The reference range was not u sed to interpret this result as normal/abnormal. HEMATOCRIT (test code = 26.6 % 34.0-45.0 L 73117-8) MEAN CORPUSCULAR VOLUME (test 92.0 fL 80.0-99.0 code = 15777-7) MEAN CORPUSCULAR HEMOGLOBIN 30.8 PG 25.0-33.0 (test code = 45836-0) MEAN CORPUSCULAR HEMOGLOBIN See_Comment [Automated message] The system CONC (test code = 73955-8) [facility] result transmitted ref erence range: 31 - 36 G/DL. The reference range was not used to interpret this result as rossana l/abnormal. RED CELL DISTRIBUTION WIDTH 12.4 % 11.5-15.0 (test code = 31556-7) NEUTROPHILS % (test code = 55.1 % 40.0-75.0 83383-1) LYMPHOCYTES % (test code = 33.2 % 20.0-45.0 42717-3) MONOCYTES % (test code = 8.6 % 4.0-12.0 00170-0) EOSINOPHILS % (test code = 2.1 % 0.0-7.0 74701-2) BASOPHILS % (test code = 0.8 % 0.0-2.0 19831-6) IMMATURE GRANULOCYTES (test 0.2 % 0.0-1.0 code = 71770-5) NUCLEATED RBC'S MYELOPEROX See_Comment Unless Otherwise STAIN (test code = 64356-0) Indicated, All Testing Performed At: [facility], [address] [place], [place] [address] Laboratory Dire ctor: Dequan Up M.D. CLIA Number [id number] Cap Accreditation N o. [id number] [Automated mess age] The system which generated this result transmitted ref erence range: 0.00 - 0.11 K/U L. The reference range was not u sed to interpret this result as normal/abnormal. PLATELET COUNT (test code = See_Comment [Automated message] The system 90794-5) which generated this result transmitted ref erence range: 130 - 400 K/UL. The reference range was not used to interpret this result as rossana l/abnormal. NEUTROPHILS ABSOLUTE COUNT See_Comment [Automated message] The system (test code = 96515-1) which generated this result transmitted ref erence range: 1.50 - 7.50 K/U L. The reference range was not u sed to interpret this result as normal/abnormal. LYMPHOCYTES ABSOLUTE COUNT See_Comment [Automated message] The system (test code = 51612-6) which generated this result transmitted ref erence range: 1.00 - 4.00 K/U L. The reference range was not u sed to interpret this result as normal/abnormal. MONOCYTES ABSOLUTE COUNT (test See_Comment [Automated message] The system code = 57226-2) which genera richi this result transmitted ref erence range: 0.20 - 1.00 K/U L. The reference range was not u sed to interpret this result as normal/abnormal. BASOPHILS ABSOLUTE COUNT (test See_Comment [Automated message] The system code = 25914-8) which genera richi this result transmitted ref erence range: 0.00 - 0.20 K/U L. The reference range was not u sed to interpret this result as normal/abnormal. IMMATURE GRANS (ABS) (test See_Comment [Automated message] The system code = 9987) which generated this result transmitted ref erence range: 0.00 - 0.10 K/U L. The reference range was not u sed to interpret this result as normal/abnormal. Lab Interpretation (test code Abnormal = 07347-0) [facility] METABOLIC [id number] 11:07:41 Test Item Value Reference Range Interpretation Comments GLUCOSE (test code = See_Comment H [Autom ated message] 2345-7) The system [employer] generated this result transmitted ref erence range: 70 - 99 MG/DL. The reference r gertrude was not used to interpret this result as normal/abnor mal. BLOOD UREA NITROGEN See_Comment H [Automa richi message] (test code = 3091-6) The sys tem which generated this result transmitted ref erence range: 8 - 23 M G/DL. The reference r gertrude was not used to interpret this result as normal/abnor mal. CREATININE (test code = See_Comment H [Au tomated message] 2160-0) The system [employer] generated this result transmitted ref erence range: 0.60 - 1 .30 MG/DL. The refe rence range was not u sed to interpret this result as normal/abnor mal. EGFR AA (test code = See_Comment L [Autom ated message] 11953-5) The system [employer] generated this result transmitted ref erence range: >60 ML/MIN/1.73. Th e reference range was not used to int erpret this result as normal/abnormal . EGFR (test code = See_Comment L [Automate d message] 70420-5) The system [employer] generated this result transmitted ref erence range: >60 ML/MIN/1.73. Th e reference range was not used to int erpret this result as normal/abnormal . SODIUM (test code = See_Comment [Automa richi message] 2951-2) The system [employer] generated this result transmitted ref erence range: 133 - 14 6 MEQ/L. The refe rence range was not u sed to interpret this result as normal/abnor mal. POTASSIUM (test code = See_Comment [Aut omated message] 3453-3) The system [employer] generated this result transmitted ref erence range: 3.5 - 5. 4 MEQ/L. The refe rence range was not u sed to interpret this result as normal/abnor mal. CHLORIDE (test code = See_Comment [Auto mated message] 2074-0) The system [employer] generated this result transmitted ref erence range: 95 - 107 MEQ/L. The reference r gertrude was not used to interpret this result as normal/abnor mal. CO2 (test code = See_Comment [Automated message] 1963-03) The system [employer] generated this result transmitted ref erence range: 19 - 31 MEQ/L. The reference r gertrude was not used to interpret this result as normal/abnor mal. CALCIUM (test code = See_Comment Unless 98408-5) Otherwise Indic ated, All Testing Per formed At: [facility], [address] [place] [address] Laboratory Dire ctor: Dequan weaver M.D. CLIA Num dwight [id number] Cap Accreditation N o. [id number] [Auto mated message] The sy stem which generated this result transmit richi reference range : 8.5 - 10.5 MG/DL. The reference range was not used to int erpret this result as normal/abnormal . Lab Interpretation Abnormal (test code = 73988-2) [facility] [id number] 11:07:41 Test Item Value Reference Range Interpretation Comments PROTEIN TOTAL (test See_Comment [Automa richi message] The code = 2885-2) system which generated this result tra nsmitted reference range : 6.1 - 8.3 G/DL. The r eference range was not u sed to interpret this result as normal/abnormal . ALBUMIN (test code = See_Comment [Autom ated message] The 75463-4) system which ge nerated this result tra nsmitted reference range : 3.5 - 5.2 G/DL. The r eference range was not u sed to interpret this result as normal/abnormal . BILIRUBIN TOTAL (test See_Comment [Auto mated message] The code = 1974-2) system which generated this result tra nsmitted reference range : <=1.2 MG/DL. The refe rence range was not u sed to interpret this result as normal/abnormal . BILIRUBIN DIRECT (test See_Comment [Aut omated message] The code = 1967-) system which generated this result tra nsmitted reference range : 0.0 - 0.3 MG/DL. The reference range was not u sed to interpret this result as normal/abnormal . ALKALINE PHOSPHATASE 77 U/L 40-142 (test code = 6768-6) AST (SGOT) (test code = 17 U/L 9-40 1920-8) ALT (SGPT) (test code = 15 U/L 5-40 Unless 1744-2) Otherwise Indic ated, All Testing Perform ed At: [facility], [address] [place] [address] Computer Help Desk Representative: Francie CarterIA Numbe r [id number] Cap Accreditation [place] o. [id number] [facility] 09:45:01 Test Item Value Reference Range Interpretation Comments CA 19-9 (test 24 U/ML <35 NOTE: Meth odology is Ashish code = Nadia Electroch emiluminescence 35980-6) Immunoassay (EC HORACIO). Values obtained with d ifferent assays/manufact urers cannot be used interchang eably. Results should not be u sed as sole basis to establish th e presence or absence of marcy gnancy. Unless Otherwis e Indicated, All Testing Perform ed At: [facility], [address] [place], [place] [id number] Computer Help Desk Representative: Dequan Up M.D. CLIA Number [id number] Cap Accreditation [place] o. [id number] [facility] & [id number] 08:40:15 Test Item Value Reference Range Interpretation Comments PROTIME (test code = See_Comment H [Autom ated message] 6509-6) The system [employer] generated this result transmitted ref erence range: 12.5 - 1 4.7 SECONDS. The re ference range was not u sed to interpret this result as normal/abnor mal. INR (test code = SEE BELOW CURRENT 6301-6) RECOMMENDATIONS ARE FOR AN INR OF 2.0-3 .0 FOR ALL PA TIENTS ON VITAMIN K ANTAGONISTS, EX CEPT THOSE WITH PROSTHETIC HEAR T VALVES, FOR WHO M INR OF 2.5-3.5 IS RECOMMENDED. PARTIAL THROMBOPLASTIN See_Comment H Unless TIME (test code = Otherwise Indicated, 40887-5) All Testing Per formed At: [facility], [address] [place] [address] Laboratory Dire ctor: Dequan weaver M.D. CLIA Numb er [id number] Cap Accreditation N o. [id number] [Auto mated message] The sy stem which generated this result transmit richi reference range : 25.2 - 40.0 SECONDS. T he reference range was not used to interpr et this result as normal/abnormal . Lab Interpretation Abnormal (test code = 85298-5) [facility] Promis 29 [id number] 08:41:11 Test Item Value Reference Range Interpretation Comments Pain Interference: (test code = Pain 56 1 N Interference:) Pain Intensity: (test code = Pain 42.6 1 N Intensity:) Physical Function: (test code = 23.9 1 N Physical Function:) Satisfaction Role: (test code = 45.8 1 N Satisfaction Role:) [facility] PhysiciansTHROMBOPLASTIN TIME [id number] 23:51:00 Test Item Value Reference Range Interpretation Comments THROMBOPLASTIN TIME PARTIAL 30.4 seconds 23.0-37.0 N (test code = PTT) PROTHROMBIN [id number] 23:51:00 Test Item Value Reference Range Interpretation Comments PROTHROMBIN TIME 12.8 seconds 9.0-14.0 N PATIENT (test code = PTP) INTERNATIONAL NORMAL 1.1 0.8-1.2 N The the rapeutic range RATIO (test code = for oral INR) anticoagulant t herapy formost indicat ions is an internati onal normalized rati o (INR)of between 2.0 and 3.0. 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 [facility] [id number] 09:47:00 Test Item Value Reference Range Interpretation Comments GLUBED (test code = 149 MG/DL 70-110 H Performe d by certified GLUBED) 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 [facility] BASIC METABOLIC [id number] 08:32:00 Test Item Value Reference Range Interpretation [...] code = 9.4 mg/dL 8.0-10.5 N CA) [id number] 22:07:00 Test Item Value Reference Range Interpretation Comments GLUBED (test code = 178 MG/DL 70-110 H Performe d by certified GLUBED) 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 [facility] [id number] 18:03:00 Test Item Value Reference Range Interpretation Comments GLUBED (test code = 227 MG/DL 70-110 H Performe d by certified GLUBED) 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 [facility] [id number] 18:03:00 Test Item Value Reference Range Interpretation Comments GLUBED (test code = 206 MG/DL 70-110 H Performe d by certified GLUBED) 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 [facility] [id number] 16:58:00 Test Item Value Reference Range Interpretation Comments GLUBED (test code = 190 MG/DL 70-110 H Performe d by certified GLUBED) 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 [facility] [id number] 09:32:00 Test Item Value Reference Range Interpretation Comments GLUBED (test code = 134 MG/DL 70-110 H Performe d by certified GLUBED) 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 [facility] BASIC METABOLIC [id number] 08:36:00 Test Item Value Reference Range Interpretation [...] code = 9.3 mg/dL 8.0-10.5 N CA) [id number] 22:49:00 Test Item Value Reference Range Interpretation Comments GLUBED (test code = 190 MG/DL 70-110 H Performe d by certified GLUBED) 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 [facility] [id number] 16:45:00 Test Item Value Reference Range Interpretation Comments GLUBED (test code = 224 MG/DL 70-110 H Performe d by certified GLUBED) 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 [facility] [id number] 11:57:00 Test Item Value Reference Range Interpretation Comments GLUBED (test code = 242 MG/DL 70-110 H Performe d by certified GLUBED) 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 [facility] BASIC METABOLIC [id number] 08:33:00 Test Item Value Reference Range Interpretation [...] code = 9.7 mg/dL 8.0-10.5 N CA) [id number] 08:13:00 Test Item Value Reference Range Interpretation Comments GLUBED (test code = 153 MG/DL 70-110 H Performe d by certified GLUBED) 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 [facility] [id number] 08:35:00 Test Item Value Reference Range Interpretation Comments GLUBED (test code = 117 MG/DL 70-110 H Performe d by certified GLUBED) 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 [facility] CBC W/O [id number] 08:13:00 Test Item Value Reference Range Interpretation [...] fL 7.0-9.0 H = MPV) BASIC METABOLIC [id number] 08:12:00 Test Item Value Reference Range Interpretation [...] code = 9.6 mg/dL 8.0-10.5 N CA) [id number] 07:11:00 Test Item Value Reference Range Interpretation Comments GLUBED (test code = 242 MG/DL 70-110 H Performe d by certified GLUBED) 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 [facility] [id number] 07:11:00 Test Item Value Reference Range Interpretation Comments GLUBED (test code = 243 MG/DL 70-110 H Performe d by certified GLUBED) 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 [facility] [id number] 20:58:00 Test Item Value Reference Range Interpretation Comments GLUBED (test code = 182 MG/DL 70-110 H Performe d by certified GLUBED) 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 [facility] [id number] 19:09:00 Test Item Value Reference Range Interpretation Comments GLUBED (test code = 168 MG/DL 70-110 H Performe d by certified GLUBED) 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 [facility] [id number] 08:33:00 Test Item Value Reference Range Interpretation Comments GLUBED (test code = 186 MG/DL 70-110 H Performe d by certified GLUBED) 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 [facility] CBC W/O [id number] 07:35:00 Test Item Value Reference Range Interpretation [...] fL 7.0-9.0 H = MPV) BASIC METABOLIC [id number] 07:23:00 Test Item Value Reference Range Interpretation [...] code = 9.3 mg/dL 8.0-10.5 N CA) [id number] 21:04:00 Test Item Value Reference Range Interpretation Comments GLUBED (test code = 191 MG/DL 70-110 H Performe d by certified GLUBED) 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 [facility] [id number] 17:29:00 Test Item Value Reference Range Interpretation Comments GLUBED (test code = 233 MG/DL 70-110 H Performe d by certified GLUBED) 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 [facility] [id number] 11:17:00 Test Item Value Reference Range Interpretation Comments GLUBED (test code = 116 MG/DL 70-110 H Performe d by certified GLUBED) 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 [facility] - XR FLUOROSCOPY 0-60 [id number] 11:17:00 FAX: Nuno Perkins Jr [phone] [place]: St: ADM Name: CATHERINE RATLIFF [facility] : 1945 Age/S: 74/F [address] [place] [address] Unit#: [id number] [place]: [place] [address] Phys: Nuno Polk Jr, MD Acct: [id number] Dis Date: Status: ADM IN PHONE #: [phone] Exam Date: 01/24/2020 1043 FAX #: [phone] Reason: RIGHT HUMERUS FRACTURE EXAMS: CPT CODE: [id number] XR FLUOROSCOPY 0-60 MIN 78737 Intraprocedural fluoroscopy was provided by the Department of Radiology. Any images obtained were interpreted by the surgeon intraoperatively. 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 Novel Coronavirus 2019 [id number] 16:43:00 Test Item Value Reference Range Interpretation Comments Novel Coronavirus 2019 Inhouse (test Negative Negative code = COVNONPUI) - XR CHEST 2 [id number] 16:11:00 FAX: Nuno Perkins Jr [phone] [place]: St: PRE FAX: Francisca Isbell N Name: CATHERINE RATLIFF [facility] : 1945 Age/S: 74/F [address] [place] [address] Unit #: [id number] Loc: [place] [address] Phys: Francisca Isbell [employer] Acct: Kelvin [id number] Dis Date: Status: PRE [facility] PHONE #: [phone] Exam Date: 01/21/2020 1602 FAX #: [phone] Reason: PRE-OP ORIF EXAMS: CPT CODE: [id number] XR CHEST 2 V 13607 EXAM: PA and lateral chest. EXAM DATE: January 21, 2020 CLINICAL HISTORY: PRE-OP ORIF COMPARISON: None Heart size is normal. Atherosclerotic calcifications and tortuosity of the intrathoracic aorta is identified.. Implantable bus monitor is identified over the lower left chest [...] MD; Francisca Isbell NP Technologist: YUKI Garcia) Trnscrd Date/Time/By: 01/21/2020 (161) : By: WalterCER Orig Print D/T: S: 01/21/2020 (8764) PAGE 1 Signed ReportBASIC METABOLIC [id number] 16:10:00 Test Item Value Reference Range Interpretation [...] 9.4 mg/dL 8.0-10.5 N CA) BASIC METABOLIC [id number] 16:07:00 Test Item Value Reference Range Interpretation [...] CA) 9.4 mg/dL 8.0-10.5 N CBC W/AUTO [id number] 15:53:00 Test Item Value Reference Range Interpretation [...]
[2021-10-08] MEDS ORDERED: NA CHLORIDE 0.9% 500 ML ONE (05:18)
[2021-10-08 05:26] LABS: Absolute Lymphocytes (CBC) 1.9 K/uL (0.7-4.9); Hematocrit 28.1 % (36.0-45.0); Lymphocytes % 40.6 % (15.3-44.8); MPV 7.6 fL (7.6-11.3); RBC Red Blood Cell Count 3.03 M/uL (3.86-4.86)
[2021-10-08 05:35] LABS: Protime INR 1.2
[2021-10-08 05:48] LABS: Albumin 3.5 g/dL (3.4-5.0); Bilirubin Direct 0.1 mg/dL (0-0.2); Bilirubin Total 0.6 mg/dL (0.2-1.0); Magnesium 1.9 mg/dL (1.8-2.4); Troponin High Sensitivity 12.1 pg/mL (<58.9)
[2021-10-08 07:18] LABS: Urine Blood 2+ (Negative); Urine Glucose Negative (Negative); Urine Protein 1+ (Negative)
--- NOTE | 2021-10-08 07:23 | RAD REPORT ---
EXAM DESCRIPTION: RAD - Chest Single View - 10/08/2021 5:11 am CLINICAL HISTORY: Altered Mental Status COMPARISON: Portable 02/15/2019 TECHNIQUE: AP portable chest image was obtained 10/08/2021 5:11 am . FINDINGS: Lung volumes are low. Patient has a chronic interstitial pattern that matches the comparis on. No peripheral mass or consolidations seen. Skin fold artifacts overlie the lateral lower right ch est. Trachea is midline. Loop recorder overlies the lower left chest. Heart and vasculature are normal. No measurable pleural effusion. No acute bone findings seen. Fracture fixation plate and screws are present in the proximal right hu merus new from prior imaging. Hyperdense material in the proximal shaft is likely postsurgical graft material and reactive bony change mixture. This is not sufficiently image for further comment. No acute aortic findings suspected. IMPRESSION: No acute cardiopulmonary process. Chronic interstitial pattern matches 2019 imaging.
--- NOTE | 2021-10-08 07:51 | EDPHYS ---
Physician Documentation [facility] Name: Lazara Lozano Age: 76 yrs Sex: Female : 1945 Arrival Date: 10/08/2021 Time: 04:42 Bed 6 Private MD: ED Physician Jorge Montoya HPI: 10/08 05:47 This 76 yrs old Female presents to ER via Wheelchair with complaints of Weakness, kdr CONFUSED. 05:47 Been generally weak since yesterday. Today she became confused and asked to be taken to kdr the ED. She has not had anything like this recently. She has no focal complaint but just feels generally weak. Onset: The symptoms/episode began/occurred gradually, yesterday. Severity of symptoms: At their worst the symptoms were mild moderate just prior to arrival, in the emergency department the symptoms are unchanged. The patient has not experienced similar symptoms in the past. The patient has not recently seen a physician. Historical: - Allergies: 04:53 No Known Allergies; sm5 - Home Meds: 04:53 aspirin 81 mg Oral chew 1 tab once daily [Active]; cranberry Oral [Active]; donepezil sm5 10 mg Oral tab 1 tab once daily [Active]; escitalopram oxalate 10 mg Oral tab 1 tab once daily [Active]; glimepiride 4 mg Oral tab 1 tab twice a day [Active]; hydrochlorothiazide 12.5 mg Oral tab 1 tab once daily [Active]; losartan 50 mg Oral tab 1 tab 2 times per day [Active]; metformin 500 mg Oral tab 1 tab 2 times per day [Active]; multivitamin Oral [Active]; pioglitazone 15 mg Oral tab 1 tab once daily [Active]; pravastatin 40 mg Oral tab 1 tab once daily [Active]; Vitamin C Oral [Active]; Xarelto 15 mg oral tab 1 tab once daily [Active]; - PMHx: 04:53 Diabetes - IDDM; Diabetes - NIDDM; Hyperlipidemia; Hypertension; Dementia; Depressive sm5 disorder; - Immunization history:: Client reports receiving the 2nd dose of the Covid vaccine. - Social history:: Smoking status: Patient denies any tobacco usage or history of. Patient/guardian denies using alcohol. ROS: 05:47 Constitutional: Negative for fever, chills, and weight loss, Eyes: Negative for injury, kdr pain, redness, and discharge, ENT: Negative for injury, pain, and discharge, Neck: Negative for injury, pain, and swelling, Cardiovascular: Negative for chest pain, palpitations, and edema, Respiratory: Negative for shortness of breath, cough, wheezing, and pleuritic chest pain, Abdomen/GI: Negative for abdominal pain, nausea, vomiting, diarrhea, and constipation, Back: Negative for injury and pain, : Negative for injury, bleeding, discharge, and swelling, MS/Extremity: Negative for injury and deformity, Skin: Negative for injury, rash, and discoloration, Psych: Negative for depression, anxiety, suicide ideation, homicidal ideation, and hallucinations, Allergy/Immunology: Negative for hives, rash, and allergies, Endocrine: Negative for neck swelling, polydipsia, polyuria, polyphagia, and marked weight changes, Hematologic/Lymphatic: Negative for swollen nodes, abnormal bleeding, and unusual bruising. 05:47 Neuro: Positive for headache, tremor, weakness, Patient had shakes and was generally weak yesterday. That is somewhat resolved and then returned again today along with her confusion, Negative for gait disturbance, headache, visual changes. Exam: 05:47 Constitutional: This is a well developed, well nourished patient who is awake, alert, kdr and in no acute distress. Head/Face: Normocephalic, atraumatic. Eyes: Pupils equal round and reactive to light, extra-ocular motions intact. Lids and lashes normal. Conjunctiva and sclera are non-icteric and not injected. Cornea within normal limits. Periorbital areas with no swelling, redness, or edema. Neck: Trachea midline, no thyromegaly or masses palpated, and no cervical lymphadenopathy. Supple, full range of motion without nuchal rigidity, or vertebral point tenderness. No Meningismus. Chest/axilla: Normal chest wall appearance and motion. Nontender with no deformity. No lesions are appreciated. Cardiovascular: Regular rate and rhythm with a normal S1 and S2. No gallops, murmurs, or rubs. Normal PMI, no JVD. No pulse deficits. Respiratory: Lungs have equal breath sounds bilaterally, clear to auscultation and percussion. No rales, rhonchi or wheezes noted. No increased work of breathing, no retractions or nasal flaring. Abdomen/GI: Soft, non-tender, with normal bowel sounds. No distension or tympany. No guarding or rebound. No evidence of tenderness throughout. Back: No spinal tenderness. No costovertebral tenderness. Full range of motion. Skin: Warm, dry with normal turgor. Normal color with no rashes, no lesions, and no evidence of cellulitis. MS/ Extremity: Pulses equal, no cyanosis. Neurovascular intact. Full, normal range of motion. Psych: Awake, alert, with orientation to person, place and time. Behavior, mood, and affect are within normal limits. 05:47 Neuro: Orientation: appropriate for stated age, Cranial nerves: no acute changes, Abnormal movements: The patient is generally weak and wobbling as she sits. Her daughter reports that this is not her normal self. Vital Signs: 04:51 BP 126 / 86; Pulse 102; Resp 18; Temp 98.5(O); Pulse Ox 98% on R/A; Weight 63.5 kg; 5 Height 5 ft. 2 in. (157.48 cm); Pain 0/10; 06:44 BP 138 / 79; Pulse 87; Resp 12; Pulse Ox 99% ; vc1 07:30 BP 134 / 89; Pulse 90; Resp 13; Pulse Ox 98% on R/A; ww 08:30 BP 143 / 85; Pulse 93; Resp 17; Pulse Ox 97% ; ww 09:33 BP 134 / 88; Pulse 88; Resp 18; Pulse Ox 98% ; ww 04:51 Body Mass Index 25.61 (63.50 kg, 157.48 cm) [facility] MDM: 07:51 Patient medically screened. kdr 07:51 Data reviewed: vital signs, nurses notes, lab test result(s), radiologic studies. kdr Counseling: I had a detailed discussion with the patient and/or guardian regarding: the historical points, exam findings, and any diagnostic results supporting the discharge/admit diagnosis, lab results, radiology results, the need for outpatient follow up. 10/08 04:50 Order name: Basic Metabolic Panel; Complete Time: 06: ds4 10/08 04:50 Order name: CBC with Diff; Complete Time: 06:27 ds4 10/08 04:50 Order name: LFT's; Complete Time: : ds4 10/08 04:50 Order name: Magnesium; Complete Time: 06: ds4 10/08 04:50 Order name: NT PRO-BNP; Complete Time: 06:27 ds4 10/08 04:50 Order name: PT-INR; Complete Time: 06:27 ds4 10/08 04:50 Order name: Troponin HS; Complete Time: 06:27 ds4 10/08 05:02 Order name: Urine Culture [facility] 10/08 07:18 Order name: Urine Dipstick-Ancillary; Complete Time: 07:29 EDND 10/08 08:08 Order name: COVID-19 SARS RT PCR (Document "Date of Onset" if Symptomatic) jl7 10/08 09:46 Order name: CBC with Automated Diff EDND 10/08 09:46 Order name: CBC with Automated Diff EDND 10/08 09:46 Order name: Comprehensive Metabolic Panel EDND 10/08 09:46 Order name: Comprehensive Metabolic Panel [facility] 10/08 04:50 Order name: XRAY Chest (1 view); Complete Time: 07:29 ds4 10/08 04:50 Order name: EKG; Complete Time: 04:50 ds4 10/08 04:50 Order name: Cardiac monitoring; Complete Time: 05:21 ds4 10/08 04:50 Order name: EKG - Nurse/Tech; Complete Time: 05:21 ds4 10/08 05:02 Order name: CT Head Brain wo Cont kdr 10/08 09:46 Order name: CONS Physician Consult EDND 10/08 09:46 Order name: Heart Healthy EDND 10/08 09:46 Order name: Protime (+INR) EDND 10/08 09:46 Order name: Protime (+INR) EDND 10/08 09:46 Order name: PTT, Activated Partial Thromb EDND 10/08 09:46 Order name: PTT, Activated Partial Thromb EDND 10/08 14:34 Order name: US Rp Exam Complete nasima 10/08 15:45 Order name: US EDND 10/08 04:50 Order name: IV Saline Lock; Complete Time: 05:21 ds4 10/08 04:50 Order name: Labs collected and sent; Complete Time: 05:21 ds4 10/08 04:50 Order name: O2 Per Protocol; Complete Time: 05:21 ds4 10/08 04:50 Order name: O2 Sat Monitoring; Complete Time: 05:22 ds4 10/08 05:02 Order name: Urine Dipstick-Ancillary (obtain specimen); Complete Time: 07:05 kdr Administered Medications: 05:21 Drug: NS 0.9% 500 ml Route: IV; Rate: bolus; Site: left antecubital; vc1 12:49 Follow up: Response: No adverse reaction; IV Status: Completed infusion; IV Intake: jl7 500ml 08:29 Not Given (Duplicate Order): Rocephin - (cefTRIAXone) 1 grams IVPB once over 30 mins; iw (mix in 50 mL NS) 08:37 Drug: Rocephin - (cefTRIAXone) 1 grams Route: IVPB; Infused Over: 30 mins; Site: left ww antecubital; 09:05 Follow up: Response: No adverse reaction; IV Status: Completed infusion jl7 Disposition Summary: 10/08/21 07:51 Hospitalization Ordered Hospitalization Status: Observation kdr Provider: Howard Romero Condition: Fair kdr Problem: new kdr Symptoms: have improved kdr Bed/Room Type: Standard kdr Location: Telemetry/MedSurg (observation)(10/08/21 14:22) bd Room Assignment: 214(10/08/21 14:51) ja1 Diagnosis - Weakness kdr - UTI/ Urinary tract infection, site not specified kdr Forms: - Medication Reconciliation Form kdr - SBAR form kdr Signatures: Dispatcher [employer] EDMS Princess Bobby Corey, MD MD cha Rittger, Kevin, MD MD kdr Cedric Kelly ds4 Lonnie Jimenez RN RN ja1 Natacha Moore RN RN 5 Myra Leyva RN RN ww Serenity Riggins RN RN 1 Mae Tomlinson RN iw Ana Tinsley RN jl7 Corrections: (The following items were deleted from the chart) 10:17 07:51 Telemetry/MedSurg (observation) kdr ja1 10:17 07:51 kdr ja1 14:22 10:17 [facility] ER HOLD ja1 bd 14:22 10:17 ERHOLD- ja1 bd 14:51 14:22 230 bd ja1
--- NOTE | 2021-10-08 07:51 | ER ---
Nurse's Notes [facility] Name: Lazara Lozano Age: 76 yrs Sex: Female : 1945 Arrival Date: 10/08/2021 Time: 04:42 Bed 6 Private MD: Diagnosis: Weakness;UTI/ Urinary tract infection, site not specified Presentation: 10/08 04:51 Chief complaint: Patient's son or daughter states: pt has been feeling weak since [facility] yesterday. pt also confused and hallucinating. hx of dementia but normally alert and oriented. Coronavirus screen: Vaccine status: Patient reports receiving the 2nd dose of the covid vaccine. Ebola Screen: No symptoms or risks identified at this time. Initial Sepsis Screen: Does the patient meet any 2 criteria? HR > 90 bpm. No. Patient's initial sepsis screen is negative. Does the patient have a suspected source of infection? No. Patient's initial sepsis screen is negative. Risk Assessment: Do you want to hurt yourself or someone else? Patient reports no desire to harm self or others. Onset of symptoms was October 07, 2021. 04:51 Method Of Arrival: Wheelchair [facility] 04:51 Acuity: ISAIAH 3 5 Triage Assessment: 04:55 The onset of the patients symptoms was October 07, 2021 at 07:00. General: Appears in [facility] no apparent distress. Behavior is cooperative. Pain: Denies pain. Neuro: Level of Consciousness is awake, alert, Reports hallucinations yesterday. Historical: - Allergies: 04:53 No Known Allergies; [facility] - Home Meds: 04:53 aspirin 81 mg Oral chew 1 tab once daily [Active]; cranberry Oral [Active]; donepezil sm5 10 mg Oral tab 1 tab once daily [Active]; escitalopram oxalate 10 mg Oral tab 1 tab once daily [Active]; glimepiride 4 mg Oral tab 1 tab twice a day [Active]; hydrochlorothiazide 12.5 mg Oral tab 1 tab once daily [Active]; losartan 50 mg Oral tab 1 tab 2 times per day [Active]; metformin 500 mg Oral tab 1 tab 2 times per day [Active]; multivitamin Oral [Active]; pioglitazone 15 mg Oral tab 1 tab once daily [Active]; pravastatin 40 mg Oral tab 1 tab once daily [Active]; Vitamin C Oral [Active]; Xarelto 15 mg oral tab 1 tab once daily [Active]; - PMHx: 04:53 Diabetes - IDDM; Diabetes - NIDDM; Hyperlipidemia; Hypertension; Dementia; Depressive sm5 disorder; - Immunization history:: Client reports receiving the 2nd dose of the Covid vaccine. - Social history:: Smoking status: Patient denies any tobacco usage or history of. Patient/guardian denies using alcohol. Screenin:35 Abuse screen: Denies threats or abuse. Denies injuries from another. Nutritional as6 screening: No deficits noted. Tuberculosis screening: No symptoms or risk factors identified. Fall Risk None identified. Assessment: 05:34 General: Appears in no apparent distress. Behavior is calm, cooperative. General: as6 Reports fatigue for. Pain: Denies pain. Neuro: Level of Consciousness is awake, alert, obeys commands, Oriented to person, place. Cardiovascular: Reports fatigue, Capillary refill < 3 seconds Patient's skin is warm and dry. Respiratory: Denies shortness of breath. Derm: Skin is intact, is thin. 05:49 Reassessment: Patient to CT via stretcher. vc1 06:45 Reassessment: Patient and/or family updated on plan of care and expected duration. Pain vc1 level reassessed. General: Appears in no apparent distress. Behavior is calm, cooperative. Neuro: Level of Consciousness is awake, alert, obeys commands, Oriented to person, place, situation. 07:35 General: Appears in no apparent distress. comfortable, Behavior is calm, cooperative. ww Neuro: Level of Consciousness is awake, alert, obeys commands, Oriented to person, place, situation, Speech is normal. Respiratory: Airway is patent Respiratory effort is even, unlabored, Respiratory pattern is regular, symmetrical. EENT: Derm: Skin is intact, is thin, Skin is pink, warm \T\ dry. 08:34 Reassessment: Patient appears in no apparent distress at this time. No changes from ww previously documented assessment. Patient and/or family updated on plan of care and expected duration. Pain level reassessed. Patient is alert, oriented x 3, equal unlabored respirations, skin warm/dry/pink. 09:32 Reassessment: Patient appears in no apparent distress at this time. No changes from ww previously documented assessment. Patient and/or family updated on plan of care and expected duration. Pain level reassessed. Patient is alert, oriented x 3, equal unlabored respirations, skin warm/dry/pink. Vital Signs: 04:51 BP 126 / 86; Pulse 102; Resp 18; Temp 98.5(O); Pulse Ox 98% on R/A; Weight 63.5 kg; sm5 Height 5 ft. 2 in. (157.48 cm); Pain 0/10; 06:44 BP 138 / 79; Pulse 87; Resp 12; Pulse Ox 99% ; vc1 07:30 BP 134 / 89; Pulse 90; Resp 13; Pulse Ox 98% on R/A; ww 08:30 BP 143 / 85; Pulse 93; Resp 17; Pulse Ox 97% ; ww 09:33 BP 134 / 88; Pulse 88; Resp 18; Pulse Ox 98% ; ww 04:51 Body Mass Index 25.61 (63.50 kg, 157.48 cm) 5 ED Course: 04:42 Patient arrived in ED. ja2 04:43 Jorge Montoya MD is Attending Physician. kdr 04:45 Dread Dee, LISA is Primary Nurse. as6 04:53 Triage completed. sm5 04:55 Arm band placed on right wrist. sm5 04:55 Patient has correct armband on for positive identification. Bed in low position. Call 5 light in reach. Side rails up X2. 05:11 XRAY Chest (1 view) In Process Unspecified. EDMS 05:30 Initial lab(s) drawn, by me, sent to lab. EKG done, by ED staff, reviewed by Jorge ltBelkis Montoya MD. Inserted saline lock: 22 gauge in right antecubital area, using aseptic technique. 06:05 CT Head Brain wo Cont In Process Unspecified. EDMS 07:00 No provider procedures requiring assistance completed. Patient admitted, IV remains in jl7 place. intact, No redness/swelling at site. 07:50 Howard Romero MD is Hospitalizing Provider. kdr Administered Medications: 05:21 Drug: NS 0.9% 500 ml Route: IV; Rate: bolus; Site: left antecubital; vc1 12:49 Follow up: Response: No adverse reaction; IV Status: Completed infusion; IV Intake: jl7 500ml 08:29 Not Given (Duplicate Order): Rocephin - (cefTRIAXone) 1 grams IVPB once over 30 mins; iw (mix in 50 mL NS) 08:37 Drug: Rocephin - (cefTRIAXone) 1 grams Route: IVPB; Infused Over: 30 mins; Site: left antecubital; 09:05 Follow up: Response: No adverse reaction; IV Status: Completed infusion jl7 Intake: 12:49 IV: 500ml; Total: 500ml. jl7 Outcome: 07:51 Decision to Hospitalize by Provider. kdr 08:00 Admitted to ER Hold. Please see [facility] for further documentation. jl7 08:00 Condition: stable 08:00 Discharge instructions given to patient, family, Instructed on the need for admit, Demonstrated understanding of instructions. 16:44 Patient left the ED. Signatures: Dispatcher [employer] EDMS Jorge Montoya MD MD kdr Leal, Jahala, RN RN jl7 Sahara Lopez Ashby, RN RN as6 Natacha Moore RN RN rivera5 Marita Mejia 3 Myra Leyva RN RN Serenity Riggins RN RN 1 Mae Tomlinson RN iw
[2021-10-08] MEDS ORDERED: CEFTRIAXONE 1000 MG/VIAL ONE (08:33)
[2021-10-08] MEDS ORDERED: NA CHLORIDE 0.9% 50 ML ONE (08:33)
[2021-10-08] MEDS ORDERED: MORPHINE 2 MG/ML SYR IV PRN (09:13)
[2021-10-08] MEDS ORDERED: ONDANSETRON 4 MG/2 ML VIAL IV PRN (09:13)
[2021-10-08] MEDS ORDERED: ACETAMINOPHEN 500 MG TAB PO PRN (09:13)
--- NOTE | 2021-10-08 11:58 | RAD REPORT ---
EXAM DESCRIPTION: CT - Head Brain Wo Cont - 10/08/2021 6:51 am TECHNIQUE: Computerized tomography of the head was performed without contrast material. This exam wa s performed according to our department optimization program which includes automated exposure contro l, adjustment of the mA and/or kV according to patient size, and/or use of iterative reconstruction t echnique. CLINICAL HISTORY: Confusion COMPARISON: 05/09/2020. FINDINGS: There is stable focal encephalomalacia in the left occipital lobe. There are diffuse invol utional changes, with prominence of the ventricles and sulci. No CT evidence of intracranial mass, he morrhage, acute territorial infarction, or hydrocephalus. The intracranial arteries are symmetric in density. Globes and orbits demonstrate no acute abnormality. No acute osseous abnormality. There is evidence of sinus disease with partial opacification of the po sterior ethmoid sinuses and left sphenoid sinus, similar to that seen on the prior study. IMPRESSION: No CT evidence of acute intracranial abnormality. Chronic changes are noted as above. 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 The interpreting radiologist is fully responsible for the content of the report.
[2021-10-08 12:36] VITALS: BMI 25.6
--- NOTE | 2021-10-08 15:44 | RAD REPORT ---
EXAM DESCRIPTION: US - Renal Ultrasound-Complete - 10/08/2021 3:05 pm CLINICAL HISTORY: Chronic renal failure. Abdominal pain COMPARISON: 2019 FINDINGS: The right kidney measures 10 cm with an increased echotexture. The left kidney measures 8 cm with an increased echotexture. Hydronephrosis is not seen. No gross abnormality of bladder is seen Incidental note is made of cholelithiasis IMPRESSION: Increased renal echotexture consistent with parenchymal disease
[2021-10-08] MEDS: NA CHLORIDE 0.9% 1,000 ML IV SCH (17:00)
[2021-10-08] MEDS: DONEPEZIL HCL 5 MG TAB PO SCH (23:07)
--- NOTE | 2021-10-08 23:39 | P.HP ---
Certification for Inpatient Patient admitted to: Inpatient With expected LOS: >2 Midnights Patient will require the following post-hospital care: None Practitioner: I am a practitioner with admitting privileges, knowledge of patient current condition, hospital course, and medical plan of care. Services: Services provided to patient in accordance with Admission requirements found in Title 42 Section 412.3 of the Code of Federal Regulations Patient History Date of Service: 10/08/21 Reason for admission: Altered mental status History of Present Illness: Patient is a 76-year-old female came to the hospital with altered mentation. Patient was confused and not be event like herself. She was a lot more sleepy than normal. She came into the emergency room for further evaluation. Allergies No Known Allergies Allergy (Verified 12/29/18 08:25) Home Medications: Aspirin 81 mg PO DAILY 09/09/20 Cranberry Fruit Extract [Cranberry] 250 mg PO DAILY 09/09/20 Donepezil [Aricept*] 10 mg PO BEDTIME 09/09/20 Escitalopram [Lexapro*] 10 mg PO DAILY 09/09/20 Glimepiride [Amaryl*] 4 mg PO BID 09/09/20 Losartan Potassium [Cozaar*] 50 mg PO BID 09/09/20 Metformin HCl [Glucophage*] 500 mg PO BIDWM 09/09/20 Pioglitazone [Actos*] 15 mg PO DAILY 09/09/20 Pravastatin Sodium 40 mg PO DAILY 09/09/20 hydroCHLOROthiazide [Hydrochlorothiazide*] 12.5 mg PO DAILY 09/09/20 Rivaroxaban [Xarelto] 1 each PO SEECOM 30 Days #1 tab.ds.pk 09/11/20 - Past Medical/Surgical History Has patient received pneumonia vaccine in the past: Yes Diabetic: Yes -: AFib? -: Hypertension -: hyperlipidema -: Diabetes mellitus type 2 -: Dementia -: TNA -: Hysterectomy -: D&C Psychosocial/ Personal History: Patient lives with her daughter at home. - Family History Mother Medical History: Heart disease, Stroke - Social History Smoking Status: Unknown if ever smoked Alcohol use: No CD- Drugs: No Caffeine use: Yes Review of Systems 10-point ROS is otherwise unremarkable Physical Examination - Vital Signs Temperature: 97.9 F Blood Pressure: 138/69 Pulse: 71 Respirations: 18 Pulse Ox (%): 98 - Physical Exam General: Alert, In no apparent distress, Oriented x3, Cooperative HEENT: Atraumatic, PERRLA, Mucous membr. moist/pink, EOMI, Sclerae nonicteric Neck: Supple, 2+ carotid pulse no bruit, No LAD, Without JVD or thyroid abnormality Respiratory: Clear to auscultation bilaterally, Normal air movement Cardiovascular: Regular rate/rhythm, Normal S1 S2, No murmurs Gastrointestinal: Normal bowel sounds, Soft and benign, Non-distended, No tenderness, No rebound, No guarding Musculoskeletal: No clubbing, No swelling, No tenderness Integumentary: No rashes Neurological: Normal gait, Normal speech, Normal strength at 5/5 x4 extr, Normal tone, Normal affect Lymphatics: No axilla or inguinal lymphadenopathy - Studies Laboratory Data (last 24 hrs) 10/08/21 05:18: PT 13.8 H, INR 1.20 10/08/21 05:18: WBC 4.70, Hgb 9.4 L, Hct 28.1 L, Plt Count 230 10/08/21 05:18: Sodium 137, Potassium 4.0, BUN 41 H, Creatinine 2.26 H, Glucose 127 H, Magnesium 1.9, Total Bilirubin 0.6, AST 15, ALT 20, Alkaline Phosphatase 45 Assessment & Plan - Problems (Diagnosis) (1) Altered mental status Current Visit: Yes Status: Acute (2) ELISE (acute kidney injury) Current Visit: Yes Status: Acute (3) Diabetes mellitus Current Visit: No Status: Acute Qualifiers: (4) Essential (primary) hypertension Current Visit: No Status: Chronic - Plan 1. Physical therapy evaluation 2. Speech therapy evaluation 3. Anti-platelet therapy and statin therapy 4. Lipid profile in the morning 5. MRI of the brain/echocardiogram/carotid Doppler 6. Physically patient is doing well and may benefit more from outpatient physical therapy and inpatient rehab 7. Neurology consultation 8. Permissive hypertension and gradual blood pressure control 9. Neuro checks every 4 hr 10. GI and DVT prophylaxis - Advance Directives Does patient have a Living Will: Yes Does patient have a Durable POA for Healthcare: Yes
--- NOTE | 2021-10-09 02:41 | CON ---
Date of Consultation: 10/08/2021 Chief Complaint: Acute kidney injury on chronic kidney disease. History Of Present Illness: The patient is a 76-year-old woman who presented to emergency room with complaints of generalized weakness. She recently developed confusion and progressively worse weakness, fatigue, and difficulty with ambulation. She did not have any focal symptoms. She complained of generalized weakness. Symptoms gradually occurred since yesterday. She was complaining of some shortness of breath, but she could not provide review of systems. She remained still lethargic, answered few questions. The patient has history of diabetes mellitus, hypertension, dementia, depressive disorder. Past Medical History: Hypertension, hyperlipidemia, insulin-dependent diabetes mellitus, depressive disorder. Review of previous record showed that she has history of coronary embolism and she was hospitalized in August 2021 and was seen by Surgical Team for gallstones and gallbladder was found to have thickening of the wall. The patient at that time was having right upper quadrant pain and right lower chest pain. Today she does not complain of any chest pain. Social History: Denies tobacco, alcohol, or illicit drugs. Family History: The patient cannot provide family history. Past Surgical History: Hysterectomy, D and C, right shoulder and right hip surgery. ROS: unobtainable, patient lethargic Physical Examination: General: The patient is arousable, follows commands. Eyes: Anicteric sclerae. EOMI. Ears, Nose, Mouth and Throat: Oral mucosa moist. No pallor. Neck: Supple. No bruits. Lungs: Few crackles at bases. Heart: S1, S2. Abdomen: Soft, benign. No rebound. No guarding. Extremities: Slight edema. No clubbing. No cyanosis. Laboratory Data: Lab work showed sodium 131, potassium 4.0, chloride 104, CO2 26, BUN 31, creatinine 2.26, estimated GFR 21, glucose 127, calcium 10.1, total bilirubin 0.6, AST 15, ALT 20. Urinalysis showed specific gravity 1.020, ketones 2+, leukocyte esterase 1, glucose negative, nitrites negative. Renal ultrasound was done today and showed right kidney measured 10 cm with increased echotexture, left kidney measured 8 cm with increased echotexture. This renal echotexture is consistent with parenchymous kidney disease, incidental note is made of cholelithiasis and no hydronephrosis is seen. No gross abnormality of bladder is seen. Assessment And Plan: The patient has [id number] kidney injury with some features on the ultrasound suggestive of advanced chronic kidney. Urinalysis although did not show significant proteinuria. Plan is to check urinalysis and screen for monoclonal gammopathy of unknown significance. Plan is to continue IV fluids, oral hydration to prevent renal hypoperfusion and renal failure. Likely, the patient has urinary tract infection. Plan is to check urinalysis and urine culture. Chest x-ray showed no acute cardiopulmonary problems, but chronic interstitial changes have been stable since 2019. Diabetes mellitus, I ordered to stop metformin. Patient is not a candidate for Metformin due to renal insufficiency. Continue insulin for diabetic control. Confusion. The patient likely has history of dementia and currently she presented with encephalopathy. Antibiotics were started with broad spectrum coverage. Follow up on blood culture and urine culture. TRU/ANGEL Voice ID: [id number] Report ID: [id number] MARIELA
[2021-10-09 06:00] LABS: Absolute Lymphocytes (CBC) 1.6 K/uL (0.7-4.9); Hematocrit 28.6 % (36.0-45.0); Lymphocytes % 39.8 % (15.3-44.8); MPV 7.7 fL (7.6-11.3); RBC Red Blood Cell Count 3.07 M/uL (3.86-4.86)
[2021-10-09 06:16] LABS: Albumin 3.3 g/dL (3.4-5.0); Bilirubin Total 0.6 mg/dL (0.2-1.0); Phosphorus 3.5 mg/dL (2.5-4.9); Potassium 3.6 mmol/L (3.5-5.1); Protein, Total 6.6 g/dL (6.4-8.2); Uric Acid 5.7 mg/dL (2.6-6.0)
[2021-10-09 06:17] LABS: Protime INR 1.12
[2021-10-09] MEDS: NA CHLORIDE 0.9% 1,000 ML IV SCH ×3 (06:20→23:51)
--- NOTE | 2021-10-09 07:31 | P.CNS ---
Date of Consult: 10/09/21 Reason for Consult: ELISE/ CKD Requesting Physician: Howard Romero Chief Complaint: Altered mental status History of Present Illness: Patient is a 76-year-old female came to the hospital with altered mentation. Patient was confused and not be event like herself. She was a lot more sleepy than normal. She came into the emergency room for further evaluation. 05:47 This 76 yrs old Female presents to ER via Wheelchair with complaints of Weakness, kdr CONFUSED. 05:47 Been generally weak since yesterday. Today she became confused and asked to be taken to kdr the ED. She has not had anything like this recently. She has no focal complaint but just feels generally weak. Onset: The symptoms/episode began/occurred gradually, yesterday. Severity of symptoms: At their worst the symptoms were mild moderate just prior to arrival, in the emergency department the symptoms are unchanged. The patient has not experienced similar symptoms in the past. The patient has not recently seen a physician. Allergies No Known Allergies Allergy (Verified 12/29/18 08:25) Home medications list reviewed: Yes Home Medications: Aspirin 81 mg PO DAILY 09/09/20 Cranberry Fruit Extract [Cranberry] 250 mg PO DAILY 09/09/20 Donepezil [Aricept*] 10 mg PO BEDTIME 09/09/20 Escitalopram [Lexapro*] 10 mg PO DAILY 09/09/20 Glimepiride [Amaryl*] 4 mg PO BID 09/09/20 Losartan Potassium [Cozaar*] 50 mg PO BID 09/09/20 Metformin HCl [Glucophage*] 500 mg PO BIDWM 09/09/20 Pioglitazone [Actos*] 15 mg PO DAILY 09/09/20 Pravastatin Sodium 40 mg PO DAILY 09/09/20 hydroCHLOROthiazide [Hydrochlorothiazide*] 12.5 mg PO DAILY 09/09/20 Rivaroxaban [Xarelto] 1 each PO SEECOM 30 Days #1 tab.ds.pk 09/11/20 - Past Medical/Surgical History Diabetic: Yes -: AFib? -: Hypertension -: hyperlipidema -: Diabetes mellitus type 2 -: Dementia -: TNA -: Hysterectomy -: D&C Psychosocial/ Personal History: Patient lives with her daughter at home. - Family History Mother Medical History: Heart disease, Stroke - Social History Smoking Status: Unknown if ever smoked Alcohol use: No CD- Drugs: No Caffeine use: Yes Review of Systems 10-point ROS is otherwise unremarkable General: Weakness, Malaise Neurological: Confusion Physical Examination Temp Pulse Resp BP Pulse Ox 97.2 F 72 18 152/92 H 97 10/09/21 00:00 10/09/21 00:00 10/09/21 00:00 10/09/21 06:21 10/09/21 00:00 General: In no apparent distress HEENT: Atraumatic Neck: Supple Respiratory: Normal air movement Cardiovascular: No edema, Regular rate/rhythm Gastrointestinal: Non-distended Musculoskeletal: No clubbing, No contractures Integumentary: No rashes, No cyanosis Neurological: Normal speech Blood work reviewed in the chart. Imagings Data: EXAM DESCRIPTION: US - Renal Ultrasound-Complete - 10/08/2021 3:05 pm CLINICAL HISTORY: Chronic renal failure. Abdominal pain COMPARISON: 2019 FINDINGS: The right kidney measures 10 cm with an increased echotexture. The left kidney measures 8 cm with an increased echotexture. Hydronephrosis is not seen. No gross abnormality of bladder is seen Incidental note is made of cholelithiasis IMPRESSION: Increased renal echotexture consistent with parenchymal disease EXAM DESCRIPTION: RAD - Chest Single View - 10/08/2021 5:11 am CLINICAL HISTORY: Altered Mental Status COMPARISON: Portable 02/15/2019 TECHNIQUE: AP portable chest image was obtained 10/08/2021 5:11 am . FINDINGS: Lung volumes are low. Patient has a chronic interstitial pattern that matches the comparison. No peripheral mass or consolidations seen. Skin fold artifacts overlie the lateral lower right chest. Trachea is midline. Loop recorder overlies the lower left chest. Heart and vasculature are normal. No measurable pleural effusion. No acute bone findings seen. Fracture fixation plate and screws are present in the proximal right humerus new from prior imaging. Hyperdense material in the proximal shaft is likely postsurgical graft material and reactive bony change mixture. This is not sufficiently image for further comment. No acute aortic findings suspected. IMPRESSION: No acute cardiopulmonary process. Chronic interstitial pattern matches 2019 imaging. Conclusions/Impression: ELISE likely due to hypovolemia CKD III with proteinuria -Continue gentle IVF HTN with CKD -Monitor H&H LE Edema DM II with CKD -No sugar diet Mild malnutrition -Encourage nutrition Anemia in chronic illness Iron Deficiency -Monitor H&H Thank you kindly for the consultation.
[2021-10-09] MEDS ORDERED: METFORMIN HCL 500 MG TAB PO SCH (08:00)
[2021-10-09] MEDS: ESCITALOPRAM 20 MG TAB PO SCH (08:08)
[2021-10-09] MEDS: ATORVASTATIN 10 MG TAB PO SCH (08:09)
--- NOTE | 2021-10-09 08:54 | RAD REPORT ---
EXAM DESCRIPTION: MRI - Brain Wo Cont - 10/09/2021 8:20 am CLINICAL HISTORY: AMS Headache, drowsiness COMPARISON: Head Brain Wo Cont dated 10/08/2021 TECHNIQUE: Multi-sequence, multiplanar MR imaging of the brain was performed without contrast. FINDINGS: No intracranial hemorrhage, hydrocephalus or extra-axial fluid collections.Moderate T2 and FLAIR hyperintensity is seen in the periventricular and deep white matter compatible with chronic mi crovascular ischemia. Areas of gliosis are seen in both cerebral hemispheres as well as cerebellar he mispheres compatible with old infarctions, with associated laminar necrosis evident. . DWI is negativ e for acute CVA. Midline structures are normally formed. Mastoid air cells and paranasal sinuses are clear. IMPRESSION: Negative for acute CVA or other acute intracranial process. Multiple areas of old/ remote infarction are present.
[2021-10-09] MEDS ORDERED: GLIMEPIRIDE 2 MG TABLET PO SCH (09:00)
[2021-10-09] MEDS ORDERED: hydroCHLOROthiazide 12.5 MG CAP PO SCH (09:00)
[2021-10-09] MEDS ORDERED: LOSARTAN POTASSIUM 50 MG TABLET PO SCH (09:00)
[2021-10-09] MEDS ORDERED: PIOGLITAZONE 15 MG TAB PO SCH (09:00)
[2021-10-09] MEDS ORDERED: RIVAROXABAN 15 MG TABLET PO SCH (17:00)
[2021-10-09] MEDS: CEFTRIAXONE 1,000 MG in NA CHLORIDE 0.9% 50 ML IVPB SCH (21:11)
[2021-10-09] MEDS: DONEPEZIL HCL 5 MG TAB PO SCH (21:12)
[2021-10-10 04:10] VITALS: O2SAT 97
[2021-10-10] MEDS ORDERED: CEFTRIAXONE 1000 MG/VIAL ONE (08:36)
[2021-10-10] MEDS: ATORVASTATIN 10 MG TAB PO SCH (08:40)
[2021-10-10] MEDS: ESCITALOPRAM 20 MG TAB PO SCH (08:40)
[2021-10-10] MEDS: CEFTRIAXONE 1,000 MG in NA CHLORIDE 0.9% 50 ML IVPB SCH (08:41)
[2021-10-10 08:52] VITALS: BP 157/79; TEMP 97.2
--- NOTE | 2021-10-10 19:35 | P.PN ---
Date of Service: 10/10/21 Vital Signs Temp Pulse Resp BP Pulse Ox 97.2 F 85 16 157/79 H 97 10/10/21 08:00 10/10/21 08:00 10/10/21 08:00 10/10/21 08:00 10/10/21 08:00 Microbiology Results 10/08/21 07:10 Catheterized Urine [place] Count - Final >100,000 CFU/ML. 10/08/21 07:10 Catheterized Urine - Final Staph Aureus Assessment/ Plan: Nephrology No dyspnea No chest pain Feeling better today No acute events overnight Vitals, medications, blood work and imaging reviewed in the chart. General: In no apparent distress HEENT: Atraumatic Neck: Supple Respiratory: Normal air movement Cardiovascular: Edema, Regular rate/rhythm Gastrointestinal: Non-distended Musculoskeletal: No clubbing, No contractures Integumentary: No rashes, No cyanosis Neurological: Normal speech Blood work reviewed in the chart. Imagings Data: EXAM DESCRIPTION: US - Renal Ultrasound-Complete - 10/08/2021 3:05 pm CLINICAL HISTORY: Chronic renal failure. Abdominal pain COMPARISON: 2019 FINDINGS: The right kidney measures 10 cm with an increased echotexture. The left kidney measures 8 cm with an increased echotexture. Hydronephrosis is not seen. No gross abnormality of bladder is seen Incidental note is made of cholelithiasis IMPRESSION: Increased renal echotexture consistent with parenchymal disease EXAM DESCRIPTION: RAD - Chest Single View - 10/08/2021 5:11 am CLINICAL HISTORY: Altered Mental Status COMPARISON: Portable 02/15/2019 TECHNIQUE: AP portable chest image was obtained 10/08/2021 5:11 am . FINDINGS: Lung volumes are low. Patient has a chronic interstitial pattern that matches the comparison. No peripheral mass or consolidations seen. Skin fold artifacts overlie the lateral lower right chest. Trachea is midline. Loop recorder overlies the lower left chest. Heart and vasculature are normal. No measurable pleural effusion. No acute bone findings seen. Fracture fixation plate and screws are present in the proximal right humerus new from prior imaging. Hyperdense material in the proximal shaft is likely postsurgical graft material and reactive bony change mixture. This is not sufficiently image for further comment. No acute aortic findings suspected. IMPRESSION: No acute cardiopulmonary process. Chronic interstitial pattern matches 2019 imaging. Conclusions/Impression: ELISE likely due to hypovolemia CKD III with proteinuria -Discontinue IVF HTN with CKD -Monitor H&H LE Edema -Low sodium diet DM II with CKD -No sugar diet Mild malnutrition -Encourage nutrition Anemia in chronic illness Iron Deficiency -Monitor H&H
== END 2021-10-10 10:47 | disposition home health service (06) | DRG 698 ==
LOC: ER 04:40 → ERHOLD 09:14 → 2ND 16:09
PROVIDERS: ADMIT Hospitalist; ATTEND Hospitalist
DX: N15.9 Renal tubulo-interstitial disease, unspecified (principal); G92.9 Unspecified toxic encephalopathy; E44.1 Mild protein-calorie malnutrition; I48.91 Unspecified atrial fibrillation; N17.9 Acute kidney failure, unspecified; E78.5 Hyperlipidemia, unspecified; I12.9 Hypertensive chronic kidney disease with stage 1 through stage 4 chronic kidney disease, or unspecified chronic kidney disease; E11.22 Type 2 diabetes mellitus with diabetic chronic kidney disease; N18.30 Chronic kidney disease, stage 3 unspecified; D50.9 Iron deficiency anemia, unspecified; Z68.25 Body mass index [BMI] 25.0-25.9, adult; N28.89 Other specified disorders of kidney and ureter; Z20.822 Contact with and (suspected) exposure to COVID-19
CPT/HCPCS: 36415; 70450; 70551; 71045; 76770; 80048; 80053; 80061; 80076; 81003; 83735; 83880; 84100; 84484; 84550; 85025; 85610; 85730; 87077; 87086; 87088; 87186; 93005; 96361; 96365; 97116; 97161; 99285; J7030; J7040; U0003

== ENCOUNTER 2021-12-09 20:05 | Inpatient (IN) | payer OTHER ==
--- OUTSIDE RECORDS SUMMARY | 2021-12-09 20:10 | XMS REPORT | Continuity of Care Document ---
:1945 Author Organization [facility] t Address [address] [place] [address] Care Team Providers Name Role Phone PCP, DOES NOT HAVE A Primary Care Physician Unavailable NOEL MARTIN Attending Clinician Unavailable JACKSON Attending Clinician Unavailable Nadya Polk Attending Clinician Unavailable TALIB GARDINER Attending Clinician Unavailable JACKSON Attending Clinician Unavailable Doctor Unassigned, Name Attending Clinician Unavailable Carmen NEVILLE S Attending Clinician Juan PARSON Attending Clinician Unavailable KNOW Attending Clinician Unavailable PRANAY TAYLOR Attending Clinician Unavailable Nadya KEYES Attending Clinician Unavailable NOEL MARTIN Admitting Clinician Unavailable KNOW Admitting Clinician Unavailable Payers Payer Name Policy Type Policy Number Effective Date Expiration Date S [facility] HMO/NETWORK - [id number] [employer] DUAL [id number] COMPLETE [facility] [employer] [facility] [id number] 2019spring 00:00:00 Problems Condition Condition Condition Status Onset Resolution Last Treating Co mments Source Name Details Category Date Date Treatment Clinician Date Status Status Disease Active [facility] post right post right 6-21 Co llege hip hip 00:00: of replacemen replacemen 00 Me dicin t t e Pain of Pain of Disease Active [facility] right right 02-05 College femur femur 00:00: of 00 Medicin e Failure of Failure of Disease Active [facility] outpatient outpatient 02-05 Co llege treatment treatment 00:00: of 00 Medicin e High blood High blood Disease Active [facility] pressure pressure 02-05 Colleg e 00:00: of 00 Medicin e Essential Essential Disease Active [place] [facility] (primary) (primary) 02-05 [facility] hypertensi hypertensi 00:00: of on on Medicin e Diabetes Diabetes Disease Active [place] mellitus mellitus 02-05 Colleg e (HCCode) (HCCode) 00:00: of 00 Medicin e Anemia Anemia Disease Active [facility] 02-05 [place] 00:00: of 00 Medicin e Acute-on-c Acute-on-c Disease Active [facility] hronic hronic 02-05 [place] renal renal 00:00: of failure failure 00 Medicin (HCCode) (HCCode) e Acute Acute Disease Active [facility] cystitis cystitis 02-05 Colleg e 00:00: of 00 Medicin e 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 (intraduct 02-05 Co llege al al 00:00: of papillary papillary 00 Medi hermelinda mucinous mucinous e neoplasm) neoplasm) High High Disease Active [facility] cholestero cholestero 2-09 Co llege l l 00:00: of 00 Medicin e Hypophosph Hypophosph Disease Active [facility] atemia atemia 17 College 00:00: of 00 Medicin e Hyponatrem Hyponatrem Disease Active [facility] ia ia 17 College 00:00: of 00 Medicin e Hypercalce Hypercalce Disease Active [facility] nic nic 17 College 00:00: of 00 [...] Load Paroxysmal Paroxysmal Disease Active 2018-08 [facility] atrial atrial 0-08 College fibrillati fibrillati 00:00: of on on 00 Medicin (HCCode) (HCCode) e Nephrogeno Nephrogeno Disease Active 2018-08 [facility] us 0-08 College proteinuri proteinuri 00:00: of a a 00 Medicin e Neck pain Neck pain Disease Active 2018-08 [place] [facility] of over 3 of over 3 0-08 [facility] months months 00:00: of duration duration 00 Medici n e Localized Localized Disease Active 2018-08 [place] [facility] edema due edema due 0-08 [facility] to fluid to fluid 00:00: of overload overload 00 Medici n e 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 0-08 College syndrome syndrome 00:00: of with with 00 Medicin diarrhea diarrhea e Hypokalemi Hypokalemi Disease Active 2018-08 [facility] a a 0-08 College 00:00: of 00 Medicin e 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 [facility] nodes of nodes of 0-08 Colleg e left hand left hand 00:00: of 00 Medicin e 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 0-08 Co l[facility] sterolemia sterolemia 00:00: of 00 Medicin e Benign Benign Disease Active 2018-08 [facility] hypertensi hypertensi 0-08 Co llege on with on with 00:00: of chronic chronic 00 Medicin kidney kidney e disease disease Type 2 Type 2 Disease Active 2018-08 [facility] diabetes diabetes 0-08 Colleg e mellitus mellitus 00:00: of with with 00 Medicin chronic chronic e kidney kidney disease disease (HCCode) (HCCode) Chronic Chronic Disease Active 2018-08 [facility] low back low back 0-08 Colleg e pain pain 00:00: of 00 Medicin e Absolute Absolute Disease Active 2018-08 [place] anemia anemia 0-08 College 00:00: of 00 Medicin e Anemia of Anemia of Disease Active 2018-08 [place] [facility] chronic chronic 0-08 College disease disease 00:00: of 00 Medicin e Allergic Allergic Disease Active 2018-08 [facility] r rhinitis rhinitis 0-08 Colleg e due to due to 00:00: of pollen pollen 00 Medicin e Pain of Pain of Problem Active Univers [...] Allergie 6-05 Clear s 00:00: Hare 00 [facility] No Known DA Active [facility] Allergie -05 Clear s 00:00: Hare 00 [facility] NO KNOWN Drug Active Univers ALLERGIE Class ity of [facility] Social History Social Habit Start Date Stop Date Quantity Comments Source [facility] to [facility] of Med icine History [facility] ge Alcohol Std Drinks of Med icine History [facility] Alcohol Binge of Medicine Alcohol intake 2021-05-11 2021-05-11 Ex-drinker [facility] lege 00:00:00 00:00:00 (finding) of Medicine History [facility] 2021-05-11 2021-05-11 1 [facility] Alcohol Frequency 00:00:00 00:00:00 of Medi cine Alcohol Comment 2021-05-11 2021-05-11 Quit 20 years [facility] 00:00:00 00:00:00 ago Social of Medicine Tobacco use and 2020-09-27 2020-09-27 Never used [facility] Foodist llege exposure 00:00:00 00:00:00 of Medicine Sex [birth year] [facility] llege 00:00:00 00:00:00 of Medicine Smoking Status Start Date Stop Date Source Never smoker [facility] o f Medicine Medications Ordered Filled Start Stop Current Ordering Indication Dosage Frequency Signature Comments Components Source Medication Medication Date Date Medication? Clinician (SIG) Name Name pravastatin Yes 40mg Take 40 mg [facility] (PRAVACHOL) 6-21 by mouth [facility] 40 MG 13:58: daily. of tablet 49 Medicin e pioglitazon Yes 15mg Take 15 mg [facility] e [...] Medicin e hydrochloro Yes 12.5mg Take 12.5 [facility] thiazide 6-21 mg by College (MICROZIDE) 13:58: mouth. of 12.5 MG 49 Medicin capsule e Multiple Yes 1{tbl} Take 1 [facility] Vitamin 6-21 Tablet by [place] (ONE-DAILY 13:58: mouth. of MULTIVITAMI 49 Medicin NS) TABS e pravastatin 0 Yes 40mg Take 40 mg [facility] (PRAVACHOL) 6-21 by mouth [facility] 40 MG 13:58: daily. of tablet 49 Medicin e pioglitazon Yes 15mg Take 15 mg [facility] e (ACTOS) 6-21 by mouth Colleg e 15 MG 13:58: daily. of tablet 49 Medicin e aspirin EC Yes 81mg Take 81 mg [facility] 81 MG 6-21 by mouth. College tablet 13:58: of 49 Medicin e Cranberry Yes Take by [facility] 250 MG CAPS 6-21 mouth. Colleg e 13:58: of 49 Medicin e ascorbic Yes 500mg Take 500 [facility] acid 500 MG 6-21 mg by College tablet 13:58: mouth. of 49 Medicin e hydrochloro 0 Yes 12.5mg Take 12.5 [facility] thiazide 6-21 mg by [place] (MICROZIDE) 13:58: mouth. of 12.5 MG 49 Medicin capsule e Multiple Yes 1{tbl} Take 1 [facility] Vitamin 6-21 Tablet by [place] (ONE-DAILY 13:58: mouth. of MULTIVITAMI 49 Medicin NS) TABS e pravastatin 0 Yes 40mg Take 40 mg [facility] (PRAVACHOL) 6-21 by mouth [facility] 40 MG 13:58: daily. of tablet 49 Medicin e pioglitazon Yes 15mg Take 15 mg [facility] e (ACTOS) 6-21 by mouth Colleg e 15 MG 13:58: daily. of tablet 49 Medicin e aspirin EC Yes 81mg Take 81 mg [facility] 81 MG 6-21 by mouth. College tablet 13:58: of 49 Medicin e Cranberry Yes Take by [facility] 250 MG CAPS 6-21 mouth. Colleg e 13:58: of 49 Medicin e ascorbic Yes 500mg Take 500 [facility] acid 500 MG 6-21 mg by College tablet 13:58: mouth. of 49 Medicin e hydrochloro Yes 12.5mg Take 12.5 [facility] thiazide 6-21 mg by College (MICROZIDE) 13:58: mouth. of 12.5 MG 49 Medicin capsule e Multiple Yes 1{tbl} Take 1 [facility] Vitamin 6-21 Tablet by [place] (ONE-DAILY 13:58: mouth. of MULTIVITAMI 49 Medicin NS) TABS e metformin Yes [facility] (GLUCOPHAGE 2-03 [place] ) 1000 MG 00:00: of tablet 00 Medicin e metformin 0 Yes [facility] (GLUCOPHAGE 2-03 [place] ) 1000 MG 00:00: of tablet 00 Medicin e metformin 0 Yes [facility] (GLUCOPHAGE 2-03 [place] ) 1000 MG 00:00: of tablet 00 Medicin e glimepiride 0 Yes [facility] (AMARYL) 4 2-02 College MG tablet 00:00: of 00 Medicin e losartan 0 Yes [facility] (COZAAR) 50 2-02 College MG tablet 00:00: of 00 Medicin e glimepiride 0 Yes [facility] (AMARYL) 4 2-02 College MG tablet 00:00: of 00 Medicin e losartan 0 Yes [facility] (COZAAR) 50 2-02 College MG tablet 00:00: of 00 Medicin e glimepiride 0 Yes [facility] (AMARYL) 4 2-02 College MG tablet 00:00: of 00 Medicin e losartan 0 Yes [facility] (COZAAR) 50 2-02 College MG tablet 00:00: of 00 Medicin e XARELTO 2021-0 Yes [facility] STARTER 09-12 College PACK 15 & 00:00: of 20 MG TBPK 00 Medicin e XARELTO 2020-0 Yes [facility] STARTER 09-12 College PACK 15 & 00:00: of 20 MG TBPK 00 Medicin e XARELTO 0 Yes [facility] STARTER 09-12 College PACK 15 & [...] Medicin e donepezil 2020-0 Yes TAKE 1 [facility] (ARICEPT) 3-26 TABLET BY Colle ge 10 MG 00:00: MOUTH of tablet 00 EVERY DAY Medicin AT BEDTIME e FOR 30 DAYS donepezil 2020-0 Yes TAKE 1 [facility] (ARICEPT) 3-26 TABLET BY Colle ge 10 MG 00:00: MOUTH of tablet 00 EVERY DAY Medicin AT BEDTIME e FOR 30 DAYS donepezil 2020-0 Yes TAKE 1 [facility] (ARICEPT) 3-26 TABLET BY Colle ge 10 MG 00:00: MOUTH of tablet 00 EVERY DAY Medicin AT BEDTIME e FOR 30 DAYS Vital Signs Vital Name Observation Time Observation Value Comments Source Systolic blood 2021-05-11 14:05:00 151 mm[Hg] [facility] pressure Medicine Diastolic blood 2021-05-11 14:05:00 101 mm[Hg] [facility] pressure Medicine Heart rate 2021-05-11 14:05:00 110 /min O2: 98% [facility] Body temperature 2021-05-11 14:05:00 36.78 [facility] Body height 2021-05-11 14:05:00 160 cm [facility] Body weight 2021-05-11 14:05:00 58.968 kg [facility] BMI 2021-05-11 14:05:00 23.03 kg/m2 [facility] Body height 2021-02-05 18:59:00 160 cm [facility] Body weight 2021-02-05 18:59:00 58.514 kg [facility] BMI 2021-02-05 18:59:00 22.85 kg/m2 [facility] Systolic blood 2021-02-05 18:59:00 110 mm[Hg] [facility] Diastolic blood 2021-02-05 18:59:00 73 mm[Hg] [facility] Heart rate 2021-02-05 18:59:00 88 /min 02-97% [facility] Body temperature 2021-02-05 18:59:00 36.11 [facility] Procedures Procedure Date / Time Performed Performing Clinician [facility] e BASIC METABOLIC PANEL 2021-02-05 20:08:00 Talib Gardiner [facility] HEPATIC FUNCTION PANEL 2021-02-05 20:08:00 Talib Gardiner [facility] CBC W/AUTO DIFF WITH 2021-02-05 20:08:00 Talib Gardiner [facility] CANCER ANTIGEN 19-9 2021-02-05 20:08:00 Talib Gardiner [facility] PROTIME & PTT 2021-02-05 20:08:00 Talib Gardiner [facility] Col lege [facility] [U] XRAY HIP 2020-06-20 00:00:00 [employer] UNILATERAL MIN 2 [facility] RIGHT [id number] Hip 2/3 views uni DX 2020-06-20 00:00:00 [facility] Physicians [U] XRAY HIP 2020-05-31 00:00:00 [employer] [facility] [place] UNILATERAL MIN 2 [facility] RIGHT [id number] Post Op Promis 29 2020-05-30 00:00:00 [facility] Survey Physicians [id number] 2020-01-24 00:00:00 MOUDA.01 [facility] Plan of Care Planned Activity Planned Date Details Comments Source Future Scheduled 2021-05-11 MRI ABDOMEN W WO 1 Occurrences [facility] College Test 09:55:35 CONTRAST MRCP [code starting of Medic ine = 73396-3] 05/11/2021 until 05/11/2022 Future Scheduled 2021-05-11 MRI ABDOMEN W WO 1 Occurrences [facility] Test 09:55:35 CONTRAST MRCP [code starting of Medic ine = 76799-4] 05/11/2021 until 05/11/2022 Future Scheduled 2021-05-11 Screening for [facility] Col lege Test 09:08:20 malignant neoplasm of Medici ne of colon (procedure) [code = 460331716] Future Scheduled 2021-05-11 Screening for [facility] Col lege Test 09:08:20 malignant neoplasm of Medici ne of breast (procedure) [code = 772614229] Future Scheduled 2021-05-11 TETANUS SHOT (ADULT) [facility] Test 09:08:20 [code = TETANUS SHOT of Medi cine (ADULT)] Future Scheduled 2021-05-11 Diabetic foot [facility] Col lege Test 09:08:20 examination of Medicine (regime/therapy) [code = 564635868] Future Scheduled 2021-05-11 ANNUAL DIABETIC [facility] C ollege Test 09:08:20 RETINOPATHY of Medicine SCREENING [code = ANNUAL DIABETIC RETINOPATHY SCREENING] Future Scheduled 2021-05-11 Hepatitis C [facility] Test 09:08:20 screening of Medicine (procedure) [code = 221974468] Future Scheduled 2021-05-11 ZOSTER VACCINE (1 of [facility] Test 09:08:20 2) [code = ZOSTER of Medicin e VACCINE (1 of 2)] Future Scheduled 2021-05-11 FALL SCREEN [code = [facility] Test 09:08:20 FALL SCREEN] of Medicine Future Scheduled 2021-05-11 Screening for [facility] Col lege Test 09:08:20 osteoporosis of Medicine (procedure) [code = 990652061] Future Scheduled 2021-05-11 PNEUMOVAX >=65 [facility] Co llege Test 09:08:20 (PPSV23) [code = of Medicine PNEUMOVAX >=65 (PPSV23)] Future Scheduled 2021-05-11 FLU VACCINE > 6 [facility] C ollege Test 09:08:20 MONTHS [code = FLU of Medici ne VACCINE > 6 MONTHS] Future Scheduled 2021-05-11 Screening for [facility] Col lege Test 09:08:20 malignant neoplasm of Medici ne of colon (procedure) [code = 400768872] Future Scheduled 2021-05-11 Screening for [facility] Col lege Test 09:08:20 malignant neoplasm of Medici ne of breast (procedure) [code = 037577112] Future Scheduled 2021-05-11 TETANUS SHOT (ADULT) [place] [facility] Test 09:08:20 [code = TETANUS SHOT of Medi cine (ADULT)] Future Scheduled 2021-05-11 Diabetic foot [facility] Col lege Test 09:08:20 examination of Medicine (regime/therapy) [code = 073174082] Future Scheduled 2021-05-11 ANNUAL DIABETIC [facility] C ollege Test 09:08:20 RETINOPATHY of Medicine SCREENING [code = ANNUAL DIABETIC RETINOPATHY SCREENING] Future Scheduled 2021-05-11 Hepatitis C [facility] Test 09:08:20 screening of Medicine (procedure) [code = 510778287] Future Scheduled 2021-05-11 ZOSTER VACCINE (1 of [facility] Test 09:08:20 2) [code = ZOSTER of Medicin e VACCINE (1 of 2)] Future Scheduled 2021-05-11 FALL SCREEN [code = [facility] Test 09:08:20 FALL SCREEN] of Medicine Future Scheduled 2021-05-11 Screening for [facility] Col lege Test 09:08:20 osteoporosis of Medicine (procedure) [code = 644458947] Future Scheduled 2021-05-11 PNEUMOVAX >=65 [facility] Co llege Test 09:08:20 (PPSV23) [code = of Medicine PNEUMOVAX >=65 (PPSV23)] Future Scheduled 2021-05-11 FLU VACCINE > 6 [facility] C ollege Test 09:08:20 MONTHS [code = FLU of Medici ne VACCINE > 6 MONTHS] Future Scheduled 2021-02-06 Screening for [facility] Col lege Test 11:03:52 malignant neoplasm of Medici ne of colon (procedure) [code = 074412110] Future Scheduled 2021-02-06 Screening for [facility] Col lege Test 11:03:52 malignant neoplasm of Medici ne of breast (procedure) [code = 744536383] Future Scheduled 2021-02-06 COVID-19 Vaccine (1) [facility] Test 11:03:52 [code = COVID-19 of Medicine Vaccine (1)] Future Scheduled 2021-02-06 TETANUS SHOT (ADULT) [facility] Test 11:03:52 [code = TETANUS SHOT of Medi cine (ADULT)] Future Scheduled 2021-02-06 Diabetic foot [facility] Col lege Test 11:03:52 examination of Medicine (regime/therapy) [code = 076273420] Future Scheduled 2021-02-06 ANNUAL DIABETIC [facility] C ollege Test 11:03:52 RETINOPATHY of Medicine SCREENING [code = ANNUAL DIABETIC RETINOPATHY SCREENING] Future Scheduled 2021-02-06 Hepatitis C [facility] Test 11:03:52 screening of Medicine (procedure) [code = 627020662] Future Scheduled 2021-02-06 ZOSTER VACCINE (1 of [facility] Test 11:03:52 2) [code = ZOSTER of Medicin e VACCINE (1 of 2)] Future Scheduled 2021-02-06 FALL SCREEN [code = [facility] Test 11:03:52 FALL SCREEN] of Medicine Future Scheduled 2021-02-06 Screening for [facility] Col lege Test 11:03:52 osteoporosis of Medicine (procedure) [code = 149581738] Future Scheduled 2021-02-06 PNEUMOVAX >=65 [facility] Co llege Test 11:03:52 (PPSV23) [code = of Medicine PNEUMOVAX >=65 (PPSV23)] Future Scheduled 2021-02-06 FLU VACCINE > 6 [facility] C ollege Test 11:03:52 MONTHS [code = FLU of Medici ne VACCINE > 6 MONTHS] Future Scheduled 2021-02-05 MRI ABDOMEN W WO 1 Occurrences [facility] Test 15:01:11 CONTRAST MRCP [code starting of Medic ine = 11360-7] 02/05/2021 until 02/05/2022 Encounters Start End Encounter Admission Attending Care Care Encounter Source Date/Time Date/Time Type Type Clinicians Facility Department ID 2021-05-26 Outpatient VERONICA MUSCOGEEJorge Surgery [id number] [facility] 10:23:08 SHEKHAR 2020-12-23 Outpatient [facility] [id number] [place] 03:40:42 [facility] 2020-01-24 Inpatient Jam, JANEY DAYS [id number] [facility] 08:45:00 [facility] 2020-01-21 Inpatient JANEY GuzmánCL DAYS [id number] [facility] 15:00:00 [facility] 2021-05-11 2021-05-11 Office TALIB [facility] [id number] [facility] 07:40:35 12:50:04 Visit MICHAEL Joe [id number] Co llege 0.2.7.2.686 of [id number] [facility] 510 e 2021-02-05 2021-02-05 Office TALIB [facility] [id number] [facility] 12:56:52 14:54:54 Visit MICHAEL Joe 350.1.13.21 Co llege 0.2.7.2.686 of [id number] [facility] 510 e 2020-08-01 2020-08-01 Appointmen RENETTA [facility] Orthopedics [id number] Univers 10:00:00 10:00:00 t; Francie GUTIERREZ at [facility] MATT Orthopedic Physi ci MLuann and Spine [facility], POD 3 2020-06-20 2020-06-20 Appointmen ALBA JACKSON Orthopedics 70 [id number] Univers 08:30:00 08:30:00 t; Francie GUTIERREZ at [facility] MATT Orthopedic Physi ci [facility]uann [facility] 2020-06-20 2020-06-20 Orders Doctor OVALLE [id number] 00:00:00 00:00:00 Only Unassigned, TRACY 350.1.13.10 [facility] 4.2.7.2.686 [id number] 2020-06-15 2020-06-15 Office CHERYL Parson [id number] 14:51:12 15:39:19 Visit [facility] 350.1.13.10 Surgical 4.2.7.2.686 Specialti [id number] [address] 2020-06-15 2020-06-15 Outpatient R CHERYL PARSON [facility] [id number] Univers 14:45:00 14:45:00 NIRU [id number] [facility] 2020-06-15 2020-06-15 Outpatient Stephanie PARSON [facility] [id number] Univers 14:45:00 14:45:00 NIRU [facility] 2020-05-24 2020-05-24 Appointalyssa JACKSON [facility] Orthopedics [id number] Univers 15:15:00 15:15:00 t; [facility] Physi ci Francie and Spine [facility] 2020-05-19 2020-05-19 Outpatient KNOW, HCABM OPLA [id number] [facility] 23:34:00 23:34:00 DOES_NOT [facility] 2020-01-18 2020-01-18 Outpatient Stephanie HEATHERPER [facility] [id number] Univers 14:40:00 14:40:00 URMILA [facility] 2020-01-18 2020-01-18 Outpatient Stephanie BERTRANDSIGRID [facility] [id number] Univers 14:40:00 14:40:00 URMILA [facility] 2020-01-14 2020-01-14 Outpatient Stephanie PARSON [facility] [id number] Univers 08:22:20 23:59:00 NRIU [facility] 2020-01-14 2020-01-14 Outpatient Stephanie PARSON [facility] [id number] Univers 08:00:00 08:00:00 NIRU [id number] [facility] 2019-12-31 2019-12-31 Outpatient Stephanie KEYES [facility] [id number] Univers 08:00:00 08:00:00 NAVEED [id number] [facility] 2019-12-31 2019-12-31 Outpatient Stephanie KEYES [facility] [id number] Univers 08:00:00 08:00:00 NAVEED [facility] 2019-12-03 2019-12-03 Outpatient Stephanie KEYES [facility] [id number] Univers 08:00:00 08:00:00 NAVEED [id number] [facility] 2019-12-03 2019-12-03 Outpatient Stephanie KEYES [facility] [id number] Univers 08:00:00 08:00:00 NAVEED santizo [facility] 2019-11-10 2019-11-10 Outpatient Stephanie KEYES [facility] [id number] Univers 14:00:00 14:00:00 NAVEED santizo [facility] Results Test Description Test Time Test Comments Results Result Comments Source CBC W/AUTO DIFF WITH PLATELETS 2021-02-06 15:50:59 Test Item Value Reference Range Interpretation Comme nts WHITE BLOOD CELL COUNT (test See_Comment [Automated message] The system code = 30097-4) which genera richi this result transmitted ref erence range: 3.5 - 11.0 K/UL. Th e reference range was not used to interpret this result as rossana l/abnormal. RED BLOOD CELL COUNT (test See_Comment L [Automated message] The system code = 13108-1) which genera richi this result transmitted ref [...] (test code = 26.6 % 34.0-45.0 L 16573-4) MEAN CORPUSCULAR VOLUME (test 92.0 fL 80.0-99.0 code = 43852-9) MEAN CORPUSCULAR HEMOGLOBIN 30.8 PG 25.0-33.0 (test code = 35313-3) MEAN CORPUSCULAR HEMOGLOBIN See_Comment [Automated message] The system CONC (test code = 75593-4) [facility] generated this result transmitted ref erence range: 31 - 36 G/DL. The reference range was not used to interpret this result as rossana l/abnormal. RED CELL DISTRIBUTION WIDTH 12.4 % 11.5-15.0 (test code = 15108-4) NEUTROPHILS % (test code = 55.1 % 40.0-75.0 71284-5) LYMPHOCYTES % (test code = 33.2 % 20.0-45.0 49239-8) MONOCYTES % (test code = 8.6 % 4.0-12.0 51773-9) EOSINOPHILS % (test code = 2.1 % 0.0-7.0 64473-4) BASOPHILS % (test code = 0.8 % 0.0-2.0 52630-1) IMMATURE GRANULOCYTES (test 0.2 % 0.0-1.0 code = 17639-4) NUCLEATED RBC'S MYELOPEROX See_Comment Unless Otherwise STAIN (test code = 41431-2) Indicated, All Testing Performed At: [facility], [address] [place] [address] 78 4 Laboratory Dire ctor: Dequan Up M.D. IA Number [id number] Cap Accreditation N o. [id number] [Automated mess age] The system which generated this result transmitted ref erence range: 0.00 - 0.11 K/U L. The reference range was not u sed to interpret this result as normal/abnormal. PLATELET COUNT (test code = See_Comment [Automated message] The system 99918-8) which generated this result transmitted ref erence range: 130 - 400 K/UL. The reference range was not used to interpret this result as rossana l/abnormal. NEUTROPHILS ABSOLUTE COUNT See_Comment [Automated message] The system (test code = 00350-7) which generated this result transmitted ref erence range: 1.50 - 7.50 K/U L. The reference range was not u sed to interpret this result as normal/abnormal. LYMPHOCYTES ABSOLUTE COUNT See_Comment [Automated message] The system (test code = 36799-0) which generated this result transmitted ref erence range: 1.00 - 4.00 K/U L. The reference range was not u sed to interpret this result as normal/abnormal. MONOCYTES ABSOLUTE COUNT (test See_Comment [Automated message] The system code = 98924-6) which genera richi this result transmitted ref erence range: 0.20 - 1.00 K/U L. The reference range was not u sed to interpret this result as normal/abnormal. BASOPHILS ABSOLUTE COUNT (test See_Comment [Automated message] The system code = 41240-5) which genera richi this result transmitted ref [...] normal/abnormal. Lab Interpretation (test code Abnormal = 25306-9) [facility] METABOLIC [id number] 11:07:41 Test Item Value Reference Range Interpretation Comments GLUCOSE (test code = See_Comment H [Autom ated message] 2345-7) The system [employer] generated this result transmitted ref erence range: [...] H [Au tomated message] 2160-0) The system [employer] generated this result transmitted ref erence range: 0.60 - 1 .30 MG/DL. The refe rence range was not u sed to interpret this result as normal/abnor mal. EGFR AA (test code = See_Comment L [Autom ated message] 21069-4) The system [employer] generated this result transmitted ref erence range: >60 ML/MIN/1.73. Th e reference range was not used to int erpret this result as normal/abnormal . EGFR (test code = See_Comment L [Automate d message] 21332-8) The system [employer] generated this result transmitted ref erence range: >60 ML/MIN/1.73. Th e reference range was not used to int erpret this result as normal/abnormal . SODIUM (test code = See_Comment [Automa richi message] 2951-2) The system [employer] generated this result transmitted ref erence range: 133 - 14 6 MEQ/L. The refe rence range was not u sed to interpret this result as normal/abnor mal. POTASSIUM (test code = See_Comment [Aut omated message] 4943-3) The system [employer] generated this result transmitted ref erence range: 3.5 - 5. 4 MEQ/L. The refe rence range was not u sed to interpret this result as normal/abnor mal. CHLORIDE (test code = See_Comment [Auto mated message] 2074-0) The system [employer] generated this result transmitted ref erence range: 95 - 107 MEQ/L. The reference r gertrude was not used to interpret this result as normal/abnor mal. CO2 (test code = See_Comment [Automated message] 1963-03) The system [employer] generated this result transmitted ref erence range: 19 - 31 MEQ/L. The reference r gertrude was not used to interpret this result as normal/abnor mal. CALCIUM (test code = See_Comment Unless 66639-4) Otherwise Indic ated, All Testing Per formed At: [facility], [address] [place] [address] Laboratory Dire ctor: Dequan weaver M.D. CLIA Num dwight [id number] Cap Accreditation N o. [id number] [Auto mated message] The sy stem which generated this result transmit richi reference range : 8.5 - 10.5 MG/DL. The reference range was not used to int erpret this result as normal/abnormal . Lab Interpretation Abnormal (test code = 41858-1) [facility] [id number] 11:07:41 Test Item Value Reference Range Interpretation Comments PROTEIN TOTAL (test See_Comment [Automa richi message] The code = 2885-2) system which generated this result tra nsmitted reference range : 6.1 - 8.3 G/DL. The r eference range was not u sed to interpret this result as normal/abnormal . ALBUMIN (test code = See_Comment [Autom ated message] The 13154-4) system which ge nerated this result tra [...] At: [facility], [address] [place] [address] Bartender Manager: Francie CarterIA Numbe r [id number] Cap Accreditation [place] o. [id number] [facility] 09:[facility]:01 Test Item Value Reference Range Interpretation Comments CA 19-9 (test 24 U/ML <35 NOTE: Meth odology is Ashish code = Nadia Electroch emiluminescence 09389-1) Immunoassay (EC HORACIO). Values obtained with d ifferent assays/manufact urers cannot be used interchang eably. Results should not be u sed as sole basis to establish th e presence or absence of marcy gnancy. Unless Otherwis e Indicated, All Testing Perform ed At: [facility], [address] [place] [address] Bartender Manager: Dequan Up M.D. CLIA Number [id number] Cap Accreditation [place] o. [id number] [facility] & [id number] 08:40:15 Test Item Value Reference Range Interpretation Comments PROTIME (test code = See_Comment H [Autom ated message] 3439-6) The system [employer] generated this result transmitted ref erence range: [...] Unless TIME (test code = Otherwise Indicated, 30155-4) All Testing Per formed At[facility] [address] [place] [address] Laboratory Dire ctor: Dequan weaver M.D. CLIA Numb er [id number] Cap Accreditation N o. [id number] [Auto mated message] The sy stem which generated this result transmit richi reference range : 25.2 - 40.0 SECONDS. T he reference range was not used to interpr et this result as normal/abnormal . Lab Interpretation Abnormal (test code = 89799-1) [facility] 29 [id number] 08:41:11 Test Item Value Reference Range Interpretation Comments Pain Interference: (test code = Pain 56 1 N Interference:) Pain Intensity: (test code = Pain 42.6 1 N Intensity:) Physical Function: (test code = 23.9 1 N Physical Function:) Satisfaction Role: (test code = 45.8 1 N Satisfaction Role:) [facility] PhysiciansPROTHROMBIN [id number] 23:51:00 Test Item Value Reference Range Interpretation [...] tion Mechanical pros thetic heart valves (2.5-3.5) THROMBOPLASTIN TIME [id number] 23:51:00 Test Item Value Reference Range Interpretation Comments THROMBOPLASTIN TIME PARTIAL 30.4 seconds 23.0-37.0 N (test code = PTT) [id number] 13:00:00 Test Item Value Reference Range Interpretation Comments GLUBED (test code = 167 MG/DL 70-110 H Performe d 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 [facility] [id number] 09:47:00 Test Item Value Reference Range Interpretation Comments GLUBED (test code = 149 MG/DL 70-110 H Performe d 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 [facility] BASIC METABOLIC [id number] 08:32:00 Test Item Value Reference Range Interpretation [...] code = 9.4 mg/dL 8.0-10.5 N CA) [id number] 22:07:00 Test Item Value Reference Range Interpretation Comments GLUBED (test code = 178 MG/DL 70-110 H Performe d 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 [facility] [id number] 18:03:00 Test Item Value Reference Range Interpretation Comments GLUBED (test code = 227 MG/DL 70-110 H Performe d 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 [facility] [id number] 18:03:00 Test Item Value Reference Range Interpretation Comments GLUBED (test code = 206 MG/DL 70-110 H Performe d 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 [facility] [id number] 16:58:00 Test Item Value Reference Range Interpretation Comments GLUBED (test code = 190 MG/DL 70-110 H Performe d 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 [facility] [id number] 09:32:00 Test Item Value Reference Range Interpretation Comments GLUBED (test code = 134 MG/DL 70-110 H Performe d 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 [facility] BASIC METABOLIC [id number] 08:36:00 Test Item Value Reference Range Interpretation [...] code = 9.3 mg/dL 8.0-10.5 N CA) [id number] 22:49:00 Test Item Value Reference Range Interpretation Comments GLUBED (test code = 190 MG/DL 70-110 H Performe d 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 [facility] [id number] 16:45:00 Test Item Value Reference Range Interpretation Comments GLUBED (test code = 224 MG/DL 70-110 H Performe d 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 [facility] [id number] 11:57:00 Test Item Value Reference Range Interpretation Comments GLUBED (test code = 242 MG/DL 70-110 H Performe d 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 [facility] BASIC METABOLIC [id number] 08:33:00 Test Item Value Reference Range Interpretation [...] code = 9.7 mg/dL 8.0-10.5 N CA) [id number] 08:13:00 Test Item Value Reference Range Interpretation Comments GLUBED (test code = 153 MG/DL 70-110 H Performe d 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 [facility] CBC W/AUTO [id number] 07:53:00 Test Item Value Reference Range Interpretation [...] DIFF REQUIRED (test code NO = MDIFF) [id number] 02:43:00 Test Item Value Reference Range Interpretation Comments GLUBED (test code = 133 MG/DL 70-110 H Performe d 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 [facility] UA RFLX MICR CULT IF [id number] 18:42:00 Test Item Value Reference Range Interpretation [...] other srcSpecimen Description: INDWELLING CATH (BARNETT)Cath Status: [id number] 17:29:00 Test Item Value Reference Range Interpretation Comments GLUBED (test code = 265 MG/DL 70-110 H Performe d 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 [facility] [id number] 12:26:00 Test Item Value Reference Range Interpretation Comments GLUBED (test code = 186 MG/DL 70-110 H Performe d 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 [facility] [id number] 08:35:00 Test Item Value Reference Range Interpretation Comments GLUBED (test code = 117 MG/DL 70-110 H Performe d 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 [facility] CBC W/O [id number] 08:13:00 Test Item Value Reference Range Interpretation [...] fL 7.0-9.0 H = MPV) BASIC METABOLIC [id number] 08:12:00 Test Item Value Reference Range Interpretation [...] code = 9.6 mg/dL 8.0-10.5 N CA) [id number] 07:11:00 Test Item Value Reference Range Interpretation Comments GLUBED (test code = 242 MG/DL 70-110 H Performe d 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 [facility] [id number] 07:11:00 Test Item Value Reference Range Interpretation Comments GLUBED (test code = 243 MG/DL 70-110 H Performe d 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 [facility] [id number] 20:58:00 Test Item Value Reference Range Interpretation Comments GLUBED (test code = 182 MG/DL 70-110 H Performe d 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 [facility] [id number] 19:09:00 Test Item Value Reference Range Interpretation Comments GLUBED (test code = 168 MG/DL 70-110 H Performe d 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 [facility] [id number] 08:33:00 Test Item Value Reference Range Interpretation Comments GLUBED (test code = 186 MG/DL 70-110 H Performe d 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 [facility] CBC W/O [id number] 07:35:00 Test Item Value Reference Range Interpretation [...] fL 7.0-9.0 H = MPV) BASIC METABOLIC [id number] 07:23:00 Test Item Value Reference Range Interpretation [...] code = 9.3 mg/dL 8.0-10.5 N CA) [id number] 21:04:00 Test Item Value Reference Range Interpretation Comments GLUBED (test code = 191 MG/DL 70-110 H Performe d 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 [facility] [id number] 17:29:00 Test Item Value Reference Range Interpretation Comments GLUBED (test code = 233 MG/DL 70-110 H Performe d 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 [facility] [id number] 11:17:00 Test Item Value Reference Range Interpretation Comments GLUBED (test code = 116 MG/DL 70-110 H Performe d 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 Any images obtained were interpreted by the surgeon intraoperatively. 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 [facility] Novel Coronavirus 2019 [id number] 16:43:00 Test Item Value Reference Range Interpretation Comments Novel Coronavirus 2019 Inhouse (test Negative Negative code = COVNONPUI) - XR CHEST 2 [id number] 16:11:00 FAX: Nuno Perkins Jr [phone] Fate: St: PRE FAX: Francisca Isbell Name: CATHERINE RATLIFF [facility] : 1945 Age/S: 74/F [address] [place] [address] Unit #: [id number] Loc: [place] [address] Phys: Francisca Isbell NP Acct: Kelvin [id number] Dis Date: Status: PRE SDC PHONE #: [phone] Exam Date: 01/21/2020 1602 FAX #: [phone] Reason: PRE-OP ORIF EXAMS: CPT CODE: [id number] XR CHEST 2 V 90407 EXAM: PA and lateral chest. EXAM DATE: January 21, 2020 CLINICAL HISTORY: PRE-OP ORIF COMPARISON: None Heart size is normal. Atherosclerotic calcifications and tortuosity of the intrathoracic aorta is identified.. Implantable case monitor is identified over the lower left [...] NP Technologist: YUKI Garcia) Trnscrd Date/Time/By: 01/21/2020 (1611) : By: WalterCER Orig Print D/T: S: 01/21/2020 (4686) PAGE 1 Signed ReportBASIC METABOLIC [id number] 16:10:00 Test Item Value Reference Range Interpretation [...] 9.4 mg/dL 8.0-10.5 N CA) BASIC METABOLIC [id number] 16:07:00 Test Item Value Reference Range Interpretation [...] CA) 9.4 mg/dL 8.0-10.5 N CBC W/AUTO [id number] 15:53:00 Test Item Value Reference Range Interpretation [...]
[2021-12-09] MEDS ORDERED: NA CHLORIDE 0.9% 500 ML ONE ×2 (20:43→21:56)
--- NOTE | 2021-12-09 21:12 | RAD REPORT ---
EXAM DESCRIPTION: RAD - Chest Single View - 12/09/2021 8:56 pm CLINICAL HISTORY: CHEST PAIN COMPARISON: Portable 10/08/2021 TECHNIQUE: AP portable chest image was obtained 12/09/2021 8:56 pm . FINDINGS: Lungs are clear of acute finding. Prominent interstitial pattern matches comparison. Heart and vasculature are normal. No measurable pleural effusion and no pneumothorax. No acute bony abnorm ality seen. No acute aortic findings suspected. IMPRESSION: No acute cardiopulmonary process.
[2021-12-09 21:32] LABS: Absolute Lymphocytes (CBC) 0.8 K/uL (0.7-4.9); Hematocrit 28.2 % (36.0-45.0); Lymphocytes % 9.6 % (15.3-44.8); MPV 8.9 fL (7.6-11.3); RBC Red Blood Cell Count 3.07 M/uL (3.86-4.86)
[2021-12-09 21:53] LABS: Troponin High Sensitivity 12.6 pg/mL (<58.9)
[2021-12-09] MEDS ORDERED: ONDANSETRON 4 MG/2 ML VIAL ONE (21:56)
[2021-12-09 22:08] LABS: Blood Morphology Comment NOT SEEN (NOT SEEN); Platelet Estimate ADEQ; White Blood Cell Scan OK (OK)
--- NOTE | 2021-12-09 22:24 | EDPHYS ---
Physician Documentation [facility] Name: Lazara Lozano Age: 76 yrs Sex: Female : 1945 Arrival Date: 12/09/2021 Time: 20:06 Bed 6 Private MD: ED Physician Jorge Montoya HPI: 12/10 08:55 This 76 yrs old Female presents to ER via Wheelchair with complaints of High Blood kdr Pressure, Chest Tightness. 08:55 The patient and family have been having difficulty in controlling her blood sugar for kdr the past 24 hours. She has had recurrent vomiting and diarrhea during the same period she otherwise alert and oriented appropriate does not appear toxic in the ED.. Onset: The symptoms/episode began/occurred gradually, 2 day(s) ago. Severity of symptoms: At their worst the symptoms were mild in the emergency department the symptoms are unchanged. The patient has not experienced similar symptoms in the past. The patient has been recently seen by a physician: the patient's primary care provider. Historical: - Allergies: 12/09 20:26 No Known Allergies; lg3 - Home Meds: 20:26 aspirin 81 mg Oral chew 1 tab once daily [Active]; cranberry Oral [Active]; donepezil lg3 10 mg Oral tab 1 tab once daily [Active]; escitalopram oxalate 10 mg Oral tab 1 tab once daily [Active]; glimepiride 4 mg Oral tab 1 tab twice a day [Active]; hydrochlorothiazide 12.5 mg Oral tab 1 tab as needed [Active]; losartan 50 mg Oral tab 1 tab 2 times per day [Active]; metformin 500 mg Oral tab 1 tab 2 times per day [Active]; multivitamin Oral [Active]; pioglitazone 15 mg Oral tab 1 tab once daily [Active]; pravastatin 40 mg Oral tab 1 tab once daily [Active]; Vitamin C Oral [Active]; Xarelto 15 mg Oral tab 1 tab once daily [Active]; - PMHx: 20:26 Dementia; depressive disorder; Diabetes - IDDM; Diabetes - NIDDM; Hyperlipidemia; lg3 Hypertension; - PSHx: 20:26 right hip; right arm; lg3 - Immunization history:: Adult Immunizations up to date, Client reports receiving the 2nd dose of the Covid vaccine, moderna X2. - Social history:: Smoking status: Patient denies any tobacco usage or history of. Patient/guardian denies using alcohol. ROS: 12/10 08:55 Constitutional: Negative for fever, chills, and weight loss, Eyes: Negative for injury, kdr pain, redness, and discharge, Neck: Negative for injury, pain, and swelling, Cardiovascular: Negative for chest pain, palpitations, and edema, Respiratory: Negative for shortness of breath, cough, wheezing, and pleuritic chest pain, Back: Negative for injury and pain, : Negative for injury, bleeding, discharge, and swelling, MS/Extremity: Negative for injury and deformity, Skin: Negative for injury, rash, and discoloration, Neuro: Negative for headache, weakness, numbness, tingling, and seizure activity. Psych: Negative for depression, anxiety, suicide ideation, homicidal ideation, and hallucinations, Allergy/Immunology: Negative for hives, rash, and allergies, Endocrine: Negative for neck swelling, polydipsia, polyuria, polyphagia, and marked weight changes, Hematologic/Lymphatic: Negative for swollen nodes, abnormal bleeding, and unusual bruising. Abdomen/GI: Positive for abdominal pain, nausea and vomiting, Negative for diarrhea, black/tarry stool, rectal pain, rectal bleeding. Exam: 12/09 21:39 ECG was reviewed by the Attending Physician. kdr 12/10 08:55 Constitutional: This is a well developed, well nourished patient who is awake, alert, kdr and in no acute distress. Head/Face: Normocephalic, atraumatic. Eyes: Pupils equal round and reactive to light, extra-ocular motions intact. Lids and lashes normal. Conjunctiva and sclera are non-icteric and not injected. Cornea within normal limits. Periorbital areas with no swelling, redness, or edema. Neck: Trachea midline, no thyromegaly or masses palpated, and no cervical lymphadenopathy. Supple, full range of motion without nuchal rigidity, or vertebral point tenderness. No Meningismus. Chest/axilla: Normal chest wall appearance and motion. Nontender with no deformity. No lesions are appreciated. Back: No spinal tenderness. No costovertebral tenderness. Full range of motion. Skin: Warm, dry with normal turgor. Normal color with no rashes, no lesions, and no evidence of cellulitis. MS/ Extremity: Pulses equal, no cyanosis. Neurovascular intact. Full, normal range of motion. Neuro: Awake and alert, GCS 15, oriented to person, place, time, and situation. Cranial nerves II-XII grossly intact. Motor strength 5/5 in all extremities. Sensory grossly intact. Cerebellar exam normal. Normal gait. Psych: Awake, alert, with orientation to person, place and time. Behavior, mood, and affect are within normal limits. Cardiovascular: Regular rate and rhythm with a normal S1 and S2. No gallops, murmurs, or rubs. Normal PMI, no JVD. No pulse deficits. Abdomen/GI: Soft, non-tender, with normal bowel sounds. No distension or tympany. No guarding or rebound. No evidence of tenderness throughout. Cardiovascular: Rate: normal. Vital Signs: 12/09 20:21 BP 106 / 69; Pulse 119; Resp 17 S; Temp 98.6(O); Pulse Ox 96% on R/A; Weight 62.6 kg lg3 (R); Height 5 ft. 3 in. (160.02 cm) (R); Pain 0/10; 21:27 BP 120 / 75; Pulse 103; Resp 14; Pulse Ox 100% on R/A; ll3 23:00 BP 128 / 73; Pulse 107; Resp 15; Pulse Ox 98% on R/A; ll3 12/10 00:30 BP 128 / 68; Pulse 106; Resp 14; Pulse Ox 96% on R/A; ll3 01:45 BP 107 / 65; Pulse 107; Resp 16; Pulse Ox 96% on R/A; ll3 12/09 20:21 Body Mass Index 24.45 (62.60 kg, 160.02 cm) lg3 MDM: 12/09 22:23 Patient medically screened. kdr 12/10 08:55 Data reviewed: lab test result(s), radiologic studies. Counseling: I had a detailed kdr discussion with the patient and/or guardian regarding: the historical points, exam findings, and any diagnostic results supporting the discharge/admit diagnosis, lab results, radiology results, the need for further work-up and treatment in the hospital. Physician consultation: Pancho Mathews regarding admission. 12/09 20:36 Order name: Basic Metabolic Panel; Complete Time: 22:08 kdr 12/09 20:36 Order name: CBC with Diff; Complete Time: 22:08 kdr 12/09 20:36 Order name: Troponin HS; Complete Time: 22:08 kdr 12/09 20:44 Order name: Glucose, Ancillary Testing; Complete Time: 21:38 EDMS 12/09 22:08 Order name: CBC Smear Scan; Complete Time: 22:08 EDMS 12/09 23:19 Order name: SARS-COV-2 RT PCR; Complete Time: 02:06 EDMS 12/09 23:19 Order name: Glucose, Ancillary Testing; Complete Time: 23:26 EDMS 12/09 23:37 Order name: Acetone Level; Complete Time: 02:06 EDMS 12/09 23:37 Order name: Osmolality, Serum; Complete Time: 02:06 EDMS 12/09 23:37 Order name: Urinalysis EDMS 12/09 23:37 Order name: Basic Metabolic Panel EDMS 12/09 23:37 Order name: Calcium Level EDMS 12/09 23:37 Order name: Calcium Level EDMS 12/09 23:37 Order name: Calcium Level EDMS 12/09 23:37 Order name: Calcium Level EDMS 12/09 23:37 Order name: CBC with Automated Diff EDMS 12/09 23:37 Order name: CBC with Automated Diff EDMS 12/09 23:37 Order name: CBC with Automated Diff EDMS 12/09 23:37 Order name: CBC with Automated Diff EDMS 12/09 23:37 Order name: Lipid Profile EDMS 12/09 23:37 Order name: Lipid Profile EDMS 12/09 23:37 Order name: Magnesium EDMS 12/09 23:37 Order name: Magnesium EDMS 12/09 23:37 Order name: Magnesium EDMS 12/09 23:37 Order name: Magnesium EDMS 12/09 23:37 Order name: Phosphorus EDMS 12/09 23:37 Order name: Phosphorus EDMS 12/09 23:37 Order name: Phosphorus EDMS 12/09 23:37 Order name: Phosphorus EDMS 12/09 20:36 Order name: XRAY Chest (1 view); Complete Time: 21:38 kdr 12/09 20:36 Order name: EKG; Complete Time: 20:36 kdr 12/09 20:36 Order name: Cardiac monitoring; Complete Time: 21:27 kdr 12/09 20:36 Order name: EKG - Nurse/Tech; Complete Time: 21:00 kdr 12/09 20:36 Order name: IV Saline Lock; Complete Time: 21: kdr 12/09 20:36 Order name: Labs collected and sent; Complete Time: : kdr 12/09 20:36 Order name: O2 Per Protocol; Complete Time: 21: kdr 12/09 20:36 Order name: O2 Sat Monitoring; Complete Time: 21: kdr 12/09 23:37 Order name: Clear Liquid EDMS 12/09 23:37 Order name: Basic Metabolic Panel EDMS 12/09 23:37 Order name: Basic Metabolic Panel EDMS 12/09 23:37 Order name: Basic Metabolic Panel EDMS 12/10 00:20 Order name: Glucose, Ancillary Testing; Complete Time: 02:06 EDMS 12/10 01:22 Order name: Glucose, Ancillary Testing; Complete Time: 02:06 EDMS 12/10 02:26 Order name: Glucose, Ancillary Testing EDMS 12/10 03:03 Order name: Glucose, Ancillary Testing EDMS 12/10 04:01 Order name: Glucose, Ancillary Testing EDMS 12/10 05:05 Order name: Glucose, Ancillary Testing EDMS 12/10 06:08 Order name: Glucose, Ancillary Testing EDMS 12/10 07:06 Order name: Glucose, Ancillary Testing EDMS 12/10 08:17 Order name: Glucose, Ancillary Testing EDMS 12/10 09:12 Order name: Glucose, Ancillary Testing EDMS 12/10 10:10 Order name: Glucose, Ancillary Testing EDMS 12/10 12:21 Order name: Glucose, Ancillary Testing EDMS EC/24 21:39 Rate is 108 beats/min. Rhythm is regular, Sinus tachycardia with No ectopy. QRS [place] is kdr Normal. [place] interval is normal. QRS interval is normal. QT interval is normal. Clinical impression: NSR w/ Non-specific ST/T Changes and Sinus tachycardia. Administered Medications: 21:27 Drug: NS 0.9% 500 ml Route: IV; Rate: bolus; Site: left forearm; ll3 21:59 Follow up: Response: No adverse reaction; IV Status: Completed infusion; IV Intake: ll3 500ml 21:55 Drug: NS 0.9% 500 ml Route: IV; Rate: bolus; Site: left forearm; ll3 23:18 Follow up: Response: No adverse reaction; IV Status: Completed infusion; IV Intake: ll3 500ml 21:58 Drug: Zofran (Ondansetron) 4 mg Route: IVP; Site: left forearm; ll3 23:18 Follow up: Response: No adverse reaction ll3 23:15 Drug: Insulin Drip - (Insulin Regular Human 100 units, NS 0.9% 100 ml) {Co-Signature: ll3 vc1 (Serenity Riggins RN).} Route: IV; Rate: calculated rate; Site: left forearm; 23:15 Drug: Insulin Regular Human 4 units {Co-Signature: vc1 (Serenity Riggins RN).} Route: ll3 IVP; Site: left forearm; 23:18 Drug: NS 0.9% 500 ml Route: IV; Rate: bolus; Site: left forearm; ll3 23:52 Drug: NS 0.9% 1000 ml Route: IV; Rate: 125 ml/hr; Site: left forearm; ll3 Disposition Summary: 12/09/21 22:23 Hospitalization Ordered Hospitalization Status: Inpatient Admission kdr Provider: Pancho Mathews Condition: Fair kdr Problem: new kdr Symptoms: have improved kdr Bed/Room Type: Standard kdr Location: Telemetry/MedSurg (Inpatient)(12/10/21 14:28) bd Room Assignment: 401(12/10/21 14:28) bd Diagnosis - Diabetic ketoacidosis kdr - Anemia, unspecified kdr Forms: - Medication Reconciliation Form kdr - SBAR form kdr Signatures: Dispatcher [employer] EDMS Princess Bobby Kevin, MD MD kdr Spring Perez RN RN [id number] Rocio Pritchett RN RN [id number] Serenity Riggins RN RN 1 Suzanna Mcgraw PA PA sb3 Serenity Riggins RN vc1 Corrections: (The following items were deleted from the chart) 23:19 22:14 COVID 19 CPL+.APOLINARZ ordered. EDOH EDMS 12/10 00:17 12/09 22:23 Telemetry/MedSurg (observation) kdr vc1 12/10 00:17 12/09 22:23 kdr vc1 12/10 14:28 00:17 [facility] ER HOLD vc1 bd 14: 00:17 ERHOLD- vc1 bd
--- NOTE | 2021-12-09 22:24 | ER ---
Nurse's Notes [facility] Name: Lazara Lozano Age: 76 yrs Sex: Female : 1945 Arrival Date: 12/09/2021 Time: 20:06 Bed 6 Private MD: Diagnosis: Diabetic ketoacidosis;Anemia, unspecified Presentation: 12/09 20:21 Chief complaint: Patient's son or daughter states: vomiting on and off throughout the lg3 day. blood sugar this morning 190. took her 500 mg metformin. vomiting started again after taking medication. took blood sugar 1944. reading was 375 and came in. cant hold any food down but I have been giving her Pedialyte all day. around 1600 she said she was having some chest tightness but has not said anything else about it since then. just that she is having some indigestion. Coronavirus screen: Client denies travel out of the [place] in the last 14 days. At this time, the client does not indicate any symptoms associated with coronavirus-19. Ebola Screen: No symptoms or risks identified at this time. Initial Sepsis Screen: Does the patient meet any 2 criteria? No. Patient's initial sepsis screen is negative. Does the patient have a suspected source of infection? No. Patient's initial sepsis screen is negative. Risk Assessment: Do you want to hurt yourself or someone else? Patient reports no desire to harm self or others. Onset of symptoms was December 09, 2021. 20:21 Method Of Arrival: Wheelchair lg3 20:21 Acuity: ISAIAH 3 lg3 Triage Assessment: 20:26 General: Appears in no apparent distress. comfortable, Behavior is calm, cooperative. lg3 Pain: Denies pain. EENT: No deficits noted. No signs and/or symptoms were reported regarding the EENT system. Neuro: No deficits noted. Level of Consciousness is awake, alert, obeys commands, Oriented to person, place, situation, Appropriate for age. Cardiovascular: No deficits noted. Denies chest pain, shortness of breath, Capillary refill < 3 seconds JVD is absent Patient's skin is warm and dry. Respiratory: No deficits noted. Airway is patent Trachea midline Respiratory effort is even, unlabored, Respiratory pattern is regular, symmetrical. GI: Parent/caregiver reports the patient having diarrhea, intolerance of food, intolerance of fluids, nausea, vomiting. : No deficits noted. No signs and/or symptoms were reported regarding the genitourinary system. Derm: No deficits noted. No signs and/or symptoms reported regarding the dermatologic system. Skin is intact, is thin, Skin is dry, Skin is pink, warm \T\ dry. Musculoskeletal: No deficits noted. Range of motion: intact in all extremities. Historical: - Allergies: 20:26 No Known Allergies; lg3 - Home Meds: 20:26 aspirin 81 mg Oral chew 1 tab once daily [Active]; cranberry Oral [Active]; donepezil lg3 10 mg Oral tab 1 tab once daily [Active]; escitalopram oxalate 10 mg Oral tab 1 tab once daily [Active]; glimepiride 4 mg Oral tab 1 tab twice a day [Active]; hydrochlorothiazide 12.5 mg Oral tab 1 tab as needed [Active]; losartan 50 mg Oral tab 1 tab 2 times per day [Active]; metformin 500 mg Oral tab 1 tab 2 times per day [Active]; multivitamin Oral [Active]; pioglitazone 15 mg Oral tab 1 tab once daily [Active]; pravastatin 40 mg Oral tab 1 tab once daily [Active]; Vitamin C Oral [Active]; Xarelto 15 mg Oral tab 1 tab once daily [Active]; - PMHx: 20:26 Dementia; depressive disorder; Diabetes - IDDM; Diabetes - NIDDM; Hyperlipidemia; lg3 Hypertension; - PSHx: 20:26 right hip; right arm; lg3 - Immunization history:: Adult Immunizations up to date, Client reports receiving the 2nd dose of the Covid vaccine, moderna X2. - Social history:: Smoking status: Patient denies any tobacco usage or history of. Patient/guardian denies using alcohol. Screenin:02 Abuse screen: Denies threats or abuse. Nutritional screening: No deficits noted. ll3 Tuberculosis screening: No symptoms or risk factors identified. Fall Risk No fall in past 12 months (0 pts). Secondary diagnosis (15 points) dementia, IV access (20 points). Ambulatory Aid- None/Bed Rest/Nurse Assist (0 pts). Gait- Normal/Bed Rest/Wheelchair (0 pts) Mental Status- Overestimates/Forgets Limitations (15 pts.). Total Wilkins Fall Scale indicates High Risk Score (45 or more points). Fall prevention measures have been instituted. Side Rails Up X 2 Placed Close to Nursing Station Frequent Obs/Assessments Occuring Family Present and informed to notify staff if the need to leave the bedside As available patient and family educated on Fall Prevention Program and Strategies. Assessment: 21:02 General: Appears comfortable, Behavior is calm, cooperative. Pain: Denies pain. Pain: ll3 Pain does not radiate. Pain began States Chest tightness was around 4 pm, denies any chest pain at this time. Neuro: Level of Consciousness is awake, alert, obeys commands, Oriented to person, place, time, situation, Speech is normal. Cardiovascular: Patient's skin is warm and dry. Parent/caregiver reports patient has had Caregiver reports chest tightness after vomiting today, states it may be indigestion or heart burn. Pt denies any chest pain at this time. Respiratory: Respiratory effort is even, unlabored, Respiratory pattern is regular, symmetrical. Derm: Skin is pink, warm \T\ dry. 21:02 GI: Abdomen is round non-distended, Stools are reported to be loose, Parent/caregiver ll3 reports the patient having diarrhea, vomiting. 23:00 Reassessment: Patient and/or family updated on plan of care and expected duration. Pain ll3 level reassessed. Patient is alert, oriented x 3, equal unlabored respirations, skin warm/dry/pink. Patient denies pain at this time. 12/10 00:30 Reassessment: Pt is in bed sleeping with eyes closed, RR are even and unlabored, chest ll3 rising and falling, call light within reach. 01:47 Reassessment: Patient and/or family updated on plan of care and expected duration. Pain ll3 level reassessed. Patient is alert, oriented x 3, equal unlabored respirations, skin warm/dry/pink. Patient denies pain at this time. Vital Signs: 12/09 20:21 BP 106 / 69; Pulse 119; Resp 17 S; Temp 98.6(O); Pulse Ox 96% on R/A; Weight 62.6 kg lg3 (R); Height 5 ft. 3 in. (160.02 cm) (R); Pain 0/10; 21:27 BP 120 / 75; Pulse 103; Resp 14; Pulse Ox 100% on R/A; ll3 23:00 BP 128 / 73; Pulse 107; Resp 15; Pulse Ox 98% on R/A; ll3 12/10 00:30 BP 128 / 68; Pulse 106; Resp 14; Pulse Ox 96% on R/A; ll3 01:45 BP 107 / 65; Pulse 107; Resp 16; Pulse Ox 96% on R/A; ll3 12/09 20:21 Body Mass Index 24.45 (62.60 kg, 160.02 cm) lg3 ED Course: 12/09 20:06 Patient arrived in ED. ag3 20:16 Jorge Montoya MD is Attending Physician. kdr 20:26 Triage completed. lg3 20:26 Arm band placed on right wrist. lg3 20:59 XRAY Chest (1 view) In Process Unspecified. EDMS 21:02 Patient has correct armband on for positive identification. Bed in low position. Call ll3 light in reach. Side rails up X 1. 21:18 Inserted saline lock: 22 gauge in left forearm, using aseptic technique. Blood vc1 collected. Missed attempt(s): 20 gauge in left antecubital area. Bleeding controlled, band aid applied, catheter tip intact. 21:27 Rocio Pritchett, LISA is Primary Nurse. ll3 22:21 Pancho Mathews is Hospitalizing Provider. kdr Administered Medications: 21:27 Drug: NS 0.9% 500 ml Route: IV; Rate: bolus; Site: left forearm; ll3 21:59 Follow up: Response: No adverse reaction; IV Status: Completed infusion; IV Intake: ll3 500ml 21:55 Drug: NS 0.9% 500 ml Route: IV; Rate: bolus; Site: left forearm; ll3 23:18 Follow up: Response: No adverse reaction; IV Status: Completed infusion; IV Intake: ll3 500ml 21:58 Drug: Zofran (Ondansetron) 4 mg Route: IVP; Site: left forearm; ll3 23:18 Follow up: Response: No adverse reaction ll3 23:15 Drug: Insulin Drip - (Insulin Regular Human 100 units, NS 0.9% 100 ml) {Co-Signature: ll3 vc1 (Serenity Riggins RN).} Route: IV; Rate: calculated rate; Site: left forearm; 23:15 Drug: Insulin Regular Human 4 units {Co-Signature: vc1 (Serenity Riggins RN).} Route: ll3 IVP; Site: left forearm; 23:18 Drug: NS 0.9% 500 ml Route: IV; Rate: bolus; Site: left forearm; ll3 23:52 Drug: NS 0.9% 1000 ml Route: IV; Rate: 125 ml/hr; Site: left forearm; ll3 Intake: 21:59 IV: 500ml; Total: 500ml. ll3 23:18 IV: 500ml; Total: 1000ml. ll3 Outcome: 22:23 Decision to Hospitalize by Provider. kdr 12/10 14:57 Patient left the ED. jd3 Signatures: Dispatcher [employer] EDMS Jorge Montoya MD MD kdr Pena, Laura RN RN lp1 Frederick Fernandez RN RN jd3 Courtney Trejo Lacie RN RN lg3 Rocio Pritchett RN RN ll3 Serenity Riggins RN RN vc1 Serenity Riggins RN vc1 Corrections: (The following items were deleted from the chart) 04:53 04:15 guest services officer on. Pulse ox on. NIBP on. lp1 lp1
[2021-12-09] MEDS ORDERED: INSULIN -REGULAR HUMAN 50 UNIT/0.5 ML ML ONE ×2 (22:53→22:58)
[2021-12-09] MEDS ORDERED: NA CHLORIDE 0.9% 1,000 ML ONE (22:53)
[2021-12-09] MEDS ORDERED: NA CHLORIDE 0.9% 100 ML IV ONE (22:59)
[2021-12-09] MEDS ORDERED: ONDANSETRON 4 MG/2 ML VIAL IV PRN (23:35)
[2021-12-09] MEDS ORDERED: INSULIN -REGULAR HUMAN 100 UNIT in NA CHLORIDE 0.9% 100 ML IV SCH (23:35)
--- NOTE | 2021-12-10 01:40 | P.HP ---
Certification for Inpatient Patient admitted to: Inpatient With expected LOS: <2 Midnights Patient will require the following post-hospital care: None Practitioner: I am a practitioner with admitting privileges, knowledge of patient current condition, hospital course, and medical plan of care. Services: Services provided to patient in accordance with Admission requirements found in Title 42 Section 412.3 of the Code of Federal Regulations Patient History Date of Service: 12/10/21 Primary Care Provider: Rene Reason for admission: DKA History of Present Illness: Patient is a 76-year-old female with past medical history of type 2 diabetes [id number], dementia, hypertension, hyperlipidemia who presented to the ED accompanied by her daughter who states that she has been vomiting on and off throughout the day. She states that her blood sugar got as high as 375 even though patient could not hold any food down. She had taken her medication as prescribed in the morning. patient was reporting some chest tightness and indigestion prior to arrival. Work-up revealed DKAbicarb 19, anion gap 20, glucose 337, creatinine 2.1. She was given fluid, Zofran, started on DKA protocol. Upon my assessment, patient has no complaints and she is alert and oriented to her baseline. Will admit patient for further evaluation and treatment. Allergies No Known Allergies Allergy (Verified 12/29/18 08:25) Home medications list reviewed: Yes Home Medications: Aspirin 81 mg PO DAILY 09/09/20 Cranberry Fruit Extract [Cranberry] 250 mg PO DAILY 09/09/20 Donepezil [Aricept*] 10 mg PO BEDTIME 09/09/20 Escitalopram [Lexapro*] 10 mg PO DAILY 09/09/20 Glimepiride [Amaryl*] 4 mg PO BID 09/09/20 Losartan Potassium [Cozaar*] 50 mg PO BID 09/09/20 Metformin HCl [Glucophage*] 500 mg PO BIDWM 09/09/20 Pioglitazone [Actos*] 15 mg PO DAILY 09/09/20 Pravastatin Sodium 40 mg PO DAILY 09/09/20 hydroCHLOROthiazide [Hydrochlorothiazide*] 12.5 mg PO DAILY 09/09/20 Rivaroxaban [Xarelto] 1 each PO SEECOM 30 Days #1 tab.ds.pk 09/11/20 Cefdinir [Omnicef] 300 mg PO BID #20 capsule 10/10/21 - Past Medical/Surgical History Diabetic: Yes -: Hypertension -: hyperlipidema -: Diabetes mellitus type 2 -: Dementia -: TNA -: Hysterectomy -: D&C Psychosocial/ Personal History: Patient lives with her daughter at home. - Family History Mother -: Heart disease, Stroke - Social History Smoking Status: Never smoker Alcohol use: No CD- Drugs: No Caffeine use: Yes Place of Residence: Home Review of Systems General: Weakness Cardiovascular: Chest Pain Gastrointestinal: Nausea, Vomiting Physical Examination - Physical Exam General: Alert, In no apparent distress HEENT: Atraumatic, PERRLA, Other (pale, dry mucous membranes), EOMI, Sclerae nonicteric Neck: Supple, 2+ carotid pulse no bruit, No LAD, Without JVD or thyroid abnormality Respiratory: Clear to auscultation bilaterally, Normal air movement Cardiovascular: Regular rate/rhythm, Normal S1 S2 Gastrointestinal: Normal bowel sounds, No tenderness Musculoskeletal: No tenderness Integumentary: No rashes Neurological: Normal speech, Normal strength at 5/5 x4 extr, Normal tone, Normal affect - Studies Laboratory Data (last 24 hrs) 12/09/21 21:12: WBC 8.6, Hgb 9.5 L, Hct 28.2 L, Plt Count 250 12/09/21 21:12: Sodium 135 L, Potassium 4.0, BUN 42 H, Creatinine 2.19 H, Glucose 337 H Assessment and Plan - Problems (Diagnosis) (1) DKA (diabetic ketoacidosis) Current Visit: Yes Status: Acute Qualifiers: Diabetes mellitus type: type 2 Diabetes mellitus complication detail: without coma Qualified Code(s): E11.10 - Type 2 diabetes mellitus with ketoacidosis without coma (2) Anemia Current Visit: Yes Status: Chronic Qualifiers: Anemia type: due to chronic kidney disease Chronic kidney disease stage: stage 4 (severe) Qualified Code(s): N18.4 - Chronic kidney disease, stage 4 (severe); D63.1 - Anemia in chronic kidney disease (3) Acute kidney injury superimposed on CKD Current Visit: Yes Status: Acute (4) Type 2 diabetes mellitus Current Visit: Yes Status: Acute Qualifiers: Diabetes mellitus jail insulin use: without jail use Diabetes mellitus complication status: with hyperglycemia Qualified Code(s): E11.65 - Type 2 diabetes mellitus with hyperglycemia (5) Hypertension Current Visit: Yes Status: Chronic Qualifiers: Hypertension type: primary hypertension Qualified Code(s): I10 - Essential (primary) hypertension (6) Hyperlipidemia Current Visit: No Status: Chronic Qualifiers: Hyperlipidemia type: mixed hyperlipidemia Qualified Code(s): E78.2 - Mixed hyperlipidemia (7) Dementia Current Visit: Yes Status: Chronic Qualifiers: Dementia type: unspecified type Dementia behavioral disturbance: without behavioral disturbance Qualified Code(s): F03.90 - Unspecified dementia without behavioral disturbance (8) Nausea and vomiting Current Visit: Yes Status: Acute Qualifiers: Vomiting type: unspecified Qualified Code(s): R11.2 - Nausea with vomiting, unspecified - Plan -DKA mild at this time. Will defer ABG. Started on DKA protocol. -Acetone level "small " serum osmolality 315. Urine pending -FSBS every 1 hour and BMP every 4 hours -Patient initially complaining of chest tightness. Troponin negative. She has no complaints at this time. Zofran as needed nausea -Clear liquid diet as tolerated -Patient sees Dr. Shabbir pearl. Will consult -Hold nephrotoxic drugs -Vital signs stable -Heparin for DVT prophylaxis Discharge Plan: Home Plan to discharge in: 48 Hours - Advance Directives Does patient have a Living Will: Yes Does patient have a Durable POA for Healthcare: Yes - Code Status/Comfort Care Code Status Assessed: Yes (Full) Critical Care: No Time Spent Managing Pts Care (In Minutes): 70
[2021-12-10] MEDS ORDERED: ACETAMINOPHEN 500 MG TAB PO PRN (02:08)
[2021-12-10] MEDS ORDERED: D5.45NS W/KCL 20MEQ 1,000 ML IV ONE ×2 (02:08→08:24)
[2021-12-10] MEDS: D5.45NS W/KCL 20MEQ 1,000 ML IV SCH ×3 (02:10→13:05)
[2021-12-10 03:30] LABS: Absolute Lymphocytes (CBC) 1.2 K/uL (0.7-4.9); Hematocrit 24.5 % (36.0-45.0); Lymphocytes % 16.3 % (15.3-44.8); MPV 8.3 fL (7.6-11.3); RBC Red Blood Cell Count 2.74 M/uL (3.86-4.86)
[2021-12-10 03:44] LABS: Magnesium 1.6 mg/dL (1.8-2.4); Phosphorus 2.7 mg/dL (2.5-4.9); Potassium 3.6 mmol/L (3.5-5.1)
[2021-12-10 05:10] VITALS: BMI 24.4
[2021-12-10] MEDS: NACHLORIDE 0.45% 1,000 ML with POTASSIUM CL 20 MEQ IV SCH ×8 (07:36→11:54)
[2021-12-10] MEDS ORDERED: HEPARIN 5000 UNIT/ML 1 ML VIAL ONE (08:38)
[2021-12-10] MEDS: HEPARIN 5000 UNIT/ML 1 ML VIAL SQ SCH ×2 (08:39→22:50)
[2021-12-10 09:55] LABS: Potassium 3.7 mmol/L (3.5-5.1)
--- NOTE | 2021-12-10 09:59 | P.CNS ---
Date of Consult: 12/10/21 Reason for Consult: ELISE/ CKD Requesting Physician: belinda collazo Primary Care Provider: Rene Chief Complaint: DKA History of Present Illness: Patient is a 76-year-old female with past medical history of type 2 diabetes [id number], dementia, hypertension, hyperlipidemia who presented to the ED accompanied by her daughter who states that she has been vomiting on and off throughout the day. She states that her blood sugar got as high as 375 even though patient could not hold any food down. She had taken her medication as prescribed in the morning. patient was reporting some chest t ightness and indigestion prior to arrival. Work-up revealed DKAbicarb 19, anion gap 20, glucose 337, creatinine 2.1. She was given fluid, Zofran, started on DKA protocol. Upon my assessment, patient has no complaints and she is alert and oriented to her baseline. Will admit patient for further evaluation and treatment. The patient is a poor historian. She states that she was nauseous and her BP was crazy. 20:21 Chief complaint: Patient's son or daughter states: vomiting on and off throughout the lg3 day. blood sugar this morning 190. took her 500 mg metformin. vomiting started again after taking medication. took blood sugar 1945. reading was 375 and came in. cant hold any food down but I have been giving her Pedialyte all day. around 1600 she said she was having some chest tightness but has not said anything else about it since then. just that she is having some indigestion. Coronavirus screen: Client den ies travel out of the [place] in the last 14 days. At this time, the client does not indicate any symptoms associated with coronavirus-19. Ebola Screen: No symptoms or risk s identified at this time. Initial Sepsis Screen: Does the patient meet any 2 criteria? No. Patient's initial sepsis screen is negative. Does the patient have a suspected source of infection? No. Patient's initial sepsis screen is negative. Risk Assessment: Do you want to hurt yourself or someone else? Patient reports no desire to harm self or others. Onset of symptoms was December 09, 2021. 20:21 Method Of Arrival: Wheelchair Allergies No Known Allergies Allergy (Verified 12/29/18 08:25) Home medications list reviewed: Yes Home Medications: Aspirin 81 mg PO DAILY 09/09/20 Donepezil [Aricept*] 10 mg PO BEDTIME 09/09/20 Escitalopram [Lexapro*] 10 mg PO DAILY 09/09/20 Glimepiride [Amaryl*] 4 mg PO BID 09/09/20 Losartan Potassium [Cozaar*] 50 mg PO BID 09/09/20 Metformin HCl [Glucophage*] 500 mg PO BIDWM 09/09/20 Pioglitazone [Actos*] 15 mg PO DAILY 09/09/20 Pravastatin Sodium 40 mg PO DAILY 09/09/20 hydroCHLOROthiazide [Hydrochlorothiazide*] 12.5 mg PO DAILY 09/09/20 Rivaroxaban [Xarelto] 15 mg PO DAILY 12/10/21 - Past Medical/Surgical History Diabetic: Yes -: Hypertension -: hyperlipidema -: Diabetes mellitus type 2 -: Dementia -: TNA -: Hysterectomy -: D&C Psychosocial/ Personal History: Patient lives with her daughter at home. - Family History Mother Medical History: Heart disease, Stroke - Social History Smoking Status: Unknown if ever smoked Alcohol use: No CD- Drugs: No Caffeine use: Yes Place of Residence: Home Review of Systems 10-point ROS is otherwise unremarkable General: Weakness, Malaise Cardiovascular: Edema Physical Examination Temp Pulse Resp BP Pulse Ox 99 H 16 121/68 98 12/10/21 09:00 12/10/21 09:00 12/10/21 09:00 12/10/21 09:00 General: In no apparent distress, Cooperative HEENT: Atraumatic Neck: Supple Respiratory: Clear to auscultation bilaterally Cardiovascular: Regular rate/rhythm, Edema Gastrointestinal: Soft and benign, Non-distended Musculoskeletal: No clubbing, No contractures Integumentary: No rashes, No cyanosis Neurological: Normal speech Laboratory Data (last 24 hrs) 12/09/21 21:12: WBC 8.6, Hgb 9.5 L, Hct 28.2 L, Plt Count 250 12/09/21 21:12: Sodium 135 L, Potassium 4.0, BUN 42 H, Creatinine 2.19 H, Glucose 337 H Imagings Data: EXAM DESCRIPTION: RAD - Chest Single View - 12/09/2021 8:56 pm CLINICAL HISTORY: CHEST PAIN COMPARISON: Portable 10/08/2021 TECHNIQUE: AP portable chest image was obtained 12/09/2021 8:56 pm . FINDINGS: Lungs are clear of acute finding. Prominent interstitial pattern matches comparison. Heart and vasculature are normal. No measurable pleural effusion and no pneumothorax. No acute bony abnormality seen. No acute aortic findings suspected. IMPRESSION: No acute cardiopulmonary process. Conclusions/Impression: ELISE likely hypovolemia CKD III -No NSAIDs -Continue IVF Hyponatremia -Hold HCTZ -Continue IVF AG Acidosis -Continue insulin Hypomagnesemia -Replete mag HTN with CKD -Hold anti-hypertensives at this time DM II with CKD & Hyperglycemia -Insulin gtt Anemia in chronic illness -Monitor H&H Thank you kindly for the consultation.
[2021-12-10] MEDS ORDERED: D50W 25 GM/50 ML SYRINGE IV PRN (13:16)
[2021-12-10] MEDS ORDERED: GLUCAGON 1 MG/VIAL IM PRN (13:16)
[2021-12-10] MEDS ORDERED: D10W 125 ML IV PRN (13:21)
[2021-12-10] MEDS: INSULIN GLARGINE 100 UNIT/ML SQ SCH (13:36)
[2021-12-10] MEDS ORDERED: INSULIN GLARGINE 100 UNIT/ML SQ ONE (13:38)
[2021-12-10] MEDS ORDERED: MAGNESIUM SULFATE 1 gm IVPB 1 GM/100 ML BAG IV ONE (16:00)
[2021-12-10] MEDS ORDERED: Magnesium Sulfate 2gm IVPB 2 G/50 ML BAG IV ONE (16:00)
[2021-12-10] MEDS: INSULIN -REGULAR HUMAN 50 UNIT/0.5 ML ML SQ SCH ×2 (16:10→20:37)
[2021-12-10 17:55] LABS: Urine Bilirubin Negative (Negative); Urine Blood 3+ (Negative); Urine Color Yellow (Yellow); Urine Glucose 2+ (Negative); Urine Protein 2+ (Negative); Urine Urobilinogen 0.2 mg/dL (0.2-1.0); Urine pH 5.5 (5.0-7.0)
[2021-12-10 17:56] LABS: Urine Appearance SL CLOUDY (Clear); Urine Microscopic Reflex ORDER UMIC
[2021-12-10 18:01] LABS: Urine Amorphous Sediment 1+ /HPF (NONE SEEN); Urine Bacteria <20 /HPF (<20); Urine RBC >50 /HPF (NONE SEEN)
[2021-12-10 18:17] VITALS: O2SAT 96
[2021-12-10] MEDS: CEFTRIAXONE 1,000 MG in NA CHLORIDE 0.9% 50 ML IVPB SCH (20:00)
--- NOTE | 2021-12-10 20:13 | P.PN ---
Date of Service: 12/10/21 Patient seen and examined. DKA resolved. Patient alert and oriented. Insulin drip discontinued. She started on a diet and subcutaneous insulin. Accu-Cheks before every meal and at bedtime. UA demonstrating UTI. Patient started on IV Rocephin. Follow urine culture. Possible discharge tomorrow.
[2021-12-11 03:53] LABS: Absolute Lymphocytes (CBC) 2.1 K/uL (0.7-4.9); Hematocrit 24.8 % (36.0-45.0); Lymphocytes % 22.2 % (15.3-44.8); RBC Red Blood Cell Count 2.74 M/uL (3.86-4.86)
[2021-12-11 04:10] LABS: Albumin 3.1 g/dL (3.4-5.0); Bilirubin Total 0.4 mg/dL (0.2-1.0); Phosphorus 2.4 mg/dL (2.5-4.9); Potassium 3.3 mmol/L (3.5-5.1); Protein, Total 6.1 g/dL (6.4-8.2)
--- NOTE | 2021-12-11 06:40 | P.PN ---
Date of Service: 12/11/21 Subjective: Feeling better Off insulin drip Tolerating diet reports she thinks she was having UTI ROS: 10 point ROS as noted above, otherwise negative Physical exam GEN: Alert, oriented, NAD HEENT: Normal conjunctiva, sclera anicteric CV: Regular rate and rhythm, no edema Pulm: Non-labored respirations on room air ABD: Soft, nontender, nondistended Neuro: Normal speech, normal affect Problem List DKA Anemia UTI ELISE on CKD3 DM2, non-insulin dependent HTN HLD Dementia mild DKA, resolved quickly off insulin drip since yesterday glc low this morning patient reports feeling better thinks she has been dealing with UTI recently diet advanced hold lantus this morning, continue sliding scale A1c pending, likely will restart PO medications, unclear how compliant patient has been avoid nephrotoxic meds nephrology following Code: full Dispo: home, 1-2 days, possibly tomorrow f/u urine culture results; monitor glucose Time Spent Managing Pts Care (In Minutes): 35
[2021-12-11] MEDS: INSULIN -REGULAR HUMAN 50 UNIT/0.5 ML ML SQ SCH ×4 (07:30→20:23)
[2021-12-11] MEDS: HEPARIN 5000 UNIT/ML 1 ML VIAL SQ SCH ×2 (07:36→21:00)
[2021-12-11] MEDS: INSULIN GLARGINE 100 UNIT/ML SQ SCH (07:48)
[2021-12-11] MEDS: CEFTRIAXONE 1,000 MG in NA CHLORIDE 0.9% 50 ML IVPB SCH (20:24)
[2021-12-11] MEDS ORDERED: CEFTRIAXONE 1000 MG/VIAL ONE (20:25)
[2021-12-11] MEDS ORDERED: DONEPEZIL HCL 5 MG TAB PO SCH (21:00)
[2021-12-11] MEDS ORDERED: ATORVASTATIN 10 MG TAB PO SCH (21:00)
--- NOTE | 2021-12-11 21:16 | P.PN ---
Date of Service: 12/11/21 Vital Signs Temp Pulse Resp BP Pulse Ox 98.4 F 91 H 15 128/71 98 12/11/21 20:00 12/11/21 20:00 12/11/21 20:00 12/11/21 20:00 12/11/21 20:00 Medications Acetaminophen (Acetaminophen 500 Mg Tab) 500 mg PO Q6H PRN PRN Reason: Pain scale 2-4 (Mild) Aspirin (Aspirin 81 Mg Chewable Tablet) 81 mg PO DAILY [facility] Atorvastatin Calcium (Atorvastatin 10 Mg Tab) 10 mg PO BEDTIME [facility] Last Admin: 12/11/21 20:23 Dose: 10 mg Documented by: Donepezil HCl (Donepezil Hcl 5 Mg Tab) 10 mg PO BEDTIME [facility] Last Admin: 12/11/21 20:23 Dose: 10 mg Documented by: Escitalopram Oxalate (Escitalopram 20 Mg Tab) 10 mg PO DAILY [facility] Glimepiride (Glimepiride 2 Mg Tablet) 4 mg PO BIDWM [facility] Glucagon (Glucagon 1 Mg/Vial) 1 mg IM 1X PRN PRN Reason: HYPOGLYCEMIA Heparin Sodium (Porcine) (Heparin 5000 Unit/Ml 1 Ml Vial) 5,000 unit SQ Q12HR [facility] Last Admin: 12/11/21 07:36 Dose: Not Given Documented by: Dextrose (Dextrose 10% Water Iv Soln.) 125 mls @ 0 mls/hr IV PRN PRN; Protocol PRN Reason: HYPOGLYCEMIA Ceftriaxone Sodium 1,000 mg/ (Sodium Chloride) 50 mls @ 100 mls/hr IVPB Q24H [facility]; Protocol Last Admin: 12/11/21 20:24 Dose: 50 mls Documented by: Insulin Human Regular (Insulin -Regular Human 50 Unit/0.5 Ml Ml) 0 unit SQ ACHS [facility]; Protocol Last Admin: 12/11/21 20:23 Dose: Not Given Documented by: Metformin HCl (Metformin Hcl 500 Mg Tab) 500 mg PO BIDWM [facility] Ondansetron HCl (Ondansetron 4 Mg/2 Ml Vial) 4 mg IV Q6H PRN PRN Reason: NAUSEA / VOMITING Assessment/ Plan: Nephrology No dyspnea No chest pain Feeling better No acute events overnight Vitals, medications, blood work and imaging reviewed in the chart. General: In no apparent distress, Cooperative HEENT: Atraumatic Neck: Supple Respiratory: Clear to auscultation bilaterally Cardiovascular: Regular rate/rhythm, Edema Gastrointestinal: Soft and benign, Non-distended Musculoskeletal: No clubbing, No contractures Integumentary: No rashes, No cyanosis Neurological: Normal speech Laboratory Data (last 24 hrs) 12/09/21 21:12: WBC 8.6, Hgb 9.5 L, Hct 28.2 L, Plt Count 250 12/09/21 21:12: Sodium 135 L, Potassium 4.0, BUN 42 H, Creatinine 2.19 H, Glucose 337 H Imagings Data: EXAM DESCRIPTION: RAD - Chest Single View - 12/09/2021 8:56 pm CLINICAL HISTORY: CHEST PAIN COMPARISON: Portable 10/08/2021 TECHNIQUE: AP portable chest image was obtained 12/09/2021 8:56 pm . FINDINGS: Lungs are clear of acute finding. Prominent interstitial pattern matches comparison. Heart and vasculature are normal. No measurable pleural effusion and no pneumothorax. No acute bony abnormality seen. No acute aortic findings suspected. IMPRESSION: No acute cardiopulmonary process. Conclusions/Impression: ELISE likely hypovolemia CKD III -No NSAIDs Hyponatremia -Hold HCTZ AG Acidosis Hypomagnesemia -Replete mag HypoPO4 -Encourage nutrition HTN with CKD -Hold anti-hypertensives at this time DM II with CKD & Hyperglycemia -RISS Anemia in chronic illness -Monitor H&H
[2021-12-12 04:14] LABS: Absolute Lymphocytes (CBC) 1.7 K/uL (0.7-4.9); Lymphocytes % 24.9 % (15.3-44.8); MPV 8.2 fL (7.6-11.3); RBC Red Blood Cell Count 2.78 M/uL (3.86-4.86)
[2021-12-12 04:25] LABS: Bilirubin Total 0.4 mg/dL (0.2-1.0); Magnesium 1.7 mg/dL (1.8-2.4); Phosphorus 2.6 mg/dL (2.5-4.9); Potassium 3.5 mmol/L (3.5-5.1); Protein, Total 6.1 g/dL (6.4-8.2)
[2021-12-12] MEDS ORDERED: MAGNESIUM SULFATE 1 gm IVPB 1 GM/100 ML BAG IV ONE (05:07)
--- NOTE | 2021-12-12 07:02 | P.PN ---
Date of Service: 12/12/21 Subjective: ROS: 10 point ROS as noted above, otherwise negative Physical exam GEN: Alert, oriented, NAD HEENT: Normal conjunctiva, sclera anicteric CV: Regular rate and rhythm, no edema Pulm: Non-labored respirations on room air ABD: Soft, nontender, nondistended Neuro: Normal speech, normal affect Problem List DKA Anemia UTI ELISE on CKD3 DM2, non-insulin dependent HTN HLD Dementia mild DKA, resolved quickly off insulin drip since yesterday glc low this morning patient reports feeling better thinks she has been dealing with UTI recently diet advanced hold lantus this morning, continue sliding scale A1c pending, likely will restart PO medications, unclear how compliant patient has been avoid nephrotoxic meds nephrology following Code: full Dispo: home, 1-2 days, possibly tomorrow f/u urine culture results; monitor glucose Time Spent Managing Pts Care (In Minutes): 35
[2021-12-12] MEDS ORDERED: METFORMIN HCL 500 MG TAB PO SCH (08:00)
[2021-12-12] MEDS ORDERED: GLIMEPIRIDE 2 MG TABLET PO SCH (08:00)
[2021-12-12] MEDS: INSULIN -REGULAR HUMAN 50 UNIT/0.5 ML ML SQ SCH ×2 (08:59→11:30)
[2021-12-12] MEDS ORDERED: ESCITALOPRAM 20 MG TAB PO SCH (09:00)
[2021-12-12] MEDS ORDERED: ASPIRIN 81 MG CHEWABLE TABLET PO SCH (09:00)
[2021-12-12] MEDS ORDERED: HOME MED 1 EA UNK (Pravastatin Sodium [Pravastatin Sodium] 40 MG Tablet) PO SCH (09:00)
[2021-12-12] MEDS: HEPARIN 5000 UNIT/ML 1 ML VIAL SQ SCH (09:02)
[2021-12-12] MEDS ORDERED: POTASSIUM CL SA 10 MEQ TAB PO ONE (10:17)
[2021-12-12 12:08] VITALS: BP 140/81; TEMP 97.9
--- NOTE | 2021-12-12 20:10 | P.PN ---
Date of Service: 12/12/21 Vital Signs Temp Pulse Resp BP Pulse Ox 97.9 F 87 18 140/81 96 12/12/21 12:00 12/12/21 12:00 12/12/21 12:00 12/12/21 12:00 12/12/21 12:00 Assessment/ Plan: Nephrology No dyspnea No chest pain Feeling better No acute events overnight Vitals, medications, blood work and imaging reviewed in the chart. General: In no apparent distress, Cooperative HEENT: Atraumatic Neck: Supple Respiratory: Clear to auscultation bilaterally Cardiovascular: Regular rate/rhythm, Edema Gastrointestinal: Soft and benign, Non-distended Musculoskeletal: No clubbing, No contractures Integumentary: No rashes, No cyanosis Neurological: Normal speech Laboratory Data (last 24 hrs) 12/09/21 21:12: WBC 8.6, Hgb 9.5 L, Hct 28.2 L, Plt Count 250 12/09/21 21:12: Sodium 135 L, Potassium 4.0, BUN 42 H, Creatinine 2.19 H, Glucose 337 H Imagings Data: EXAM DESCRIPTION: RAD - Chest Single View - 12/09/2021 8:56 pm CLINICAL HISTORY: CHEST PAIN COMPARISON: Portable 10/08/2021 TECHNIQUE: AP portable chest image was obtained 12/09/2021 8:56 pm . FINDINGS: Lungs are clear of acute finding. Prominent interstitial pattern matches comparison. Heart and vasculature are normal. No measurable pleural effusion and no pneumothorax. No acute bony abnormality seen. No acute aortic findings suspected. IMPRESSION: No acute cardiopulmonary process. Conclusions/Impression: ELISE likely hypovolemia CKD III -No NSAIDs Hyponatremia -Hold HCTZ Hypokalemia -Replete potassium AG Acidosis Hypomagnesemia -Replete mag HypoPO4 -Encourage nutrition HTN with CKD -Hold anti-hypertensives at this time DM II with CKD & Hyperglycemia -RISS Anemia in chronic illness -Monitor H&H Case reviewed with Dr. Jorge
--- NOTE | 2021-12-12 21:05 | P.DS ---
Admission Date: 12/09/21 Discharge Date: 12/12/21 Primary Care Provider: Rene Disposition: DC HOME/HOME HEALTH CARE Discharge Condition: GOOD Reason for Admission: DKA Procedures: Problem List DKA UTI Anemia ELISE on CKD3 DM2, non-insulin dependent HTN HLD Dementia Brief History of Present Illness: 76yo F, PMH: DM2, dementia, HTN, HLD. Presented to ED accompanied by daughter who states that she has been vomiting on and off throughout the day. Her blood sugar was as high as 375 despite reportedly taking her diabetic medications. Work-up revealed DKAbicarb 19, anion gap 20, glucose 337, creatinine 2.1. She was given IV fluid, Zofran, started on DKA protocol Hospital Course: Patient was found to be dehydrated, with hyperglycemia/ DKA and with UTI as cause of her confusion. Her symptoms and renal function improved with IV hydration and antibiotics. Patient is discharged home with 7 more days of antibiotics. Follow up with PCP within 1 week. Follow up with Nephrology in ~2-3 weeks. Patient's blood pressure was low to low-normal through hospitalization and was slightly elevated on day of discharge. Blood pressure medications were held due to renal function. Recommend resuming losartan on discharge, and hold hydrochlorathiazide. Check blood pressure daily at home, and keep a log to take to PCP's office. May likely need to restart this medication as patient resumes her usual activities/diet at home. Please follow up with PCP in regard to restarting this medication. Vital Signs/Physical Exam: Temp Pulse Resp BP Pulse Ox 97.9 F 87 18 140/81 96 12/12/21 12:00 12/12/21 12:00 12/12/21 12:00 12/12/21 12:00 12/12/21 12:00 Physical exam GEN: Alert, oriented, NAD, mild dementia HEENT: Normal conjunctiva, sclera anicteric CV: Regular rate and rhythm, no edema Pulm: Non-labored respirations on room air ABD: Soft, nontender, nondistended Neuro: Normal speech, normal affect Laboratory Data at Discharge: WBC 6.9 K/uL (4.3-10.9) D 12/12/21 03:23 Hgb 8.6 g/dL (12.0-15.0) L 12/12/21 03:23 Hct 25.0 % (36.0-45.0) L 12/12/21 03:23 Plt Count 199 K/uL (152-406) 12/12/21 03:23 Sodium 139 mmol/L (136-145) 12/12/21 03:23 Potassium 3.5 mmol/L (3.5-5.1) 12/12/21 03:23 BUN 26 mg/dL (7-18) H 12/12/21 03:23 Creatinine 1.64 mg/dL (0.55-1.3) H 12/12/21 03:23 Glucose 147 mg/dL (74-106) H 12/12/21 03:23 Phosphorus 2.6 mg/dL (2.5-4.9) 12/12/21 03:23 Magnesium 1.7 mg/dL (1.8-2.4) L 12/12/21 03:23 Total Bilirubin 0.4 mg/dL (0.2-1.0) 12/12/21 03:23 AST 15 U/L (15-37) 12/12/21 03:23 ALT 20 U/L (12-78) 12/12/21 03:23 Alkaline Phosphatase 50 U/L (45-117) 12/12/21 03:23 Triglycerides 62 mg/dL (<150) 12/10/21 02:56 Cholesterol 159 mg/dL (<200) 12/10/21 02:56 HDL Cholesterol 62 mg/dL (40-60) H 12/10/21 02:56 Cholesterol/HDL Ratio 2.56 12/10/21 02:56 Home Medications: Aspirin 81 mg PO DAILY 09/09/20 Donepezil [Aricept*] 10 mg PO BEDTIME 09/09/20 Escitalopram [Lexapro*] 10 mg PO DAILY 09/09/20 Glimepiride [Amaryl*] 4 mg PO BIDWM 09/09/20 Losartan Potassium [Cozaar*] 50 mg PO BID 09/09/20 Metformin HCl [Glucophage*] 500 mg PO BIDWM 09/09/20 Pioglitazone [Actos*] 15 mg PO DAILY 09/09/20 Pravastatin Sodium 40 mg PO DAILY 09/09/20 Rivaroxaban [Xarelto*] 15 mg PO DAILY 12/10/21 Cefpodoxime Proxetil 100 mg PO BID 7 Days #14 tablet 12/12/21 New Medications: Cefpodoxime Proxetil 100 mg PO BID 7 Days #14 tablet Followup: Marcelo López MD [Primary Care Provider] - 1 Week (call for an apointment) Gene Chatman [COURTESY - CAN ADMIT] - (follow up with Dr Chatman or a primary class teacher of your choice in 2-3 weeks.) Time spent managing pt's care (in minutes): 45
== END 2021-12-12 12:30 | disposition home health service (06) | DRG 638 ==
LOC: ER 20:05 → ERHOLD 23:38 → 4TH 12-10 14:49
PROVIDERS: ADMIT Internal Medicine; ATTEND Internal Medicine
DX: E11.10 Type 2 diabetes mellitus with ketoacidosis without coma (principal); N17.9 Acute kidney failure, unspecified; N39.0 Urinary tract infection, site not specified; E87.1 Hypo-osmolality and hyponatremia; F03.90 Unspecified dementia, unspecified severity, without behavioral disturbance, psychotic disturbance, mood disturbance, and anxiety; E78.5 Hyperlipidemia, unspecified; I12.9 Hypertensive chronic kidney disease with stage 1 through stage 4 chronic kidney disease, or unspecified chronic kidney disease; E11.22 Type 2 diabetes mellitus with diabetic chronic kidney disease; E78.2 Mixed hyperlipidemia; D63.1 Anemia in chronic kidney disease; N18.30 Chronic kidney disease, stage 3 unspecified; E87.6 Hypokalemia; E83.42 Hypomagnesemia; Z20.822 Contact with and (suspected) exposure to COVID-19
CPT/HCPCS: 36415; 71045; 80048; 80053; 80061; 81003; 81015; 82010; 82947; 83036; 83735; 83930; 84100; 84484; 85025; 87086; 87088; 93005; 96361; 96374; 96375; 99284; J1644; J1815; J2405; J3475; J3480; J7030; J7040; U0003

== ENCOUNTER 2022-05-13 16:54 | Observation (INO) | payer OTHER ==
--- OUTSIDE RECORDS SUMMARY | 2022-05-13 16:58 | XMS REPORT | Continuity of Care Document ---
:1945 Author Organization [facility] t Address [address] [place] [address] Care Team Providers Name Role Phone PCP, PATIENT DOES NOT HAVE A Primary Care Physician Unavaila SHEKHAR Evans Attending Clinician Unavailable MATT JACKSON Attending Clinician Unavailable Nuno Polk Attending Clinician Unavailable MICHAEL LUGO Attending Clinician Unavailable MATT JACKSON M.D. Attending Clinician Unavailable Doctor Unassigned, [place] Attending Clinician Unavailable Niru Cerna Attending Clinician NIRU PARSON Attending Clinician Unavailable KNOW, DOES_NOT Attending Clinician Unavailable URMILA TAYLOR Attending Clinician Unavailable NAVEED KEYES Attending Clinician Unavailable SHEKHAR MARTIN Admitting Clinician Unavailable KNOW, DOES_NOT Admitting Clinician Unavailable Payers Payer Name Policy Type Policy Number Effective Date Expiration Date S [facility] HMO/NETWORK - [id number] [employer] DUAL [id number] COMPLETE [facility] [employer] [id number] 2019spring 00:00:00 Problems Condition Condition Condition Status Onset Resolution Last Treating Co mments Source Name Details Category Date Date Treatment Clinician Date 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 3-05 [place] kidney kidney 00:00: of disease disease 00 Medicin e Pyuria Pyuria Disease Active [facility] 7-13 [place] 00:00: of 00 Medicin e Hematuria Hematuria Disease Active [place] [facility] 7 [place] 00:00: of 00 Medicin e Atheroscle Atheroscle Disease Active Tae alberto rosis of rosis of 02-27 Colleg e aorta aorta 00:00: of (HCCode) (HCCode) 00 Medici n e Status Status Disease Active [facility] post right post right 02-05 Co llege hip hip 00:00: of replacemen replacemen 00 Me dicin t t e Pain of Pain of Disease Active [facility] right right 02-05 [place] femur femur 00:00: of 00 Medicin e Failure of Failure of Disease Active [facility] outpatient outpatient 02-05 Co llege treatment treatment 00:00: of 00 Medicin e High blood High blood [facility] pressure 02-05 Colleg e 00:00: of 00 Medicin e Essential Essential Disease Active [facility] (primary) (primary) 02-05 [facility] hypertensi hypertensi 00:00: of on on 00 Medicin e Diabetes Diabetes Disease Active [facility] mellitus mellitus 02-05 Colleg e 00:00: of 00 Medicin e Anemia Anemia Disease Active [facility] 02-05 [place] 00:00: of 00 Medicin e Acute-on-c Acute-on-c Disease 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 (intraduct 02-05 Co llege al al 00:00: of papillary papillary 00 Medi hermelinda mucinous mucinous e neoplasm) neoplasm) High High Disease Active [facility] cholestero cholestero 2-09 Co llege l l 00:00: of 00 Medicin e Hypophosph Hypophosph Disease Active Tae alberto atemia atemia 4-17 College 00:00: of 00 Medicin e Hyponatrem Hyponatrem Disease Active [facility] ia ia 4-17 College 00:00: of 00 Medicin e Hypercalce Hypercalce Disease Active [facility] nic nic 4-17 College 00:00: of 00 Medicin e Stage [...] Nephrogeno Disease Active 2018-08 [facility] us us 0-08 College proteinuri proteinuri 00:00: of a a 00 Medicin e Neck pain Neck pain Disease Active 2018-08 [place] [facility] of over 3 of over 3 0-08 [facility] months months 00:00: of duration duration 00 Medici n e Localized Localized Disease Active 2018-08 [place] [facility] edema due edema due 0-08 [facility] to fluid to fluid 00:00: of overload overload 00 Medici n e 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 0-08 College syndrome syndrome 00:00: of with with 00 Medicin diarrhea diarrhea e Hypokalemi Hypokalemi Disease Active 2018-08 [facility] a a 0-08 College 00:00: of 00 Medicin e 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 [facility] nodes of nodes of 0-08 Colleg e left hand left hand 00:00: of 00 Medicin e 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 0-08 Co llege sterolemia sterolemia 00:00: of 00 Medicin e Benign Benign Disease Active 2018-08 [facility] hypertensi hypertensi 0-08 Co llege on with on with 00:00: of chronic chronic 00 Medicin kidney kidney e disease disease Type 2 Type 2 Disease Active 2018-08 [facility] diabetes diabetes 0-08 Colleg [facility] mellitus mellitus 00:00: of with with 00 Medicin chronic chronic e kidney kidney disease disease Chronic Chronic Disease Active 2018-08 [facility] low back low back 0-08 Colleg e pain pain 00:00: of 00 Medicin e Absolute Absolute Disease Active 2018-08 [place] anemia anemia 0-08 [facility] 00:00: of 00 Medicin e Anemia of Anemia of Disease Active 2018-08 [facility] chronic chronic 0-08 College disease disease 00:00: of 00 Medicin e Allergic Allergic Disease Active 2018-08 [facility] r rhinitis rhinitis 0-08 Colleg e due to due to 00:00: of pollen pollen 00 Medicin e Pain of Pain of Problem Active [facility] right [facility] femur femur ans Status Status Problem Active [facility] post right post right [facility] hip hip ans replacemen replacemen t t Allergies, Adverse Reactions, Alerts Allergy Allergy Status Severity Reaction(s) Onset Inactive Treating Comm ents Source Name Type Date Date Clinician No Known DA Active [facility] 2019-0 [facility] Clear s 00:00: Hare 00 [facility] No Known DA Active U 2020-0 [facility] Allergie 6-05 Clear s 00:00: Hare 00 [facility] NO KNOWN Drug Active Univers ALLERGIE Class ity of [facility] Social History Social Habit Start Date Stop Date Quantity Comments Source History [facility] ge Alcohol Std Drinks of Med icine History [facility] Alcohol Binge of Medicine Exposure to 2022-01-01 2022-01-11 Not sure [facility] Lenore veliz SARS-CoV-2 (event) 00:00:00 09:33:00 of Med icine Alcohol intake 2022-01-11 2022-01-11 Ex-drinker [facility] Col lege 00:00:00 00:00:00 (finding) of Medicine History [facility] 2021-05-11 2021-05-11 1 [facility] ge Alcohol Frequency 00:00:00 00:00:00 of Medi cine Alcohol Comment 2021-05-11 2021-05-11 Quit 20 years ago [facility] 00:00:00 00:00:00 Social of Medicine Cigarette 2020-09-27 2020-09-27 [facility] pack-years 00:00:00 00:00:00 of Medicine Tobacco use and 2020-09-27 2020-09-27 Smokeless tobacco [employer] exposure 00:00:00 00:00:00 non-user of Medicine Sex [birth year] AGUILAR [facility]son [facility]00 [facility]00 [facility] Smoking Status Start Date Stop Date Source Never smoked tobacco [facility] of [facility] Medications Ordered Filled Start Stop Current Ordering Indication Dosage Frequency Signature Comments Components Source Medication Medication Date Date Medication? Clinician (SIG) Name Name Bacillus Yes Take by [facility] Coagulans-I 5-27 mouth. [facility] andujar 10:01: of (PROBIOTIC) 24 Medicin 1-250 e BILLION-MG CAPS aspirin EC Yes 81mg Take 81 mg B [facility] 81 MG 5-27 by mouth. College tablet 10:00: of 48 Medicin e Cranberry Yes Take by [facility] 250 MG CAPS 5-27 mouth. [place] [facility] 10:00: of 48 Medicin e ascorbic Yes 500mg Take 500 [facility] acid 500 MG 5-27 mg by [place] tablet 10:00: mouth. of 48 Medicin e hydrochloro Yes 12.5mg Take 12.5 [facility] thiazide 5-27 mg by [place] (MICROZIDE) 10:00: mouth. of 12.5 MG 48 Medicin capsule e Multiple Yes 1{tbl} Take 1 [facility] Vitamin 5-27 Tablet by [place] (ONE-DAILY 10:00: mouth. of MULTIVITAMI 48 Medicin NS) TABS e pravastatin Yes 40mg Take 40 mg [facility] (PRAVACHOL) 5-27 by mouth [facility] 40 MG 10:00: daily. of tablet 48 Medicin e pioglitazon Yes 15mg Take 15 mg [facility] e (ACTOS) 5-27 by mouth Colleg e 15 MG 10:00: daily. of tablet 48 Medicin e aspirin EC Yes 81mg Take 81 mg [facility] 81 MG 6-21 by mouth. College tablet 13:58: of 49 Medicin e Cranberry Yes Take by [facility] 250 MG CAPS 6-21 mouth. Colleg e [...] pravastatin 0 Yes 40mg Take 40 mg [facility] (PRAVACHOL) 6-21 by mouth [place] 40 MG 13:58: daily. of tablet 49 Medicin e pioglitazon 0 Yes 15mg Take 15 mg [facility] e (ACTOS) 6-21 by mouth Colleg [facility] 15 MG 13:58: daily. of tablet 49 Medicin e aspirin EC 0 Yes 81mg Take 81 mg [facility] 81 MG 6-21 by mouth. College tablet 13:58: of 49 Medicin e Cranberry 0 Yes Take by [facility] 250 MG CAPS 6-21 mouth. Colleg e 13:58: of 49 Medicin e ascorbic 0 Yes 500mg Take 500 [facility] acid 500 MG 6-21 mg by College tablet 13:58: mouth. of 49 Medicin e hydrochloro 0 Yes 12.5mg Take 12.5 [facility] thiazide 6-21 mg by College (MICROZIDE) 13:58: mouth. of 12.5 MG 49 Medicin capsule e Multiple 0 Yes 1{tbl} Take 1 [facility] Vitamin 6-21 Tablet by [place] (ONE-DAILY 13:58: mouth. of MULTIVITAMI 49 Medicin NS) TABS e pravastatin 2020-0 Yes 40mg Take 40 mg [facility] (PRAVACHOL) [...] Medicin e Cranberry 0 Yes Take by [facility] 250 MG CAPS 6-21 mouth. Colleg e 13:58: of 49 Medicin e ascorbic 0 Yes 500mg Take 500 [facility] acid 500 MG 6-21 mg by College tablet 13:58: mouth. of 49 Medicin e hydrochloro Yes 12.5mg Take 12.5 [facility] thiazide 6-21 mg by College (MICROZIDE) 13:58: mouth. of 12.5 MG 49 Medicin capsule e Multiple Yes 1{tbl} Take 1 [facility] Vitamin 6-21 Tablet by College (ONE-DAILY 13:58: mouth. of MULTIVITAMI 49 Medicin NS) TABS e pravastatin 0 Yes 40mg Take 40 mg [facility] (PRAVACHOL) 6-21 by mouth [place] 40 MG 13:58: daily. of tablet 49 Medicin e pioglitazon Yes 15mg Take 15 mg [facility] e (ACTOS) 6-21 by mouth Colleg e 15 MG 13:58: daily. of tablet 49 Medicin e metformin 0 Yes [facility] (GLUCOPHAGE 2-03 [place] ) 1000 MG 00:00: of tablet 00 Medicin e metformin 2020-0 Yes [facility] (GLUCOPHAGE 2-03 [place] ) 1000 MG 00:00: of tablet 00 Medicin e metformin 2020-0 Yes [facility] (GLUCOPHAGE 2-03 [place] ) 1000 MG 00:00: of tablet 00 Medicin e metformin 2020-0 Yes [facility] (GLUCOPHAGE 2-03 [place] ) 1000 MG 00:00: of tablet 00 Medicin e glimepiride 2020-0 Yes [facility] (AMARYL) 4 2-02 College MG tablet 00:00: of 00 Medicin e losartan 2020-0 Yes [facility] (COZAAR) 50 2-02 College MG tablet 00:00: of 00 Medicin e glimepiride 2020-0 Yes [facility] (AMARYL) 4 2-02 College MG tablet 00:00: of 00 Medicin e losartan 2020-0 Yes [facility] (COZAAR) 50 2-02 College MG tablet 00:00: of 00 Medicin e glimepiride 2020-0 Yes [facility] (AMARYL) 4 2-02 College MG tablet 00:00: of 00 Medicin e losartan 2020-0 Yes [facility] (COZAAR) 50 2-02 College MG tablet 00:00: of 00 Medicin e glimepiride 2020-0 Yes [facility] (AMARYL) 4 2-02 College MG tablet 00:00: of 00 Medicin e losartan 2020-0 Yes [facility] (COZAAR) 50 2-02 College MG tablet 00:00: of 00 Medicin e XARELTO 2020-0 Yes [facility] STARTER 1-26 College PACK 15 & 00:00: of 20 MG TBPK 00 Medicin e XARELTO 2020-0 Yes [facility] STARTER -26 College PACK 15 & 00:00: of 20 MG TBPK 00 Medicin e XARELTO 2020-0 Yes [facility] STARTER -26 College PACK 15 & 00:00: of 20 MG TBPK 00 Medicin e XARELTO 2020-0 Yes [facility] STARTER -26 College PACK 15 & 00:00: of 20 MG TBPK 00 Medicin e escitalopra 2020-0 Yes 10mg Take 10 mg [facility] m (LEXAPRO) 4-01 by mouth. Col lege 10 MG 00:00: of tablet 00 Medicin e escitalopra 2020-0 Yes 10mg Take 10 mg [facility] m (LEXAPRO) 4-01 by mouth. Col lege 10 MG 00:00: of tablet 00 Medicin e escitalopra 2020-0 Yes 10mg Take 10 mg [facility] m (LEXAPRO) 4-01 by mouth. Col lege 10 MG 00:00: of tablet 00 Medicin e escitalopra 2020-0 Yes 10mg Take 10 mg [facility] m (LEXAPRO) 4-01 by mouth. Col lege 10 MG 00:00: of tablet 00 Medicin e donepezil 2020-0 Yes TAKE 1 [facility] (ARICEPT) 3-26 TABLET BY Colle ge 10 MG 00:00: MOUTH of tablet 00 EVERY DAY Medicin AT BEDTIME e FOR 30 DAYS donepezil 2020-0 Yes TAKE 1 [facility] (ARICEPT) 3-26 TABLET BY Colle ge 10 MG 00:00: MOUTH of tablet 00 EVERY DAY Medicin AT BEDTIME e FOR 30 DAYS donepezil 2020-0 Yes TAKE 1 [facility] (ARICEPT) 3-26 TABLET BY Colle ge 10 MG 00:00: MOUTH of tablet 00 EVERY DAY Medicin AT BEDTIME e FOR 30 DAYS donepezil 2020-0 Yes TAKE 1 [facility] (ARICEPT) 3-26 TABLET BY Colle ge 10 MG 00:00: MOUTH of tablet 00 EVERY DAY Medicin AT BEDTIME e FOR 30 DAYS Vital Signs Vital Name Observation Time Observation Value Comments Source Systolic blood 2022-01-11 14:56:00 132 mm[Hg] [facility] pressure Medicine Diastolic blood 2022-01-11 14:56:00 82 mm[Hg] [facility] Medicine Heart rate 2022-01-11 14:56:00 98 /min O2 98% [facility] ollege of Medicine Body temperature 2022-01-11 14:56:00 36.72 [facility] Body height 2022-01-11 14:56:00 160 cm [facility] C ollege of Medicine Body weight 2022-01-11 14:56:00 59.875 kg [facility] ol[facility] of Medicine BMI 2022-01-11 14:56:00 23.38 kg/m2 [facility] C ol[facility] of Medicine Systolic blood 2021-05-11 14:05:00 151 mm[Hg] [facility] Medicine Diastolic blood 2021-05-11 14:05:00 101 mm[Hg] [facility] Medicine Heart rate 2021-05-11 14:05:00 110 /min O2: 98% [facility] ol[facility] of Medicine Body temperature 2021-05-11 14:05:00 36.78 [facility] Body height 2021-05-11 14:05:00 160 cm [facility] C ol[facility] of Medicine Body weight 2021-05-11 14:05:00 58.968 kg [facility] C [facility] of Medicine BMI 2021-05-11 14:05:00 23.03 kg/m2 [facility] C [facility] of Medicine Body height 2021-02-05 18:59:00 160 cm [facility] C [facility] of Medicine Body weight 2021-02-05 18:59:00 58.514 kg [facility] BMI 2021-02-05 18:59:00 22.85 kg/m2 [facility] Systolic blood 2021-02-05 18:59:00 110 mm[Hg] [facility] Diastolic blood 2021-02-05 18:59:00 73 mm[Hg] [facility] Heart rate 2021-02-05 18:59:00 88 /min 02-97% [facility] Body temperature 2021-02-05 18:59:00 36.11 [facility] Procedures Procedure Date / Time Performed Performing Clinician Sour e CANCER ANTIGEN 19-9 2022-01-11 10:57:00 [facility] HEPATIC FUNCTION PANEL 2022-01-11 10:57:00 [facility] CBC W/AUTO DIFF WITH 2022-01-11 10:57:00 [facility] BASIC METABOLIC PANEL 2022-01-11 10:57:00 [facility] CANCER ANTIGEN 19-9 2022-01-11 10:48:15 [facility] HEPATIC FUNCTION PANEL 2022-01-11 10:48:15 [facility] CBC W/AUTO DIFF WITH 2022-01-11 10:48:15 [facility] BASIC METABOLIC PANEL 2022-01-11 10:48:15 [facility] BASIC METABOLIC PANEL 2021-02-05 20:08:00 Talib Rutherford [facility] HEPATIC FUNCTION PANEL 2021-02-05 20:08:00 Talib Rutherford [facility] CBC W/AUTO DIFF WITH 2021-02-05 20:08:00 Talib Rutherford [facility] CANCER ANTIGEN 19-9 2021-02-05 20:08:00 Talib Rutherford [facility] PROTIME & PTT 2021-02-05 20:08:00 Talib Rutherford [facility] [U] XRAY HIP 2020-06-20 00:[facility]:00 [facility] UNILATERAL MIN 2 VWS RIGHT [id number] Hip 2/3 views uni DX 2020-06-20 00:00:00 [facility] [U] XRAY HIP 2020-05-31 00:00:00 [facility] UNILATERAL MIN 2 VWS RIGHT [id number] Post Op Promis 29 2020-05-30 00:00:00 [facility] Survey [id number] 2020-01-24 00:00:00 MOUDA.01 [facility] Plan of Care Planned Activity Planned Date Details Comments Source Future Scheduled 2022-01-11 Screening for [facility] Test 10:54:06 malignant neoplasm of Medici ne of colon (procedure) [code = 797117225] Future Scheduled 2022-01-11 Screening for [facility] Col lege Test 10:54:06 malignant neoplasm of Medici ne of breast (procedure) [code = 924391371] Future Scheduled 2022-01-11 Pneumococcal 65+ (1 [facility] Test 10:54:06 - PCV) [code = of Medicine Pneumococcal 65+ (1 - PCV)] Future Scheduled 2022-01-11 TETANUS SHOT (ADULT) [place] [facility] Test 10:54:06 [code = TETANUS SHOT of Medi cine (ADULT)] Future Scheduled 2022-01-11 Diabetic foot [facility] Col [facility]ge Test 10:54:06 examination of Medicine (regime/therapy) [code = 962451181] Future Scheduled 2022-01-11 ANNUAL DIABETIC [facility] C ollege Test 10:54:06 RETINOPATHY of Medicine SCREENING [code = ANNUAL DIABETIC RETINOPATHY SCREENING] Future Scheduled 2022-01-11 Hepatitis C [facility] Test 10:54:06 screening of Medicine (procedure) [code = 683914352] Future Scheduled 2022-01-11 ZOSTER VACCINE (1 of [place] [facility] [facility] Test 10:54:06 2) [code = ZOSTER of Medicin e VACCINE (1 of 2)] Future Scheduled 2022-01-11 Screening for [facility] Test 10:54:06 osteoporosis of Medicine (procedure) [code = 088544377] Future Scheduled 2022-01-11 COVID-19 Vaccine (3 [facility] Test 10:54:06 - Booster) [code = of Medici ne COVID-19 Vaccine (3 - Booster)] Future Scheduled 2022-01-11 FLU VACCINE > 6 [facility] C [facility]lege Test 10:54:06 MONTHS [code = FLU of Medici ne VACCINE > 6 MONTHS] Future Scheduled 2022-01-11 FALL SCREEN [code = [facility] Test 10:54:06 FALL SCREEN] of Medicine Future Scheduled 2022-01-11 CANCER ANTIGEN 19-9 Ordered: [facility] Test 10:48:15 [code = 52697-0] 01/11/2022 of Medicine Future Scheduled 2022-01-11 HEPATIC FUNCTION Ordered: [facility] College Test 10:48:15 PANEL [code = 01/11/2022 of Medicine 32730-3] Future Scheduled 2022-01-11 CBC W/AUTO DIFF WITH Ordered: [place] [facility] [facility] Test 10:48:15 PLATELETS [code = 01/11/2022 of Medicin e 49301-1] Future Scheduled 2022-01-11 BASIC METABOLIC Ordered: [facility] Test 10:48:15 PANEL [code = 01/11/2022 of Medicine 72429-7] Future Scheduled 2022-01-11 MRI ABDOMEN W WO 1 Occurrences [facility] College Test 10:48:15 CONTRAST MRCP [code starting of Medic ine = 33298-4] 01/11/2022 until 01/11/2023 Future Scheduled 2021-05-11 MRI ABDOMEN W WO 1 Occurrences [facility] Test 09:55:35 CONTRAST MRCP [code starting of Medic ine = 70341-6] 05/11/2021 until 05/11/2022 Future Scheduled 2021-05-11 MRI ABDOMEN W WO 1 Occurrences [facility] Test 09:55:35 CONTRAST MRCP [code starting of Medic ine = 48144-7] 05/11/2021 until 05/11/2022 Future Scheduled 2021-05-11 Screening for [facility] Col [facility]ge Test 09:08:20 malignant neoplasm of Medici ne of colon (procedure) [code = 450080991] Future Scheduled 2021-05-11 Screening for [facility] Col [facility]ge Test 09:08:20 malignant neoplasm of Medici ne of breast (procedure) [code = 481424196] Future Scheduled 2021-05-11 TETANUS SHOT (ADULT) [place] [facility] Test 09:08:20 [code = TETANUS SHOT of Medi cine (ADULT)] Future Scheduled 2021-05-11 Diabetic foot [facility] Col [facility]ge Test 09:08:20 examination of Medicine (regime/therapy) [code = 788948481] Future Scheduled 2021-05-11 ANNUAL DIABETIC [facility] Test 09:08:20 RETINOPATHY of Medicine SCREENING [code = ANNUAL DIABETIC RETINOPATHY SCREENING] Future Scheduled 2021-05-11 Hepatitis C [facility] Test 09:08:20 screening of Medicine (procedure) [code = 002031036] Future Scheduled 2021-05-11 ZOSTER VACCINE (1 of [facility] Test 09:08:20 2) [code = ZOSTER of Medicin e VACCINE (1 of 2)] Future Scheduled 2021-05-11 FALL SCREEN [code = [facility] Test 09:08:20 FALL SCREEN] of Medicine Future Scheduled 2021-05-11 Screening for [facility] Col [facility]ge Test 09:08:20 osteoporosis of Medicine (procedure) [code = 204336943] Future Scheduled 2021-05-11 PNEUMOVAX >=65 [facility] Co llege Test 09:08:20 (PPSV23) [code = of Medicine PNEUMOVAX >=65 (PPSV23)] Future Scheduled 2021-05-11 FLU VACCINE > 6 [facility] C ollege Test 09:08:20 MONTHS [code = FLU of Medici ne VACCINE > 6 MONTHS] Future Scheduled 2021-05-11 Screening for [facility] Col [facility] Test 09:08:20 malignant neoplasm of Medici ne of colon (procedure) [code = 355018815] Future Scheduled 2021-05-11 Screening for [facility] Test 09:08:20 malignant neoplasm of Medici ne of breast (procedure) [code = 104070238] Future Scheduled 2021-05-11 TETANUS SHOT (ADULT) [facility] Test 09:08:20 [code = TETANUS SHOT of Medi cine (ADULT)] Future Scheduled 2021-05-11 Diabetic foot [facility] Col [facility]ge Test 09:08:20 examination of Medicine (regime/therapy) [code = 715510971] Future Scheduled 2021-05-11 ANNUAL DIABETIC [facility] C ollege Test 09:08:20 RETINOPATHY of Medicine SCREENING [code = ANNUAL DIABETIC RETINOPATHY SCREENING] Future Scheduled 2021-05-11 Hepatitis C [facility] Test 09:08:20 screening of Medicine (procedure) [code = 227246681] Future Scheduled 2021-05-11 ZOSTER VACCINE (1 of [facility] Test 09:08:20 2) [code = ZOSTER of Medicin e VACCINE (1 of 2)] Future Scheduled 2021-05-11 FALL SCREEN [code = [facility] Test 09:08:20 FALL SCREEN] of Medicine Future Scheduled 2021-05-11 Screening for [facility] Col [facility]ge Test 09:08:20 osteoporosis of Medicine (procedure) [code = 460530911] Future Scheduled 2021-05-11 PNEUMOVAX >=65 [facility] Co llege Test 09:08:20 (PPSV23) [code = of Medicine PNEUMOVAX >=65 (PPSV23)] Future Scheduled 2021-05-11 FLU VACCINE > 6 [facility] C ollege Test 09:08:20 MONTHS [code = FLU of Medici ne VACCINE > 6 MONTHS] Future Scheduled 2021-02-06 Screening for [facility] Col [facility]ge Test 11:03:52 malignant neoplasm of Medici ne of colon (procedure) [code = 880061482] Future Scheduled 2021-02-06 Screening for [facility] Col [facility] Test 11:03:52 malignant neoplasm of Medici ne of breast (procedure) [code = 062168479] Future Scheduled 2021-02-06 COVID-19 Vaccine (1) [place] [facility] Test 11:03:52 [code = COVID-19 of Medicine Vaccine (1)] Future Scheduled 2021-02-06 TETANUS SHOT (ADULT) [place] [facility] Test 11:03:52 [code = TETANUS SHOT of Medi cine (ADULT)] Future Scheduled 2021-02-06 Diabetic foot [facility] Test 11:03:52 examination of Medicine (regime/therapy) [code = 821599748] Future Scheduled 2021-02-06 ANNUAL DIABETIC [facility] Test 11:03:52 RETINOPATHY of Medicine SCREENING [code = ANNUAL DIABETIC RETINOPATHY SCREENING] Future Scheduled 2021-02-06 Hepatitis C [facility] Test 11:03:52 screening of Medicine (procedure) [code = 780745042] Future Scheduled 2021-02-06 ZOSTER VACCINE (1 of [place] [facility] Test 11:03:52 2) [code = ZOSTER of Medicin e VACCINE (1 of 2)] Future Scheduled 2021-02-06 FALL SCREEN [code = [facility] Test 11:03:52 FALL SCREEN] of Medicine Future Scheduled 2021-02-06 Screening for [facility] Col [facility]ge Test 11:03:52 osteoporosis of Medicine (procedure) [code = 843840110] Future Scheduled 2021-02-06 PNEUMOVAX >=65 [facility] Co [facility]lege Test 11:03:52 (PPSV23) [code = of Medicine PNEUMOVAX >=65 (PPSV23)] Future Scheduled 2021-02-06 FLU VACCINE > 6 [facility] C ollege Test 11:03:52 MONTHS [code = FLU of Medici ne VACCINE > 6 MONTHS] Future Scheduled 2021-02-05 MRI ABDOMEN W WO 1 Occurrences [facility] Test 15:01:11 CONTRAST MRCP [code starting of Medic ine = 17855-9] 02/05/2021 until 02/05/2022 Encounters Start End Encounter Admission Attending Care Care Encounter Source Date/Time Date/Time Type Type Clinicians Facility Department ID 2021-05-26 Outpatient VERONICA [facility] Surgery [id number] [facility] 10:23:08 SHEKHAR 2020-12-23 [facility] [id number] [place] 03:40:42 [facility] 2020-01-21 Inpatient CHASE Polk, JANEYCL DAYS [id number] [facility] 15:00:00 Nuno 08 [facility] 2022-01-11 2022-01-11 Office JUAN LUGO 1.2.840.114 [id number] [facility] 09:33:52 12:35:18 Visit MICHAEL Diaz 350.1.13.21 Co llege 0.2.7.2.686 of [id number] [facility] 510 e 2021-05-11 2021-05-11 Office JUAN LUGO 1.2.840.114 [id number] [facility] 07:40:35 12:50:04 Visit MICHAEL Chamberlain.1.13.21 Co llege 0.2.7.2.686 of [id number] [facility] 510 e 2021-02-05 2021-02-05 Office JUAN LUGO 1.2.840.114 [id number] [facility] 12:56:52 14:54:54 Visit MICHAEL Diaz 350.1.13.21 Co llege 0.2.7.2.686 of [id number] Medi hermelinda 510 e 2020-08-01 2020-08-01 Appointalyssa [facility] Orthopedics 70 [id number] [place] 10:00:00 10:00:00 t; [facility] POD 3 2020-06-20 2020-06-20 Abilio [facility] Orthopedics [id number] [place] 08:30:00 08:30:00 t; [facility] 2020-06-20 2020-06-20 Orders Doctor VASQUEZ 1.2.840.114 [id number] 00:00:00 00:00:00 Only Unassigned, AKELEY 350.1.13.10 [place] [facility] 4.2.7.2.686 [id number] 2020-06-15 2020-06-15 Office Carmen [facility] 1.2.840.114 [id number] 14:51:12 15:39:19 Visit [facility] 350.1.13.10 Surgical 4.2.7.2.686 Specialti [id number] es 198 [place] 2020-06-15 2020-06-15 Outpatient Stephanie [facility] [id number] [facility] 14:45:00 14:45:[id number] [facility] 2020-06-15 2020-06-15 Outpatient Stephanie [facility] [id number] Univers 14:45:00 14:45:[address] [facility] 2020-05-24 2020-05-24 [facility] [id number] [place] 15:15:00 15:15:00 t; [facility] 2020-05-19 2020-05-19 Outpatient KNOW, HCABM OPLA [id number] [facility] 23:34:00 23:34:00 DOES_NOT 76 [facility] 2020-01-18 2020-01-18 Outpatient Stephanie [facility] [id number] [id number]-20 Univers 14:40:00 14:40:[address] [facility] 2020-01-18 2020-01-18 Outpatient Stephanie [facility] [id number] Univers 14:40:00 14:40:[address] [facility] 2020-01-14 2020-01-14 Outpatient Stephanie [facility] [id number] Univers 08:22:20 23:59:[address] [facility] 2020-01-14 2020-01-14 Outpatient Stephanie [facility] [id number] Univers 08:00:00 08:00:[id number] [facility] 2019-12-31 2019-12-31 Outpatient Stephanie [facility] [id number] 2N-20 Univers 08:00:00 08:00:[id number] [facility] 2019-12-31 2019-12-31 Outpatient Stephanie [facility] [id number] Univers 08:00:00 08:00:[address] [facility] 2019-12-03 2019-12-03 Outpatient Stephanie [facility] [id number] 2N-20 Univers 08:00:00 08:00:[id number] [facility] 2019-12-03 2019-12-03 Outpatient Stephanie [facility] [id number] Univers 08:00:00 08:00:00 [facility] 2019-11-10 2019-11-10 Outpatient Stephanie [facility] [id number] [facility]:00[facility] Test Description Test Time Test Comments Results Result Comments Source CBC W/AUTO DIFF WITH PLATELETS 2021-02-06 15:50:59 Test Item Value Reference Range Interpretation Comme nts WHITE BLOOD CELL COUNT (test See_Comment [Automated message] The system code = 94686-8) which genera richi this result transmitted ref erence range: 3.5 - 11.0 K/UL. Th e reference range was not used to interpret this result as rossana l/abnormal. RED BLOOD CELL COUNT (test See_Comment L [Automated message] The system code = 43801-0) which genera richi this result transmitted ref [...] (test code = 26.6 % 34.0-45.0 L 45620-2) MEAN CORPUSCULAR VOLUME (test 92.0 fL 80.0-99.0 code = 19135-9) MEAN CORPUSCULAR HEMOGLOBIN 30.8 PG 25.0-33.0 (test code = 97105-6) MEAN CORPUSCULAR HEMOGLOBIN See_Comment [Automated message] The system CONC (test code = 91912-1) w hich generated this result transmitted ref erence range: 31 - 36 G/DL. The reference range was not used to interpret this result as rossana l/abnormal. RED CELL DISTRIBUTION WIDTH 12.4 % 11.5-15.0 (test code = 48069-3) NEUTROPHILS % (test code = 55.1 % 40.0-75.0 43265-1) LYMPHOCYTES % (test code = 33.2 % 20.0-45.0 83045-8) MONOCYTES % (test code = 8.6 % 4.0-12.0 71623-1) EOSINOPHILS % (test code = 2.1 % 0.0-7.0 07878-7) BASOPHILS % (test code = 0.8 % 0.0-2.0 59466-5) IMMATURE GRANULOCYTES (test 0.2 % 0.0-1.0 code = 39229-6) NUCLEATED RBC'S MYELOPEROX See_Comment Unless Otherwise Indicated, All STAIN (test code = 83810-9) Testing Performed At: Clinical [facility], [address] [place] [address] Laboratory Dire ctor: Fracnie MurrietaIA Number [id number] [place]. [id number] [Autom ated message] The system which ge nerated this result transmit richi reference range: 0.00 - 0 .11 K/UL. The reference range was not used to interpret this result as normal/abnormal . PLATELET COUNT (test code = See_Comment [Automated message] The system 37483-2) which generated this result transmitted ref erence range: 130 - 400 K/UL. The reference range was not used to interpret this result as rossana l/abnormal. NEUTROPHILS ABSOLUTE COUNT See_Comment [Automated message] The system (test code = 07031-6) which generated this result transmitted ref erence range: 1.50 - 7.50 K/U L. The reference range was not u sed to interpret this result as normal/abnormal. LYMPHOCYTES ABSOLUTE COUNT See_Comment [Automated message] The system (test code = 18345-2) which generated this result transmitted ref erence range: 1.00 - 4.00 K/U L. The reference range was not u sed to interpret this result as normal/abnormal. MONOCYTES ABSOLUTE COUNT (test See_Comment [Automated message] The system code = 87237-1) which genera richi this result transmitted ref erence range: 0.20 - 1.00 K/U L. The reference range was not u sed to interpret this result as normal/abnormal. BASOPHILS ABSOLUTE COUNT (test See_Comment [Automated message] The system code = 42225-7) which genera richi this result transmitted ref [...] normal/abnormal. Lab Interpretation (test code Abnormal = 53479-5) [facility] MET[facility]OLIC [id number] 11:07:41 Test Item Value Reference Range Interpretation Comments GLUCOSE (test code = See_Comment H [Autom ated message] 2345-7) The system whic h generated this result transmitted ref erence [...] H [Au tomated message] 2160-0) The system [employer] generated this result transmitted ref erence range: 0.60 - 1 .30 MG/DL. The refe rence range was not u sed to interpret this result as normal/abnor mal. EGFR AA (test code = See_Comment L [Autom ated message] 44954-3) The system [employer] generated this result transmitted ref erence range: >60 ML/MIN/1.73. Th e reference range was not used to int erpret this result as normal/abnormal . EGFR (test code = See_Comment L [Automate d message] 52173-1) The system [employer] generated this result transmitted ref erence range: >60 ML/MIN/1.73. Th e reference range was not used to int erpret this result as normal/abnormal . SODIUM (test code = See_Comment [Automa richi message] 8011-2) The system [employer] generated this result transmitted ref erence range: 133 - 14 6 MEQ/L. The refe rence range was not u sed to interpret this result as normal/abnor mal. POTASSIUM (test code = See_Comment [Aut omated message] 2043-3) The system [employer] generated this result transmitted ref erence range: 3.5 - 5. 4 MEQ/L. The refe rence range was not u sed to interpret this result as normal/abnor mal. CHLORIDE (test code = See_Comment [Auto mated message] 0235-0) The system [employer] generated this result transmitted ref erence range: 95 - 107 MEQ/L. The refe rence range was not u sed to interpret this result as normal/abnor mal. CO2 (test code = 1962-8) See_Comment [A utomated message] The system [employer] generated this result transmitted ref erence range: 19 - 31 MEQ/L. The reference r gertrude was not used to interpret this result as normal/abnor mal. CALCIUM (test code = See_Comment Unless Otherwise 15391-7) Indicated, All Testing Perform ed At: [facility], [address] [facility] [address] Laborator y Director: Dequan Up M.D. CLIA Number [id number] Cap Accreditation [place]. [id number] [Autom ated message] The sy stem which generated this result transmit richi reference range : 8.5 - 10.5 MG/DL. T he reference range was not used to int erpret this result as normal/abnormal . Lab Interpretation (test Abnormal code = 90285-8) [facility] [id number] 11:07:41 Test Item Value Reference Range Interpretation Comments PROTEIN TOTAL (test See_Comment [Automa richi message] The code = 2885-2) system which generated this result tra nsmitted reference range : 6.1 - 8.3 G/DL. The r eference range was not u sed to interpret this result as normal/abnormal . ALBUMIN (test code = See_Comment [Autom ated message] The 34877-2) system which ge nerated this result tra [...] See_Comment [Aut omated message] The code = 1967-7) system which generated this result tra nsmitted reference range : 0.0 - 0.3 MG/DL. The reference range was not u sed to interpret this result as normal/abnormal . ALKALINE PHOSPHATASE 77 U/L 40-142 (test code = 6768-6) AST (SGOT) (test code = 17 U/L 9-40 1920-8) ALT (SGPT) (test code = 15 U/L 5-40 Unl ess Otherwise 1744-2) Indicated, All Testing Performed At: C linical Pathology [facility], [address] [place] [address] [address] [facility] Director: Dequan Up M.D. CLIA Number [id number] [place]. [id number] [facility] 09:45:01 Test Item Value Reference Range Interpretation Comments CA 19-9 (test 24 U/ML <35 NOTE: Methodo logy is Ashish Nadia code = Electrochemilum inescence 86763-4) Immunoassay (EC HORACIO). Values obtained with d ifferent assays/manufact urers cannot be used interchang eably. Results should not be u sed as sole basis to establish th e presence or absence of marcy gnancy. Unless Otherwise Indic ated, All Testing Performed At: [facility], [address] [place] [id number] 4 Home Care Consultant: Dequan Up M.D. CLIA Number [id number] [place]. [id number] [facility] Center[facility] & [id number] 08:40:15 Test Item Value Reference Range Interpretation Comments PROTIME (test code = See_Comment H [Autom ated message] 3289-6) The system [employer] generated this result transmitted ref erence range: 12.5 - 1 4.7 SECONDS. The re ference range was not u sed to interpret this result as normal/abnor mal. INR (test code = SEE BELOW CURRENT 6301-6) RECOMMENDATIONS ARE FOR AN INR OF 2.0-3 .0 FOR ALL PATIENTS ON VITAMIN K ANTAGONISTS, EXCEPT THOSE WITH PROS THETIC HEART VALVES, F OR WHOM INR OF 2.5-3.5 IS RECOMMENDED. PARTIAL THROMBOPLASTIN See_Comment H Unle ss Otherwise TIME (test code = Indicated, All Testing 24510-5) Performed At: [facility], [address] [place] [address] [facility] Director: Dequan Up M.D. CLIA Number [id number] [place] Accreditation [place] o. [id number] [Autom ated message] The sy stem which generated this result transmit richi reference range : 25.2 - 40.0 SECONDS. T he reference range was not used to interpr et this result as normal/abnormal . Lab Interpretation Abnormal (test code = 68192-0) [facility] 29 [id number] 08:41:11 Test Item Value Reference Range Interpretation Comments Pain Interference: (test code = Pain 56 1 N Interference:) Pain Intensity: (test code = Pain 42.6 1 N Intensity:) Physical Function: (test code = 23.9 1 N Physical Function:) Satisfaction Role: (test code = 45.8 1 N Satisfaction Role:) [facility]iciansPROTHROMBIN [id number] 23:51:00 Test Item Value Reference Range Interpretation [...] ion INR range Pulmonary embol ism treatment (2.0-3.0)Venous thrombosis treatmentVenous thrombosis prophylaxis (hi gh risk surgery)Prevent ion of systemic emboli sm from: Acute myocardial infa rction Valvular heart disease Atrial fibrillation Mechanical pros thetic heart valves (2.5-3.5) THROMBOPLASTIN TIME [id number] 23:51:00 Test Item Value Reference Range Interpretation Comments THROMBOPLASTIN TIME PARTIAL 30.4 seconds 23.0-37.0 N (test code = PTT) [id number] 13:00:00 Test Item Value Reference Range Interpretation Comments GLUBED (test code = 167 MG/DL 70-110 H Performe d by certified GLUBED) boomswing operator at [facility] [id number] 09:47:00 Test Item Value Reference Range Interpretation Comments GLUBED (test code = 149 MG/DL 70-110 H Performe d by certified GLUBED) boomswing operator at [facility] BASIC METABOLIC [id number] 08:32:00 Test Item Value Reference Range Interpretation [...] code = 9.4 mg/dL 8.0-10.5 N CA) [id number] 22:07:00 Test Item Value Reference Range Interpretation Comments GLUBED (test code = 178 MG/DL 70-110 H Performe d by certified GLUBED) boomswing operator at [facility] [id number] 18:03:00 Test Item Value Reference Range Interpretation Comments GLUBED (test code = 227 MG/DL 70-110 H Performe d by certified GLUBED) boomswing operator at [facility] [id number] 18:03:00 Test Item Value Reference Range Interpretation Comments GLUBED (test code = 206 MG/DL 70-110 H Performe d by certified GLUBED) boomswing operator at [facility] [id number] 16:58:00 Test Item Value Reference Range Interpretation Comments GLUBED (test code = 190 MG/DL 70-110 H Performe d by certified GLUBED) boomswing operator at [facility] [id number] 09:32:00 Test Item Value Reference Range Interpretation Comments GLUBED (test code = 134 MG/DL 70-110 H Performe d by certified GLUBED) boomswing operator at [facility] BASIC METABOLIC [id number] 08:36:00 Test Item Value Reference Range Interpretation [...] code = 9.3 mg/dL 8.0-10.5 N CA) [id number] 22:49:00 Test Item Value Reference Range Interpretation Comments GLUBED (test code = 190 MG/DL 70-110 H Performe d by certified GLUBED) boomswing operator at [facility] [id number] 16:45:00 Test Item Value Reference Range Interpretation Comments GLUBED (test code = 224 MG/DL 70-110 H Performe d by certified GLUBED) boomswing operator at [facility] [id number] 11:57:00 Test Item Value Reference Range Interpretation Comments GLUBED (test code = 242 MG/DL 70-110 H Performe d by certified GLUBED) boomswing operator at [facility] BASIC METABOLIC [id number] 08:33:00 Test Item Value Reference Range Interpretation [...] code = 9.7 mg/dL 8.0-10.5 N CA) [id number] 08:13:00 Test Item Value Reference Range Interpretation Comments GLUBED (test code = 153 MG/DL 70-110 H Performe d by certified GLUBED) boomswing operator at [facility] CBC W/AUTO [id number] 07:53:00 Test Item Value Reference Range Interpretation [...] DIFF REQUIRED (test code NO = MDIFF) [id number] 02:43:00 Test Item Value Reference Range Interpretation Comments GLUBED (test code = 133 MG/DL 70-110 H Performe d by certified GLUBED) boomswing operator at [facility] UA RFLX MICR CULT IF [id number] 18:42:00 Test Item Value Reference Range Interpretation [...] other srcSpecimen Description: INDWELLING CATH (BARNETT)Cath Status: [id number] 17:29:00 Test Item Value Reference Range Interpretation Comments GLUBED (test code = 265 MG/DL 70-110 H Performe d by certified GLUBED) boomswing operator at [facility] [id number] 12:26:00 Test Item Value Reference Range Interpretation Comments GLUBED (test code = 186 MG/DL 70-110 H Performe d by certified GLUBED) boomswing operator at [facility] [id number] 08:35:00 Test Item Value Reference Range Interpretation Comments GLUBED (test code = 117 MG/DL 70-110 H Performe d by certified GLUBED) boomswing operator at [facility] CBC W/O [id number] 08:13:00 Test Item Value Reference Range Interpretation [...] fL 7.0-9.0 H = MPV) BASIC METABOLIC [id number] 08:12:00 Test Item Value Reference Range Interpretation [...] code = 9.6 mg/dL 8.0-10.5 N CA) [id number] 07:11:00 Test Item Value Reference Range Interpretation Comments GLUBED (test code = 242 MG/DL 70-110 H Performe d by certified GLUBED) boomswing operator at [facility] [id number] 07:11:00 Test Item Value Reference Range Interpretation Comments GLUBED (test code = 243 MG/DL 70-110 H Performe d by certified GLUBED) boomswing operator at [facility] [id number] 20:58:00 Test Item Value Reference Range Interpretation Comments GLUBED (test code = 182 MG/DL 70-110 H Performe d by certified GLUBED) boomswing operator at [facility] [id number] 19:09:00 Test Item Value Reference Range Interpretation Comments GLUBED (test code = 168 MG/DL 70-110 H Performe d by certified GLUBED) boomswing operator at [facility] [id number] 08:33:00 Test Item Value Reference Range Interpretation Comments GLUBED (test code = 186 MG/DL 70-110 H Performe d by certified GLUBED) boomswing operator at [facility] CBC W/O [id number] 07:35:00 Test Item Value Reference Range Interpretation [...] fL 7.0-9.0 H = MPV) BASIC METABOLIC [id number] 07:23:00 Test Item Value Reference Range Interpretation [...] code = 9.3 mg/dL 8.0-10.5 N CA) [id number] 21:04:00 Test Item Value Reference Range Interpretation Comments GLUBED (test code = 191 MG/DL 70-110 H Performe d by certified GLUBED) boomswing operator at [facility] [id number] 17:29:00 Test Item Value Reference Range Interpretation Comments GLUBED (test code = 233 MG/DL 70-110 H Performe d by certified GLUBED) boomswing operator at [facility] [id number] 11:17:00 Test Item Value Reference Range Interpretation Comments GLUBED (test code = 116 MG/DL 70-110 H Performe d by certified GLUBED) boomswing operator at [facility] - XR FLUOROSCOPY 0-60 [id number] 11:17:00 FAX: Nuno Perkins Jr [phone] [place]: St: ADM Name: CATHERINE RATLIFF [facility] Reveles[facility]enson : 1945 Age/S: 74/F [address] [place] [address] Unit #: [id number] Loc: [place] [address] Phys: Nuno Polk Jr, MD Acct: [id number] Dis Date: Status: ADM IN PHONE #: [phone] Exam Date: 01/24/2020 1043 FAX #: [phone] Reason: RIGHT HUMERUS FRACTURE EXAMS: CPT CODE: [id number] XR FLUOROSCOPY 0-60 [id number] Intraprocedural fluoroscopy was provided by the Department of Radiology. Any images obtained were interpreted by the surgeon intraoperatively. FLUOROSCOPY TIME: 13.5 seconds REFERENCE AIR KERMA :0.45 mGy SL: [id number] at 1117 Reported and signed by: Sonny Driscoll M.D. CC: Nuno Polk Jr, MD Technologist: YUKI [place]) Trnscrd Date/Time/By: 01/24/2020 (1117) : By: Pepito Orig Print D/T: S: 01/24/2020 (1120) PAGE 1 Signed [id number] 08:09:00 Test Item Value Reference Range Interpretation Comments GLUBED (test code = 87 MG/DL 70-110 N Performe d by certified GLUBED) boomswing operator at [facility] Novel Coronavirus 2019 [id number] 16:43:00 Test Item Value Reference Range Interpretation Comments Novel Coronavirus 2019 Inhouse (test Negative Negative code = COVNONPUI) - XR CHEST 2 [id number] 16:11:00 FAX: Nuno Perkins Jr [phone] [place]: St: PRE FAX: Francisca Isblel Name[facility]: 1945 Age/S: 74/F [address] [place] [address] Unit #: [id number] Loc: [place], [place] [address]Zwwa: Francisca Isbell NP Acct: [id number] Dis Date: Status: PRE [facility] [place] PHONE #: [phone] Exam Date: 01/21/2020 1602 FAX #: [phone] Reason: PRE-OP ORIF EXAMS: CPT CODE: [id number] XR CHEST 2 V 33396 EXAM: PA and lateral chest. EXAM DATE: January 21, 2020 CLINICAL HISTORY: PRE-OP ORIF COMPARISON: None Heart size is normal. Atherosclerotic calcifications and tortuosity of the intrathoracic aortais identified.. Implantable obstetrics gynecology physician is identified over the lower left chest region. The lungs appear free of acute disease. Displaced fracture is noted in the proximal right humerus. This finding is not well assessed on this exam. IMPRESSION: 1. No evidence of acute cardiopulmonary disease. 2.Fracture proximal right humerus at 1611 Reported and signed by: Francisca Castellano M.D. CC: Nuno Polk Jr, MD; Francisca Isbell NP Technologist: RT Jose(R) [facility] Date/Time/By: 01/21/2020 (2266) : By: WalterCER Orig Print D/T: S: 01/21/2020 (8930) PAGE 1 Signed ReportBASIC METABOLIC [id number] 16:10:00 Test Item Value Reference Range Interpretation [...] 9.4 mg/dL 8.0-10.5 N CA) BASIC METABOLIC [id number] 16:07:00 Test Item Value Reference Range Interpretation [...] CA) 9.4 mg/dL 8.0-10.5 N CBC W/AUTO [id number] 15:53:00 Test Item Value Reference Range Interpretation [...]
--- NOTE | 2022-05-13 17:38 | RAD REPORT ---
EXAM DESCRIPTION: Shoulder Right 2 View - 05/13/2022 5:21 pm CLINICAL HISTORY: PAIN, fall, shoulder and arm pain COMPARISON: Shoulder Right 2 View dated 08/26/2014 TECHNIQUE: Right shoulder two view examination performed. FINDINGS: The two views obtained of both in internal rotation. Bones are osteopenic. Old fracture fi xation hardware is in place extending from the femoral head to the mid shaft. No fracture of the hard fair seen. There are sclerotic bone in the proximal shaft with slight expansile change of the shaft. Findings are all within the range of normal for post fracture repair remodeling. An acute proximal hu merus fracture is not seen. There is no dislocation. Acromial humeral joint space is normal. AC joint is normal as well. No abnormal soft tissue calcifica tions. No suspicious findings to the lung parenchyma or ribs of the upper chest. IMPRESSION: Osteopenic, degenerative and postsurgical changes to the right shoulder joint and proxim al right humerus as detailed. No acute findings confirmed.
--- NOTE | 2022-05-13 17:46 | RAD REPORT ---
EXAM DESCRIPTION: RAD - Humerus Right - 05/13/2022 5:21 pm CLINICAL HISTORY: PAIN, fall COMPARISON: Shoulder Right 2 View dated 05/13/2022; Chest Single View dated 10/08/2021 FINDINGS: Two-view right humerus examination shows better external and internal rotation compared to the shoulder examination. Bones are osteopenic. There is no fracture or dislocation of the proximal humerus. Surgical hardware is in place extending from the humeral head to the distal shaft. No fractu re the hardware seen. Bone remodeling with sclerotic bone or possibly bone cement in the proximal hum eral shaft. Remodeling changes are present. On the external rotation projection along the inferior margin of the fracture repair remodeling 3 is a faint oblique lucent line present. This is point of the fracture fixation plate and screws. No david elate on the internal rotation projection. Fracture is not entirely excluded; however, there is no di straction or angulation in the intact hardware spans this abnormality. There were not like any interv ention if this is an acute fracture line. Alignment and positioning of the hardware and humerus is no t clearly different when compared with September 2021 chest film. IMPRESSION: Old proximal right humeral shaft fracture remodeling changes are present with plate and screw fixation spanning the humeral head to the distal shaft. Along the inferior margin of the remodeled fracture site, only on the external rotation view, there i s a faint oblique lucency. Acute fracture is unlikely but not excluded. Fixation hardware would span any possible fracture and alignment and positioning of the bony structures is unchanged from the 2021 chest film.
--- NOTE | 2022-05-13 17:54 | RAD REPORT ---
EXAM DESCRIPTION: CT - CTHCSPWOC - 05/13/2022 5:33 pm CLINICAL HISTORY: fall, posterior head injury, neck pain COMPARISON: Head C Spine Mpr Wo Con dated 05/09/2020; C Spine Wo Con dated 09/11/2020; Head Brain Wo C ont dated 10/08/2021 TECHNIQUE: Axial 5 mm thick images of the head were obtained. Axial 2 mm thick images of the cervic al spine were obtained with sagittal and coronal reconstruction images generated and reviewed. All CT scans are performed using dose optimization technique as appropriate and may include automated exposure control or mA/KV adjustment according to patient size. FINDINGS: No epidural/subdural hematoma, mass, edema or acute intracranial finding. A punctate hyper intense focus is present in the frontal lobe white matter on the right (series 201, image 25), not pr esent on the prior examinations. An axonal shearing injury is unlikely but not entirely excluded. No suspicion for an acute cortical based infarction as a triggering event for the fall. There is no c ortical edema or sulcal effacement. Advanced atrophy and chronic ischemic changes are present similar to comparison. Ventricles are in proportion to volume loss. 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 No extra-axial fluid collections. Arterial and physiologic calcifications are present. Mastoid a ir cells are clear. Chronic sphenoid sinusitis changes are present. No acute paranasal sinus finding. No globe or orbit abnormality seen. No skull fracture. There is posterior scalp injury. No foreign b sujey is seen. Cervical body height and alignment are normal. Disc space narrowing and degenerative spurring changes present at C4-5 and C5-6. No fracture or acute bony abnormality. Multilevel facet joint degenerative changes are present. Degenerative disc changes have progressed from prior imaging. Central canal det ail is inherently limited. No paraspinal mass or hematoma. IMPRESSION: No epidural hematoma, subdural hematoma or subarachnoid hemorrhage seen. A solitary pun[place] franco hyperdensity in the right frontal lobe white matter is doubtful as being axonal shearing injury. Advanced atrophy and chronic ischemic changes. No evidence for a cortical infarction as a trigger shagufta nt for the fall. Chronic ischemic changes can mask nonhemorrhagic CVA. Cervical spine degenerative changes are present without acute finding seen.
[2022-05-13 18:01] LABS: Absolute Lymphocytes (CBC) 1.8 K/uL (0.7-4.9); Hematocrit 31.8 % (36.0-45.0); Lymphocytes % 30.3 % (15.3-44.8); MCV 90.9 fL (80-100); MPV 8.2 fL (7.6-11.3)
[2022-05-13] MEDS ORDERED: MORPHINE 2 MG/ML SYR ONE (18:04)
[2022-05-13 18:13] LABS: Potassium 4.7 mmol/L (3.5-5.1)
--- NOTE | 2022-05-13 19:02 | EDPHYS ---
Physician Documentation [facility] Name: Lazara Lozano Age: 76 yrs Sex: Female : 1945 Arrival Date: 05/13/2022 Time: 16:58 Bed 18 Private MD: ED Physician López Funes HPI: 05/13 20:14 This 76 yrs old Female presents to ER via EMS with complaints of Fall Injury. ms3 20:14 76-year-old female with past medical history of dementia, depression, diabetes, ms3 hyperlipidemia presents via [facility], EMS status post falling while coming out of the restroom. Patient denies loss of consciousness. Patient is on Xarelto. Patient states she is having minor pain in the posterior portion of her head and right arm. Patient denies alleviating or inciting factors. Historical: - Allergies: 17: No Known Allergies; tp1 - Home Meds: 17:26 metformin 500 mg Oral tab 1 tab 2 times per day [Active]; glimepiride 4 mg Oral tab 1 tp1 tab twice a day [Active]; pioglitazone 15 mg Oral tab 1 tab once daily [Active]; losartan 50 mg Oral tab 1 tab 2 times per day [Active]; pravastatin 40 mg Oral tab 1 tab once daily [Active]; escitalopram oxalate 10 mg Oral tab 1 tab once daily [Active]; donepezil 10 mg Oral tab 1 tab once daily [Active]; Xarelto 15 mg Oral tab 1 tab once daily [Active]; metoprolol [Active]; hydrochlorothiazide 12.5 mg Oral tab 1 tab as needed [Active]; cranberry Oral [Active]; aspirin 81 mg Oral chew 1 tab once daily [Active]; Vitamin C Oral [Active]; multivitamin Oral [Active]; iron [Active]; womens probiotic with cranberry [Active]; - PMHx: 17:26 Dementia; depressive disorder; Diabetes - IDDM; Hyperlipidemia; Hypertension; tp1 - PSHx: 17:26 right arm; Right hip; tp1 - Immunization history:: Client reports receiving the 2nd dose of the Covid vaccine. - Social history:: Smoking status: Patient denies any tobacco usage or history of. ROS: 20:14 Constitutional: Negative for fever, and chills. ms3 20:14 Neck: Negative for injury, pain, and swelling, Cardiovascular: Negative for chest pain, and palpitations. Respiratory: Negative for shortness of breath, cough, wheezing, and pleuritic chest pain, Abdomen/GI: Negative for abdominal pain, nausea, vomiting, diarrhea, and constipation. 20:14 Neuro: Negative for headache, weakness, numbness, tingling. Psych: Negative for depression, anxiety, suicide ideation, homicidal ideation, and hallucinations. 20:14 Neck: Positive for pain with movement. 20:14 MS/extremity: Positive for pain. 20:14 Skin: Positive for hematoma. 20:14 All other systems are negative. Exam: 20:14 Constitutional: This is a well developed, well nourished patient who is awake, alert, ms3 and in no acute distress. 20:14 Cardiovascular: Regular rate and rhythm with a normal S1 and S2. No gallops, murmurs, or rubs. Normal PMI, no JVD. No pulse deficits. Respiratory: Lungs have equal breath sounds bilaterally, clear to auscultation and percussion. No rales, rhonchi or wheezes noted. No increased work of breathing, no retractions or nasal flaring. Abdomen/GI: Soft, non-tender, with normal bowel sounds. No distension or tympany. No guarding or rebound. No evidence of tenderness throughout. MS/ Extremity: Pulses equal, no cyanosis. Neurovascular intact. Full, normal range of motion. Neuro: Awake and alert, GCS 15, oriented to person, place, time, and situation. Cranial nerves II-XII grossly intact. Motor strength 5/5 in all extremities. Sensory grossly intact. Cerebellar exam normal. Normal gait. Psych: Awake, alert, with orientation to person, place and time. Behavior, mood, and affect are within normal limits. 20:14 Head/face: Noted is hematoma, that is moderate, of the posterior scalp. Vital Signs: 16:55 BP 145 / 72; Pulse 65; Resp 12; Pulse Ox 96% on R/A; Weight 58.51 kg; Height 5 ft. 3 tp1 in. (160.02 cm); 18:00 BP 158 / 70; Pulse 65; Resp 11; Pulse Ox 95% on R/A; tp1 18:58 BP 155 / 66; Pulse 84; Resp 12; Pulse Ox 96% on R/A; tp1 21:05 BP 126 / 68; Pulse 69; Resp 14; Pulse Ox 96% on R/A; lg3 16:55 Body Mass Index 22.85 (58.51 kg, 160.02 cm) tp1 Alfreda Coma Score: 21:04 Eye Response: spontaneous(4). Verbal Response: oriented(5). Motor Response: obeys lg3 commands(6). Total: 15. Trauma Score (Adult): 21:03 Eye Response: spontaneous(1); Verbal Response: oriented(1); Motor Response: obeys lg3 commands(2); Systolic BP: > 89 mm Hg(4); Respiratory Rate: 10 to 29 per min(4); Alfreda Score: 15; Trauma Score: 12 MDM: 16:58 Patient medically screened. ms3 18:56 ED course: Discussed case with Dr Greene and he will consult on patient since she is a ms3 trauma patient. Discussed case with Aashish Villagran NP, and he would like Dr Landers consulted. Dr Landers would like a routine EEG, MRI with and without contrast. Discussed these recommendations with Aashish Villagran NP.. 20:14 Differential diagnosis: Contusion of Hematoma on Laceration of Intracranial bleed- ms3 Concussion cerebral contusion. Data reviewed: vital signs, nurses notes, lab test result(s), radiologic studies, and as a result, I will admit patient. Data interpreted: satellite project site monitor: rate is 84 beats/min, rhythm is normal sinus rhythm, regular, with no ectopy, Interpretation: normal rate, normal rhythm. Counseling: I had a detailed discussion with the patient and/or guardian regarding: the historical points, exam findings, and any diagnostic results supporting the discharge/admit diagnosis, lab results, radiology results, the need for further work-up and treatment in the hospital. 05/13 17:08 Order name: Basic Metabolic Panel; Complete Time: 18:50 ms3 05/13 17:08 Order name: CBC with Diff; Complete Time: 18:50 ms3 05/13 17:09 Order name: Humerus Right XRAY; Complete Time: 18:10 ms3 05/13 19:15 Order name: SARS RAPID; Complete Time: 20:01 wm 05/13 19:15 Order name: SARS RAPID bb 05/13 17:08 Order name: Labs collected and sent; Complete Time: 17:51 ms3 05/13 17:09 Order name: Shoulder Right (2 View) XRAY; Complete Time: 18:10 ms3 05/13 17:27 Order name: Head C Spine Mpr Wo Con; Complete Time: 18:10 EDMS Administered Medications: 18:09 Drug: morphine 2 mg Route: IVP; Infused Over: 4 mins; Site: left forearm; tp1 19:31 Follow up: Response: No adverse reaction; Marked relief of symptoms lg3 Disposition Summary: 05/13/22 19:01 Hospitalization Ordered Hospitalization Status: Observation ms3 Provider: Bernardo Marlow ms3 Location: Telemetry/MedSurg (observation) ms3 Condition: Stable ms3 Problem: new ms3 Symptoms: are unchanged ms3 Bed/Room Type: Standard ms3 Room Assignment: 414(05/13/22 20:59) mw Diagnosis - Fall on same level, unspecified ms3 - Contusion of scalp, initial encounter ms3 - Essential (primary) hypertension ms3 Forms: - Medication Reconciliation Form ms3 - SBAR form ms3 Signatures: Dispatcher [employer] EDMS Katherine Faye RN RN mw Aashish Villagran, [employer]Cla1 López Funes, DO ms3 Rachael Renee RN RN tp1 Spring Perez RN lg3 Corrections: (The following items were deleted from the chart) 17:27 17:24 Head Brain Wo Cont ordered. EDMS EDMS 20:59 19:01 ms3 mw
--- NOTE | 2022-05-13 19:02 | ER ---
Nurse's Notes [facility] Name: Lazara Lozano Age: 76 yrs Sex: Female : 1945 Arrival Date: 05/13/2022 Time: 16:58 Bed 18 Private MD: Diagnosis: Fall on same level, unspecified;Contusion of scalp, initial encounter;Essential (primary) hypertension Presentation: 05/13 16:55 Chief complaint: EMS states: toned out to PT home for fall. Pt was walking with walker tp1 to restroom and fell, pt did not lose consciousness. reports PT was mild bleeding to back of head. Reports pt CO back of head and right hip pain. PT A/o X1, daughter reports pt is at normal baseline. PT is on xarelto, C-collar applied. 16:55 Ebola Screen: Patient negative for fever greater than or equal to 101.5 degrees tp1 Fahrenheit, and additional compatible Ebola Virus Disease symptoms Patient denies exposure to infectious person. Patient denies travel to an Ebola-affected area in the 21 days before illness onset. Initial Sepsis Screen: Does the patient meet any 2 criteria? No. Patient's initial sepsis screen is negative. Does the patient have a suspected source of infection? No. Patient's initial sepsis screen is negative. Risk Assessment: Do you want to hurt yourself or someone else? Patient reports no desire to harm self or others. Onset of symptoms was May 13, 2022. 16:55 Method Of Arrival: EMS: [facility] tp1 16:55 Acuity: ISAIAH 2 tp1 17:26 Coronavirus screen: Vaccine status: Patient reports receiving the 2nd dose of the covid tp1 vaccine. 21:03 Care prior to arrival: None. Mechanism of Injury: Fall. lg3 Triage Assessment: 16:55 General: Appears in no apparent distress. uncomfortable, Behavior is calm, cooperative. tp1 Pain: Complains of pain in back of neck and right hip Pain began today. EENT: No signs and/or symptoms were reported regarding the EENT system. Neuro: Level of Consciousness is awake, alert, Oriented to person, place, time, situation. Cardiovascular: Capillary refill < 3 seconds in bilateral fingers Patient's skin is warm and dry. Respiratory: Airway is patent Respiratory effort is even, unlabored. GI: Abdomen is flat, non-distended, Abd is soft and non tender. : No signs and/or symptoms were reported regarding the genitourinary system. Derm: Bruising that is bright red, on palmar aspect of left forearm. Musculoskeletal: Circulation, motion, and sensation intact. Historical: - Allergies: 17:26 No Known Allergies; tp1 - Home Meds: 17:26 metformin 500 mg Oral tab 1 tab 2 times per day [Active]; glimepiride 4 mg Oral tab 1 tp1 tab twice a day [Active]; pioglitazone 15 mg Oral tab 1 tab once daily [Active]; losartan 50 mg Oral tab 1 tab 2 times per day [Active]; pravastatin 40 mg Oral tab 1 tab once daily [Active]; escitalopram oxalate 10 mg Oral tab 1 tab once daily [Active]; donepezil 10 mg Oral tab 1 tab once daily [Active]; Xarelto 15 mg Oral tab 1 tab once daily [Active]; metoprolol [Active]; hydrochlorothiazide 12.5 mg Oral tab 1 tab as needed [Active]; cranberry Oral [Active]; aspirin 81 mg Oral chew 1 tab once daily [Active]; Vitamin C Oral [Active]; multivitamin Oral [Active]; iron [Active]; womens probiotic with cranberry [Active]; - PMHx: 17:26 Dementia; depressive disorder; Diabetes - IDDM; Hyperlipidemia; Hypertension; tp1 - PSHx: 17:26 right arm; Right hip; tp1 - Immunization history:: Client reports receiving the 2nd dose of the Covid vaccine. - Social history:: Smoking status: Patient denies any tobacco usage or history of. Screenin:55 Abuse screen: Denies threats or abuse. Denies injuries from another. Nutritional tp1 screening: No deficits noted. Tuberculosis screening: No symptoms or risk factors identified. Fall Risk Fall in past 12 months (25 points). Secondary diagnosis (15 points) dementia, IV access (20 points). Ambulatory Aid- Crutches/Cane/Walker (15 pts). Gait- Normal/Bed Rest/Wheelchair (0 pts) Mental Status- Oriented to own ability (0 pts). Primary Survey: 17:03 NO uncontrolled hemorrhage observed. A: The client is awake and alert. The airway is vg1 patent. The client is alert. Breathing/Chest: Spontaneous respiratory effort, equal unlabored respirations, breath sounds clear bilaterally, regular pattern, symmetrical chest rise and fall. Circulation: Hemorrhage: No external hemorrhage noted. Pulses: palpable right dorsalis pedis artery and left dorsalis pedis artery. Skin temperature: warm. Disability Client is alert. Exposure/Environment: All clothing and personal items were removed. Forensic evidence collection is not deemed to be indicated at this time. Items placed in patient belonging bag. There is no evidence of uncontrolled external bleeding. appears to have a laceration to back of head, bleeding controlled A warming method has been applied: A warm blanket has been provided to the patient. 17:30 Reassessment Alertness and Airway: Awake and alert. The airway is patent. Breathing: vg1 Spontaneous respiratory effort, equal unlabored respirations, breath sounds clear bilaterally, regular pattern with symmetrical chest rise and fall. Respiratory effort Spontaneous Unlabored Breath sounds Clear Circulation: No external hemorrhage noted. Regular and strong central pulse, skin warm/dry/normal color. Color [place]aught[place] Temperature Warm Disability: Alert. Secondary Survey: 17:03 HEENT: Head Other appears to have a laceration to the back of head, bleeding vg1 controlled. Gastrointestinal: No deficits noted. Abdomen is soft, flat. : No deficits noted. Musculoskeletal: Range of motion: limited in right shoulder Reports pain in Right shoulder, head, and neck. Assessment: 16:55 Reassessment: see triage notes. tp1 17:50 Reassessment: Patient appears in no apparent distress at this time. Patient and/or tp1 family updated on plan of care and expected duration. Pain level reassessed. Patient is alert, oriented x 3, equal unlabored respirations, skin warm/dry/pink. CO head pain. PT unable to rate on pain scale. PT resting in bed visiting with daughter. provider notified. 17:50 Reassessment: concern of pt laceration to back of head, new bleeding noted. provider tp1 notified. 18:54 Reassessment: assisted provider with wound care to back of head, hematoma noted, tp1 pressure bandage applied, bleeding under control. pt tolerated well. pt placed in clean gown. perineal care provided. resting comfortably in bed with daughter at bedside. 19:29 General: daughter: Alexis [phone]. lg3 20:34 Reassessment: Patient appears in no apparent distress at this time. No changes from lg3 previously documented assessment. Patient and/or family updated on plan of care and expected duration. Pain level reassessed. Patient is alert, oriented x 3, equal unlabored respirations, skin warm/dry/pink. Patient states feeling better. Patient states symptoms have improved. 21:11 General: attempted to call report. no nurse assigned to pt at this time. . lg3 Vital Signs: 16:55 BP 145 / 72; Pulse 65; Resp 12; Pulse Ox 96% on R/A; Weight 58.51 kg; Height 5 ft. 3 tp1 in. (160.02 cm); 18:00 BP 158 / 70; Pulse 65; Resp 11; Pulse Ox 95% on R/A; tp1 18:58 BP 155 / 66; Pulse 84; Resp 12; Pulse Ox 96% on R/A; tp1 21:05 BP 126 / 68; Pulse 69; Resp 14; Pulse Ox 96% on R/A; lg3 16:55 Body Mass Index 22.85 (58.51 kg, 160.02 cm) tp1 Alfreda Coma Score: 21:04 Eye Response: spontaneous(4). Verbal Response: oriented(5). Motor Response: obeys lg3 commands(6). Total: 15. Trauma Score (Adult): 21:03 Eye Response: spontaneous(1); Verbal Response: oriented(1); Motor Response: obeys lg3 commands(2); Systolic BP: > 89 mm Hg(4); Respiratory Rate: 10 to 29 per min(4); Alfreda Score: 15; Trauma Score: 12 ED Course: 16:55 Arm band placed on. tp1 16:58 Patient arrived in ED. ms3 16:58 López Funes DO is Attending Physician. ms3 17:13 Rachael Renee, RN is Primary Nurse. tp1 17:21 Triage completed. tp1 17:23 Humerus Right XRAY In Process Unspecified. EDMS 17:23 Shoulder Right (2 View) XRAY In Process Unspecified. EDMS 17:35 Head C Spine Mpr Wo Con In Process Unspecified. EDMS 17:51 Inserted saline lock: 22 gauge in left forearm, using aseptic technique. Blood tp1 collected. 19:01 Bernardo Marlow MD is Hospitalizing Provider. ms3 19:31 SARS RAPID Sent. lg3 19:31 SARS RAPID Sent. lg3 21:03 No provider procedures requiring assistance completed. Patient admitted, IV remains in lg3 place. intact, No redness/swelling at site. 21:03 Patient maintains SpO2 saturation greater than 95% on room air. lg3 21:04 Patient has correct armband on for positive identification. Client placed on continuous lg3 cardiac and pulse oximetry monitoring. NIBP monitoring applied. personnel monitor on. Door closed. Noise minimized. Warm blanket given. 21:04 Thermoregulation: warm blanket given to patient. lg3 Administered Medications: 18:09 Drug: morphine 2 mg Route: IVP; Infused Over: 4 mins; Site: left forearm; tp1 19:31 Follow up: Response: No adverse reaction; Marked relief of symptoms lg3 Medication: 21:04 VIS not applicable for this client. lg3 Outcome: 19:01 Decision to Hospitalize by Provider. ms3 21:03 Admitted to Med/surg accompanied by tech, via stretcher, room 414. lg3 21:03 Condition: stable 21:03 Instructed on the need for admit, Demonstrated understanding of instructions. 22:19 Patient's length of stay in the Emergency Department was greater than 2 hours. lg3 22:19 Patient left the ED. lg3 Signatures: Dispatcher [employer] EDMS Spring Perez RN RN lg3 Alea Burr RN RN vg1 López Funes DO DO ms3 Rachael Renee, RN RN tp1 Corrections: (The following items were deleted from the chart) 17:31 16:55 BP 145 / 72; Pulse 65bpm; Resp 12bpm; Pulse Ox 96% RA; tp1 tp1 18:09 17:51 Inserted saline lock: 22 gauge in left wrist, using aseptic technique. Blood tp1 collected. tp1 18:10 18:09 BP 158 / 70; Pulse 65bpm; Resp 11bpm; Pulse Ox 95% RA; tp1 tp1 18:12 17:35 Reassessment Alertness and Airway: Awake and alert. The airway is patent. vg1 Breathing: Spontaneous respiratory effort, equal unlabored respirations, breath sounds clear bilaterally, regular pattern with symmetrical chest rise and fall. Respiratory effort Spontaneous Unlabored Breath sounds Clear Circulation: No external hemorrhage noted. Regular and strong central pulse, skin warm/dry/normal color. Color [place]aughton Temperature Warm Disability: Alert vg1 18:59 18:54 Reassessment: assisted provider with wound care to back of head, hematoma noted, tp1 pressure bandage applied, bleeding under control. tp1
[2022-05-13 19:58] LABS: SARS-CoV-2 Antigen Rapid Res Negative (Negative)
--- NOTE | 2022-05-13 20:04 | P.HP ---
Certification for Inpatient Patient admitted to: Observation With expected LOS: <2 Midnights Patient will require the following post-hospital care: None Practitioner: I am a practitioner with admitting privileges, knowledge of patient current condition, hospital course, and medical plan of care. Services: Services provided to patient in accordance with Admission requirements found in Title 42 Section 412.3 of the Code of Federal Regulations <Aashish Villagran - Last Filed: 05/13/22 19:59> Patient History Date of Service: 05/13/22 Reason for admission: Fall History of Present Illness: 76-year-old female with history of dementia, diabetes mellitus type [id number], hypertension, hyperlipidemia, CKD presents the emergency department after sustaining a fall at home. She lives at home with her daughter and was ambulating with a walker to the restroom when the daughter heard the walker out of another room and came to her bedside. Patient was found lying on the floor she is awake, oriented at her baseline. Patient was noted to have hematoma to the back of her head and was bleeding she also takes blood t hinnersXarelto without reason EMS was called and patient was transferred to the emergency department for evaluation. Patient was evaluated in the emergency department her labs were significant for redemonstration of her CKD 4, hemoglobin 10.[address] scan of the head/C-spine revealed no epidural hematoma, subdural hematoma or subarachnoid hemorrhage seen. A solitary punctate hyperdensity in the right frontal lobe white matter is doubtful as being axonal shearing injury. Advanced atrophy and chronic ischemic changes no evidence for cortical infarction as a trigger event for the fall. Patient maintained at her baseline mental status which is alert, oriented x1-2 with daughter at bedside, given abnormal CT findings and her significant hematoma and fall with use of Xarelto ED read wishes to admit under observation. ED provider did discuss case with general surgery and neurology, neurology recommended obtaining MRI and EEG which have been ordered. - Past Medical/Surgical History Diabetic: Yes -: AFib? -: Hypertension -: hyperlipidema -: Diabetes mellitus type 2 -: Dementia -: CKD -: TNA -: Hysterectomy -: D&C Psychosocial/ Personal History: Patient lives with her daughter at home. - Family History Mother -: Heart disease, Stroke - Social History Smoking Status: Never smoker Alcohol use: No CD- Drugs: No Caffeine use: Yes Place of Residence: Home <PrafuljohnyAashish - Last Filed: 05/13/22 19:59> Date of Service: 05/14/22 <Bernardo Marlow - Last Filed: 05/14/22 22:26> Allergies No Known Allergies Allergy (Verified 12/29/18 08:25) Home Medications: RX: Aspirin 81 mg PO DAILY 09/09/20 RX: Donepezil [Aricept*] 10 mg PO BID 09/09/20 RX: Escitalopram [Lexapro*] 10 mg PO DAILY 09/09/20 RX: Glimepiride [Amaryl*] 4 mg PO BIDWM 09/09/20 RX: Losartan Potassium [Cozaar*] 50 mg PO DAILY 09/09/20 RX: Metformin HCl [Glucophage*] 500 mg PO BIDWM 09/09/20 RX: Pioglitazone [Actos*] 15 mg PO DAILY 09/09/20 RX: Pravastatin Sodium 40 mg PO DAILY 09/09/20 RX: Rivaroxaban [Xarelto*] 15 mg PO DAILY 12/10/21 Ascorbic Acid [Vitamin C] 1 tab PO BID 05/14/22 Ferrous Gluconate [Iron] 1 tab PO DAILY 05/14/22 Lactobacillus Acidophilus [Probiotic] 1 tab PO DAILY 05/14/22 Multivitamin [Multiple Vitamins] 1 tab PO DAILY 05/14/22 RX: Cranberry 1 tab PO BID 05/14/22 RX: Metoprolol Tartrate 1 tab PO DAILY 05/14/22 hydroCHLOROthiazide [Hydrochlorothiazide] 1 tab PO DAILY 05/14/22 Review of Systems Dementia <Aashish Villagran - Last Filed: 05/13/22 19:59> Physical Examination - Physical Exam General: Alert, In no apparent distress, Oriented x1 HEENT: PERRLA, Mucous membr. moist/pink, Other (Large hematoma left posterior scalp areableeding controlled), EOMI, Sclerae nonicteric Neck: Supple, 2+ carotid pulse no bruit, No LAD, Without JVD or thyroid abnormality Respiratory: Clear to auscultation bilaterally, Normal air movement Cardiovascular: Regular rate/rhythm, Normal S1 S2 Gastrointestinal: Normal bowel sounds, No tenderness Musculoskeletal: No tenderness Integumentary: No rashes Neurological: Normal speech, Normal strength at 5/5 x4 extr, Normal tone, Normal affect - Studies Laboratory Data (last 24 hrs) 05/13/22 17:50: WBC 6.00, Hgb 10.5 L, Hct 31.8 L, Plt Count 253 05/13/22 17:50: Sodium 138, Potassium 4.7, BUN 37 H, Creatinine 2.10 H, Glucose 161 H <Aashish Villagran - Last Filed: 05/13/22 19:59> Assessment and Plan - Plan Assessment: Fall, scalp hematoma, abnormal head CT Diabetes mellitus type 2wip-[id number]-wpmqrtdct Hypertension Hyperlipidemia CKD 4 Dementia Plan: Fall, scalp hematoma, abnormal head CT: CT of the head demonstrated solitary punctate hyperdensity in the right frontal lobe white matter, ED provider discussed this with neurology who doubts axonal injury recommendations were for MRI and EEG which has not been ordered. We will hold patient Sergio neurochecks ordered. She is currently at her baseline per daughter [phone]. 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 We will have patient evaluated by physical therapy, she typically uses a walker. She cannot recall the events leading up to her fall but the daughter reports that she was getting up to walk to the bathroom. Diabetes mellitus type 9hns-kdrwzbt-lzhzuailq: ACHS Accu-Chek, sliding scale insulin Hypertension: Continue home medication once verified Hyperlipidemia: Continue home med CKD 4: Creatinine 2.1 close to baseline, continue gentle hydration overnight recheck BMP in the morning, if there is significant worsening we will consult patient's systems spec Dr. Shea. Dementia: Currently at baseline per daughter, oriented x1-2. Fall precautions in place. DVT PPX: SCDs given recent trauma and use of oral anticoagulants Code status: Full Discharge Plan: Home Plan to discharge in: 24 Hours - Advance Directives Does patient have a Living Will: No Does patient have a Durable POA for Healthcare: Yes - Code Status/Comfort Care Code Status Assessed: Yes (Full code) Critical Care: No Time Spent Managing Pts Care (In Minutes): 70 <Aashish Villagran - Last Filed: 05/13/22 19:59> Physician Review: Patient Assessed, Agree with Above Assessment and Plan <Bernardo Marlow - Last Filed: 05/14/22 22:26>
[2022-05-13] MEDS ORDERED: ONDANSETRON 4 MG/2 ML VIAL IV PRN (21:52)
[2022-05-13] MEDS: INSULIN -REGULAR HUMAN 50 UNIT/0.5 ML ML SQ SCH (21:52)
[2022-05-13] MEDS: NA CHLORIDE 0.9% 1,000 ML IV SCH (22:18)
[2022-05-14] MEDS: ACETAMINOPHEN 500 MG TAB PO PRN ×2 (02:30→17:27)
[2022-05-14 06:16] LABS: Absolute Lymphocytes (CBC) 1.6 K/uL (0.7-4.9); Lymphocytes % 23.2 % (15.3-44.8); MCV 90.3 fL (80-100); MPV 8.3 fL (7.6-11.3); RBC Red Blood Cell Count 2.88 M/uL (3.86-4.86)
[2022-05-14 06:37] LABS: Potassium 4.3 mmol/L (3.5-5.1)
[2022-05-14] MEDS: INSULIN -REGULAR HUMAN 50 UNIT/0.5 ML ML SQ SCH ×4 (07:30→21:00)
[2022-05-14] MEDS: NA CHLORIDE 0.9% 1,000 ML IV SCH ×2 (13:12→23:47)
[2022-05-14 15:07] VITALS: BMI 26.9
--- NOTE | 2022-05-14 20:49 | RAD REPORT ---
EXAM DESCRIPTION: MRI - Brain Wo Cont - 05/14/2022 8:29 pm CLINICAL HISTORY: Head injury status post fall COMPARISON: Head CT May 13, 2022 TECHNIQUE: Axial, sagittal, and coronal magnetic resonance images of the brain were obtained. FINDINGS: Abnormal signal within cerebellum, left occipital lobe, left parietal lobe and right front al lobes are compatible with old infarctions. T1 weighted sequences demonstrate curvilinear increased signal within the periphery of the old left posterior cerebral infarct compatible with cortical lami renetta necrosis. CT demonstrated a punctate area of increased density within the right frontal periventricular white m atter compatible with a tiny bleed. This area has low signal on the MRI. Diffusion-weighted/ADC mapping does not reveal evidence of acute infarction. The ventricles are normal caliber. An extra-axial fluid collection is not noted. 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 Punctate bleed unchanged from the prior CT within right frontal periventricular white matter Patient's nurse Moline notified
--- NOTE | 2022-05-14 22:13 | P.PN ---
Subjective Date of Service: 05/14/22 Chief Complaint: Fall Subjective: No new changes No acute events since admission. History is limited by advanced dementia. History was obtained by her daughter, Ms. Espinoza, at bedside. She is alert and oriented x 1 to self, which is baseline per Ms. Espinoza. Review of Systems 10-point ROS is otherwise unremarkable Neurological: Other (advanced dementia) Physical Examination - Vital Signs Temperature: 97.1 F Blood Pressure: 131/68 Pulse: 79 Respirations: 16 Pulse Ox (%): 93 - Physical Exam General: Alert, In no apparent distress, Oriented x1 HEENT: PERRLA, Mucous membr. moist/pink, Other (posterior scalp hematoma), EOMI, Sclerae nonicteric Neck: Supple, JVD not distended Respiratory: Clear to auscultation bilaterally, Normal air movement Cardiovascular: No edema, Regular rate/rhythm, Normal S1 S2, No gallops, No rubs, No murmurs Capillary refill: <2 Seconds Gastrointestinal: Normal bowel sounds, Soft and benign, Non-distended, No tenderness, No rebound, No guarding Musculoskeletal: No clubbing Neurological: Normal speech, Cranial nerves 3-12 intact, Normal affect, Other (neurologic exam is limited by advanced dementia), Dementia Assessment And Plan - Plan # Traumatic Ground-Level Fall complicated by Scalp Hematoma # Solitary Punctate Hyperdensity in Right Frontal Lobe # Advanced Vascular Dementia - CT head = "no epidural hematoma, subdural hematoma or subarachnoid hemorrhage seen. A solitary punctate hyperdensity in the right frontal lobe white matter is doubtful as being axonal shearing injury. Advanced atrophy and chronic ischemic changes. No evidence for a cortical infarction as a trigger event for the fall. Chronic ischemic changes can mask nonhemorrhagic CVA. Cervical spine degenerative changes are present without acute finding seen. " - Neurology consulted and spoke with Dr. Landers - recommendations appreciated - Requested MRI and EEG - Consulted PT - Consulted CM for assistance with Home Health for PT/OT/SN - Possible discharge tomorrow if above studies are unremarkable - Symptomatic control for scalp hematoma - Hold rivaroxaban for now - Possibly on it for atrial fibrillation? # Type II Diabetes Mellitus # Hypertension # Hyperlipidemia - Continue home meds # Chronic Kidney Disease Stage IV - Creatinine near baseline - Monitor creatinine and urine output - Renally dose medications Bernardo Marlow M.D. Discharge Plan: Home (with Home Health) Plan to discharge in: 24 Hours
[2022-05-15 03:32] VITALS: O2SAT 93
[2022-05-15] MEDS: ACETAMINOPHEN 500 MG TAB PO PRN ×2 (07:24→12:41)
[2022-05-15] MEDS: INSULIN -REGULAR HUMAN 50 UNIT/0.5 ML ML SQ SCH ×2 (07:30→11:30)
[2022-05-15 07:40] LABS: Absolute Lymphocytes (CBC) 1.4 K/uL (0.7-4.9); Hematocrit 24.9 % (36.0-45.0); Lymphocytes % 25.5 % (15.3-44.8); MCV 90.4 fL (80-100); MPV 7.7 fL (7.6-11.3); RBC Red Blood Cell Count 2.76 M/uL (3.86-4.86)
[2022-05-15 07:53] LABS: Potassium 3.9 mmol/L (3.5-5.1)
--- NOTE | 2022-05-15 09:31 | CON ---
Reason For Consultation: Consultation called because of a fall. History Of Present Illness: Ms. Lozano is a 76-year-old right-handed patient with dementi a, diabetes mellitus types 2, dyslipidemia, hypertension, who fell at home. The patient lives with h er daughter when apparently, she while ambulating with a walker to the restroom, fell. The daughter found her awake, alert, and was oriented and she did not have tonic or clonic activity, tongue biting , or loss of bowel or bladder control. She noted hematoma on the back of her head with bleeding and she was brought to [facility] for further evaluation and to rule out intracerebral hemorrhag e, especially since she is on Xarelto for atrial fibrillation. Her head CT scan showed no acute isch emic or hemorrhagic change. There was a punctate area of hyperdensity in the right frontal lobe that is unlikely to have been related to her fall. She also had advanced atrophy with chronic small vess el ischemic disease. Again, no acute ischemic or hemorrhagic stroke. She is awaiting MRI and EEG fo r further evaluation as the etiology of her fall. Past Medical History: As noted including chronic renal disease. Past Surgical History: Hysterectomy and D and C. Allergies: NO KNOWN DRUG ALLERGIES. Medications: Aspirin 81 mg daily, donepezil 10 mg at bedtime, Lexapro 10 mg daily, glimepiride 4 mg twice daily, Cozaar 50 mg twice daily, metformin 500 mg twice daily, Xarelto 15 mg daily, Actos 15 mg daily, pravastatin 40 mg daily, and cefpodoxime 100 mg twice daily. Family History: Positive for heart disease and stroke in mother. Social History: No alcohol, tobacco, or IV drug use. The patient lives at home with her daughter. Review of Systems: The patient is not able to give a reliable review of systems. She says she is not sure why she is in the hospital, but does say she lives with her daughter and at 1 point denied any significant pain, d espite the fall on the back of her head. Otherwise, again no reliable review of systems. Physical Examination: Vital Signs: Blood pressure 125/64, pulse 67, respiratory rate 14, temperature 97.8, weight 142 poun ds, height 5 feet 1 inch. General: Ms. Lozano is resting in bed. She is alert and oriented to person and hospital and not davies re of the exact situation. She has decreased verbal fluency, some difficulty following simple comman ds, but no abnormalities in terms of labial, lingual, and guttural sounds. General examination shows no focal deficits. Neurologic: She is again alert. Cranial nerves show no deficits on 2 through 12 motor exam. Diffus e weakness, but no asymmetry is noted in the upper and lower extremities. She has a stocking-glove l oss to light touch and temperature. Reflexes are mildly increased in the upper and lower extremities with symmetric gait. She will be ambulated with a gait belt and the physical therapists will get he r out of bed. Assessment: Ms. Lozano is a 76-year-old patient with dementia and fall of unclear etiology. She stephen s multiple comorbid conditions as noted. The patient has an MRI pending. Blood work did not reveal significant abnormalities except for a mildly low hemoglobin on admission 10.5, after hydration 8.7. Chemistries showed creatinine of 2.1, consistent with dehydration and early stage kidney disease and blood sugars ranged up to 197. COVID-19 was negative. Her risk factors for stroke were present and at this point, given the absence of intracerebral hemorrhage, she should be back on the Xarelto, but on its own except aspirin should be discontinued. Next, once MRI and EEG are done, those will be re viewed and the patient will be followed tomorrow. ISHMAEL/ANGEL Voice ID: [id number] Report ID: [id number]
--- NOTE | 2022-05-15 11:12 | RAD REPORT ---
EXAM DESCRIPTION: CT - Head Brain Wo Cont - 05/15/2022 11:03 am CLINICAL HISTORY: follow-up hyperdensity on prior CT Headache, drowsiness COMPARISON: Head Brain Wo Cont dated 10/08/2021; Brain Wo Cont dated 05/14/2022; Head C Spine Mpr Wo C on dated 05/13/2022 TECHNIQUE: All CT scans are performed using dose optimization technique as appropriate and may inclu de automated exposure control or mA/KV adjustment according to patient size. FINDINGS: Hyperdensity in the right frontal lobe shows no progression or change.Significant brain at rophy is present with moderate chronic microvascular ischemia in the periventricular and deep white m atter. Left occipital gliosis related to old infarct. The paranasal sinuses and mastoids are clear. The calvarium is intact. Moderate posterior scalp hemat chary. IMPRESSION: No suspicious change has occurred since 05/13/2022 study. No progression or new acute abn ormality.
[2022-05-15 12:38] VITALS: BP 137/80; TEMP 97.1
--- NOTE | 2022-05-15 13:12 | P.DS ---
Admission Date: 05/13/22 Discharge Date: 05/15/22 Primary Care Provider: TAYO Arredondo Disposition: ROUTINE DISCHARGE Discharge Condition: GOOD Reason for Admission: Fall Consultations: 1. 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 Lazara Lozano is a pleasant 76 year old female with a past medical history significant for advanced vascular dementia, type II diabetes mellitus, chronic kidney disease stage IV, hypertension, and hyperlipidemia who was admitted to the [facility] on 05/13/2022 for a traumatic ground- level fall. She was admitted to the Medicine service. Upon further evaluation, her CT head revealed, ""no epidural hematoma, subdural hematoma or subarachnoid hemorrhage seen. A solitary punctate hyperdensity in the right frontal lobe white matter is doubtful as being axonal shearing injury. Advanced atrophy and chronic ischemic changes. No evidence for a cortical infarction as a trigger event for the fall. Chronic ischemic changes can mask nonhemorrhagic CVA. Cervical spine degenerative changes are present without acute finding seen." Given these abnormalities, an MRI was obtained, which revealed, "cortical laminar necrosis involving a relatively old left occipital parietal infarct. Punctate bleed unchanged from the prior CT within right frontal periventricular white matter." An electroencephalogram was obtained, and although formal report is pending, I reviewed this with Dr. Landers, who states that there was no epileptiform activity. A repeat CT head was obtained to evaluate this CT abnormality, and this revealed, "no suspicious change has occurred since 05/13/2022 study. No progression or new acute abnormality." Dr. Landers has cleared her for discharge with an outpatient follow-up. In regards to her anticoagulation, she and her daughter, Ms. Espinoza, were advised to hold these medications for now given that she has an acute hematoma and a punctate intracranial hemorrhage. They are aware that holding the rivaroxaban places her at increased risk for venothrombotic events. They will discuss restarting the rivaroxaban in clinic with TAYO Rizvi and Dr. Kitchen once her hematoma has resolved. On 05/15/2022, she was seen on rounds and deemed medically stable for discharge. She was discharged with instructions to schedule follow-up appointments with her PCP (TAYO Rizvi) in 3-5 days, with her Dry Room Operator (Dr. Kitchen) in 5-7 days, and with Neurology (Dr. Landers) in 5-7 days. She and her daughter were given the opportunity to ask questions and reported no further questions. Furthermore, all questions were answered to the best of my ability. A copy of this discharge summary will be sent to the above providers to facilitate continuity of care. Today, I personally spent 25 minutes on her case, of which greater than 50% of the time was spent in patient education, counseling, and coordination of care as described above. - Physical Exam General: Alert, In no apparent distress, Oriented x2 person and place (baseline per daughter, Alexis) HEENT: PERRLA, Mucous membr. moist/pink, Other (left posterior scalp hematoma), EOMI, Sclerae nonicteric Neck: Supple, JVD not distended Respiratory: Clear to auscultation bilaterally, Normal air movement Cardiovascular: No edema, Regular rate/rhythm, Normal S1 S2, No gallops, No rubs, No murmurs Capillary refill: <2 Seconds Gastrointestinal: Normal bowel sounds, Soft and benign, Non-distended, No tenderness, No rebound, No guarding Musculoskeletal: No clubbing Neurological: Normal speech, Cranial nerves 3-12 intact, Normal affect, Other (neurologic exam is limited by advanced dementia), Dementia Vital Signs/Physical Exam: Temp Pulse Resp BP Pulse Ox 97.1 F 90 14 137/80 91 05/15/22 12:00 05/15/22 12:00 05/15/22 12:00 05/15/22 12:00 05/15/22 12:00 Laboratory Data at Discharge: WBC 5.40 K/uL (4.3-10.9) 05/15/22 07:20 Hgb 8.5 g/dL (12.0-15.0) L 05/15/22 07:20 Hct 24.9 % (36.0-45.0) L 05/15/22 07:20 Plt Count 199 K/uL (152-406) 05/15/22 07:20 Sodium 138 mmol/L (136-145) 05/15/22 07:20 Potassium 3.9 mmol/L (3.5-5.1) 05/15/22 07:20 BUN 28 mg/dL (7-18) H 05/15/22 07:20 Creatinine 1.62 mg/dL (0.55-1.3) H 05/15/22 07:20 Glucose 168 mg/dL (74-106) H 05/15/22 07:20 Home Medications: Donepezil [Aricept*] 10 mg PO BID 09/09/20 Escitalopram [Lexapro*] 10 mg PO DAILY 09/09/20 Glimepiride [Amaryl*] 4 mg PO BIDWM 09/09/20 Losartan Potassium [Cozaar*] 50 mg PO DAILY 09/09/20 Metformin HCl [Glucophage*] 500 mg PO BIDWM 09/09/20 Pioglitazone [Actos*] 15 mg PO DAILY 09/09/20 Pravastatin Sodium 40 mg PO DAILY 09/09/20 Ascorbic Acid [Vitamin C] 1 tab PO BID 05/14/22 Cranberry 1 tab PO BID 05/14/22 Ferrous Gluconate [Iron] 1 tab PO DAILY 05/14/22 Lactobacillus Acidophilus [Probiotic] 1 tab PO DAILY 05/14/22 Metoprolol Tartrate 1 tab PO DAILY 05/14/22 Multivitamin [Multiple Vitamins] 1 tab PO DAILY 05/14/22 Physician Discharge Instructions: 1. Please schedule a follow-up appointment with your PCP (TAYO Rizvi) in 3-5 days 2. Please schedule a follow-up appointment with Neurology (Dr. Landers) in 5-7 days 3. Please schedule a follow-up appointment with Cardiology (Dr. Kitchen) in 5-7 days - Please hold your aspirin and Xarelto (rivaroxaban) until you see your PCP - Please do not take any uxsz-wog-inxzztu anti-inflammatory medications - The only safe one you may take is Tylenol (not to exceed 3000 mg within 24 hours) Diet: Regular Activity: Fall precautions Followup: Tanner Rizvi PA [Primary Care Provider] - Oliverio Landers MD [ASSOCIATE-ACTIVE - CAN ADMIT] - Mike Kitchen MD [ACTIVE - CAN ADMIT] - Time spent managing pt's care (in minutes): 25
== END 2022-05-15 15:00 | disposition home health service (06) ==
LOC: ER 16:54 → ERHOLD 19:41 → 4TH 21:36
PROVIDERS: ADMIT Internal Medicine; ATTEND Internal Medicine
DX: S00.03XA Contusion of scalp, initial encounter (principal); W18.39XA Other fall on same level, initial encounter; Y93.01 Activity, walking, marching and hiking; Y92.018 Other place in single-family (private) house as the place of occurrence of the external cause; I12.9 Hypertensive chronic kidney disease with stage 1 through stage 4 chronic kidney disease, or unspecified chronic kidney disease; E11.22 Type 2 diabetes mellitus with diabetic chronic kidney disease; N18.4 Chronic kidney disease, stage 4 (severe); N17.9 Acute kidney failure, unspecified; E78.5 Hyperlipidemia, unspecified; F03.90 Unspecified dementia, unspecified severity, without behavioral disturbance, psychotic disturbance, mood disturbance, and anxiety; R93.0 Abnormal findings on diagnostic imaging of skull and head, not elsewhere classified; Z79.01 Long term (current) use of anticoagulants; Z82.3 Family history of stroke; Z86.711 Personal history of pulmonary embolism; Z86.73 Personal history of transient ischemic attack (TIA), and cerebral infarction without residual deficits
CPT/HCPCS: 95819; 85025 ×3; 80048 ×3; 36415 ×2; 82947 ×7; 70450 ×2; 72125; 73060; 73030; 70551; 96374; 99285; 87811; J2270; J7030 ×3; G0378 ×4

== ENCOUNTER 2023-04-25 16:38 | Inpatient (IN) | payer OTHER ==
--- OUTSIDE RECORDS SUMMARY | 2023-04-25 16:43 | XMS REPORT | Continuity of Care Document ---
:1945 Author Organization [facility] t Address [address] [place] [address] [place] [address] Care Team Providers Name Role Phone PCP, PATIENT DOES NOT HAVE A Primary Care Physician Unavaila ble SHEKHAR MARTIN Attending Clinician Unavailable MATT JACKSON Attending Clinician Unavailable Nuno Polk Attending Clinician Unavailable MICHAEL LUGO Attending Clinician Unavailable Michael Lugo MD Attending Clinician UNKNOWN, ATTENDING Attending Clinician Unavailable Unknown, Attending Attending Clinician Unavailable Doctor Unassigned, [place] Attending Clinician Unavailable MATT JACKSON M.D. Attending Clinician Unavailable Niru Cerna Attending Clinician NIRU PARSON Attending Clinician Unavailable URMILA TAYLOR Attending Clinician Unavailable NAVEED KEYES Attending Clinician Unavailable SHEKHAR MARTIN Admitting Clinician Unavailable AUDREY WONG Admitting Clinician Unavailable Payers Payer Name Policy Type Policy Number Effective Date Expiration Date Juan almeida [facility], 1928–1983 [id number] 2020 MCR HMO 00:00:00 CIGNA HMOPOS SELECT [id number] 2020 2020 PRETP 00:00:00 00:00:00 WELLMED/[facility] MED [id number] 2023 ADVANTAGE CHOICE PPO 00:00:00 [facility]ONTRAVELCHAY [facility] [id number] 2019 2021 00:00:00 00:00:00 Problems Condition Condition Condition Status Onset Resolution Last Treating Co mments Source Name Details Category Date Date Treatment Clinician Date Pain of Pain of Problem Active [facility] right right Physici femur femur ans Status Status Problem Active [facility] post right post right Ph ysici hip hip ans replacemen replacemen t t Allergies, Adverse Reactions, Alerts Allergy Allergy Status Severity Reaction(s) Onset Inactive Treating Comm ents Source Name Type Date Date Clinician No Known DA Active U 2019- [facility] Allergie -05 Clear s 00:00: Hare 00 [facility] No Known DA Active U 2019-0 [facility] Allergie -05 Clear s 00:00: [place] 00 [facility] NO KNOWN Drug Active Univers ALLERGIE Class ity of S [facility] Social History Social Habit Start Date Stop Date Quantity Comments Source Gender identity Universit y [facility] Alcohol intake 2020-06-15 2020-06-15 Lifetime University of 00:00:00 00:00:00 non-drinker [facility] [place] Tobacco use and 2020-01-14 2020-01-14 Smokeless Universit y of exposure 00:00:00 00:00:00 tobacco non-user [facility] History of Social 2019-12-03 2019-12-03 Univers ity of function 00:00:00 00:00:00 [facility] Sex Assigned At [birth year] Universit y of 00:00:00 00:00:00 [facility] Smoking Status Start Date Stop Date Source Never smoked tobacco [facility] Medications Ordered Filled Start Stop Current Ordering Indication Dosage Frequency Signature Comments Components Source Medication Medication Date Date Medication? Clinician (SIG) Name Name sulfamethox 2019-0 Yes TAKE 1 Univ ers azole-trime 3-23 TABLET BY ity of thoprim 00:00: MOUTH [place] 800-160 mg 00 EVERY 12 Medic al per tablet HOURS FOR Bran ch 10 DAYS sulfamethox 2020-0 Yes TAKE 1 Univ ers azole-trime 3-23 TABLET BY ity of thoprim 00:00: MOUTH [place] 800-160 mg 00 EVERY 12 Medic al per tablet HOURS FOR Bran ch 10 DAYS pioglitazon 2020-0 Yes Univer s e 15 mg 2-15 ity of tablet 00:00: [place] 00 [facility] losartan 50 2020-0 Yes Univer s mg tablet 2-15 ity of 00:00: [place] 00 [facility] pioglitazon 2020-0 Yes Univer s e 15 mg 2-15 ity of tablet 00:00: [place] 00 [facility] losartan 50 2020-0 Yes Univer s mg tablet 2-15 ity of 00:00: [place] 00 [facility] glimepiride 2020-0 Yes TAKE 1 Univ ers 4 mg tablet 2-09 TABLET BY ity of 00:00: MOUTH [place] 00 TWICE Medical DAILY FOR Branch 90 DAYS glimepiride 2019-0 Yes TAKE 1 Univ ers 4 mg tablet 2-09 TABLET BY ity of 00:00: MOUTH [place] 00 TWICE Medical DAILY FOR Branch 90 DAYS Procedures Procedure Date / Time Performed Performing Clinician [facility] e CAROTID DUPLEX 2023-03-19 13:55:00 [facility] [place] BILATERAL - BY Medical Branch VASCULAR LAB ASSIGNMENT OF BENEFITS 2023-03-19 13:24:51 Doctor Unassigned, No University [facility] Name Medical Branch [U] XRAY HIP 2020-06-20 00:00:00 [facility] Physician s UNILATERAL MIN 2 VWS RIGHT [id number] Hip 2/3 views uni DX 2020-06-20 00:00:00 [facility] Phys icians [U] XRAY HIP 2020-05-31 00:00:00 [facility] Physician s UNILATERAL MIN 2 VWS RIGHT [id number] Post Op Promis 29 2020-05-30 00:00:00 [facility] Physici ans Survey [id number] 2020-01-24 00:00:00 MOUDA.01 [facility] Anushka Hauser [facility] Plan of Care Planned Activity Planned Date Details Comments Source Future Scheduled 2023-04-18 Influenza Vaccine (#1) [facility] 00:[facility]00 [code = Influenza Medical Ce nter Vaccine (#1)] Future Scheduled 2022-08-[address] [facility] 00:00:00 (12+) [code = Medical Center DEPRESSION SCREENING (12+)] Future Scheduled 2022-08-18 FALLS RISK SCREENING [facility] 00:00:00 [code = FALLS RISK Medical C enter SCREENING] Future Scheduled 2021-08-[address] [facility] [facility] 00:00:00 WELLNESS (YEAR 2 or Medical Center FIRST YEAR if no IPPE) [code = MEDICARE ANNUAL WELLNESS (YEAR 2 or FIRST YEAR if no IPPE)] Future Scheduled 2012 PNEUMOCOCCAL 65+ YRS ([address] [facility] 00:00:00 - PCV) [code = Medical Cente r PNEUMOCOCCAL 65+ YRS (1 - PCV)] Future Scheduled 1997 SHINGLES VACCINES ([address] [facility] 00:00:00 2) [code = SHINGLES Medical Center VACCINES (1 of 2)] Future Scheduled 1966 DTAP/TDAP/TD VACCINES [facility] 00:00:00 (1 - Tdap) [code = Medical C enter DTAP/TDAP/TD VACCINES (1 - Tdap)] Future Scheduled 1965 HEPATITIS C SCREENING [facility] 00:00:00 [code = HEPATITIS C Medical Center SCREENING] Future Scheduled [address] [facility] Test 00:00:00 Counseling and Medical Cente r Screening (12+) [code = Tobacco Cessation Counseling and Screening (12+)] Future Scheduled 1948-03-12 COVID-19 VACCINE (#1) [facility] 00:00:00 [code = COVID-[address] VACCINE (#1)] Future Scheduled 1947 Screening for malignant [facility] 00:00:00 neoplasm of colon Medical Ce nter (procedure) [code = 693346814] Future Scheduled 1947 Screening for malignant [facility] Test 00:00:00 neoplasm of colon Medical Ce nter (procedure) [code = 238529337] Future Scheduled 1945 DXA SCAN [code = DXA [facility] Test 00:00:00 SCAN] Medical Center Future Scheduled 1947 Screening for malignant [facility] Test 00:00:00 neoplasm of colon Medical Ce nter (procedure) [code = 275339216] Future Scheduled 1947 Screening for malignant [facility] Test 00:00:00 neoplasm of colon Medical Ce nter (procedure) [code = 548100358] Future Scheduled 1945 Sigmoidoscopy [code = [facility] 00:00:00 Sigmoidoscopy] Medical Mariana r Future Scheduled 1947 CT Colonography (combo) [facility] Test 00:00:00 [code = CT Colonography [facility] (combo)] Encounters Start End Encounter Admission Attending Care Care Encounter Source Date/Time Date/Time Type Type Clinicians Facility Department ID 2021-05-26 [facility] [id number] [facility] 10:23:08 SHEKHAR 2020-12-23 [facility] [id number] [place] 03:40:42 [facility] 2020-01-21 Inpatient JANEY Guzmán DAYS [id number] [facility] 15:00:[address] 2023-06-06 2023-06-06 [facility] [id number] [facility] 00:00:00 00:00:00 [place] 2023-04-25 2023-04-25 Out[facility] [id number] SLE 00:00:00 00:00:00 [place] 2023-04-17 2023-04-[address] [facility] [id number] 00:[facility] 00[facility]00 [facility] 2023-03-19 2023-03-19 Outpatient R UNKNOWN, [facility] [id number] Univers 08:28:17 23:59:00 ATTENDING darlyn bradley [facility] 2023-03-19 2023-03-19 Hospital Unknown, [facility] [id number] Univers 08:28:17 23:59:00 Encounter Attending CHARLIE [id number] Yoly [id number] [facility] [id number] [address] 2023-03-19 2023-03-19 Orders Doctor OVALLE [id number] [facility] 00:00:00 00:00:00 Only Unassigned, TRACY [id number] ity of [place] [facility] 4.2.7.2.686 Alfredo as [id number] [facility] 009 Branch 2022-07-19 2022-07-19 Historical [facility] [id number] 00:[facility] 00:00:00 Encounter [facility] 2022-07-19 2022-07-19 [facility] [id number] 00:00:00 00:00:00 Only [facility] 2022-07-02 2022-07-02 Outside [facility] [id number] 00:00:00 00:00:00 Orders [facility] 2022-07-02 2022-07-02 Outside [facility] [id number] 00:00[facility]00 00:00:00 Orders [facility] 2020-08-01 2020-08-01 [id number] [place] 10:00:00 10:00:00 t; [facility], POD 3 2020-06-20 2020-06-20 [facility] [id number] [place] 08:30:00 08:30:00 t; [facility] 2020-06-20 2020-06-20 Orders Doctor OVALLE [id number] 00:00:00 00:00:00 Only Unassigned, TR[place]Y [id number] [place] [facility] 4.2.7.2.686 [id number] 2020-06-15 2020-06-15 Office CHERYL Parson [id number] 14:51:12 15:39:19 Visit [facility] [id number] Surgical 4.2.7.2.686 Specialti [id number] [address] 2020-06-15 2020-06-15 Outpatient Stephanie BLANK [facility] [id number] Univers 14:45:00 15:39:19 [facility] 2020-05-24 2020-05-24 ALBA [facility]on [facility] [id number] [place] 15:15:00 15:15:00 t; [facility] 2020-01-18 2020-01-18 Outpatient Stephanie TAYLOR [facility] [id number] Univers 14:40:00 14:40:00 [facility] 2020-01-14 2020-01-14 [facility] [id number] Univers 08:22:20 23:59:00 [facility] 2019-12-31 2019-12-31 [facility] [id number] Univers 08:00:00 08:00:00 [facility] 2019-12-03 2019-12-03 [facility] [id number] Univers 08:00:00 08:00:00 [facility] 2019-11-10 2019-11-10 Outpatient [facility] [id number] Univers 14:00:00 14:00:00 [facility] Results Test Description Test Time Test Comments [...] code = Satisfaction Role:) 45.8 1 N [place] [id number] 13:00:00 Test Item Value Reference Range Interpretation Comments GLUBED (test code = 167 MG/DL 70-110 H Performe d by certified GLUBED) 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 [facility] [id number] 09:47:00 Test Item Value Reference Range Interpretation Comments GLUBED (test code = 149 MG/DL 70-110 H Performe d by certified GLUBED) 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 [facility] BASIC METABOLIC [id number] 08:32:00 Test Item Value Reference Range Interpretation [...] code = 9.4 mg/dL 8.0-10.5 N [place]) [id number] 22:07:00 Test Item Value Reference Range Interpretation Comments GLUBED (test code = 178 MG/DL 70-110 H Performe d by certified GLUBED) 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 [facility] [id number] 18:03:00 Test Item Value Reference Range Interpretation Comments GLUBED (test code = 227 MG/DL 70-110 H Performe d by certified GLUBED) 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 [facility] [id number] 18:03:00 Test Item Value Reference Range Interpretation Comments GLUBED (test code = 206 MG/DL 70-110 H Performe d by certified GLUBED) 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 [facility] [id number] 16:58:00 Test Item Value Reference Range Interpretation Comments GLUBED (test code = 190 MG/DL 70-110 H Performe d by certified GLUBED) 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 [facility] [id number] 09:32:00 Test Item Value Reference Range Interpretation Comments GLUBED (test code = 134 MG/DL 70-110 H Performe d by certified GLUBED) 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 [facility] BASIC METABOLIC [id number] 08:36:00 Test Item Value Reference Range Interpretation [...] code = 9.3 mg/dL 8.0-10.5 N CA) [id number] 22:49:00 Test Item Value Reference Range Interpretation Comments GLUBED (test code = 190 MG/DL 70-110 H Performe d by certified GLUBED) 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 [facility] [id number] 16:45:00 Test Item Value Reference Range Interpretation Comments GLUBED (test code = 224 MG/DL 70-110 H Performe d by certified GLUBED) 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 [facility] [id number] 11:57:00 Test Item Value Reference Range Interpretation Comments GLUBED (test code = 242 MG/DL 70-110 H Performe d by certified GLUBED) 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 [facility] BASIC METABOLIC [id number] 08:33:00 Test Item Value Reference Range Interpretation [...] code = 9.7 mg/dL 8.0-10.5 N CA) [id number] 08:13:00 Test Item Value Reference Range Interpretation Comments GLUBED (test code = 153 MG/DL 70-110 H Performe d by certified GLUBED) 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 [facility] [id number] 08:35:00 Test Item Value Reference Range Interpretation Comments GLUBED (test code = 117 MG/DL 70-110 H Performe d by certified GLUBED) 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 [facility] CBC W/O [id number] 08:13:00 Test Item Value Reference Range Interpretation [...] fL 7.0-9.0 H = MPV) BASIC METABOLIC [id number] 08:12:00 Test Item Value Reference Range Interpretation [...] code = 9.6 mg/dL 8.0-10.5 N CA) [id number] 07:11:00 Test Item Value Reference Range Interpretation Comments GLUBED (test code = 242 MG/DL 70-110 H Performe d by certified GLUBED) 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 [facility] [id number] 07:11:00 Test Item Value Reference Range Interpretation Comments GLUBED (test code = 243 MG/DL 70-110 H Performe d by certified GLUBED) 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 [facility] [id number] 20:58:00 Test Item Value Reference Range Interpretation Comments GLUBED (test code = 182 MG/DL 70-110 H Performe d by certified GLUBED) 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 [facility] [id number] 19:09:00 Test Item Value Reference Range Interpretation Comments GLUBED (test code = 168 MG/DL 70-110 H Performe d by certified GLUBED) 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 [facility] [id number] 08:33:00 Test Item Value Reference Range Interpretation Comments GLUBED (test code = 186 MG/DL 70-110 H Performe d by certified GLUBED) 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 [facility] CBC W/O [id number] 07:35:00 Test Item Value Reference Range Interpretation [...] fL 7.0-9.0 H = MPV) BASIC METABOLIC [id number] 07:23:00 Test Item Value Reference Range Interpretation [...] code = 9.3 mg/dL 8.0-10.5 N CA) [id number] 21:04:00 Test Item Value Reference Range Interpretation Comments GLUBED (test code = 191 MG/DL 70-110 H Performe d by certified GLUBED) 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 [id number] 11:17:00 Test Item Value Reference Range Interpretation Comments GLUBED (test code = 116 MG/DL 70-110 H Performe d by certified GLUBED) 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 - XR FLUOROSCOPY 0-60 [id number] 11:17:00 FAX: Nuno Perkins Jr [phone] [place]: St: ADM Name: CATHERINE RATLIFF [facility] : 1945 Age/S: 74/F [address] [place] [address] Unit #: [id number] Loc: [place] [address] Phys: Nuno Polk Jr, MD Acct: [id number] Dis Date: Status: ADM IN PHONE #: [phone] Exam Date: 01/24/2020 1043 FAX #: [phone] Reason: RIGHT HUMERUS FRACTURE EXAMS: CPT CODE: [id number] XR FLUOROSCOPY 0-60 MIN 14664 Intraprocedural fluoroscopy was provided by the Department of Radiology. Any images obtained were interpreted by the surgeon intraoperatively. FLUOROSCOPY TIME: 13.5 seconds REFERENCE AIR KERMA : 0.45 mGy SL: [id number] at 1117 Reported and signed by: Sonny Driscoll M.D. 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 Novel Coronavirus 2019 [id number] 16:43:00 Test Item Value Reference Range Interpretation Comments Novel Coronavirus 2019 Inhouse (test Negative Negative code = COVNONPUI) - XR CHEST 2 [id number] 16:11:00 FAX: Nuno Perkins Jr [phone] [place]: St: PRE FAX: Francisca Isbell N Name[facility]: 1945 Age/S: 74/F [address] [place] [address] Blvd Unit #: [id number] Loc: [place], [place] [address]Xrbu: Francisca Isbell NP Acct: [id number] Dis Date: Status: PRE [facility] PHONE #: [phone] Exam Date: 01/21/2020 1602 FAX #: [phone] Reason: PRE-OP ORIF EXAMS: CPT CODE: [id number] XR CHEST 2 [id number] EXAM: PA and lateral chest. EXAM DATE: January 21, 2020 CLINICAL HISTORY: PRE-OP ORIF COMPARISON:None Heart size is normal. Atherosclerotic calcifications and tortuosity of the intrathoracic aorta is identified.. Implantable library monitor is identified over the lower left chest region. The lungsappear free of acute disease. Displaced fracture is noted in the proximal right humerus. This finding is not well assessed on this exam. IMPRESSION: 1. No evidence of acute cardiopulmonary disease. 2. Fracture proximal right humerus at 1611 Reported and signed by: Francisca Castellano M.D. CC: Nuno Polk Jr, MD; Francisca Isbell NP Technologist: RT Jose(Stephanie) Trnscrd Date/Time/By: 01/21/2020 (0178) : By: Francesca Orig Print D/T: S: 01/21/2020 (6729) PAGE 1 Signed ReportBASIC METABOLIC [id number] 16:10:00 Test Item Value Reference Range Interpretation [...] 9.4 mg/dL 8.0-10.5 N CA) BASIC METABOLIC [id number] 16:07:00 Test Item Value Reference Range Interpretation [...] CA) 9.4 mg/dL 8.0-10.5 N CBC W/AUTO [id number] 15:53:00 Test Item Value Reference Range Interpretation [...] DIFF REQUIRED (test code NO = MDIFF) Notes Date/Time Note Provider Source 2020-02-07 13:29:00-00:00 [id number] [address] PATIENT NAME: CATHERINE RATLIFF ADMIT DATE: 0 ACCOUNT NO: [id number] ROOM NO: G560 AGE: 74 REPORT TYPE: OPERATIVE REPORT SEX: F ADMITTING PHYSICIAN:Ankit Tyler MD ATTENDING PHYSICIAN:Ankit Tyler MD OPERATION DATE: 01/24/2020 SURGEON: Nuno Polk MD ULTRASOUND MANAGER: RUTH Lerma 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 POSTOPERATIVE DIAGNOSIS: Right humeral shaft fra cture nonunion. PROCEDURE: Right humeral shaft fracture nonunion takedown with open reduction and internal fixation with bone grafting. ANESTHESIA: General anesthesia. INDICATIONS: Ms. Ratliff is a 74-year-old woman, who previously sustained a right proximal humeral shaft fracture, w hich went on to nonunion. Risks versus benefits of surgery were dis cussed with the patient and her daughter in detail. All questions were answered. They voiced understanding of the risks and agreed to proceed. Verbal and written consent were obta ined. PROCEDURE IN DETAIL: The patient was israel en to the operating room at [facility] on 020. The patient's name and surgery were confirmed. Preoperative antibiotics were given. She was pl aced supine on the operating table. General anesthesia was administered by an esthesia personnel. She was then placed in a standard beachchair pos ition. The right shoulder and arm were prepped and draped in usual sterile fashion. Sta ndard extended deltopectoral approach was taken. A deltopectoral appr oach was taken proximally and this was extended into an anterolater al approach of the humeral shaft. Care was taken to protect the radial nerve at all times. Inspection of the fracture site did show a nonunion interposed scar tissue and fibrinous tissue were removed using a rongeur and a curette. Bone voids were bone ssisy richi using [employer] Pro-Dense as well as a Villar [employer] Nephew Actifuse calcium phosphate putty. I also used a OuiCartronic Infuse bone morphogenic pr otein in the fracture site as well to hopefully stimulate bone growth. The bones were then stabilized using a Villar [employer]hew long proximal humeral locking p late. Adequate alignment and reduction was achieved prior to bone grafting. T he incision was thoroughly irrigated by bulb irrigation. The incision was t hen closed in layers. The incision was cleaned and dressed appropr iately. Total estimated blood loss was 50 mL. No immediate postoperative compli cations. She awoke from anesthesia and was extubated without difficulty. She was transf erred to PACU in stable condition. PATIENT NAME: CATHERINE RATLIFF 408 Dictated By: Nuno Polk MD WT: OP:CHRIS/SITA./ALDO Conf#: [id number]/DID#: [id number] Authenticated by Nuno Polk MD On 0 03:58:47 PM at 1559 PATIENT NAME: CATHERINE RATLIFF 408 2020-01-29 13:36:00-00:00 [id number] [place] [address] PATIENT NAME: CATHERINE RATLIFF ADMIT DATE: 01/24/20 ACCOUNT NO: [id number] ROOM NO: G.560 AGE: 74 REPORT TYPE: DISCHARGE SUMMARY SEX: F ADMITTING PHYSICIAN:Ankit Tyler MD ATTENDING PHYSICIAN:Ankit Tyler MD ADMISSION DATE: 01/24/2020 DISCHARGE DATE: 01/29/2020 DISCHARGE DIAGNOSES: 1. Right humerus fracture status post fall, stat us post open reduction and internal fixation. 2. Right humerus pain status post fracture, reso lved. 3. Acute urinary retention, resolved. 4. Confusion secondary to urinary tract infectio n. 5. Urinary tract infection, improved. 6. Hypokalemia, resolved. 7. Orthostatic hypotension secondary to dehydrat ion, resolved. 8. Dehydration, improved with IV fluid and p.o. intake. 9. History of hypertension. 10. History of hyperlipidemia. 11. History of diabetes type 2. REVIEW OF SYSTEMS: All 14-point systems reviewed . HOSPITAL COURSE: This is a 74-year-old female wi th a past medical history of hypertension, hyperlipidemia, and diabetes type 2, came to the Emergency Room status post fall. The patient had a right humeru s fracture. She was under different service initially and then switched to our service due to the insurance. She had a further workup and found to have a UTI, low potassium and hypotension. The patient was on IV fluid, IV ant ibiotic and pain medication. She had physical therapy. At one point, the germaine ent was very dizzy and had episode of urinary retention. Her sympto ms are now resolved and she is looking much better. We will discharge her home on p.o. antibiotic for another 3 days. She will follow with the PCP and surgery. We dis cussed the plan with the patient and her daughter at the bedside and answ ered all their questions and concerns. Dictated By: Sonido Pulido NP for Ankit hinds MD WT: DS:CHRIS/GIANA/ALDO Conf#: [id number]/DID#: [id number] Authenticated by Sonido Pulido On 01/30/2020 07: 30:07 PM Authenticated by Ankit Tyler MD On 020 01:07:39 AM PATIENT NAME: CATHERINE RATLIFF 408 at 0842 Electronically Signed by Sonido Pulido NP on at 0842 PATIENT NAME: CATHERINE RATLIFF 408 2020-01-29 13:35:00-00:00 [facility] ([facility]) Clinical Note REPORT#:[id number] REPORT STATUS: Signed DATE:01/29/20 TIME: 1335 PATIENT: CATHERINE RATLIFF UNIT #: [id number] ROOM/BED: [place] [address] : 47 AGE: 74 SEX: F ATTEND: Ankit Tyler MD ADM AUTHOR: Sonido Pulido NP * ALL edits or amendments must be made on the el ectronic/computer document * Clinical Note Note: DC summary # [id number] Electronically Signed by Sonido Pulido NP on at 1337 RPT #:[id number] END OF REPORT 2020-01-29 13:35:00-00:[address] [facility] ([facility]) Clinical Note REPORT#:[id number] REPORT STATUS: Signed DATE:01/29/20 TIME: 1334 PATIENT: CATHERINE RATLIFF UNIT #: [id number] ROOM/BED: [place] [address] : 47 AGE: 74 SEX: F ATTEND: Ankit Tyler MD ADM AUTHOR: Sonido Pulido NP * ALL edits or amendments must be made on the el ectronic/computer document * Clinical Note Note: DC summary # [id number] Electronically Signed by Sonido Pulido NP on at 1337 at 2018 RPT #:[id number] END OF REPORT 2020-01-29 08:33:00-00:00 [facility] ([facility]) Hospitalist Progress Note REPORT#:[id number] REPORT STATUS: Signed DATE:01/29/20 TIME: 08 PATIENT: CATHERINE RATLIFF UNIT #: [id number] ROOM/BED: [place] [address] : 47 AGE: 74 SEX: F ATTEND: Ankit Tyler MD ADM AUTHOR: Sonido Pulido NP * ALL edits or amendments must be made on the [employer]/computer document * Subjective Chief Complaint: She is feeling better. More awake and alert. Pain is controlled with meds. No bleeding, hematoma from surgical site. No CP, fever, chills. No N/V/D. BP and HR stable. Review of Systems Constitutional: Reports: fatigue, generalized weakness. Respiratory: Denies: NEWBY (dyspnea on exer tion), parox nocturnal dyspnea, pleuritic pain, SOB. Cardiovascular: Denies: chest pain, edema, orthopnea. GI: Denies: abdominal pain, diarrhea, GERD, hemateme sis, hiatal hernia. : Reports: urinary retention. Musculoskeletal: Reports: extremity pain, joint pain. All systems rev neg: except as marked Objective General VS/I O: Vital Signs: Date Time Temp Pulse Resp B/P B/P Pulse O2 O2 F low FiO2 Mean Ox Delivery Rate 01/28 0248 36.9 81 16 147/87 107.3 97 01/27 2301 36.8 96 16 145/80 102.0 94 01/27 2036 37.2 102 16 134/84 100.7 94 01/27 1525 37.1 101 16 129/75 93.1 96 Room air 01/27 1332 37.1 107 16 132/86 101.1 95 Room air 24 hour I O ending at 0700: 01/28 0700 01/27 1900 Intake Total 750.00 Output Total Balance 750.00 Intake, IV 450.00 Intake, Oral 300 Number 1 Incontinent Voids Patient Weight Weight (lb): 126 Weight (oz): 15.78 Weight (kg): 57.153 Medications: Active Meds + DC'd Last 24 Hrs Ceftriaxone Sodium 1,000 MG Q24H IV Sodium Chloride 10 ML Tamsulosin HCl 0.4 MG PC BK PO Docusate Sodium 100 MG BID PO Acetaminophen/Codeine Phosphate 1 TAB Q4H PRN PA N PO Sodium Chloride 1,000 ML .[id number] IV Famotidine 20 MG DAILY PO Pravastatin Sodium 40 MG DAILY@2100 PO Insulin Human Lispro 0 AC HS SUBQ Dextrose/Water 125 ML ASDIR PRN IV Dextrose/Water 250 ML ASDIR PRN IV Glucagon 1 MG ASDIR PRN IM Acetaminophen 650 MG Q4H PRN PRN PO Hydralazine HCl 10 MG Q6H PRN PRN IV Ascorbic Acid 500 MG BID PO Aspirin 81 MG DAILY PO Glimepiride 4 MG BID PO Multivitamins 1 TAB DAILY PO Hydrocodone Bitart/Acetaminophen 1 TAB Q4H PRN P RN PO Morphine Sulfate 4 MG Q3H PRN PRN IV Ondansetron HCl 4 MG Q4H PRN PRN IV Physical Exam General appearance: alert, awake, oriented Head/Eyes: atraumatic, normocephalic, PERRLA Cardiovascular: normal capillary refill, normal heart sounds, regular rate rhythm Respiratory: aerating well, clear to auscultatio n, symmetric expansion Abdomen: non-tender, normal bowel sounds, soft, no distention Genitourinary: no bladder distention, no flank p ain, no barnett Extremities: decreased range of motio (RUE), nor mal capillary refill, no cyanosis, no edema Musculoskeletal: decreased ROM (RUE), no CVA ten derness Neuro/LUMBER TALLIER: alert, oriented X 3, normal speech Considered stroke alert: no Skin: dry, intact, normal color, normal temperat ure, no rash Psychiatry: normal affect, normal judgment/insig ht, normal mood Results Findings/Data: Laboratory Tests 01/28 01/27 01/27 01/27 01/27 0310 2131 1646 1516 1330 Chemistry Sodium (134 - 147 mEq/L) 136 Potassium (3.4 - 5.0 mEq/L) 3.4 Chloride (100 - 108 mEq/L) 105 Carbon Dioxide (21 - 33 mEq/L) 24 Anion Gap (0 - 20) 10 BUN (7 - 18 mg/dL) 17 Creatinine (0.6 - 1.3 mg/dL) 1.2 Glomerular Filtr Rate (70 - 80) 44.2 L Glucose (70 - 110 mg/dL) 153 H POC Glucose (70 - 110 MG/DL) 178 H 190 H 227 H 206 H Calcium (8.0 - 10.5 mg/dL) 9.4 Results: labs reviewed, vital signs stable, curr ent med profile rev'd Treatment Prophylaxis Treatment Prophylaxis Oxygen: nasal cannula Diagnosis, Assessment Plan Hospital course to date: Assessment: - Confusion r/t UTI. - Hypoklaemia- K low. - UTI, UA abnormal. - Orthostatic Hypotension due to Dehydration. - Hypotension r/t Dehydration. - Dehydration, Intake is very poor. - Right humerus fracture status post ORIF right humeral shaft. - Right Humerus pain r/t fracture. - Acute Urinary retention. - History of hypertension - History of hyperlipidemia - History of diabetes mellitus type 2 Plan: Floor. Will replace K. Waiting for Orthostatic VS. Will go home today with HH. IV ABX for UTI. Encourage PO intake. Follow Urine cx. Consult CM for HH. Pain meds. Aggressive PT and OT. Aggressive Pulmonary toilet, IS, deep breath and cough. Postoperative antibiotic per orthopedic surgery Monitor blood sugars closely Low-dose sliding-scale insulin Home meds restarted Diabetic diet Daily labs H2 receptor barb Plan discussed with the patient, daughter, and R N Monitor. Consultants: orthopedics, urology Code status: full code Plan discussed with: patient, admitting physicia n, consultants, nurse Electronically Signed by Sonido Pulido NP on at 0835 RPT #:[id number] END OF REPORT 2020-01-29 08:33:00-00:00 [facility] Hospitalist Progress Note REPORT#:[id number] REPORT STATUS: Signed DATE:01/29/20 TIME: 832 PATIENT: CATHERINE RATLIFF UNIT #: [id number] ROOM/BED: [place] [address] : 47 AGE: 74 SEX: F ATTEND: Ankit Tyler MD ADM AUTHOR: Sonido Pulido NP * ALL edits or amendments must be made on the [facility]/computer document * Sonido Pulido 01/29/20 0833: Subjective Chief Complaint: She is feeling better. More awake and alert. Pain is controlled with meds. No bleeding, hematoma from surgical site. No CP, fever, chills. No N/V/D. BP and HR stable. Review of Systems Constitutional: Reports: fatigue, generalized weakness. Respiratory: Denies: NEWBY (dyspnea on exer tion), parox nocturnal dyspnea, pleuritic pain, SOB. Cardiovascular: Denies: chest pain, edema, orthopnea. GI: Denies: abdominal pain, diarrhea, GERD, hemateme sis, hiatal hernia. : Reports: urinary retention. Musculoskeletal: Reports: extremity pain, joint pain. All systems rev neg: except as marked Objective General VS/I O: Vital Signs: Date Time Temp Pulse Resp B/P B/P Pulse O2 O2 F low FiO2 Mean Ox Delivery Rate 01/28 0248 36.9 81 16 147/87 107.3 97 01/27 2301 36.8 96 16 145/80 102.0 94 01/27 2036 37.2 102 16 134/84 100.7 94 01/27 1525 37.1 101 16 129/75 93.1 96 Room air 01/27 1332 37.1 107 16 132/86 101.1 95 Room air 24 hour I O ending at 0700: 01/28 0700 01/27 1900 Intake Total 750.00 Output Total Balance 750.00 Intake, IV 450.00 Intake, Oral 300 Number 1 Incontinent Voids Patient Weight Weight (lb): 126 Weight (oz): 15.78 Weight (kg): 57.153 Medications: Active Meds + DC'd Last 24 Hrs Ceftriaxone Sodium 1,000 MG Q24H IV Sodium Chloride 10 ML Tamsulosin HCl 0.4 MG PC BK PO Docusate Sodium 100 MG BID PO Acetaminophen/Codeine Phosphate 1 TAB Q4H PRN PA N PO Sodium Chloride 1,000 ML .[id number] IV Famotidine 20 MG DAILY PO Pravastatin Sodium 40 MG DAILY@2100 PO Insulin Human Lispro 0 AC HS SUBQ Dextrose/Water 125 ML ASDIR PRN IV Dextrose/Water 250 ML ASDIR PRN IV Glucagon 1 MG ASDIR PRN IM Acetaminophen 650 MG Q4H PRN PRN PO Hydralazine HCl 10 MG Q6H PRN PRN IV Ascorbic Acid 500 MG BID PO Aspirin 81 MG DAILY PO Glimepiride 4 MG BID PO Multivitamins 1 TAB DAILY PO Hydrocodone Bitart/Acetaminophen 1 TAB Q4H PRN P RN PO Morphine Sulfate 4 MG Q3H PRN PRN IV Ondansetron HCl 4 MG Q4H PRN PRN IV Physical Exam General appearance: alert, awake, oriented Head/Eyes: atraumatic, normocephalic, PERRLA Cardiovascular: normal capillary refill, normal heart sounds, regular rate rhythm Respiratory: aerating well, clear to auscultatio n, symmetric expansion Abdomen: non-tender, normal bowel sounds, soft, no distention Genitourinary: no bladder distention, no flank p ain, no barnett Extremities: decreased range of motio (RUE), nor mal capillary refill, no cyanosis, no edema Musculoskeletal: decreased ROM (RUE), no CVA ten derness Neuro/LUMBER TALLIER: alert, oriented X 3, normal speech Considered stroke alert: no Skin: dry, intact, normal color, normal temperat ure, no rash Psychiatry: normal affect, normal judgment/insig ht, normal mood Results Findings/Data: Laboratory Tests 01/28 01/27 01/27 01/27 01/27 0310 2131 1646 1516 1330 Chemistry Sodium (134 - 147 mEq/L) 136 Potassium (3.4 - 5.0 mEq/L) 3.4 Chloride (100 - 108 mEq/L) 105 Carbon Dioxide (21 - 33 mEq/L) 24 Anion Gap (0 - 20) 10 BUN (7 - 18 mg/dL) 17 Creatinine (0.6 - 1.3 mg/dL) 1.2 Glomerular Filtr Rate (70 - 80) 44.2 L Glucose (70 - 110 mg/dL) 153 H POC Glucose (70 - 110 MG/DL) 178 H 190 H 227 H 206 H Calcium (8.0 - 10.5 mg/dL) 9.4 Results: labs reviewed, vital signs stable, curr ent med profile rev'd Treatment Prophylaxis Treatment Prophylaxis Oxygen: nasal cannula Diagnosis, Assessment Plan Hospital course to date: Assessment: - Confusion r/t UTI. - Hypoklaemia- K low. - UTI, UA abnormal. - Orthostatic Hypotension due to Dehydration. - Hypotension r/t Dehydration. - Dehydration, Intake is very poor. - Right humerus fracture status post ORIF right humeral shaft. - Right Humerus pain r/t fracture. - Acute Urinary retention. - History of hypertension - History of hyperlipidemia - History of diabetes mellitus type 2 Plan: Floor. Will replace K. Waiting for Orthostatic VS. Will go home today with HH. IV ABX for UTI. Encourage PO intake. Follow Urine cx. Consult CM for HH. Pain meds. Aggressive PT and OT. Aggressive Pulmonary toilet, IS, deep breath and cough. Postoperative antibiotic per orthopedic surgery Monitor blood sugars closely Low-dose sliding-scale insulin Home meds restarted Diabetic diet Daily labs H2 receptor barb Plan discussed with the patient, daughter, and R N Monitor. Consultants: orthopedics, urology Code status: full code Plan discussed with: patient, admitting physicia n, consultants, Ankit Turner 02/15/20 2007: Attestations Physician Attestation Reviewed findings plan: Reviewed the findings and plan as documented by [employer] as above reviewed pt seen and examined dw RN Electronically Signed by Sonido Pulido [employer] on at 0835 RPT #:[id number] END OF REPORT 2020-01-29 08:33:00-00:00 [facility] Hospitalist Progress Note REPORT#:[id number] REPORT STATUS: Signed DATE:01/29/20 TIME: 832 PATIENT: CATHERINE RATLIFF UNIT #: [id number] ROOM/BED: [place] [address] : 47 AGE: 74 SEX: F ATTEND: Ankit Tyler MD ADM AUTHOR: Sonido Pulido [employer] * ALL edits or amendments must be made on the [facility]/computer document * Sonido Pulido 01/29/20 0833: Subjective Chief Complaint: She is feeling better. More awake and alert. Pain is controlled with meds. No bleeding, hematoma from surgical site. No CP, fever, chills. No N/V/D. BP and HR stable. Review of Systems Constitutional: Reports: fatigue, generalized weakness. Respiratory: Denies: NEWBY (dyspnea on exer tion), parox nocturnal dyspnea, pleuritic pain, SOB. Cardiovascular: Denies: chest pain, edema, orthopnea. GI: Denies: abdominal pain, diarrhea, GERD, hemateme sis, hiatal hernia. : Reports: urinary retention. Musculoskeletal: Reports: extremity pain, joint pain. All systems rev neg: except as marked Objective General VS/I O: Vital Signs: Date Time Temp Pulse Resp B/P B/P Pulse O2 O2 F low FiO2 Mean Ox Delivery Rate 01/28 0248 36.9 81 16 147/87 107.3 97 01/27 2301 36.8 96 16 145/80 102.0 94 01/27 2036 37.2 102 16 134/84 100.7 94 01/27 1525 37.1 101 16 129/75 93.1 96 Room air 01/27 1332 37.1 107 16 132/86 101.1 95 Room air 24 hour I O ending at 0700: 01/28 0700 01/27 1900 Intake Total 750.00 Output Total Balance 750.00 Intake, IV 450.00 Intake, Oral 300 Number 1 Incontinent Voids Patient Weight Weight (lb): 126 Weight (oz): 15.78 Weight (kg): 57.153 Medications: Active Meds + DC'd Last 24 Hrs Ceftriaxone Sodium 1,000 MG Q24H IV Sodium Chloride 10 ML Tamsulosin HCl 0.4 MG PC BK PO Docusate Sodium 100 MG BID PO Acetaminophen/Codeine Phosphate 1 TAB Q4H PRN PA N PO Sodium Chloride 1,000 ML .[id number] IV Famotidine 20 MG DAILY PO Pravastatin Sodium 40 MG DAILY@2100 PO Insulin Human Lispro 0 AC HS SUBQ Dextrose/Water 125 ML ASDIR PRN IV Dextrose/Water 250 ML ASDIR PRN IV Glucagon 1 MG ASDIR PRN IM Acetaminophen 650 MG Q4H PRN PRN PO Hydralazine HCl 10 MG Q6H PRN PRN IV Ascorbic Acid 500 MG BID PO Aspirin 81 MG DAILY PO Glimepiride 4 MG BID PO Multivitamins 1 TAB DAILY PO Hydrocodone Bitart/Acetaminophen 1 TAB Q4H PRN P RN PO Morphine Sulfate 4 MG Q3H PRN PRN IV Ondansetron HCl 4 MG Q4H PRN PRN IV Physical Exam General appearance: alert, awake, oriented Head/Eyes: atraumatic, normocephalic, PERRLA Cardiovascular: normal capillary refill, normal heart sounds, regular rate rhythm Respiratory: aerating well, clear to auscultatio n, symmetric expansion Abdomen: non-tender, normal bowel sounds, soft, no distention Genitourinary: no bladder distention, no flank p ain, no barnett Extremities: decreased range of motio (RUE), nor mal capillary refill, no cyanosis, no edema Musculoskeletal: decreased ROM (RUE), no CVA ten derness Neuro/LUMBER TALLIER: alert, oriented X 3, normal speech Considered stroke alert: no Skin: dry, intact, normal color, normal temperat ure, no rash Psychiatry: normal affect, normal judgment/insig ht, normal mood Results Findings/Data: Laboratory Tests 01/28 01/27 01/27 01/27 01/27 0310 2131 1646 1516 1330 Chemistry Sodium (134 - 147 mEq/L) 136 Potassium (3.4 - 5.0 mEq/L) 3.4 Chloride (100 - 108 mEq/L) 105 Carbon Dioxide (21 - 33 mEq/L) 24 Anion Gap (0 - 20) 10 BUN (7 - 18 mg/dL) 17 Creatinine (0.6 - 1.3 mg/dL) 1.2 Glomerular Filtr Rate (70 - 80) 44.2 L Glucose (70 - 110 mg/dL) 153 H POC Glucose (70 - 110 MG/DL) 178 H 190 H 227 H 206 H Calcium (8.0 - 10.5 mg/dL) 9.4 Results: labs reviewed, vital signs stable, curr ent med profile rev'd Treatment Prophylaxis Treatment Prophylaxis Oxygen: nasal cannula Diagnosis, Assessment Plan Hospital course to date: Assessment: - Confusion r/t UTI. - Hypoklaemia- K low. - UTI, UA abnormal. - Orthostatic Hypotension due to Dehydration. - Hypotension r/t Dehydration. - Dehydration, Intake is very poor. - Right humerus fracture status post ORIF right humeral shaft. - Right Humerus pain r/t fracture. - Acute Urinary retention. - History of hypertension - History of hyperlipidemia - History of diabetes mellitus type 2 Plan: Floor. Will replace K. Waiting for Orthostatic VS. Will go home today with HH. IV ABX for UTI. Encourage PO intake. Follow Urine cx. Consult CM for HH. Pain meds. Aggressive PT and OT. Aggressive Pulmonary toilet, IS, deep breath and cough. Postoperative antibiotic per orthopedic surgery Monitor blood sugars closely Low-dose sliding-scale insulin Home meds restarted Diabetic diet Daily labs H2 receptor barb Plan discussed with the patient, daughter, and R N Monitor. Consultants: orthopedics, urology Code status: full code Plan discussed with: patient, admitting physicia n, consultants, nurse Ankit Tyler 02/15/20 2007: Attestations Physician Attestation Reviewed findings plan: Reviewed the findings and plan as documented by [employer]PER[employer] as above reviewed pt seen and examined eliana RN Electronically Signed by Sonido Pulido NP on at 0835 at 2017 RPT #:[id number] END OF REPORT 2020-01-28 10:21:00-00:[address] [facility] ([facility]) Hospitalist Progress Note REPORT#:[id number] REPORT STATUS: Signed DATE:01/28/20 TIME: 102 PATIENT: CATHERINE RATLIFF UNIT #: [id number] ROOM/BED: [address]-1 : 47 AGE: 74 SEX: F ATTEND: Ankit Tyler MD ADM AUTHOR: Sonido Pulido [employer] * ALL edits or amendments must be made on the [facility]/computer document * Subjective Chief Complaint: She is more awake and alert. Her Orthostatic VS were positive. She is feeling better. Pain is controlled with meds. No bleeding, hematoma from surgical site. No CP, fever, chills. No N/V/D. BP and HR stable. Review of Systems Constitutional: Reports: fatigue, generalized weakness. Respiratory: Denies: NEWBY (dyspnea on exer tion), parox nocturnal dyspnea, pleuritic pain, SOB. Cardiovascular: Denies: chest pain, edema, orthopnea. GI: Denies: abdominal pain, diarrhea, GERD, hemateme sis, hiatal hernia. : Reports: urinary retention. Musculoskeletal: Reports: extremity pain, joint pain. All systems rev neg: except as marked Objective General VS/I O: Vital Signs: Date Time Temp Pulse Resp B/P B/P Pulse O2 O2 F low FiO2 Mean Ox Delivery Rate 01/27 0718 37.3 102 20 143/85 104.2 95 Room air 01/27 0534 37.0 104 18 120/77 91.2 95 01/26 2350 37.6 111 18 121/76 91.1 95 01/26 1929 36.9 118 18 111/74 86.3 96 Room air 01/26 1929 36.9 118 18 111/74 86.3 96 Room air 01/26 1621 37.2 118 20 129/82 97.5 98 Room air 01/26 1621 37.2 118 20 129/82 97.5 98 Room air 01/26 1154 141 70/46 53.8 01/26 1154 141 70/46 53.8 01/26 1150 126 109/70 83 01/26 1055 36.9 113 20 141/84 103.1 97 Room air 24 hour I O ending at 0700: 01/27 0700 01/26 1900 Intake Total 1900.00 Output Total 500 500 Balance 1400.00 -500 Intake, IV 1200.00 Intake, Oral 700 Output, Urine 500 500 Patient Weight Weight (lb): 126 Weight (oz): 15.78 Weight (kg): 57.153 Medications: Active Meds + DC'd Last 24 Hrs Sodium Chloride 1,000 ML BOLUS ONCE ONE IV (DC) Ceftriaxone Sodium 1,000 MG Q24H IV Sodium Chloride 10 ML Tamsulosin HCl 0.4 MG PC BK PO Docusate Sodium 100 MG BID PO Acetaminophen/Codeine Phosphate 1 TAB Q4H PRN PA N PO Sodium Chloride 1,000 ML .[id number] IV Famotidine 20 MG DAILY PO Pravastatin Sodium 40 MG DAILY@2100 PO Insulin Human Lispro 0 AC HS SUBQ Dextrose/Water 125 ML ASDIR PRN IV Dextrose/Water 250 ML ASDIR PRN IV Glucagon 1 MG ASDIR PRN IM Acetaminophen 650 MG Q4H PRN PRN PO Hydralazine HCl 10 MG Q6H PRN PRN IV Ascorbic Acid 500 MG BID PO Aspirin 81 MG DAILY PO Glimepiride 4 MG BID PO Multivitamins 1 TAB DAILY PO Hydrocodone Bitart/Acetaminophen 1 TAB Q4H PRN P RN PO Morphine Sulfate 4 MG Q3H PRN PRN IV Ondansetron HCl 4 MG Q4H PRN PRN IV Physical Exam General appearance: alert, awake, oriented Head/Eyes: atraumatic, normocephalic, PERRLA Cardiovascular: normal capillary refill, normal heart sounds, regular rate rhythm Respiratory: aerating well, clear to auscultatio n, symmetric expansion Abdomen: non-tender, normal bowel sounds, soft, no distention Genitourinary: no bladder distention, no flank p ain, no barnett Extremities: decreased range of motio (RUE), nor mal capillary refill, no cyanosis, no edema Musculoskeletal: decreased ROM (RUE), no CVA ten derness Neuro/LUMBER TALLIER: alert, oriented X 3, normal speech Considered stroke alert: no Skin: dry, intact, normal color, normal temperat ure, no rash Psychiatry: normal affect, normal judgment/insig ht, normal mood Results Findings/Data: Laboratory Tests 01/27 01/27 01/26 01/26 01/26 0714 0540 2128 1622 1056 Chemistry Sodium (134 - 147 mEq/L) 136 Potassium (3.4 - 5.0 mEq/L) 3.5 Chloride (100 - 108 mEq/L) 105 Carbon Dioxide (21 - 33 mEq/L) 22 Anion Gap (0 - 20) 13 BUN (7 - 18 mg/dL) 20 H Creatinine (0.6 - 1.3 mg/dL) 1.3 Glomerular Filtr Rate (70 - 80) 40.3 L Glucose (70 - 110 mg/dL) 129 H POC Glucose (70 - 110 MG/DL) 134 H 190 H 224 H 242 H Calcium (8.0 - 10.5 mg/dL) 9.3 Results: labs reviewed, vital signs stable, curr ent med profile rev'd Treatment Prophylaxis Treatment Prophylaxis Oxygen: nasal cannula Diagnosis, Assessment Plan Hospital course to date: Assessment: - Confusion r/t UTI. - UTI, UA abnormal. - Orthostatic Hypotension due to Dehydration. - Hypotension r/t Dehydration. - Dehydration, Intake is very poor. - Right humerus fracture status post ORIF right humeral shaft. - Right Humerus pain r/t fracture. - Acute Urinary retention. - History of hypertension - History of hyperlipidemia - History of diabetes mellitus type 2 Plan: Floor. Will go home tomorrow with HH. IV ABX for UTI. Orhtostatic VS. Encourage PO intake. Follow Urine cx. Consult CM for HH. Pain meds. Aggressive PT and OT. Aggressive Pulmonary toilet, IS, deep breath and cough. Postoperative antibiotic per orthopedic surgery Monitor blood sugars closely Low-dose sliding-scale insulin Home meds restarted Diabetic diet Daily labs H2 receptor barb Plan discussed with the patient, daughter, and R N Monitor. Consultants: orthopedics, urology Code status: full code Plan discussed with: patient, admitting physicia n, consultants, nurse Electronically Signed by Sonido Pulido NP on 08/06 at 1023 RPT #:[id number] END OF REPORT 2020-01-28 10:21:00-00:[address] [facility] ([facility]) Hospitalist Progress Note REPORT#:[id number] REPORT STATUS: Signed DATE:01/28/20 TIME: 1021 PATIENT: CATHERINE RATLIFF UNIT #: [id number] ROOM/BED: [facility] : 47 AGE: 74 SEX: F ATTEND: Ankit Tyler MD ADM AUTHOR: Sonido Pulido [employer] * ALL edits or amendments must be made on the [facility]/computer document * Subjective Chief Complaint: She is more awake and alert. Her Orthostatic VS were positive. She is feeling better. Pain is controlled with meds. No bleeding, hematoma from surgical site. No CP, fever, chills. No N/V/D. BP and HR stable. Review of Systems Constitutional: Reports: fatigue, generalized weakness. Respiratory: Denies: NEWBY (dyspnea on exer tion), parox nocturnal dyspnea, pleuritic pain, SOB. Cardiovascular: Denies: chest pain, edema, orthopnea. GI: Denies: abdominal pain, diarrhea, GERD, hemateme sis, hiatal hernia. : Reports: urinary retention. Musculoskeletal: Reports: extremity pain, joint pain. All systems rev neg: except as marked Objective General VS/I O: Vital Signs: Date Time Temp Pulse Resp B/P B/P Pulse O2 O2 F low FiO2 Mean Ox Delivery Rate 01/27 0718 37.3 102 20 143/85 104.2 95 Room air 01/27 0534 37.0 104 18 120/77 91.2 95 01/26 2350 37.6 111 18 121/76 91.1 95 01/26 1929 36.9 118 18 111/74 86.3 96 Room air 01/26 1929 36.9 118 18 111/74 86.3 96 Room air 01/26 1621 37.2 118 20 129/82 97.5 98 Room air 01/26 1621 37.2 118 20 129/82 97.5 98 Room air 01/26 1154 141 70/46 53.8 01/26 1154 141 70/46 53.8 01/26 1150 126 109/70 83 01/26 1055 36.9 113 20 141/84 103.1 97 Room air 24 hour I O ending at 0700: 01/27 0700 01/26 1900 Intake Total 1900.00 Output Total 500 500 Balance 1400.00 -500 Intake, IV 1200.00 Intake, Oral 700 Output, Urine 500 500 Patient Weight Weight (lb): 126 Weight (oz): 15.78 Weight (kg): 57.153 Medications: Active Meds + DC'd Last 24 Hrs Sodium Chloride 1,000 ML BOLUS ONCE ONE IV (DC) Ceftriaxone Sodium 1,000 MG Q24H IV Sodium Chloride 10 ML Tamsulosin HCl 0.4 MG PC BK PO Docusate Sodium 100 MG BID PO Acetaminophen/Codeine Phosphate 1 TAB Q4H PRN PA N PO Sodium Chloride 1,000 ML .[id number] IV Famotidine 20 MG DAILY PO Pravastatin Sodium 40 MG DAILY@2100 PO Insulin Human Lispro 0 AC HS SUBQ Dextrose/Water 125 ML ASDIR PRN IV Dextrose/Water 250 ML ASDIR PRN IV Glucagon 1 MG ASDIR PRN IM Acetaminophen 650 MG Q4H PRN PRN PO Hydralazine HCl 10 MG Q6H PRN PRN IV Ascorbic Acid 500 MG BID PO Aspirin 81 MG DAILY PO Glimepiride 4 MG BID PO Multivitamins 1 TAB DAILY PO Hydrocodone Bitart/Acetaminophen 1 TAB Q4H PRN P RN PO Morphine Sulfate 4 MG Q3H PRN PRN IV Ondansetron HCl 4 MG Q4H PRN PRN IV Physical Exam General appearance: alert, awake, oriented Head/Eyes: atraumatic, normocephalic, PERRLA Cardiovascular: normal capillary refill, normal heart sounds, regular rate rhythm Respiratory: aerating well, clear to auscultatio n, symmetric expansion Abdomen: non-tender, normal bowel sounds, soft, no distention Genitourinary: no bladder distention, no flank p ain, no barnett Extremities: decreased range of motio (RUE), nor mal capillary refill, no cyanosis, no edema Musculoskeletal: decreased ROM (RUE), no CVA ten derness Neuro/LUMBER TALLIER: alert, oriented X 3, normal speech Considered stroke alert: no Skin: dry, intact, normal color, normal temperat ure, no rash Psychiatry: normal affect, normal judgment/insig ht, normal mood Results Findings/Data: Laboratory Tests 01/27 01/27 01/26 01/26 01/26 0714 0540 2128 1622 1056 Chemistry Sodium (134 - 147 mEq/L) 136 Potassium (3.4 - 5.0 mEq/L) 3.5 Chloride (100 - 108 mEq/L) 105 Carbon Dioxide (21 - 33 mEq/L) 22 Anion Gap (0 - 20) 13 BUN (7 - 18 mg/dL) 20 H Creatinine (0.6 - 1.3 mg/dL) 1.3 Glomerular Filtr Rate (70 - 80) 40.3 L Glucose (70 - 110 mg/dL) 129 H POC Glucose (70 - 110 MG/DL) 134 H 190 H 224 H 242 H Calcium (8.0 - 10.5 mg/dL) 9.3 Results: labs reviewed, vital signs stable, curr ent med profile rev'd Treatment Prophylaxis Treatment Prophylaxis Oxygen: nasal cannula Diagnosis, Assessment Plan Hospital course to date: Assessment: - Confusion r/t UTI. - UTI, UA abnormal. - Orthostatic Hypotension due to Dehydration. - Hypotension r/t Dehydration. - Dehydration, Intake is very poor. - Right humerus fracture status post ORIF right humeral shaft. - Right Humerus pain r/t fracture. - Acute Urinary retention. - History of hypertension - History of hyperlipidemia - History of diabetes mellitus type 2 Plan: Floor. Will go home tomorrow with HH. IV ABX for UTI. Orhtostatic VS. Encourage PO intake. Follow Urine cx. Consult CM for HH. Pain meds. Aggressive PT and OT. Aggressive Pulmonary toilet, IS, deep breath and cough. Postoperative antibiotic per orthopedic surgery Monitor blood sugars closely Low-dose sliding-scale insulin Home meds restarted Diabetic diet Daily labs H2 receptor barb Plan discussed with the patient, daughter, and R N Monitor. Consultants: orthopedics, urology Code status: full code Plan discussed with: patient, admitting physicia n, consultants, nurse Electronically Signed by Sonido Pulido NP on 08/06 at 1023 at 2100 RPT #:[id number] END OF REPORT 2020-01-27 16:40:00-00:00 [id number] [address] PATIENT NAME: CATHERINE RATLIFF ADMIT DATE: 01/24/20 ACCOUNT NO: [id number] ROOM NO: [facility] AGE: 74 REPORT TYPE: PROGRESS NOTE SEX: F ADMITTING PHYSICIAN:Ankit Tyler MD ATTENDING PHYSICIAN:Ankit Tyler MD DATE: 01/27/2020 SUBJECTIVE: Ms. Ratliff is postop from right hum erus fracture ORIF with bone graft, somewhat confused. PHYSICAL EXAMINATION: VITAL SIGNS: Afebrile with stable vital signs. NEUROLOGIC: Oriented to person and place, but no t time. GENERAL: She appears comfortable. EXTREMITIES: Dressing is clean, dry, and intact. ASSESSMENT AND DIAGNOSIS: Right humerus open red uction and internal fixation. PLAN: Sling immobilization, PT/OT, DVT prophylax is, pain control, anticipate discharge home when medically cleared. Dictated By: Nuno Polk MD WT: PN:CHRIS/SITA. Conf#: [id number]#: [id number] Authenticated by Nuno Polk MD On 0 01:29:25 PM at 1329 PATIENT NAME: CATHERINE RATLIFF 408 2020-01-27 08:44:00-00:00 [facility] Hospitalist Progress Note REPORT#:[id number] REPORT STATUS: Signed DATE:01/27/20 TIME: 0844 PATIENT: CATHERINE RATLIFF UNIT #: [id number] ROOM/BED: [place] [address] : [birth year] AGE: 74 SEX: F ATTEND: Ankit Tyler MD ADM AUTHOR: Sonido Pulido NP * ALL edits or amendments must be made on the [facility] document * Subjective Chief Complaint: s/P ORIF for right humerus fracture. She had a episode of confusion. Her BP was low Per nurse during therapy. Her pain is controlled with meds. No bleeding, hematoma from surgical site. No CP, fever, chills. No N/V/D. BP and HR stable. Review of Systems Constitutional: Reports: fatigue, generalized weakness. Respiratory: Denies: NEWBY (dyspnea on exer tion), parox nocturnal dyspnea, pleuritic pain, SOB. Cardiovascular: Denies: chest pain, edema, orthopnea. GI: Denies: abdominal pain, diarrhea, GERD, hemateme sis, hiatal hernia. : Reports: urinary retention. Musculoskeletal: Reports: extremity pain, joint pain. All systems rev neg: except as marked Objective General VS/I O: Vital Signs: Date Time Temp Pulse Resp B/P B/P Pulse O2 O2 F low FiO2 Mean Ox Delivery Rate 01/26 726 36.8 114 16 140/84 102.6 96 Room air 01/26 0421 37.1 112 16 144/90 107.9 95 01/25 2246 37.0 106 16 136/86 102.8 96 01/25 2150 113 93 01/25 2015 37.0 118 16 146/91 109.2 95 01/25 1604 36.6 109 20 127/73 91.3 93 Room air 01/25 1137 36.7 107 20 122/76 91.3 95 Room air 24 hour I O ending at 0700: 01/26 0700 01/25 1900 Intake Total Output Total 900 Balance -900 Output, Urine 900 Patient Weight Weight (lb): 126 Weight (oz): 15.78 Weight (kg): 57.153 Medications: Active Meds + DC'd Last 24 Hrs Ceftriaxone Sodium 1,000 MG Q24H IV Sodium Chloride 10 ML Tamsulosin HCl 0.4 MG PC BK PO Docusate Sodium 100 MG BID PO Acetaminophen/Codeine Phosphate 1 TAB Q4H PRN PA N PO Sodium Chloride 1,000 ML .[id number] IV Famotidine 20 MG DAILY PO Pravastatin Sodium 40 MG DAILY@2100 PO Insulin Human Lispro 0 AC HS SUBQ Dextrose/Water 125 ML ASDIR PRN IV Dextrose/Water 250 ML ASDIR PRN IV Glucagon 1 MG ASDIR PRN IM Acetaminophen 650 MG Q4H PRN PRN PO Hydralazine HCl 10 MG Q6H PRN PRN IV Ascorbic Acid 500 MG BID PO Aspirin 81 MG DAILY PO Glimepiride 4 MG BID PO Multivitamins 1 TAB DAILY PO Hydrocodone Bitart/Acetaminophen 1 TAB Q4H PRN P RN PO Morphine Sulfate 4 MG Q3H PRN PRN IV Ondansetron HCl 4 MG Q4H PRN PRN IV Physical Exam General appearance: awake, oriented Head/Eyes: atraumatic, normocephalic, PERRLA Cardiovascular: normal capillary refill, normal heart sounds, regular rate rhythm Respiratory: aerating well, clear to auscultatio n, symmetric expansion Abdomen: non-tender, normal bowel sounds, soft, no distention Genitourinary: no bladder distention, no flank p ain, no barnett Extremities: decreased range of motio (RUE), nor mal capillary refill, no cyanosis, no edema Musculoskeletal: decreased ROM (RUE), no CVA ten derness Neuro/LUMBER TALLIER: alert, oriented X 3, normal speech Considered stroke alert: no Skin: dry, intact, normal color, normal temperat ure, no rash Psychiatry: normal affect, normal judgment/insig ht, normal mood Results Findings/Data: Laboratory Tests 01/26 01/26 01/25 01/25 01/25 0726 0420 2207 1609 1138 Chemistry Sodium (134 - 147 mEq/L) 136 Potassium (3.4 - 5.0 mEq/L) 3.7 Chloride (100 - 108 mEq/L) 100 Carbon Dioxide (21 - 33 mEq/L) 24 Anion Gap (0 - 20) 16 BUN (7 - 18 mg/dL) 23 H Creatinine (0.6 - 1.3 mg/dL) 1.4 H Glomerular Filtr Rate (70 - 80) 37.0 L Glucose (70 - 110 mg/dL) 122 H POC Glucose (70 - 110 MG/DL) 153 H 133 H 265 H 186 H Calcium (8.0 - 10.5 mg/dL) 9.7 Laboratory Tests 01/26 0420 Hematology WBC (4.5 - 11.0 x10 3/uL) 8.64 RBC (3.54 - 5.02 x10 6/uL) 3.03 L Hgb (11.0 - 15.0 g/dL) 9.3 L Hct (33.0 - 45.0 %) 28.7 L MCV (81.0 - 99.0 fL) 94.7 MCH (27.0 - 33.0 pg) 30.7 MCHC (33.0 - 37.0 g/dL) 32.4 L RDW (11.5 - 14.5 %) 12.6 Plt Count (150 - 400 x10 3/uL) 209 MPV (7.0 - 9.0 fL) 11.3 H Neut % (Auto) (56.0 - 77.0 %) 72.8 Lymph % (Auto) (14.0 - 32.0 %) 13.9 L [place] % (Auto) (4.8 - 9.0 %) 10.3 H Eos % (Auto) (0.3 - 3.7 %) 2.2 Baso % (Auto) (0.0 - 2.0 %) 0.5 Neut # (Auto) (2.0 - 7.6 x10 3/uL) 6.29 Lymph # (Auto) (1.0 - 3.8 x10 3/uL) 1.20 [place] # (Auto) (0.1 - 0.8 x10 3/uL) 0.89 H Eos # (Auto) (0.0 - 0.2 x10 3/uL) 0.19 Baso # (Auto) (0.0 - 0.2 x10 3/uL) 0.04 Abs Immat Gran (auto) (0.00 - 0.03 x10 3/uL) 0 .03 Add Manual Diff NO Immature Gran % (0.0 - 2.0 %) 0.3 Nucleated RBC % (0 - 0 %) 0.0 Nucleated RBCs # (Man) (0.0 - 0.1 x10 3/uL) 0.0 0 Laboratory Tests 01/25 1825 Urines Urine Color (YEL/STRAW) YELLOW Urine Appearance (CLEAR) CLEAR Urine pH (5.0 - 7.0) 5.0 Ur Specific [place] (1.005 - 1.030) 1.009 Urine Protein (NEGATIVE) NEGATIVE Urine Glucose (UA) (NEGATIVE) 3+ H Urine Ketones (NEGATIVE) 1+ H Urine Blood (NEGATIVE) NEGATIVE Urine Nitrite (NEGATIVE) NEGATIVE Urine Bilirubin (NEGATIVE) NEGATIVE Urine Urobilinogen (0.2 - 1.0 mg/dL) 0.2 Ur Leukocyte Esterase (NEGATIVE) TRACE H Urine RBC (0 - 3 RBC/HPF) 0-3 Urine WBC (0 - 3 WBC/HPF) 21-50 H Ur Squamous Epith Cells (NONE SEEN /HPF) 0-5 Urine Bacteria (NONE SEEN /HPF) TRACE Results: labs reviewed, vital signs stable, curr ent med profile rev'd Treatment Prophylaxis Treatment Prophylaxis Oxygen: nasal cannula Diagnosis, Assessment Plan Hospital course to date: Assessment: - Confusion r/t UTI. - UTI, UA abnormal. - Hypotension r/t Dehydration. - Dehydration, Intake is very poor. - Right humerus fracture status post ORIF right humeral shaft. - Right Humerus pain r/t fracture. - Acute Urinary retention. - History of hypertension - History of hyperlipidemia - History of diabetes mellitus type 2 Plan: Floor. IV ABX for UTI. Orhtostatic VS. Encourage PO intake. Follow Urine cx. Will go home with HH soon. Consult CM for HH. Pain meds. Aggressive PT and OT. Aggressive Pulmonary toilet, IS, deep breath and cough. Postoperative antibiotic per orthopedic surgery Monitor blood sugars closely Low-dose sliding-scale insulin Home meds restarted Diabetic diet Daily labs H2 receptor barb Plan discussed with the patient, daughter, and R N Monitor. Consultants: orthopedics, urology Code status: full code Plan discussed with: patient, admitting physicia n, consultants, nurse Electronically Signed by Sonido Pulido NP on 07/07 at 0856 RPT #:[id number] END OF REPORT 2020-01-27 08:44:00-00:00 [facility] Hospitalist Progress Note REPORT#:[id number] REPORT STATUS: Signed DATE:01/27/20 TIME: 0844 PATIENT: CATHERINE RATLIFF UNIT #: [id number] ROOM/BED: [place] [address] : 47 AGE: 74 SEX: F ATTEND: Ankit Tyler MD ADM AUTHOR: Sonido Pulido NP * ALL edits or amendments must be made on the [facility]/computer document * See Addendum Subjective Chief Complaint: s/P ORIF for right humerus fracture. She had a episode of confusion. Her BP was low Per nurse during therapy. Her pain is controlled with meds. No bleeding, hematoma from surgical site. No CP, fever, chills. No N/V/D. BP and HR stable. Review of Systems Constitutional: Reports: fatigue, generalized weakness. Respiratory: Denies: NEWBY (dyspnea on exer tion), parox nocturnal dyspnea, pleuritic pain, SOB. Cardiovascular: Denies: chest pain, edema, orthopnea. GI: Denies: abdominal pain, diarrhea, GERD, hemateme sis, hiatal hernia. : Reports: urinary retention. Musculoskeletal: Reports: extremity pain, joint pain. All systems rev neg: except as marked Objective General VS/I O: Vital Signs: Date Time Temp Pulse Resp B/P B/P Pulse O2 O2 F low FiO2 Mean Ox Delivery Rate 01/26 0726 36.8 114 16 140/84 102.6 96 Room air 01/26 0421 37.1 112 16 144/90 107.9 95 01/25 2246 37.0 106 16 136/86 102.8 96 01/25 2150 113 93 01/25 2015 37.0 118 16 146/91 109.2 95 01/25 1604 36.6 109 20 127/73 91.3 93 Room air 01/25 1137 36.7 107 20 122/76 91.3 95 Room air 24 hour I O ending at 0700: 01/26 0700 01/25 1900 Intake Total Output Total 900 Balance -900 Output, Urine 900 Patient Weight Weight (lb): 126 Weight (oz): 15.78 Weight (kg): 57.153 Medications: Active Meds + DC'd Last 24 Hrs Ceftriaxone Sodium 1,000 MG Q24H IV Sodium Chloride 10 ML Tamsulosin HCl 0.4 MG PC BK PO Docusate Sodium 100 MG BID PO Acetaminophen/Codeine Phosphate 1 TAB Q4H PRN PA N PO Sodium Chloride 1,000 ML .[id number] IV Famotidine 20 MG DAILY PO Pravastatin Sodium 40 MG DAILY@2100 PO Insulin Human Lispro 0 AC HS SUBQ Dextrose/Water 125 ML ASDIR PRN IV Dextrose/Water 250 ML ASDIR PRN IV Glucagon 1 MG ASDIR PRN IM Acetaminophen 650 MG Q4H PRN PRN PO Hydralazine HCl 10 MG Q6H PRN PRN IV Ascorbic Acid 500 MG BID PO Aspirin 81 MG DAILY PO Glimepiride 4 MG BID PO Multivitamins 1 TAB DAILY PO Hydrocodone Bitart/Acetaminophen 1 TAB Q4H PRN P RN PO Morphine Sulfate 4 MG Q3H PRN PRN IV Ondansetron HCl 4 MG Q4H PRN PRN IV Physical Exam General appearance: awake, oriented Head/Eyes: atraumatic, normocephalic, PERRLA Cardiovascular: normal capillary refill, normal heart sounds, regular rate rhythm Respiratory: aerating well, clear to auscultatio n, symmetric expansion Abdomen: non-tender, normal bowel sounds, soft, no distention Genitourinary: no bladder distention, no flank p ain, no barnett Extremities: decreased range of motio (RUE), nor mal capillary refill, no cyanosis, no edema Musculoskeletal: decreased ROM (RUE), no CVA ten derness Neuro/LUMBER TALLIER: alert, oriented X 3, normal speech Considered stroke alert: no Skin: dry, intact, normal color, normal temperat ure, no rash Psychiatry: normal affect, normal judgment/insig ht, normal mood Results Findings/Data: Laboratory Tests 01/26 01/26 01/25 01/25 01/25 0726 0420 2207 1609 1138 Chemistry Sodium (134 - 147 mEq/L) 136 Potassium (3.4 - 5.0 mEq/L) 3.7 Chloride (100 - 108 mEq/L) 100 Carbon Dioxide (21 - 33 mEq/L) 24 Anion Gap (0 - 20) 16 BUN (7 - 18 mg/dL) 23 H Creatinine (0.6 - 1.3 mg/dL) 1.4 H Glomerular Filtr Rate (70 - 80) 37.0 L Glucose (70 - 110 mg/dL) 122 H POC Glucose (70 - 110 MG/DL) 153 H 133 H 265 H 186 H Calcium (8.0 - 10.5 mg/dL) 9.7 Laboratory Tests 01/26 0420 Hematology WBC (4.5 - 11.0 x10 3/uL) 8.64 RBC (3.54 - 5.02 x10 6/uL) 3.03 L Hgb (11.0 - 15.0 g/dL) 9.3 L Hct (33.0 - 45.0 %) 28.7 L MCV (81.0 - 99.0 fL) 94.7 MCH (27.0 - 33.0 pg) 30.7 MCHC (33.0 - 37.0 g/dL) 32.4 L RDW (11.5 - 14.5 %) 12.6 Plt Count (150 - 400 x10 3/uL) 209 MPV (7.0 - 9.0 fL) 11.3 H Neut % (Auto) (56.0 - 77.0 %) 72.8 Lymph % (Auto) (14.0 - 32.0 %) 13.9 L [place] % (Auto) (4.8 - 9.0 %) 10.3 H Eos % (Auto) (0.3 - 3.7 %) 2.2 Baso % (Auto) (0.0 - 2.0 %) 0.5 Neut # (Auto) (2.0 - 7.6 x10 3/uL) 6.29 Lymph # (Auto) (1.0 - 3.8 x10 3/uL) 1.20 [place] # (Auto) (0.1 - 0.8 x10 3/uL) 0.89 H Eos # (Auto) (0.0 - 0.2 x10 3/uL) 0.19 Baso # (Auto) (0.0 - 0.2 x10 3/uL) 0.04 Abs Immat Gran (auto) (0.00 - 0.03 x10 3/uL) 0. 03 Add Manual Diff NO Immature Gran % (0.0 - 2.0 %) 0.3 Nucleated RBC % (0 - 0 %) 0.0 Nucleated RBCs # (Man) (0.0 - 0.1 x10 3/uL) 0.0 0 Laboratory Tests 01/25 1825 Urines Urine Color (YEL/STRAW) YELLOW Urine Appearance (CLEAR) CLEAR Urine pH (5.0 - 7.0) 5.0 Ur Specific [place] (1.005 - 1.030) 1.009 Urine Protein (NEGATIVE) NEGATIVE Urine Glucose (UA) (NEGATIVE) 3+ H Urine Ketones (NEGATIVE) 1+ H Urine Blood (NEGATIVE) NEGATIVE Urine Nitrite (NEGATIVE) NEGATIVE Urine Bilirubin (NEGATIVE) NEGATIVE Urine Urobilinogen (0.2 - 1.0 mg/dL) 0.2 Ur Leukocyte Esterase (NEGATIVE) TRACE H Urine RBC (0 - 3 RBC/HPF) 0-3 Urine WBC (0 - 3 WBC/HPF) 21-50 H Ur Squamous Epith Cells (NONE SEEN /HPF) 0-5 Urine Bacteria (NONE SEEN /HPF) TRACE Results: labs reviewed, vital signs stable, curr ent med profile rev'd Treatment Prophylaxis Treatment Prophylaxis Oxygen: nasal cannula Diagnosis, Assessment Plan Hospital course to date: Assessment: - Confusion r/t UTI. - UTI, UA abnormal. - Hypotension r/t Dehydration. - Dehydration, Intake is very poor. - Right humerus fracture status post ORIF right humeral shaft. - Right Humerus pain r/t fracture. - Acute Urinary retention. - History of hypertension - History of hyperlipidemia - History of diabetes mellitus type 2 Plan: Floor. IV ABX for UTI. Orhtostatic VS. Encourage PO intake. Follow Urine cx. Will go home with HH soon. Consult CM for HH. Pain meds. Aggressive PT and OT. Aggressive Pulmonary toilet, IS, deep breath and cough. Postoperative antibiotic per orthopedic surgery Monitor blood sugars closely Low-dose sliding-scale insulin Home meds restarted Diabetic diet Daily labs H2 receptor barb Plan discussed with the patient, daughter, and R N Monitor. Consultants: orthopedics, urology Code status: full code Plan discussed with: patient, admitting physicia n, consultants, nurse Electronically Signed by Sonido Pulido NP on 07/07 at 0856 Addendum 1: 01/27/20 1255 by Sonido Pulido NP fo r Ankit Tyler MD Orthostatic VS positive. Lying 141/84, HR 113, Sitting 109/70, HR 126. St anding in Low 70's. Will transfuse one liter NS bolus. Electronically Signed by Sonido Pulido NP on 07/07 at 1256 RPT #:[id number] END OF REPORT 2020-01-27 08:44:00-00:00 [facility] Hospitalist Progress Note REPORT#:[id number] REPORT STATUS: Signed DATE:01/27/20 TIME: 843 PATIENT: CATHERINE RATLIFF UNIT #: [id number] ROOM/BED: [place] [address] : 47 AGE: 74 SEX: F ATTEND: Ankit Tyler MD ADM AUTHOR: Soniod Pulido NP * ALL edits or amendments must be made on the [employer]/computer document * See Addendum Sonido Pulido 01/27/20 0844: Subjective Chief Complaint: s/P ORIF for right humerus fracture. She had a episode of confusion. Her BP was low Per nurse during therapy. Her pain is controlled with meds. No bleeding, hematoma from surgical site. No CP, fever, chills. No N/V/D. BP and HR stable. Review of Systems Constitutional: Reports: fatigue, generalized weakness. Respiratory: Denies: NEWBY (dyspnea on exer tion), parox nocturnal dyspnea, pleuritic pain, SOB. Cardiovascular: Denies: chest pain, edema, orthopnea. GI: Denies: abdominal pain, diarrhea, GERD, hemateme sis, hiatal hernia. : Reports: urinary retention. Musculoskeletal: Reports: extremity pain, joint pain. All systems rev neg: except as marked Objective General VS/I O: Vital Signs: Date Time Temp Pulse Resp B/P B/P Pulse O2 O2 F low FiO2 Mean Ox Delivery Rate 01/26 726 36.8 114 16 140/84 102.6 96 Room air 01/26 0421 37.1 112 16 144/90 107.9 95 01/25 2246 37.0 106 16 136/86 102.8 96 01/25 2150 113 93 01/25 2015 37.0 118 16 146/91 109.2 95 01/25 1604 36.6 109 20 127/73 91.3 93 Room air 01/25 1137 36.7 107 20 122/76 91.3 95 Room air 24 hour I O ending at 0700: 01/26 0700 01/25 1900 Intake Total Output Total 900 Balance -900 Output, Urine 900 Patient Weight Weight (lb): 126 Weight (oz): 15.78 Weight (kg): 57.153 Medications: Active Meds + DC'd Last 24 Hrs Ceftriaxone Sodium 1,000 MG Q24H IV Sodium Chloride 10 ML Tamsulosin HCl 0.4 MG PC BK PO Docusate Sodium 100 MG BID PO Acetaminophen/Codeine Phosphate 1 TAB Q4H PRN PA N PO Sodium Chloride 1,000 ML .[id number] IV Famotidine 20 MG DAILY PO Pravastatin Sodium 40 MG DAILY@2100 PO Insulin Human Lispro 0 AC HS SUBQ Dextrose/Water 125 ML ASDIR PRN IV Dextrose/Water 250 ML ASDIR PRN IV Glucagon 1 MG ASDIR PRN IM Acetaminophen 650 MG Q4H PRN PRN PO Hydralazine HCl 10 MG Q6H PRN PRN IV Ascorbic Acid 500 MG BID PO Aspirin 81 MG DAILY PO Glimepiride 4 MG BID PO Multivitamins 1 TAB DAILY PO Hydrocodone Bitart/Acetaminophen 1 TAB Q4H PRN P RN PO Morphine Sulfate 4 MG Q3H PRN PRN IV Ondansetron HCl 4 MG Q4H PRN PRN IV Physical Exam General appearance: awake, oriented Head/Eyes: atraumatic, normocephalic, PERRLA Cardiovascular: normal capillary refill, normal heart sounds, regular rate rhythm Respiratory: aerating well, clear to auscultatio n, symmetric expansion Abdomen: non-tender, normal bowel sounds, soft, no distention Genitourinary: no bladder distention, no flank p ain, no barnett Extremities: decreased range of motio (RUE), nor mal capillary refill, no cyanosis, no edema Musculoskeletal: decreased ROM (RUE), no CVA ten derness Neuro/LUMBER TALLIER: alert, oriented X 3, normal speech Considered stroke alert: no Skin: dry, intact, normal color, normal temperat ure, no rash Psychiatry: normal affect, normal judgment/insig ht, normal mood Results Findings/Data: Laboratory Tests 01/26 01/26 01/25 01/25 01/25 0726 0420 2207 1609 1138 Chemistry Sodium (134 - 147 mEq/L) 136 Potassium (3.4 - 5.0 mEq/L) 3.7 Chloride (100 - 108 mEq/L) 100 Carbon Dioxide (21 - 33 mEq/L) 24 Anion Gap (0 - 20) 16 BUN (7 - 18 mg/dL) 23 H Creatinine (0.6 - 1.3 mg/dL) 1.4 H Glomerular Filtr Rate (70 - 80) 37.0 L Glucose (70 - 110 mg/dL) 122 H POC Glucose (70 - 110 MG/DL) 153 H 133 H 265 H 186 H Calcium (8.0 - 10.5 mg/dL) 9.7 Laboratory Tests 01/26 0420 Hematology WBC (4.5 - 11.0 x10 3/uL) 8.64 RBC (3.54 - 5.02 x10 6/uL) 3.03 L Hgb (11.0 - 15.0 g/dL) 9.3 L Hct (33.0 - 45.0 %) 28.7 L MCV (81.0 - 99.0 fL) 94.7 MCH (27.0 - 33.0 pg) 30.7 MCHC (33.0 - 37.0 g/dL) 32.4 L RDW (11.5 - 14.5 %) 12.6 Plt Count (150 - 400 x10 3/uL) 209 MPV (7.0 - 9.0 fL) 11.3 H Neut % (Auto) (56.0 - 77.0 %) 72.8 Lymph % (Auto) (14.0 - 32.0 %) 13.9 L [place] % (Auto) (4.8 - 9.0 %) 10.3 H Eos % (Auto) (0.3 - 3.7 %) 2.2 Baso % (Auto) (0.0 - 2.0 %) 0.5 Neut # (Auto) (2.0 - 7.6 x10 3/uL) 6.29 Lymph # (Auto) (1.0 - 3.8 x10 3/uL) 1.20 [place] # (Auto) (0.1 - 0.8 x10 3/uL) 0.89 H Eos # (Auto) (0.0 - 0.2 x10 3/uL) 0.19 Baso # (Auto) (0.0 - 0.2 x10 3/uL) 0.04 Abs Immat Gran (auto) (0.00 - 0.03 x10 3/uL) 0. 03 Add Manual Diff NO Immature Gran % (0.0 - 2.0 %) 0.3 Nucleated RBC % (0 - 0 %) 0.0 Nucleated RBCs # (Man) (0.0 - 0.1 x10 3/uL) 0.0 0 Laboratory Tests 01/25 1825 Urines Urine Color (YEL/STRAW) YELLOW Urine Appearance (CLEAR) CLEAR Urine pH (5.0 - 7.0) 5.0 Ur Specific [place] (1.005 - 1.030) 1.009 Urine Protein (NEGATIVE) NEGATIVE Urine Glucose (UA) (NEGATIVE) 3+ H Urine Ketones (NEGATIVE) 1+ H Urine Blood (NEGATIVE) NEGATIVE Urine Nitrite (NEGATIVE) NEGATIVE Urine Bilirubin (NEGATIVE) NEGATIVE Urine Urobilinogen (0.2 - 1.0 mg/dL) 0.2 Ur Leukocyte Esterase (NEGATIVE) TRACE H Urine RBC (0 - 3 RBC/HPF) 0-3 Urine WBC (0 - 3 WBC/HPF) 21-50 H Ur Squamous Epith Cells (NONE SEEN /HPF) 0-5 Urine Bacteria (NONE SEEN /HPF) TRACE Results: labs reviewed, vital signs stable, curr ent med profile rev'd Treatment Prophylaxis Treatment Prophylaxis Oxygen: nasal cannula Diagnosis, Assessment Plan Hospital course to date: Assessment: - Confusion r/t UTI. - UTI, UA abnormal. - Hypotension r/t Dehydration. - Dehydration, Intake is very poor. - Right humerus fracture status post ORIF right humeral shaft. - Right Humerus pain r/t fracture. - Acute Urinary retention. - History of hypertension - History of hyperlipidemia - History of diabetes mellitus type 2 Plan: Floor. IV ABX for UTI. Orhtostatic VS. Encourage PO intake. Follow Urine cx. Will go home with HH soon. Consult CM for HH. Pain meds. Aggressive PT and OT. Aggressive Pulmonary toilet, IS, deep breath and cough. Postoperative antibiotic per orthopedic surgery Monitor blood sugars closely Low-dose sliding-scale insulin Home meds restarted Diabetic diet Daily labs H2 receptor barb Plan discussed with the patient, daughter, and R N Monitor. Consultants: orthopedics, urology Code status: full code Plan discussed with: patient, admitting physicia n, consultants, nurse Ankit Tyler 02/15/20 2124: Attestations Physician Attestation Reviewed findings plan: Reviewed the findings and plan as documented by [employer] as above reviewed pt seen and examined dw RN Electronically Signed by Sonido Pulido [employer] on 07/07 at 0856 Addendum 1: 01/27/20 1255 by Sonido Pulido NP fo r Ankit Tyler MD Orthostatic VS positive. Lying 141/84, HR 113, Sitting 109/70, HR 126. St anding in Low 70's. Will transfuse one liter NS bolus. Electronically Signed by Sonido Pulido NP on 07/07 at 1256 RPT #:[id number] END OF REPORT 2020-01-27 08:44:00-00:[address] [facility] ([facility] Hospitalist Progress Note REPORT#:[id number] REPORT STATUS: Signed DATE:01/27/20 TIME: 0844 PATIENT: CATHERINE RATLIFF UNIT #: [id number] ROOM/BED: 560-1 : 47 AGE: 74 SEX: F ATTEND: Ankit Tyler MD ADM AUTHOR: Sonido Pulido [employer] * ALL edits or amendments must be made on the [facility]/computer document * See Addendum Sonido Pulido 01/27/20 0844: Subjective Chief Complaint: s/P ORIF for right humerus fracture. She had a episode of confusion. Her BP was low Per nurse during therapy. Her pain is controlled with meds. No bleeding, hematoma from surgical site. No CP, fever, chills. No N/V/D. BP and HR stable. Review of Systems Constitutional: Reports: fatigue, generalized weakness. Respiratory: Denies: NEWBY (dyspnea on exer tion), parox nocturnal dyspnea, pleuritic pain, SOB. Cardiovascular: Denies: chest pain, edema, orthopnea. GI: Denies: abdominal pain, diarrhea, GERD, hemateme sis, hiatal hernia. : Reports: urinary retention. Musculoskeletal: Reports: extremity pain, joint pain. All systems rev neg: except as marked Objective General VS/I O: Vital Signs: Date Time Temp Pulse Resp B/P B/P Pulse O2 O2 F low FiO2 Mean Ox Delivery Rate 01/26 0726 36.8 114 16 140/84 102.6 96 Room air 01/26 0421 37.1 112 16 144/90 107.9 95 01/25 2246 37.0 106 16 136/86 102.8 96 01/25 2150 113 93 01/25 2015 37.0 118 16 146/91 109.2 95 01/25 1604 36.6 109 20 127/73 91.3 93 Room air 01/25 1137 36.7 107 20 122/76 91.3 95 Room air 24 hour I O ending at 0700: 01/26 0700 01/25 1900 Intake Total Output Total 900 Balance -900 Output, Urine 900 Patient Weight Weight (lb): 126 Weight (oz): 15.78 Weight (kg): 57.153 Medications: Active Meds + DC'd Last 24 Hrs Ceftriaxone Sodium 1,000 MG Q24H IV Sodium Chloride 10 ML Tamsulosin HCl 0.4 MG PC BK PO Docusate Sodium 100 MG BID PO Acetaminophen/Codeine Phosphate 1 TAB Q4H PRN PA N PO Sodium Chloride 1,000 ML .[id number] IV Famotidine 20 MG DAILY PO Pravastatin Sodium 40 MG DAILY@2100 PO Insulin Human Lispro 0 AC HS SUBQ Dextrose/Water 125 ML ASDIR PRN IV Dextrose/Water 250 ML ASDIR PRN IV Glucagon 1 MG ASDIR PRN IM Acetaminophen 650 MG Q4H PRN PRN PO Hydralazine HCl 10 MG Q6H PRN PRN IV Ascorbic Acid 500 MG BID PO Aspirin 81 MG DAILY PO Glimepiride 4 MG BID PO Multivitamins 1 TAB DAILY PO Hydrocodone Bitart/Acetaminophen 1 TAB Q4H PRN P RN PO Morphine Sulfate 4 MG Q3H PRN PRN IV Ondansetron HCl 4 MG Q4H PRN PRN IV Physical Exam General appearance: awake, oriented Head/Eyes: atraumatic, normocephalic, PERRLA Cardiovascular: normal capillary refill, normal heart sounds, regular rate rhythm Respiratory: aerating well, clear to auscultatio n, symmetric expansion Abdomen: non-tender, normal bowel sounds, soft, no distention Genitourinary: no bladder distention, no flank p ain, no barnett Extremities: decreased range of motio (RUE), nor mal capillary refill, no cyanosis, no edema Musculoskeletal: decreased ROM (RUE), no CVA ten derness Neuro/LUMBER TALLIER: alert, oriented X 3, normal speech Considered stroke alert: no Skin: dry, intact, normal color, normal temperat ure, no rash Psychiatry: normal affect, normal judgment/insig ht, normal mood Results Findings/Data: Laboratory Tests 01/26 01/26 01/25 01/25 01/25 0726 0420 2207 1609 1138 Chemistry Sodium (134 - 147 mEq/L) 136 Potassium (3.4 - 5.0 mEq/L) 3.7 Chloride (100 - 108 mEq/L) 100 Carbon Dioxide (21 - 33 mEq/L) 24 Anion Gap (0 - 20) 16 BUN (7 - 18 mg/dL) 23 H Creatinine (0.6 - 1.3 mg/dL) 1.4 H Glomerular Filtr Rate (70 - 80) 37.0 L Glucose (70 - 110 mg/dL) 122 H POC Glucose (70 - 110 MG/DL) 153 H 133 H 265 H 186 H Calcium (8.0 - 10.5 mg/dL) 9.7 Laboratory Tests 01/26 0420 Hematology WBC (4.5 - 11.0 x10 3/uL) 8.64 RBC (3.54 - 5.02 x10 6/uL) 3.03 L Hgb (11.0 - 15.0 g/dL) 9.3 L Hct (33.0 - 45.0 %) 28.7 L MCV (81.0 - 99.0 fL) 94.7 MCH (27.0 - 33.0 pg) 30.7 MCHC (33.0 - 37.0 g/dL) 32.4 L RDW (11.5 - 14.5 %) 12.6 Plt Count (150 - 400 x10 3/uL) 209 MPV (7.0 - 9.0 fL) 11.3 H Neut % (Auto) (56.0 - 77.0 %) 72.8 Lymph % (Auto) (14.0 - 32.0 %) 13.9 L [place] % (Auto) (4.8 - 9.0 %) 10.3 H Eos % (Auto) (0.3 - 3.7 %) 2.2 Baso % (Auto) (0.0 - 2.0 %) 0.5 Neut # (Auto) (2.0 - 7.6 x10 3/uL) 6.29 Lymph # (Auto) (1.0 - 3.8 x10 3/uL) 1.20 [place] # (Auto) (0.1 - 0.8 x10 3/uL) 0.89 H Eos # (Auto) (0.0 - 0.2 x10 3/uL) 0.19 Baso # (Auto) (0.0 - 0.2 x10 3/uL) 0.04 Abs Immat Gran (auto) (0.00 - 0.03 x10 3/uL) 0. 03 Add Manual Diff NO Immature Gran % (0.0 - 2.0 %) 0.3 Nucleated RBC % (0 - 0 %) 0.0 Nucleated RBCs # (Man) (0.0 - 0.1 x10 3/uL) 0.0 0 Laboratory Tests 01/25 1825 Urines Urine Color (YEL/STRAW) YELLOW Urine Appearance (CLEAR) CLEAR Urine pH (5.0 - 7.0) 5.0 Ur Specific [place] (1.005 - 1.030) 1.009 Urine Protein (NEGATIVE) NEGATIVE Urine Glucose (UA) (NEGATIVE) 3+ H Urine Ketones (NEGATIVE) 1+ H Urine Blood (NEGATIVE) NEGATIVE Urine Nitrite (NEGATIVE) NEGATIVE Urine Bilirubin (NEGATIVE) NEGATIVE Urine Urobilinogen (0.2 - 1.0 mg/dL) 0.2 Ur Leukocyte Esterase (NEGATIVE) TRACE H Urine RBC (0 - 3 RBC/HPF) 0-3 Urine WBC (0 - 3 WBC/HPF) 21-50 H Ur Squamous Epith Cells (NONE SEEN /HPF) 0-5 Urine Bacteria (NONE SEEN /HPF) TRACE Results: labs reviewed, vital signs stable, curr ent med profile rev'd Treatment Prophylaxis Treatment Prophylaxis Oxygen: nasal cannula Diagnosis, Assessment Plan Hospital course to date: Assessment: - Confusion r/t UTI. - UTI, UA abnormal. - Hypotension r/t Dehydration. - Dehydration, Intake is very poor. - Right humerus fracture status post ORIF right humeral shaft. - Right Humerus pain r/t fracture. - Acute Urinary retention. - History of hypertension - History of hyperlipidemia - History of diabetes mellitus type 2 Plan: Floor. IV ABX for UTI. Orhtostatic VS. Encourage PO intake. Follow Urine cx. Will go home with HH soon. Consult CM for HH. Pain meds. Aggressive PT and OT. Aggressive Pulmonary toilet, IS, deep breath and cough. Postoperative antibiotic per orthopedic surgery Monitor blood sugars closely Low-dose sliding-scale insulin Home meds restarted Diabetic diet Daily labs H2 receptor barb Plan discussed with the patient, daughter, and R N Monitor. Consultants: orthopedics, urology Code status: full code Plan discussed with: patient, admitting physicia n, consultants, nurse Ankit Tyler 02/15/20 7504: Attestations Physician Attestation Reviewed findings plan: Reviewed the findings and plan as documented by [employer] as above reviewed pt seen and examined eliana GONZALEZ Electronically Signed by Sonido Pulido NP on 07/07 at 0856 at 9198 Addendum 1: 01/27/20 1255 by Tess,Sonido [employer] Orthostatic VS positive. Lying 141/84, HR 113, Sitting 109/70, HR 126. St anding in Low 70's. Will transfuse one liter NS bolus. Electronically Signed by Sonido Pulido NP on 07/07 at 1256 at 2209 RPT #:[id number] END OF REPORT 2020-01-26 09:54:00-00:00 [facility] Hospitalist Progress Note REPORT#:[id number] REPORT STATUS: Signed DATE:01/26/20 TIME: 953 PATIENT: CATHERINE RATLIFF UNIT #: [id number] ROOM/BED: [place] [address] : 47 AGE: 74 SEX: F ATTEND: Ankit Tyler MD ADM AUTHOR: Sonido Pulido [employer] * ALL edits or amendments must be made on the [facility]/computer document * Subjective Chief Complaint: Patient is transfered to our service due to INS. S/P ORIF for right humerus fracture. Her Pain is controlled with meds. Her pain level is 5/10. No bleeding, hematoma from surgical site. No CP, fever, chills. No N/V/D. BP and HR stable. Review of Systems Constitutional: Reports: fatigue, generalized weakness. Respiratory: Denies: NEWBY (dyspnea on exer tion), parox nocturnal dyspnea, pleuritic pain, SOB. Cardiovascular: Denies: chest pain, edema, orthopnea. GI: Denies: abdominal pain, diarrhea, GERD, hemateme sis, hiatal hernia. : Reports: urinary retention. Musculoskeletal: Reports: extremity pain, joint pain. All systems rev neg: except as marked Objective General VS/I O: Vital Signs: Date Time Temp Pulse Resp B/P B/P Pulse O2 O2 F low FiO2 Mean Ox Delivery Rate 01/25 0741 36.8 102 20 131/83 99.2 94 Room air 01/25 0346 36.7 89 15 144/79 100.8 93 Room air 01/24 1956 36.4 84 14 111/69 82.5 93 Room air 01/24 1244 36.4 105 18 96/65 75.2 93 24 hour I O ending at 0700: 06/10 0700 06/09 1900 Intake Total 800.00 Output Total 1050 Balance -250.00 Intake, IV 800.00 Output, Urine 1050 Patient 57.153 kg Weight Patient Weight Weight (lb): 126 Weight (oz): 15.78 Weight (kg): 57.153 Medications: Active Meds + DC'd Last 24 Hrs Tamsulosin HCl 0.4 MG PC BK PO Docusate Sodium 100 MG BID PO Acetaminophen/Codeine Phosphate 1 TAB Q4H PRN PA N PO Sodium Chloride 1,000 ML .[id number] IV Famotidine 20 MG DAILY PO Pravastatin Sodium 40 MG DAILY@2100 PO Metformin HCl 500 MG C BK DIN PO (DC) Insulin Human Lispro 0 AC HS SUBQ Dextrose/Water 125 ML ASDIR PRN IV Dextrose/Water 250 ML ASDIR PRN IV Glucagon 1 MG ASDIR PRN IM Acetaminophen 650 MG Q4H PRN PRN PO Hydralazine HCl 10 MG Q6H PRN PRN IV Ascorbic Acid 500 MG BID PO Aspirin 81 MG DAILY PO Glimepiride 4 MG BID PO Losartan Potassium 50 MG BID PO (DC) Multivitamins 1 TAB DAILY PO Hydrocodone Bitart/Acetaminophen 1 TAB Q4H PRN P RN PO Morphine Sulfate 4 MG Q3H PRN PRN IV Ondansetron HCl 4 MG Q4H PRN PRN IV Sodium Chloride 500 ML .Q24H IV (DC) Physical Exam General appearance: alert, awake, oriented Head/Eyes: atraumatic, normocephalic, PERRLA Cardiovascular: normal capillary refill, normal heart sounds, regular rate rhythm Respiratory: aerating well, clear to auscultatio n, symmetric expansion Abdomen: non-tender, normal bowel sounds, soft, no distention Genitourinary: no bladder distention, no flank p ain, no barnett Extremities: decreased range of motio (RUE), nor mal capillary refill, no cyanosis, no edema Musculoskeletal: decreased ROM (RUE), no CVA ten derness Neuro/LUMBER TALLIER: alert, oriented X 3, normal speech Considered stroke alert: no Skin: dry, intact, normal color, normal temperat ure, no rash Psychiatry: normal affect, normal judgment/insig ht, normal mood Results Findings/Data: Laboratory Tests 01/25 01/25 01/24 01/24 01/24 0742 0350 2046 1833 1241 Chemistry Sodium (134 - 147 mEq/L) 132 L Potassium (3.4 - 5.0 mEq/L) 3.8 Chloride (100 - 108 mEq/L) 98 L Carbon Dioxide (21 - 33 mEq/L) 23 Anion Gap (0 - 20) 15 BUN (7 - 18 mg/dL) 30 H Creatinine (0.6 - 1.3 mg/dL) 1.7 H Glomerular Filtr Rate (70 - 80) 29.5 L Glucose (70 - 110 mg/dL) 113 H POC Glucose (70 - 110 MG/DL) 117 H 182 H 168 H 242 H Calcium (8.0 - 10.5 mg/dL) 9.6 01/24 1240 Chemistry POC Glucose (70 - 110 MG/DL) 243 H Laboratory Tests 01/25 0350 Hematology WBC (4.5 - 11.0 x10 3/uL) 7.10 RBC (3.54 - 5.02 x10 6/uL) 3.04 L Hgb (11.0 - 15.0 g/dL) 9.3 L Hct (33.0 - 45.0 %) 28.3 L MCV (81.0 - 99.0 fL) 93.1 MCH (27.0 - 33.0 pg) 30.6 MCHC (33.0 - 37.0 g/dL) 32.9 L RDW (11.5 - 14.5 %) 12.7 Plt Count (150 - 400 x10 3/uL) 237 MPV (7.0 - 9.0 fL) 10.7 H Results: labs reviewed, vital signs stable, curr ent med profile rev'd Treatment Prophylaxis Treatment Prophylaxis Oxygen: nasal cannula Diagnosis, Assessment Plan Hospital course to date: Assessment: - Right humerus fracture status post ORIF right humeral shaft. - Right Humerus pain r/t fracture. - Acute Urinary retention. - History of hypertension - History of hyperlipidemia - History of diabetes mellitus type 2 Plan: Floor. Consult CM for HH. Pain meds. Aggressive PT and OT. Aggressive Pulmonary toilet, IS, deep breath and cough. Postoperative antibiotic per orthopedic surgery Monitor blood sugars closely Low-dose sliding-scale insulin Home meds restarted Diabetic diet Daily labs H2 receptor barb Plan discussed with the patient, daughter, and R N Monitor. 01/25/20 Had 900 cc of urine in bladder from bladder scan this morning. Urology consulted. Per urology if patient does not void until this evening then Barnett catheter would be placed Creatinine elevated to 2 likely from surgery. 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 Start IV fluids for gentle hydration Avoid all nephrotoxic agents and monitor creatin ine levels closely. Will consider nephrology consult if creatinine contin ues to trend up H H stable postoperatively, continue to monitor closely Postoperative care per orthopedic surgery Pain control PT/OT following Case management following to assist with dischar ge planning Monitor blood sugars closely, currently stable Low-dose sliding-scale insulin Daily labs Start lovenox if okay with orthopedic surgery H2 receptor barb Plan discussed with the patient, daughter, and R N Consultants: orthopedics, urology Code status: full code Plan discussed with: patient, admitting physicia n, consultants, nurse Free Text DxA P Notes Free text DxA P notes: A total of > 35 minutes was spent reviewing resu lts, assessing patient, and counseling patient/daughter/RN on POC. Electronically Signed by Sonido Pulido NP on 06/06 at 0959 RPT #:[id number] END OF REPORT 2020-01-26 09:54:00-00:00 [facility]ACL [facility] ([facility] Hospitalist Progress Note REPORT#:[id number] REPORT STATUS: Signed DATE:01/26/20 TIME: 953 PATIENT: CATHERINE RATLIFF UNIT #: [id number] ROOM/BED: [facility] : 47 AGE: 74 SEX: F ATTEND: Ankit Tyler MD ADM AUTHOR: Sonido Pulido NP * ALL edits or amendments must be made on the [employer]/computer document * Sonido Pulido 01/26/20 0954: Subjective Chief Complaint: Patient is transfered to our service due to INS. S/P ORIF for right humerus fracture. Her Pain is controlled with meds. Her pain level is 5/10. No bleeding, hematoma from surgical site. No CP, fever, chills. No N/V/D. BP and HR stable. Review of Systems Constitutional: Reports: fatigue, generalized weakness. Respiratory: Denies: NEWBY (dyspnea on exer tion), parox nocturnal dyspnea, pleuritic pain, SOB. Cardiovascular: Denies: chest pain, edema, orthopnea. GI: Denies: abdominal pain, diarrhea, GERD, hemateme sis, hiatal hernia. : Reports: urinary retention. Musculoskeletal: Reports: extremity pain, joint pain. All systems rev neg: except as marked Objective General VS/I O: Vital Signs: Date Time Temp Pulse Resp B/P B/P Pulse O2 O2 Flow FiO2 Mean Ox Delivery Rate 01/25 0741 36.8 102 20 131/83 99.2 94 Room air 01/25 0346 36.7 89 15 144/79 100.8 93 Room air 01/24 1956 36.4 84 14 111/69 82.5 93 Room air 01/24 1244 36.4 105 18 96/65 75.2 93 24 hour I O ending at 0700: 01/25 0700 01/24 1900 Intake Total 800.00 Output Total 1050 Balance -250.00 Intake, IV 800.00 Output, Urine 1050 Patient 57.153 kg Weight Patient Weight Weight (lb): 126 Weight (oz): 15.78 Weight (kg): 57.153 Medications: Active Meds + DC'd Last 24 Hrs Tamsulosin HCl 0.4 MG PC BK PO Docusate Sodium 100 MG BID PO Acetaminophen/Codeine Phosphate 1 TAB Q4H PRN PA N PO Sodium Chloride 1,000 ML .[id number] IV Famotidine 20 MG DAILY PO Pravastatin Sodium 40 MG DAILY@2100 PO Metformin HCl 500 MG C BK DIN PO (DC) Insulin Human Lispro 0 AC HS SUBQ Dextrose/Water 125 ML ASDIR PRN IV Dextrose/Water 250 ML ASDIR PRN IV Glucagon 1 MG ASDIR PRN IM Acetaminophen 650 MG Q4H PRN PRN PO Hydralazine HCl 10 MG Q6H PRN PRN IV Ascorbic Acid 500 MG BID PO Aspirin 81 MG DAILY PO Glimepiride 4 MG BID PO Losartan Potassium 50 MG BID PO (DC) Multivitamins 1 TAB DAILY PO Hydrocodone Bitart/Acetaminophen 1 TAB Q4H PRN P RN PO Morphine Sulfate 4 MG Q3H PRN PRN IV Ondansetron HCl 4 MG Q4H PRN PRN IV Sodium Chloride 500 ML .Q24H IV (DC) Physical Exam General appearance: alert, awake, oriented Head/Eyes: atraumatic, normocephalic, PERRLA Cardiovascular: normal capillary refill, normal heart sounds, regular rate rhythm Respiratory: aerating well, clear to auscultatio n, symmetric expansion Abdomen: non-tender, normal bowel sounds, soft, no distention Genitourinary: no bladder distention, no flank p ain, no barnett Extremities: decreased range of motio (RUE), nor mal capillary refill, no cyanosis, no edema Musculoskeletal: decreased ROM (RUE), no CVA ten derness Neuro/LUMBER TALLIER: alert, oriented X 3, normal speech Considered stroke alert: no Skin: dry, intact, normal color, normal temperat ure, no rash Psychiatry: normal affect, normal judgment/insig ht, normal mood Results Findings/Data: Laboratory Tests 01/25 01/25 01/24 01/24 01/24 0742 0350 2046 1833 1241 Chemistry Sodium (134 - 147 mEq/L) 132 L Potassium (3.4 - 5.0 mEq/L) 3.8 Chloride (100 - 108 mEq/L) 98 L Carbon Dioxide (21 - 33 mEq/L) 23 Anion Gap (0 - 20) 15 BUN (7 - 18 mg/dL) 30 H Creatinine (0.6 - 1.3 mg/dL) 1.7 H Glomerular Filtr Rate (70 - 80) 29.5 L Glucose (70 - 110 mg/dL) 113 H POC Glucose (70 - 110 MG/DL) 117 H 182 H 168 H 242 H Calcium (8.0 - 10.5 mg/dL) 9.6 01/24 1240 Chemistry POC Glucose (70 - 110 MG/DL) 243 H Laboratory Tests 01/25 0350 Hematology WBC (4.5 - 11.0 x10 3/uL) 7.10 RBC (3.54 - 5.02 x10 6/uL) 3.04 L Hgb (11.0 - 15.0 g/dL) 9.3 L Hct (33.0 - 45.0 %) 28.3 L MCV (81.0 - 99.0 fL) 93.1 MCH (27.0 - 33.0 pg) 30.6 MCHC (33.0 - 37.0 g/dL) 32.9 L RDW (11.5 - 14.5 %) 12.7 Plt Count (150 - 400 x10 3/uL) 237 MPV (7.0 - 9.0 fL) 10.7 H Results: labs reviewed, vital signs stable, curr ent med profile rev'd Treatment Prophylaxis Treatment Prophylaxis Oxygen: nasal cannula Diagnosis, Assessment Plan Hospital course to date: Assessment: - Right humerus fracture status post ORIF right humeral shaft. - Right Humerus pain r/t fracture. - Acute Urinary retention. - History of hypertension - History of hyperlipidemia - History of diabetes mellitus type 2 Plan: Floor. Consult CM for HH. Pain meds. Aggressive PT and OT. Aggressive Pulmonary toilet, IS, deep breath and cough. Postoperative antibiotic per orthopedic surgery Monitor blood sugars closely Low-dose sliding-scale insulin Home meds restarted Diabetic diet Daily labs H2 receptor barb Plan discussed with the patient, daughter, and R N Monitor. 01/25/20 Had 900 cc of urine in bladder from bladder scan this morning. Urology consulted. Per urology if patient does not void until this evening then Barnett catheter would be placed Creatinine elevated to 2 likely from surgery. 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 Start IV fluids for gentle hydration Avoid all nephrotoxic agents and monitor creatin ine levels closely. Will consider nephrology consult if creatinine contin ues to trend up H H stable postoperatively, continue to monitor closely Postoperative care per orthopedic surgery Pain control PT/OT following Case management following to assist with dischar ge planning Monitor blood sugars closely, currently stable Low-dose sliding-scale insulin Daily labs Start lovenox if okay with orthopedic surgery H2 receptor barb Plan discussed with the patient, daughter, and R N Consultants: orthopedics, urology Code status: full code Plan discussed with: patient, admitting physicia n, consultants, nurse Free Text DxA P Notes Free text DxA P notes: A total of > 35 minutes was spent reviewing resu lts, assessing patient, and counseling patient/daughter/RN on POC. Ankit Tyler 02/15/20 2240: Attestations Physician Attestation Reviewed findings plan: Reviewed the findings and plan as documented by [employer] as above reviewed pt seen and examined dw RN Electronically Signed by Sonido Pulido [employer] on 06/06 at 0959 RPT #:[id number] END OF REPORT 2020-01-26 09:54:00-00:00 [facility] Hospitalist Progress Note REPORT#:[id number] REPORT STATUS: Signed DATE:01/26/20 TIME: 953 PATIENT: CATHERINE RATLIFF UNIT #: [id number] ROOM/BED: [place] [address] : 47 AGE: 74 SEX: F ATTEND: Ankit Tyler MD ADM AUTHOR: Sonido Pulido NP * ALL edits or amendments must be made on the [facility]/computer document * Sonido Pulido 01/26/20 0954: Subjective Chief Complaint: Patient is transfered to our service due to INS. S/P ORIF for right humerus fracture. Her Pain is controlled with meds. Her pain level is 5/10. No bleeding, hematoma from surgical site. No CP, fever, chills. No N/V/D. BP and HR stable. Review of Systems Constitutional: Reports: fatigue, generalized weakness. Respiratory: Denies: NEWBY (dyspnea on exer tion), parox nocturnal dyspnea, pleuritic pain, SOB. Cardiovascular: Denies: chest pain, edema, orthopnea. GI: Denies: abdominal pain, diarrhea, GERD, hemateme sis, hiatal hernia. : Reports: urinary retention. Musculoskeletal: Reports: extremity pain, joint pain. All systems rev neg: except as marked Objective General VS/I O: Vital Signs: Date Time Temp Pulse Resp B/P B/P Pulse O2 O2 Flow FiO2 Mean Ox Delivery Rate 01/25 0741 36.8 102 20 131/83 99.2 94 Room air 01/25 0346 36.7 89 15 144/79 100.8 93 Room air 01/24 1956 36.4 84 14 111/69 82.5 93 Room air 01/24 1244 36.4 105 18 96/65 75.2 93 24 hour I O ending at 0700: 01/25 0700 01/24 1900 Intake Total 800.00 Output Total 1050 Balance -250.00 Intake, IV 800.00 Output, Urine 1050 Patient 57.153 kg Weight Patient Weight Weight (lb): 126 Weight (oz): 15.78 Weight (kg): 57.153 Medications: Active Meds + DC'd Last 24 Hrs Tamsulosin HCl 0.4 MG PC BK PO Docusate Sodium 100 MG BID PO Acetaminophen/Codeine Phosphate 1 TAB Q4H PRN PA N PO Sodium Chloride 1,000 ML .[id number] IV Famotidine 20 MG DAILY PO Pravastatin Sodium 40 MG DAILY@2100 PO Metformin HCl 500 MG C BK DIN PO (DC) Insulin Human Lispro 0 AC HS SUBQ Dextrose/Water 125 ML ASDIR PRN IV Dextrose/Water 250 ML ASDIR PRN IV Glucagon 1 MG ASDIR PRN IM Acetaminophen 650 MG Q4H PRN PRN PO Hydralazine HCl 10 MG Q6H PRN PRN IV Ascorbic Acid 500 MG BID PO Aspirin 81 MG DAILY PO Glimepiride 4 MG BID PO Losartan Potassium 50 MG BID PO (DC) Multivitamins 1 TAB DAILY PO Hydrocodone Bitart/Acetaminophen 1 TAB Q4H PRN P RN PO Morphine Sulfate 4 MG Q3H PRN PRN IV Ondansetron HCl 4 MG Q4H PRN PRN IV Sodium Chloride 500 ML .Q24H IV (DC) Physical Exam General appearance: alert, awake, oriented Head/Eyes: atraumatic, normocephalic, PERRLA Cardiovascular: normal capillary refill, normal heart sounds, regular rate rhythm Respiratory: aerating well, clear to auscultatio n, symmetric expansion Abdomen: non-tender, normal bowel sounds, soft, no distention Genitourinary: no bladder distention, no flank p ain, no barnett Extremities: decreased range of motio (RUE), nor mal capillary refill, no cyanosis, no edema Musculoskeletal: decreased ROM (RUE), no CVA ten derness Neuro/LUMBER TALLIER: alert, oriented X 3, normal speech Considered stroke alert: no Skin: dry, intact, normal color, normal temperat ure, no rash Psychiatry: normal affect, normal judgment/insig ht, normal mood Results Findings/Data: Laboratory Tests 0601/25 0742 0350 2046 1833 1241 Chemistry Sodium (134 - 147 mEq/L) 132 L Potassium (3.4 - 5.0 mEq/L) 3.8 Chloride (100 - 108 mEq/L) 98 L Carbon Dioxide (21 - 33 mEq/L) 23 Anion Gap (0 - 20) 15 BUN (7 - 18 mg/dL) 30 H Creatinine (0.6 - 1.3 mg/dL) 1.7 H Glomerular Filtr Rate (70 - 80) 29.5 L Glucose (70 - 110 mg/dL) 113 H POC Glucose (70 - 110 MG/DL) 117 H 182 H 168 H 242 H Calcium (8.0 - 10.5 mg/dL) 9.6 01/24 1240 Chemistry POC Glucose (70 - 110 MG/DL) 243 H Laboratory Tests 01/25 0350 Hematology WBC (4.5 - 11.0 x10 3/uL) 7.10 RBC (3.54 - 5.02 x10 6/uL) 3.04 L Hgb (11.0 - 15.0 g/dL) 9.3 L Hct (33.0 - 45.0 %) 28.3 L MCV (81.0 - 99.0 fL) 93.1 MCH (27.0 - 33.0 pg) 30.6 MCHC (33.0 - 37.0 g/dL) 32.9 L RDW (11.5 - 14.5 %) 12.7 Plt Count (150 - 400 x10 3/uL) 237 MPV (7.0 - 9.0 fL) 10.7 H Results: labs reviewed, vital signs stable, curr ent med profile rev'd Treatment Prophylaxis Treatment Prophylaxis Oxygen: nasal cannula Diagnosis, Assessment Plan Hospital course to date: Assessment: - Right humerus fracture status post ORIF right humeral shaft. - Right Humerus pain r/t fracture. - Acute Urinary retention. - History of hypertension - History of hyperlipidemia - History of diabetes mellitus type 2 Plan: Floor. Consult CM for HH. Pain meds. Aggressive PT and OT. Aggressive Pulmonary toilet, IS, deep breath and cough. Postoperative antibiotic per orthopedic surgery Monitor blood sugars closely Low-dose sliding-scale insulin Home meds restarted Diabetic diet Daily labs H2 receptor barb Plan discussed with the patient, daughter, and R N Monitor. 01/25/20 Had 900 cc of urine in bladder from bladder scan this morning. Urology consulted. Per urology if patient does not void until this evening then Barnett catheter would be placed Creatinine elevated to 2 likely from surgery. 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 Start IV fluids for gentle hydration Avoid all nephrotoxic agents and monitor creatin ine levels closely. Will consider nephrology consult if creatinine contin ues to trend up H H stable postoperatively, continue to monitor closely Postoperative care per orthopedic surgery Pain control PT/OT following Case management following to assist with dischar ge planning Monitor blood sugars closely, currently stable Low-dose sliding-scale insulin Daily labs Start lovenox if okay with orthopedic surgery H2 receptor barb Plan discussed with the patient, daughter, and R N Consultants: orthopedics, urology Code status: full code Plan discussed with: patient, admitting physicia n, consultants, nurse Free Text DxA P Notes Free text DxA P notes: A total of > 35 minutes was spent reviewing resu lts, assessing patient, and counseling patient/daughter/RN on POC. Ankit Tyler 02/15/20 2240: Attestations Physician Attestation Reviewed findings plan: Reviewed the findings and plan as documented by [employer] as above reviewed pt seen and examined dw RN Electronically Signed by Sonido Pulido NP on 06/06 at 0959 at 2246 RPT #:[id number] END OF REPORT 2020-01-25 15:53:00-00:00 [id number] [place] [address] PATIENT NAME: CATHERINE RATLIFF ADMIT DATE: 01/24/20 ACCOUNT NO: [id number] ROOM NO: G.560 AGE: 74 REPORT TYPE: PROGRESS NOTE SEX: F ADMITTING PHYSICIAN:Ankit Tyler MD ATTENDING PHYSICIAN:Ankit Tyler MD DATE: 01/25/2020 SUBJECTIVE: Ms. Ratliff is postop from right hum erus ORIF with bone graft, complaining of pain. PHYSICAL EXAMINATION: VITAL SIGNS: Afebrile. Stable vital signs. GENERAL: Alert and oriented. She appears comfort able. EXTREMITIES: Dressing is clean, dry, and intact. Neurovascularly intact distally. LABORATORY DATA: WBC 7.5, hemoglobin 9.0, hemato crit 28.2, and platelets 246. ASSESSMENT AND DIAGNOSIS: Right humeral shaft fr acture, status post open reduction and internal fixation and bone graft. PLAN: Nonweightbearing regarding the right upper extremity and continue sling immobilization. Daily dressing change. Pain cont rol. Okay to discharge home tomorrow. Dictated By: Nuno Polk MD WT: PN:CHRIS/SITA. Conf#: [id number]/DID#: [id number] Authenticated by Nuno Polk MD On 0 01:29:25 PM at 1329 PATIENT NAME: CATHERINE RATLIFF [facility] 2020-01-25 14:42:00-00:00 [id number] [place] [address] PATIENT NAME: CATHERINE RATLIFF ADMIT DATE: 0 ACCOUNT NO: [id number] ROOM NO: G.560 AGE: 74 REPORT TYPE: CONSULTATION REPORT SEX: F ADMITTING PHYSICIAN:Ankit Tyler MD ATTENDING PHYSICIAN:Ankit Tyler MD CONSULTATION DATE: 01/25/2020 CONSULTING PHYSICIAN: Jey Oliveira MD CONSULTATION FROM: Remberto Sorensen MD REASON FOR CONSULTATION: For urinary retention. HISTORY OF PRESENT ILLNESS: This is a 74-year-ol d female that tripped on her daughter's dog and broke her humerus. She is status post ORIF for right humeral shaft injury. She has developed urinary retentio n postoperatively. She has been in and out catheterized at least on ce for 900 mL. She states she does not have any significant urinary symptoms, but does occasionally have stress incontinence, but she does not need pads. She do es not void very often during the day. PAST MEDICAL HISTORY: Hypertension, hype rlipidemia, diabetes, humeral fracture surgeries with orthopedic surgery for the gemma l fracture. HOME MEDICINES: Vitamin C, aspirin, cranberry, _ ___, losartan, metformin, pravastatin, and multivitamin. REVIEW OF SYSTEMS: Fourteen-point review of syst ems was obtained and was negative other than the retention and the right upper extremity pain. ALLERGIES: NO KNOWN DRUG ALLERGIES. FAMILY HISTORY: Noncontributory. PHYSICAL EXAMINATION: VITAL SIGNS: Blood pressure 96/65, pulse rate 10 5, respiratory rate 18, temperature 36.4, and 93% on room air. GENERAL: Alert, no acute distress, and nontoxic. HEENT: Normocephalic and atraumatic. Extraocular muscles intact. NECK: Supple. No cervical lymphadenopathy. HEART: Regular rate and rhythm. LUNGS: Respirations unlabored. Normal chest excu rsion. BACK: No CVA tenderness. ABDOMEN: Soft, nontender, nondistended. GENITOURINARY: Bladder is palpable. EXTREMITIES: Moving all extremities well. No clu bbing, cyanosis, or edema. LABORATORY DATA: White blood cell count 7.45, hemoglobin 9, and platelets 246. PATIENT NAME: CATHERINE RATLIFF 408 Creatinine 2, which is up from 1.7 on ____. COVI D-19 negative. IMAGING STUDIES: No significant urologic imaging . ASSESSMENT AND PLAN: A 74-year-old female who stepehn s developed postoperative urinary retention. However, it does sound like s he has some baseline urinary symptoms that she has not re cognize including incomplete emptying and her stress incontinence may actually be related to overflow incontinence and incomplete emptying. We will start her on Flomax. She will need outpatient urodynamics. Dictated By: Jey Oliveira MD WT: CON:CHRIS/ROBERTO/ALDO Conf#: [id number]/DID#: [id number] Authenticated and Edited by MD Millie Razo n 01/27/20 12:40:43 PM at 1242 PATIENT NAME: CATHERINE RATLIFF 408 2020-01-25 11:21:00-00:[address] [facility] ([facility]) Hospitalist Progress Note REPORT#:[id number] REPORT STATUS: Signed DATE:01/25/20 TIME: 1120 PATIENT: CATHERINE RATLIFF UNIT #: [id number] ROOM/BED: [facility] : 47 AGE: 74 SEX: F ATTEND: Mustapha Sorensen MD ADM AUTHOR: Miguel Holland [employer] * ALL edits or amendments must be made on the [facility] document * Subjective Chief Complaint: Follow-up for right humerus fracture status post ORIF. Had difficulty voiding this morning with 900 cc in bladder from bladder scan. Urology consulted Review of Systems : Reports: urinary retention. All systems rev neg: except as marked Objective General VS/I O: Vital Signs: Date Time Temp Pulse Resp B/P B/P Pulse O2 O2 F low FiO2 Mean Ox Delivery Rate 01/24 1244 36.4 105 18 96/65 75.2 93 / 0822 36.8 93 16 116/71 86.4 96 Room air 06/09 0505 36.7 91 16 118/72 87.4 94 94 06/09 0056 36.5 96 14 96/61 72.6 95 06/08 2102 108 91/59 69.7 06/08 1928 36.6 111 14 96/63 74.2 94 06/08 1717 36.8 109 16 99/65 76.2 92 06/08 1600 106 18 99/60 94 Room air 06/08 1530 102 15 110/67 98 Room air 06/08 1500 100 14 97/64 98 Room air 06/08 1430 96 14 107/61 98 Room air 06/08 1415 94 11 110/70 99 Room air 06/08 1400 93 11 106/69 98 Room air 06/08 1345 93 11 114/74 99 Room air 06/08 1330 97 13 114/71 100 Room air 06/08 1315 94 13 105/65 100 Room air 24 hour I O ending at 0700: /09 0700 06/08 1900 Intake Total 560.00 Output Total Balance 560.00 Intake, IV 200.00 Intake, Oral 360 Number Voids 0 Patient Weight Weight (lb): 126 Weight (oz): 15.78 Weight (kg): 57.600 Medications: Active Meds + DC'd Last 24 Hrs Acetaminophen/Codeine Phosphate 1 TAB Q4H PRN PA N PO (PEND) Sodium Chloride 1,000 ML .[id number] IV Famotidine 20 MG DAILY PO Pravastatin Sodium 40 MG DAILY@2100 PO Cefazolin Sodium 1 GM Q8H IV (DC) Sodium Chloride 10 ML Metformin HCl 500 MG C BK DIN PO (DC) Insulin Human Lispro 0 AC HS SUBQ Dextrose/Water 125 ML ASDIR PRN IV Dextrose/Water 250 ML ASDIR PRN IV Glucagon 1 MG ASDIR PRN IM Acetaminophen 650 MG Q4H PRN PRN PO Hydralazine HCl 10 MG Q6H PRN PRN IV Famotidine 20 MG Q12HR PO (DC) Fentanyl Citrate 100 MCG PACU Q10MIN PRN PRN IV (DC) Fentanyl Citrate 50 MCG PACU Q10MIN PRN PRN IV (DC) Hydralazine HCl 2 MG PACU Q10MIN PRN PRN IV (DC) Hydrocodone Bitart/Acetaminophen 1 TAB PACU ONCE PO (DC) Hydromorphone HCl 1 MG PACU Q10MIN PRN PRN IV (D C) Hydromorphone HCl 0.5 MG PACU Q5MIN PRN PRN IV ( DC) Insulin Human Lispro 0 PACU ONCE PRN SUBQ (DC) Labetalol HCl 5 MG PACU Q10MIN PRN PRN IV (DC) Meperidine HCl 12.5 MG PACU ONCE PRN IV (DC) Morphine Sulfate 2 MG PACU Q10MIN PRN PRN IV (DC ) Ondansetron HCl 4 MG PACU ONCE PRN IV (DC) Ropivacaine 150 MG ASDIR PRN LOCAL (DC) Sodium Chloride 1,000 ML .Q24H IV (DC) Tramadol HCl 50 MG PACU ONCE PO (DC) Ascorbic Acid 500 MG BID PO Aspirin 81 MG DAILY PO Glimepiride 4 MG BID PO Losartan Potassium 50 MG BID PO (DC) Multivitamins 1 TAB DAILY PO Hydrocodone Bitart/Acetaminophen 1 TAB Q4H PRN P RN PO Morphine Sulfate 4 MG Q3H PRN PRN IV Ondansetron HCl 4 MG Q4H PRN PRN IV Sodium Chloride 500 ML .Q24H IV (DC) Cefazolin Sodium 1 GM PREOP ONCALL IV (DC) Sodium Chloride 10 ML Physical Exam General appearance: alert, awake, oriented, no a cute distress, pleasant Head/Eyes: atraumatic, normocephalic, PERRLA ENT: moist mucosal membranes, normal ear left, n ormal ear right, normal nose Neck: full range of motion, non-tender, supple/n o meningismus, no masses or swelling Cardiovascular: normal capillary refill, normal heart sounds, regular rate rhythm Respiratory: aerating well, clear to auscultatio n, symmetric expansion Abdomen: non-tender, normal bowel sounds, soft, no distention Genitourinary: no bladder distention, no flank p ain, no barnett Extremities: decreased range of motio (RUE), nor mal capillary refill, no cyanosis, no edema Musculoskeletal: decreased ROM (RUE), no CVA ten derness Neuro/LUMBER TALLIER: alert, oriented X 3, normal speech Considered stroke alert: no Skin: dry, intact, normal color, normal temperat ure, no rash Psychiatry: normal affect, normal judgment/insig ht, normal mood Results Findings/Data: Laboratory Tests 01/24 01/24 01/23 01/23 0817 0540 2053 1716 Chemistry Sodium (134 - 147 mEq/L) 133 L Potassium (3.4 - 5.0 mEq/L) 4.4 Chloride (100 - 108 mEq/L) 98 L Carbon Dioxide (21 - 33 mEq/L) 26 Anion Gap (0 - 20) 13 BUN (7 - 18 mg/dL) 33 H Creatinine (0.6 - 1.3 mg/dL) 2.0 H Glomerular Filtr Rate (70 - 80) 24.5 L Glucose (70 - 110 mg/dL) 139 H POC Glucose (70 - 110 MG/DL) 186 H 191 H 233 H Calcium (8.0 - 10.5 mg/dL) 9.3 Laboratory Tests 01/24 0540 Hematology WBC (4.5 - 11.0 x10 3/uL) 7.45 RBC (3.54 - 5.02 x10 6/uL) 2.99 L Hgb (11.0 - 15.0 g/dL) 9.0 L Hct (33.0 - 45.0 %) 28.2 L MCV (81.0 - 99.0 fL) 94.3 MCH (27.0 - 33.0 pg) 30.1 MCHC (33.0 - 37.0 g/dL) 31.9 L RDW (11.5 - 14.5 %) 12.9 Plt Count (150 - 400 x10 3/uL) 246 MPV (7.0 - 9.0 fL) 9.6 H Diagnosis, Assessment Plan Orders: Procedure Date/time Status Start Barnett Removal Protocol 01/24 839 Active Insert Barnett Catheter 01/24 839 Active PHYSICIAN CONSULT 01/24 839 Active Consultants: orthopedics, urology Plan discussed with: patient, daughter, nurse Free Text DxA P Notes Free text DxA P notes: Assessment: 1. Right humerus fracture status post ORIF right humeral shaft 2. History of hypertension 3. History of hyperlipidemia 4. History of diabetes mellitus type 2 Plan: Admit to inpatient Orthopedic surgery following. Appreciate their i nput Pain control per orthopedic surgery PT/OT consults Case management consulted to assist with dischar ge planning Postoperative antibiotic per orthopedic surgery Monitor blood sugars closely Low-dose sliding-scale insulin Home meds restarted Diabetic diet Daily labs Start lovenox tomorrow if okay with orthopedic s urgery H2 receptor barb Plan discussed with the patient, daughter, and R N Dr. Polk for allowing [facility]. 01/25/20 Had 900 cc of urine in bladder from bladder scan this morning. Urology consulted. Per urology if patient does not void until this evening then Barnett catheter would be placed Creatinine elevated to 2 likely from surgery. 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 Start IV fluids for gentle hydration Avoid all nephrotoxic agents and monitor creatin ine levels closely. Will consider nephrology consult if creatinine contin ues to trend up H H stable postoperatively, continue to monitor closely Postoperative care per orthopedic surgery Pain control PT/OT following Case management following to assist with dischar ge planning Monitor blood sugars closely, currently stable Low-dose sliding-scale insulin Daily labs Start lovenox if okay with orthopedic surgery H2 receptor barb Plan discussed with the patient, daughter, and R N A total of > 35 minutes was spent reviewing resu lts, assessing patient, and counseling patient/daughter/RN on POC. Electronically Signed by Miguel Holland [employer] on 05/07 at 1323 RPT #:[id number] END OF REPORT 2020-01-25 08:28:00-00:[address] [facility] Progress Note REPORT#:[id number] REPORT STATUS: Signed DATE:01/25/20 TIME: 827 PATIENT: CATHERINE RATLIFF UNIT #: [id number] ROOM/BED: [place] [address] : 47 AGE: 74 SEX: F ATTEND: Anila Sorensen MD ADM AUTHOR: Derrick Rogers [facility] * ALL edits or amendments must be made on the [facility] document * Pharmacy Note Labs: Laboratory Tests: 01/24 0540 Chemistry BUN (7 - 18 mg/dL) 33 H Creatinine (0.6 - 1.3 mg/dL) 2.0 H Treatment plan: change regimen Rationale: Decreased pepcid 20mg PO q12 h to daily for estCrCl <50ml/min per renal protocol Electronically Signed by Derrick Rogers RP on 05/07 at 0828 RPT #:[id number] END OF REPORT 2020-01-24 10:48:00-00:00 [facility]L [facility]) Hospitalist History Physical REPORT#:[id number] REPORT STATUS: Signed DATE:01/24/20 TIME: 1047 PATIENT: CATHERINE RATLIFF UNIT #: [id number] ROOM[facility]BED: [facility] : 47 AGE: 74 SEX: F ATTEND: Anila Sorensen MD ADM AUTHOR: Miguel Holland NP * ALL edits or amendments must be made on the [facility] document * History of Present Illness HPI Chief complaint: Status post ORIF right humeral shaft PCP: PCP: No Primary or Family Physician HPI: This is a 74-year-old female patient w ith past medical history significant for hypertension, hyperlipidemia, an d diabetes mellitus type 2 [facility] for elective surgery for right humerus fracture. The patient is now status post ORIF right humeral shaft and currently seen in PACU. Orthopedic surgery is fo llowing. The patient at this time denies any fever, headache, dizziness, coug h, shortness of breath, chest pain, abdominal pain, N/V/D/C, or dysuria. History Smoking status for patients 13 years old or olde r: Never Smoker Medication/Allergy-Vaccine Hx Home Medications: ASCORBIC ACID (VITAMIN C) 500 MG PO BID ASPIRIN 81 MG PO DAILY CRANBERRY EXTRACT 250 MG PO C MEALS GLIMEPIRIDE (AMARYL) 4 MG PO BID LOSARTAN (COZAAR) 50 MG PO BID metFORMIN (GLUCOPHAGE) 500 MG PO BID MULTIVITAMIN (MULTIPLE VITAMIN) 1 TAB PO DAILY PRAVASTATIN (PRAVACHOL) 40 MG PO DAILY Allergies: Coded Allergies: No Known Allergies (01/21/20) Review of Systems All systems rev neg: except as marked Objective General VS/I O: Vital Signs: Date Time Temp Pulse Resp B/P B/P Pulse O2 O2 F low FiO2 Mean Ox Delivery Rate / 1230 89 12 101/62 100 Nasal 2.148635 cannula 06/08 1215 90 13 102/66 100 Nasal 2.828368 cannula 06/08 1200 92 9 105/75 100 Nasal 2.754132 cannula 06/08 1145 93 5 95/58 100 Nasal 2.712139 cannula 06/08 1144 Nasal 2.131609 cannula 06/08 1130 86 17 109/63 98 Nasal 2.851273 cannula 06/08 1125 87 11 107/67 99 Nasal 2.010058 cannula 06/08 1120 91 13 101/63 92 Nasal 2.470409 cannula 06/08 1115 91 17 97/61 92 Room air 06/08 1113 Simple 10.042407 mask 06/08 1110 91 14 105/61 99 Room air 06/08 1105 36.3 91 13 118/71 100 Simple 10.0000 00 mask 06/08 0750 36.8 81 16 153/79 95 Room air 0.000 000 Patient Weight Weight (lb): 126 Weight (oz): 15.78 Weight (kg): 57.600 Medications: Active Meds + DC'd Last 24 Hrs Pravastatin Sodium 40 MG DAILY@2100 PO Cefazolin Sodium 1 GM Q8H IV Sodium Chloride 10 ML Metformin HCl 500 MG C BK DIN PO Acetaminophen 650 MG Q4H PRN PRN PO Hydralazine HCl 10 MG Q6H PRN PRN IV Famotidine 20 MG Q12HR PO Fentanyl Citrate 100 MCG PACU Q10MIN PRN PRN IV Fentanyl Citrate 50 MCG PACU Q10MIN PRN PRN IV Hydralazine HCl 2 MG PACU Q10MIN PRN PRN IV Hydrocodone Bitart/Acetaminophen 1 TAB PACU ONCE PO (CKD) Hydromorphone HCl 1 MG PACU Q10MIN PRN PRN IV Hydromorphone HCl 0.5 MG PACU Q5MIN PRN PRN IV Insulin Human Lispro 0 PACU ONCE PRN SUBQ Labetalol HCl 5 MG PACU Q10MIN PRN PRN IV Meperidine HCl 12.5 MG PACU ONCE PRN IV Morphine Sulfate 2 MG PACU Q10MIN PRN PRN IV Ondansetron HCl 4 MG PACU ONCE PRN IV Ropivacaine 150 MG ASDIR PRN LOCAL Sodium Chloride 1,000 ML .Q24H IV Tramadol HCl 50 MG PACU ONCE PO (CKD) Sodium Chloride 20 ML .STK-MED ONE IV (DC) Fentanyl Citrate 0 .STK-MED ONE .ROUTE (DC) Labetalol HCl 0 .STK-MED ONE IV (DC) Ascorbic Acid 500 MG BID PO Aspirin 81 MG DAILY PO Glimepiride 4 MG BID PO Losartan Potassium 50 MG BID PO Multivitamins 1 TAB DAILY PO Phenylephrine HCl 250 ML .STK-MED ONE IV (DC) Dexamethasone Sodium Phosphate 0 .STK-MED ONE .R OUTE (DC) Fentanyl Citrate 0 .STK-MED ONE .ROUTE (DC) Glycopyrrolate 0 .STK-MED ONE .ROUTE (DC) Lidocaine HCl 0 .STK-MED ONE .ROUTE (DC) Midazolam HCl 0 .STK-MED ONE .ROUTE (DC) Neostigmine Methylsulfate 0 .STK-MED ONE .ROUTE (DC) Ondansetron HCl 0 .STK-MED ONE .ROUTE (DC) Propofol 20 ML .STK-MED ONE IV (DC) Rocuronium [place] 0 .STK-MED ONE IV (DC) Hydrocodone Bitart/Acetaminophen 1 TAB Q4H PRN P RN PO Morphine Sulfate 4 MG Q3H PRN PRN IV Ondansetron HCl 4 MG Q4H PRN PRN IV Sodium Chloride 500 ML .Q24H IV Cefazolin Sodium 0 .STK-MED ONE .ROUTE (DC) Cefazolin Sodium 1 GM PREOP ONCALL IV (CKD) Sodium Chloride 10 ML Physical Exam General appearance: alert, awake, oriented, no a cute distress, pleasant Head/Eyes: atraumatic, normocephalic, PERRLA ENT: moist mucosal membranes, normal ear left, n ormal ear right, normal nose Neck: full range of motion, non-tender, supple/n o meningismus, no masses or swelling Cardiovascular: normal capillary refill, normal heart sounds, regular rate rhythm Respiratory: aerating well, clear to auscultatio n, symmetric expansion Abdomen: non-tender, normal bowel sounds, soft, no distention Genitourinary: no bladder distention, no flank p ain, no barnett Extremities: decreased range of motio (RUE), nor mal capillary refill, no cyanosis, no edema Musculoskeletal: decreased ROM (RUE), no CVA ten derness Neuro/LUMBER TALLIER: alert, oriented X 3, normal speech Considered stroke alert: no Alfreda Coma Score: [place] Coma Score: Response Value Patient intubated? no [place] eyes: eyes open spontaneously 4 [place] speech: oriented 5 [place] motor: obeys commands 6 Total 15 Skin: dry, intact, normal color, normal temperat ure, no rash Psychiatry: normal affect, normal judgment/insig ht, normal mood Results Findings/Data: Laboratory Tests 01/23 01/23 1106 0756 Chemistry POC Glucose (70 - 110 MG/DL) 116 H 87 Diagnosis, Assessment Plan Orders: Procedure Date/time Status BASIC METABOLIC PANEL 01/28 0500 Active BASIC METABOLIC PANEL 01/27 0500 Active BASIC METABOLIC PANEL 01/26 0500 Active BASIC METABOLIC PANEL 01/25 0500 Active BASIC METABOLIC PANEL 01/24 0500 Active PHYSICAL THERAPIST CONSULT 01/23 1255 Active Occupational Therapist Consult 01/23 1255 Activ e Case Management Consult 01/23 1255 Active Consultants: orthopedics Plan discussed with: patient, daughter, nurse Free Text DxA P Notes Free text DxA P notes: Assessment: 1. Right humerus fracture status post ORIF right humeral shaft 2. History of hypertension 3. History of hyperlipidemia 4. History of diabetes mellitus type 2 Plan: Admit to inpatient Orthopedic surgery following. Appreciate their i nput Pain control per orthopedic surgery PT/OT consults Case management consulted to assist with dischar ge planning Postoperative antibiotic per orthopedic surgery Monitor blood sugars closely Low-dose sliding-scale insulin Home meds restarted Diabetic diet Daily labs Start lovenox tomorrow if okay with orthopedic s urgery H2 receptor barb Plan discussed with the patient, daughter, and R N Dr. Polk for allowing us to participate in e care of this patient. Electronically Signed by Miguel Holland NP on 04/06 at 1340 RPT #:[id number] END OF REPORT 2020-01-21 15:45:00-00:00 [id number] [place] [address] PATIENT NAME: CATHERINE RATLIFF ADMIT DATE: ACCOUNT NO: [id number] ROOM NO: AGE: 74 REPORT TYPE: eELECTROCARDIOGRAM REPORT SEX: F ADMITTING PHYSICIAN: ATTENDING PHYSICIAN:Nuno Polk Jr, MD Order: [id number] Test Reason : PRE-OP Test Date/Time Stamp: FriJan 21 2020 15:45:41 Blood Pressure : / mmHG Vent. Rate : 094 BPM Atrial Rate : 094 BPM P-R Int : 192 ms QRS Dur : 086 ms QT Int : 372 ms P-R-T Axes : 041 -46 101 degree s QTc Int : 465 ms Normal sinus rhythm Left axis deviation Anterolateral infarct , age undetermined Abnormal ECG PRE_OP Confirmed by RISA MCKINNEY MD ([id number]) on 0 5:07:49 PM Referred By: Nuno Polk Confirmed by:RISA MCKINNEY MD at [id number] PATIENT NAME: CATHERINE RATLIFF 408
[2023-04-25] MEDS ORDERED: NA CHLORIDE 0.9% 1,000 ML ONE ×2 (16:56→17:10)
[2023-04-25 17:02] LABS: Absolute Lymphocytes (CBC) 1.6 K/uL (0.7-4.9); Hematocrit 32.2 % (36.0-45.0); Lymphocytes % 27.5 % (15.3-44.8); MPV 8.1 fL (7.6-11.3); Platelets 236 thou/uL (152-406); RBC Red Blood Cell Count 3.39 M/uL (3.86-4.86)
[2023-04-25 17:05] LABS: Protime INR 1.18
[2023-04-25] MEDS ORDERED: CEFTRIAXONE 1000 MG/VIAL ONE (17:10)
[2023-04-25] MEDS ORDERED: FAMOTIDINE 20 MG/2 ML VIAL IV ONE (17:10)
--- NOTE | 2023-04-25 17:18 | RAD REPORT ---
EXAM DESCRIPTION: CT - Ct Stroke Brain Wo Cont - 04/25/2023 5:08 pm CLINICAL HISTORY: Facial droop. Difficulty speaking COMPARISON: 2021 TECHNIQUE: Computed axial tomography of the head was obtained. All CT scans are performed using dose optimization technique as appropriate and may include automated exposure control or mA/KV adjustment according to patient size. FINDINGS: An intracranial bleed is not seen . 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 No extra-axial fluid collection is noted. Moderate low-density within periventricular, deep and subcortical white matter likely ischemic change s secondary to small vessel disease Fluid within the sinuses/ mastoids is not seen. IMPRESSION: No acute intracranial abnormality is seen. If patient's symptoms persist MRI of the bra in would be recommended Dr Montoya of the emergency room was notified at
[2023-04-25 17:37] LABS: Albumin 3.4 g/dL (3.4-5.0); Bilirubin Direct 0.2 mg/dL (0-0.2); Bilirubin Indirect, Calculated 0.4 mg/dL (0.2-0.8); Bilirubin Total 0.6 mg/dL (0.2-1.0); Protein, Total 6.9 g/dL (6.4-8.2); Troponin High Sensitivity 16.3 pg/mL (<58.9)
--- NOTE | 2023-04-25 17:53 | RAD REPORT ---
EXAM DESCRIPTION: Jose Alejandro Single View04/25/2023 5:40 pm CLINICAL HISTORY: cough COMPARISON: 2021 FINDINGS: Mild opacities medial right lung base. The remainder of the lungs appear clear. Heart is normal size IMPRESSION: Mild opacities medial right lung base may represent confluence of pulmonary vessels or m ild infiltrate
--- NOTE | 2023-04-25 18:04 | ER ---
Nurse's Notes [facility] Ho Name: Lazara Lozano Age: 77 yrs Sex: Female : 1945 Arrival Date: 04/25/2023 Time: 16:38 Bed 2 Private MD: Diagnosis: Cerebral infarction, unspecified-APHASIA, LEFTSIDE WEAKNESS, 24 HOURS;Weakness;Pneumonia due to other specified bacteria-RIGHT LOWER LOBE;Anemia, unspecified;Acute kidney failure, unspecified-ON CHRONIC RENAL FAILURE;Type 2 diabetes mellitus with hyperglycemia;Dementia in other diseases classified elsewhere without behavioral [id number] DEMENTIA Presentation: 04/25 16:47 Chief complaint: EMS states: last normal was 4 pm yesterday, pt has hx of TIA's , she iw sometimes has episodes where she does not talk but she always comes out of it, she normally can talk and follow commands , family got her up to walk yesterday but she has not gotten up since then, hx of dementia , EMs reports shallow, slow respirations en route. Coronavirus screen: At this time, the client does not indicate any symptoms associated with coronavirus-19. Ebola Screen: Patient negative for fever greater than or equal to 101.5 degrees Fahrenheit, and additional compatible Ebola Virus Disease symptoms Patient denies exposure to infectious person. Patient denies travel to an Ebola-affected area in the 21 days before illness onset. No symptoms or risks identified at this time. Risk Assessment: Do you want to hurt yourself or someone else? Patient reports no desire to harm self or others. Onset of symptoms was April 24, 2023. 16:47 Method Of Arrival: EMS: [facility] iw 16:47 Acuity: ISAIAH 2 iw 16:57 Initial Sepsis Screen: Does the patient meet any 2 criteria? No. Patient's initial iw sepsis screen is negative. Does the patient have a suspected source of infection? No. Patient's initial sepsis screen is negative. Historical: - Allergies: 16:51 No Known Allergies; iw - Home Meds: 16:51 Xarelto 15 mg Oral tab 1 tab once daily [Active]; aspirin 81 mg Oral chew 1 tab once iw daily [Active]; cranberry Oral [Active]; donepezil 10 mg Oral tab 1 tab once daily [Active]; 16:57 escitalopram oxalate 10 mg Oral tab 1 tab once daily [Active]; metoprolol tartrate 25 iw mg Oral tablet 2 times per day [Active]; hydrochlorothiazide 12.5 mg Oral tab 1 tab as needed [Active]; multivitamin oral tablet daily [Active]; Iron daily [Active]; 17:05 glimepiride 4 mg Oral tab 1 tab twice a day [Active]; metformin 500 mg Oral tab 1 tab 2 iw times per day [Active]; pioglitazone 15 mg Oral tab 1 tab once daily [Active]; losartan 50 mg Oral tab 1 tab daily [Active]; pravastatin 40 mg Oral tab 1 tab once daily [Active]; - PMHx: 16:51 depressive disorder; Dementia; Diabetes - NIDDM; Hyperlipidemia; Hypertension; iw 17:06 Diabetes - IDDM; iw - PSHx: 17:06 right arm; Right hip; iw Screenin:06 [facility] ED Fall Risk Assessment (Adult) History of falling in the last 3 months, vc1 including since admission No falls in past 3 months (0 pts) Confusion or Disorientation No (0 pts) Intoxicated or Sedated No (0 pts) Impaired Gait No (0 pts) Mobility Assist Device Used No (0 pt) Altered Elimination No (0 pt) Score/Fall Risk Level 0 - 2 = Low Risk Oriented to surroundings, Maintained a safe environment, Educated pt \T\ family on fall prevention, incl call for assistance when getting out of bed. Abuse screen: Denies threats or abuse. Nutritional screening: No deficits noted. Tuberculosis screening: No symptoms or risk factors identified. Assessment: 16:59 Reassessment: Pt to CT scan via stretcher . aa5 17:39 Reassessment: Patient appears in no apparent distress at this time. pt remains drowsy, iw awakens to tactile stimuli , nonverbal st this time , daughter at beside. 17:52 Reassessment: pt transported to MRI. iw 18:40 General: Appears in no apparent distress. ill, Behavior is drowsy. Pain: Unable to use iw pain scale. FLACC scale score is 4 out of 10. Neuro: Level of Consciousness is listless, Oriented to none. Cardiovascular: Patient's skin is warm and dry. Respiratory: Respiratory effort is even, unlabored, Respiratory pattern is regular. GI: Abdomen is flat, non-distended. Derm: Skin is pale. 19:05 Reassessment: No changes from previously documented assessment. Patient and/or family vc1 updated on plan of care and expected duration. Pain level reassessed. 21:00 Reassessment: Attempted to call Christos to give report. No answer. Will call back. vc1 21:17 Reassessment: No changes from previously documented assessment. Patient and/or family vc1 updated on plan of care and expected duration. Pain level reassessed. Vital Signs: 16:47 BP 123 / 90; Pulse 78; Resp 12; Temp 98.4(A); Pulse Ox 97% on R/A; Weight 58.97 kg; iw Height 5 ft. 6 in. ; 19:05 BP 148 / 93; Pulse 72; Resp 11; Pulse Ox 99% ; vc1 20:00 BP 146 / 91; Pulse 70; Resp 15; Pulse Ox 100% ; vc1 21:00 BP 127 / 92; Pulse 81; Resp 10; Pulse Ox 97% ; vc1 16:47 Body Mass Index 20.98 (58.97 kg, 167.64 cm) iw ED Course: 16:41 Patient arrived in ED. nasima 16:41 Saúl Prince MD is Attending Physician. nasima 16:50 Triage completed. iw 16:55 Initial lab(s) drawn, by ar, sent to lab. Inserted saline lock: 22 gauge in right aa5 forearm, using aseptic technique. Blood collected. 16:57 Arm band placed on. iw 16:59 Maintain EMS IV. Dressing intact. Good blood return noted. Site clean \T\ dry. Gauge \T\ iw site: 22LFA. 17:00 First set of blood cultures drawn by me. aa5 17:09 CT Stroke Brain w/o Contrast In Process Unspecified. EDMS 17:20 Second set of blood cultures drawn by me. aa5 17:34 Mae Tomlinson, LISA is Primary Nurse. iw 17:37 Inserted saline lock: 22 gauge in right wrist, using aseptic technique. aa5 17:42 XRAY Chest (1 view) In Process Unspecified. EDMS 18:00 Howard Romero MD is Hospitalizing Provider. nasima 18:13 MRI - Brain Wo Cont In Process Unspecified. EDMS 19:05 Report received from LISA Wall. vc1 19:06 Patient has correct armband on for positive identification. Bed in low position. Call vc1 light in reach. Client placed on continuous cardiac and pulse oximetry monitoring. NIBP monitoring applied. 19:25 No provider procedures requiring assistance completed. Patient admitted, IV remains in iw place. 19:36 AMMONIA Sent. vc1 19:36 SARS RAPID Sent. vc1 19:36 Flu Sent. vc1 Administered Medications: 17:01 Drug: NS 0.9% IV 1000 ml Route: IV; Rate: 1 bolus; Site: left forearm; iw 19:05 Drug: foLIC Acid IVPB 1 mg Route: IVPB; Site: right wrist; vc1 19:05 Drug: Famotidine IVP 20 mg {Note: administered by Mae.} Route: IVP; Site: right vc1 forearm; 19:05 Drug: Rocephin IV 1 grams {Note: administered by Mae.} Route: IV; Rate: per protocol; vc1 Site: right forearm; 19:36 Drug: Banana Bag - (NS 0.9% IV 1000 ml, foLIC Acid IVPB 1 mg, Thiamine IV 100 mg, vc1 Multivitamin IV 1 amp) Route: IV; Rate: 125 ml/hr; Site: right wrist; 19:37 Drug: Solu-CORTEF IVP 100 mg Route: IVP; Site: right forearm; vc1 20:24 Drug: Piperacillin-Tazobactam IVPB 3.375 grams Route: IVPB; Infused Over: 60 mins; vc1 Site: right forearm; Medication: 19:07 VIS not applicable for this client. vc1 Outcome: 18:03 Decision to Hospitalize by Provider. nasima 22:33 Admitted to Med/surg accompanied by nurse, via stretcher, room 207, Report called to 1 LISA Sher 22:33 Condition: good 22:33 Instructed on the need for admit. 22:34 Patient left the ED. vc1 Signatures: Dispatcher [employer] EDMS Saúl Prince MD MD cha Williams, Irene, RN RN iw Calderon, Audri, RN RN aa5 Serenity Riggins RN RN vc1 Corrections: (The following items were deleted from the chart) 17:00 16:47 BP 123 / 90; Pulse 78bpm; Resp 12bpm; Pulse Ox 97% RA; 58.97 kg; Height 5 ft. 6 iw in.; BMI: 20.9; iw 17:00 16:47 BP 123 / 90; Pulse 78bpm; Resp 12bpm; Pulse Ox 97% RA; Temp 68.4F Axillary; 58.97 iw kg; Height 5 ft. 6 in.; BMI: 20.9; iw
--- NOTE | 2023-04-25 18:04 | EDPHYS ---
Physician Documentation [facility] Name: Lazara Lozano Age: 77 yrs Sex: Female : 1945 Arrival Date: 04/25/2023 Time: 16:38 Bed 2 Private MD: ED Physician Saúl Prince HPI: 04/25 16:55 This 77 yrs old Female presents to ER via EMS with complaints of Altered Mental Status. nasima Historical: - Allergies: 16:51 No Known Allergies; iw - Home Meds: 16:51 Xarelto 15 mg Oral tab 1 tab once daily [Active]; aspirin 81 mg Oral chew 1 tab once iw daily [Active]; cranberry Oral [Active]; donepezil 10 mg Oral tab 1 tab once daily [Active]; 16:57 escitalopram oxalate 10 mg Oral tab 1 tab once daily [Active]; metoprolol tartrate 25 iw mg Oral tablet 2 times per day [Active]; hydrochlorothiazide 12.5 mg Oral tab 1 tab as needed [Active]; multivitamin oral tablet daily [Active]; Iron daily [Active]; 17:05 glimepiride 4 mg Oral tab 1 tab twice a day [Active]; metformin 500 mg Oral tab 1 tab 2 iw times per day [Active]; pioglitazone 15 mg Oral tab 1 tab once daily [Active]; losartan 50 mg Oral tab 1 tab daily [Active]; pravastatin 40 mg Oral tab 1 tab once daily [Active]; - PMHx: 16:51 depressive disorder; Dementia; Diabetes - NIDDM; Hyperlipidemia; Hypertension; iw 17:06 Diabetes - IDDM; iw - PSHx: 17:06 right arm; Right hip; iw ROS: 17:00 Constitutional: Negative for fever, chills, and weight loss, Eyes: Negative for injury, nasima pain, redness, and discharge, ENT: Negative for injury, pain, and discharge, Neck: Negative for injury, pain, and swelling, Cardiovascular: Negative for chest pain, palpitations, and edema, Respiratory: Negative for shortness of breath, cough, wheezing, and pleuritic chest pain, Abdomen/GI: Negative for abdominal pain, nausea, vomiting, diarrhea, and constipation, Back: Negative for injury and pain, : Negative for injury, bleeding, discharge, and swelling, MS/Extremity: Negative for injury and deformity, Skin: Negative for injury, rash, and discoloration, Psych: Negative for depression, anxiety, suicide ideation, homicidal ideation, and hallucinations, Allergy/Immunology: Negative for hives, rash, and allergies, Endocrine: Negative for neck swelling, polydipsia, polyuria, polyphagia, and marked weight changes, Hematologic/Lymphatic: Negative for swollen nodes, abnormal bleeding, and unusual bruising. 17:00 Neuro: Positive for altered mental status, speech changes, weakness, of the face, left arm and left leg. Exam: 17:00 Constitutional: This is a well developed, well nourished patient who is awake, alert, nasima and in no acute distress. Eyes: Pupils equal round and reactive to light, extra-ocular motions intact. Lids and lashes normal. Conjunctiva and sclera are non-icteric and not injected. Cornea within normal limits. Periorbital areas with no swelling, redness, or edema. ENT: Nares patent. No nasal discharge, no septal abnormalities noted. Tympanic membranes are normal and external auditory canals are clear. Oropharynx with no redness, swelling, or masses, exudates, or evidence of obstruction, uvula midline. Mucous membranes moist. Neck: Trachea midline, no thyromegaly or masses palpated, and no cervical lymphadenopathy. Supple, full range of motion without nuchal rigidity, or vertebral point tenderness. No Meningismus. Chest/axilla: Normal chest wall appearance and motion. Nontender with no deformity. No lesions are appreciated. Cardiovascular: Regular rate and rhythm with a normal S1 and S2. No gallops, murmurs, or rubs. Normal PMI, no JVD. No pulse deficits. Respiratory: Lungs have equal breath sounds bilaterally, clear to auscultation and percussion. No rales, rhonchi or wheezes noted. No increased work of breathing, no retractions or nasal flaring. Abdomen/GI: Soft, non-tender, with normal bowel sounds. No distension or tympany. No guarding or rebound. No evidence of tenderness throughout. Back: No spinal tenderness. No costovertebral tenderness. Full range of motion. Female : Normal external genitalia. MS/ Extremity: Pulses equal, no cyanosis. Neurovascular intact. Full, normal range of motion. Psych: Awake, alert, with orientation to person, place and time. Behavior, mood, and affect are within normal limits. 17:00 ECG was reviewed by the Attending Physician. 17:00 Skin: Appearance: Color: pale, Temperature: normal temperature, Moisture: normal moisture, petechiae, not noted, ecchymosis, not noted, flushing, not noted, diaphoresis is not appreciated, abscess, not appreciated, cellulitis, induration, is not appreciated, injury, is not appreciated. Vital Signs: 16:47 BP 123 / 90; Pulse 78; Resp 12; Temp 98.4(A); Pulse Ox 97% on R/A; Weight 58.97 kg; iw Height 5 ft. 6 in. ; 19:05 BP 148 / 93; Pulse 72; Resp 11; Pulse Ox 99% ; vc1 20:00 BP 146 / 91; Pulse 70; Resp 15; Pulse Ox 100% ; vc1 21:00 BP 127 / 92; Pulse 81; Resp 10; Pulse Ox 97% ; vc1 16:47 Body Mass Index 20.98 (58.97 kg, 167.64 cm) iw MDM: 16:41 Patient medically screened. nasima 17:03 Differential Diagnosis: CVA, electrolyte abnormality, hypoglycemia, intracranial bleed, nasima sepsis, TIA, UTI, volume depletion. Data reviewed: vital signs, nurses notes, EMS record, lab test result(s), EKG, radiologic studies, CT scan, MRI, plain films. Consideration of Admission/Observation Patient was admitted/placed on observation. Escalation of care including admission/observation considered. I considered the following discharge prescriptions or medication management in the emergency department Medications were administered in the Emergency Department. See MAR. Test considered but Not performed: Ultrasound no 2 d echo. Historians other than the Patient: Family Member: daughter , Alexis. Care significantly affected by the following chronic conditions: Diabetes, Hypertension, Chronic Kidney Disease, depression , hyperlipemia. Counseling: I had a detailed discussion with the patient and/or guardian regarding the historical points, exam findings, and any diagnostic results supporting the discharge/admit diagnosis, lab results, radiology results. 04/25 16:48 Order name: Basic Metabolic Panel; Complete Time: 17:48 [facility] 04/25 16:48 Order name: CBC with Diff; Complete Time: 17:26 [facility] 04/25 16:48 Order name: LFT's; Complete Time: 17:48 [facility] 04/25 16:48 Order name: Magnesium; Complete Time: 17:48 [facility] 04/25 16:48 Order name: NT PRO-BNP; Complete Time: 17:48 [facility] 04/25 16:48 Order name: PT-INR; Complete Time: 17:26 [facility] 04/25 16:48 Order name: Troponin HS; Complete Time: 17:48 [facility] 04/25 16:48 Order name: Urinalysis w/ reflexes [facility] 04/25 17:07 Order name: Blood Culture Adult (2) [facility] 04/25 17:07 Order name: Lactate w/ 2H reflex if indic.; Complete Time: 17:58 [facility] 04/25 17:33 Order name: CREATININE WHOLE BLOOD; Complete Time: 17:48 [facility] 04/25 18:42 Order name: Flu [facility] 04/25 18:42 Order name: SARS RAPID [facility] 04/25 18:43 Order name: AMMONIA [facility] 04/25 19:55 Order name: SARS-COV-2 Antigen Rapid [facility] 04/25 19:59 Order name: Influenza Screen (A [facility] 04/25 20:12 Order name: Ammonia [facility] 04/25 16:48 Order name: XRAY Chest (1 view); Complete Time: 17:58 [facility] 04/25 16:48 Order name: CT Stroke Brain w/o Contrast; Complete Time: 17:26 [facility] 04/25 16:52 Order name: MRI - Brain Wo Cont [facility] 04/25 18:39 Order name: US Carotid Artery Bilateral [facility] 04/25 20:31 Order name: US [facility] 04/25 16:48 Order name: EKG; Complete Time: 16:49 [facility] 04/25 18:36 Order name: CONS Physician Consult [facility] 04/25 16:48 Order name: Cardiac monitoring; Complete Time: 16:56 [facility] 04/25 16:48 Order name: EKG - Nurse/Tech; Complete Time: 16:56 [facility] 04/25 16:48 Order name: IV Saline Lock; Complete Time: 16:56 [facility] 04/25 16:48 Order name: Labs collected and sent; Complete Time: 16:56 [facility] 04/25 16:48 Order name: O2 Per Protocol; Complete Time: 16:56 [facility] 04/25 16:48 Order name: O2 Sat Monitoring; Complete Time: 16:56 [facility] 04/25 16:59 Order name: Blood Glucose Level; Complete Time: 17:59 [facility] EC:00 Rate is 8 beats/min. Rhythm is regular. AL interval is normal. QRS interval is normal. nasima QT interval is normal. No Q waves. T waves are Normal. No ST changes noted. Clinical impression: NSR w/ Non-specific ST/T Changes and No evidence of ischemia. Interpreted by me. Reviewed by me. Administered Medications: 17:01 Drug: NS 0.9% IV 1000 ml Route: IV; Rate: 1 bolus; Site: left forearm; iw 19:05 Drug: foLIC Acid IVPB 1 mg Route: IVPB; Site: right wrist; vc1 19:05 Drug: Famotidine IVP 20 mg {Note: administered by Mae.} Route: IVP; Site: right vc1 forearm; 19:05 Drug: Rocephin IV 1 grams {Note: administered by Mae.} Route: IV; Rate: per protocol; vc1 Site: right forearm; 19:36 Drug: Banana Bag - (NS 0.9% IV 1000 ml, foLIC Acid IVPB 1 mg, Thiamine IV 100 mg, vc1 Multivitamin IV 1 amp) Route: IV; Rate: 125 ml/hr; Site: right wrist; 19:37 Drug: Solu-CORTEF IVP 100 mg Route: IVP; Site: right forearm; vc1 20:24 Drug: Piperacillin-Tazobactam IVPB 3.375 grams Route: IVPB; Infused Over: 60 mins; vc1 Site: right forearm; Disposition Summary: 04/25/23 18:03 Hospitalization Ordered Hospitalization Status: Inpatient Admission nasima Provider: Howard Romero cha Location: Telemetry/MedSurg (Inpatient) nasima Condition: Serious nasima Problem: new nasima Symptoms: have improved nasima Bed/Room Type: Standard [facility] Room Assignment: 207(04/25/23 19:57) Diagnosis - Weakness nasima - Pneumonia due to other specified bacteria - RIGHT LOWER LOBE nasima - Anemia, unspecified nasima - Acute kidney failure, unspecified - ON CHRONIC RENAL FAILURE nasima - Type 2 diabetes mellitus with hyperglycemia nasima - Cerebral infarction, unspecified - APHASIA, LEFTSIDE WEAKNESS, 24 HOURS(04/25/23 [facility] 18:13) - Dementia in other diseases classified elsewhere without behavioral disturbance - nasima MULTI-INFARCT DEMENTIA Forms: - Medication Reconciliation Form nasima - SBAR form nasima - Leadership Thank You Letter nasima Signatures: Dispatcher [employer] Katherine Hurd RN RN Saúl Gao MD MD cha Williams, Irene, RN RN iw Serenity Riggins RN RN vc1 Corrections: (The following items were deleted from the chart) 17: 16:52 Head Angio+CT.RAD.BRZ ordered. EDMS EDMS 17: 16:52 Neck Angio+CT.RAD.BRZ ordered. EDMS EDMS 18:13 18:03 Cerebral infarction, unspecified - APHASIA, LEFTSIDE WEAKNESS [facility] 18:58 18:44 [facility] ordered. the medical center 19:57 18:03 nasima
[2023-04-25] MEDS ORDERED: cloNIDine HCL 0.1 MG TAB ONE (18:06)
--- NOTE | 2023-04-25 18:31 | P.HP ---
Certification for Inpatient Patient admitted to: Inpatient With expected LOS: <2 Midnights Patient will require the following post-hospital care: Home Health Services Practitioner: I am a practitioner with admitting privileges, knowledge of patient current condition, hospital course, and medical plan of care. Services: Services provided to patient in accordance with Admission requirements found in Title 42 Section 412.3 of the Code of Federal Regulations Patient History Date of Service: 04/25/23 Reason for admission: CVA History of Present Illness: 77-year-old female with a past medical history of depression, dementia, diabetes, insulin-dependent diabetes mellitus, hyperlipidemia, hypertension, presents to the emergency room with confusion. Daughter is at bedside is primary as historian reports slurred speech, difficulty speaking. She reports the patient has been having mini strokes, with decreased responsiveness, decreased appetite over the last 24 hours. She reports coughing with liquids yesterday and today. Chest x-ray shows right lower lobe pneumonia, plan to admit for CVA, aphasia, left-sided weakness, right lower lobe pneumonia, acute kidney injury speech eval in the a.m., start Zosyn for pneumonia. Dr. Landers consulted for neurology., Nephrology consult for acute on chronic kidney injury. ED course7 BP 123 / 90; Pulse 78; Resp 12; Temp 98.4(A); Pulse Ox 97% on R/A; laboratory evaluation WBCs normal, normocytic anemia hemoglobin 10.5, hematocrit 32.2, BUN 56, creatinine 2.2, glucose 168, BNP 2106, UA pending, brain CT no acute abnormality seen, MRI completed, results pending radiology report, chest x-ray MPRESSION: Mild opacities medial right lung base may represent confluence of pulmonary vessels or mild infiltrate Allergies No Known Allergies Allergy (Verified 12/29/18 08:25) Home Medications: Donepezil [Aricept*] 10 mg PO BID 09/09/20 Escitalopram [Lexapro*] 10 mg PO DAILY 09/09/20 Glimepiride [Amaryl*] 4 mg PO BIDWM 09/09/20 Losartan Potassium [Cozaar*] 50 mg PO DAILY 09/09/20 Metformin HCl [Glucophage*] 500 mg PO BIDWM 09/09/20 Pioglitazone [Actos*] 15 mg PO DAILY 09/09/20 Pravastatin Sodium 40 mg PO DAILY 09/09/20 Ascorbic Acid [Vitamin C] 1 tab PO BID 05/14/22 Cranberry 1 tab PO BID 05/14/22 Ferrous Gluconate [Iron] 1 tab PO DAILY 05/14/22 Lactobacillus Acidophilus [Probiotic] 1 tab PO DAILY 05/14/22 Metoprolol Tartrate 1 tab PO DAILY 05/14/22 Multivitamin [Multiple Vitamins] 1 tab PO DAILY 05/14/22 - Past Medical/Surgical History Diabetic: Yes -: DEPRESSION -: HTN -: HLD -: NIDDMII -: Dementia -: CKD -: TNA -: Hysterectomy -: D&C -: RT HIP REPLACEMENT Psychosocial/ Personal History: Patient lives with her daughter at home. - Family History Mother -: Heart disease, Stroke - Social History Alcohol use: No CD- Drugs: No Caffeine use: Yes Review of Systems 10-point ROS is otherwise unremarkable Physical Examination - Physical Exam General: Oriented x1, Other (pale, eyes open to verbal, ) HEENT: Atraumatic, Normocephalic, PERRLA Neck: Supple, 2+ carotid pulse no bruit, JVD not distended Respiratory: Diminished Cardiovascular: No edema, Normal pulses, Regular rate/rhythm Capillary refill: <2 Seconds Gastrointestinal: Normal bowel sounds, Soft and benign Musculoskeletal: No clubbing, No swelling Integumentary: No rashes, No breakdown Neurological: Other (Aphasic, alert and oriented x1, no facial droop,), Abnormal affect Urinary: Other (incont BB) - Studies Laboratory Data (last 24 hrs) 04/25/23 04/25/23 04/25/23 16:55 16:55 16:55 WBC 5.90 Hgb 10.5 L Hct 32.2 L Plt Count 236 PT 13.0 H INR 1.18 Sodium 143 Potassium 4.0 BUN 56 H Creatinine 2.82 H Glucose 168 H Magnesium 2.0 Total Bilirubin 0.6 AST 11 L ALT 20 Alkaline Phosphatase 50 Assessment and Plan - Plan Assessment plan Multifocal infarct Acute on chronic cerebral infarction right parietal lobe Aphasia left hemiparesis Dementia right lower lobe pneumonia, acute kidney injury Normocytic anemia Assessment plan Multifocal infarct Acute on chronic cerebral infarction right parietal lobe Aphasia left hemiparesis Dementia Neurology consult. Head elevated 30 degrees aspiration precautions speech eval, PT eval, fall precautions CT no acute abnormality seen, MRI acute on chronic cerebral infarct right lower lobe pneumonia IV antibiotics Zosyn,, speech eval for swallow eval laboratory evaluation WBCs normal, chest x-ray MPRESSION: Mild opacities medial right lung base may represent co nfluence of pulmonary vessels or mild infiltrate acute kidney injury Nephrology clinic consult, trend kidney function BUN 56, creatinine 2.2, IV fluids Normocytic anemia normocytic anemia hemoglobin 10.5, hematocrit 32.2, Diet n.p.o. until speech eval DNR DVT heparin Discharge Plan: Home (HH, PT at home per daughter request) Plan to discharge in: 48 Hours - Advance Directives Does patient have a Living Will: No Does patient have a Durable POA for Healthcare: Yes - Code Status/Comfort Care Code Status: Do Not Attempt Resuscitat Physician Review: Patient Assessed, Agree with Above Assessment and Plan Critical Care: No Time Spent Managing Pts Care (In Minutes): 50
--- NOTE | 2023-04-25 18:44 | RAD REPORT ---
EXAM DESCRIPTION: MRI - Brain Wo Cont - 04/25/2023 6:12 pm CLINICAL HISTORY: Facial droop. Difficulty speaking COMPARISON: Head CT January 21, 2023 MRI brain 2021 TECHNIQUE: Axial, sagittal, and coronal magnetic resonance images of the brain were obtained. FINDINGS: Moderate signal within periventricular, deep and subcortical white matter probably ischemi c changes secondary to small vessel disease Mild progression in abnormal signal right parietal lobe Stable cortical laminar necrosis left cerebrum. Old cerebellar and cerebral infarcts bilaterally. Diffusion-weighted/ADC mapping does not reveal evidence of acute infarction. Punctate old micro bleed periventricular white matter The ventricles are normal caliber. An extra-axial fluid collection is not noted. Sphenoid sinusitis IMPRESSION: Mild progression in abnormal signal right parietal lobe does not represent an acute infa rction. Most likely it represents chronic ischemic changes No acute abnormality is displayed
[2023-04-25 19:07] LABS: Specific Gravity 1.017 (1.005-1.030); Urine Bacteria None Seen /HPF (<20); Urine Bilirubin NEGATIVE (Negative); Urine Blood 3+ (OVER) (Negative); Urine Clarity Extremely Turbid (Clear); Urine Color Yellow (Yellow); Urine Glucose NEGATIVE (Negative); Urine Mucus 4+ /HPF (None Seen); Urine Protein 1+ (Negative); Urine RBC 21-50 /HPF (None Seen); Urine Urobilinogen Normal (Normal)
[2023-04-25] MEDS ORDERED: MULTIVITAMINS 10 ML VIAL (INJ) IV ONE (19:28)
[2023-04-25] MEDS ORDERED: THIAMINE 200 MG/2 ML INJ ONE (19:28)
[2023-04-25] MEDS ORDERED: HYDROCORTISONE SUC 100 MG INJ ONE (19:28)
[2023-04-25] MEDS ORDERED: FOLIC ACID 5 MG/ML VIAL ONE (19:29)
[2023-04-25 19:55] LABS: SARS-CoV-2 Antigen Rapid Res Negative (Negative)
[2023-04-25] MEDS ORDERED: NA CHLORIDE 0.9% 100 ML ONE (20:04)
[2023-04-25] MEDS ORDERED: PIPERACIL/TAZO 3.375 GM VIAL IV ONE (20:04)
--- NOTE | 2023-04-25 20:30 | RAD REPORT ---
EXAM DESCRIPTION: USCarotid Artery Bilateral04/25/2023 8:06 pm CLINICAL HISTORY: Difficulty speaking COMPARISON: None FINDINGS: The velocity of the right internal carotid artery equals 62 cm/sec. The right ICA/CCA rati o normal limits The velocity of the left internal carotid artery equals 79 cm/sec. The left ICA/CCA ratio normal limi ts Mild plaque is present within the carotid arteries. The vertebral arteries demonstrate antegrade flow IMPRESSION: Mild plaque within the carotid arteries without evidence of a hemodynamically significan t stenosis NASCET criteria used. Mild 0-49% stenosis Moderate 50-69% stenosis Severe 70-99% stenosis
[2023-04-25] MEDS: INSULIN -REGULAR HUMAN 50 UNIT/0.5 ML ML SQ SCH (23:02)
[2023-04-25] MEDS ORDERED: ONDANSETRON 4 MG/2 ML VIAL IV PRN (23:02)
[2023-04-25 23:05] VITALS: BMI 19.7
[2023-04-26] MEDS: HEPARIN 5000 UNIT/ML 1 ML VIAL SQ SCH ×3 (00:21→17:10)
[2023-04-26] MEDS: NA CHLORIDE 0.9% 1,000 ML IV SCH ×2 (00:21→09:20)
[2023-04-26 03:30] LABS: Absolute Lymphocytes (CBC) 1.1 K/uL (0.7-4.9); Hematocrit 30.3 % (36.0-45.0); Lymphocytes % 18.7 % (15.3-44.8); MCV 95.2 fL (80-100); MPV 8.4 fL (7.6-11.3); Platelets 201 thou/uL (152-406); RBC Red Blood Cell Count 3.19 M/uL (3.86-4.86)
[2023-04-26 03:51] LABS: Magnesium 1.9 mg/dL (1.6-2.4); Potassium 3.9 mEq/L (3.5-5.1)
[2023-04-26] MEDS: INSULIN -REGULAR HUMAN 50 UNIT/0.5 ML ML SQ SCH ×4 (07:30→20:27)
[2023-04-26] MEDS: HYDROCORTISONE SUC 100 MG INJ IV SCH ×2 (07:54→20:32)
[2023-04-26] MEDS: PIPER TAZO 3.375 GM in NA CHLORIDE 0.9% 100 ML IV SCH ×2 (07:54→20:26)
[2023-04-26] MEDS ORDERED: KCL 20 MEQ/100 mL IVPB 20 MEQ/100 ML BAG IV SCH (09:00)
--- NOTE | 2023-04-26 11:47 | P.CNS ---
Date of Consult: 04/26/23 Reason for Consult: ELISE/ CKD Requesting Physician: Howard Romero Chief Complaint: CVA History of Present Illness: 77-year-old female with a past medical history of depression, dementia, diabetes, insulin-dependent diabetes mellitus, hyperlipidemia, hypertension, presents to the emergency room with confusion. Daughter is at bedside is primary as historian reports slurred speech, difficulty speaking. She reports the patient has been having mini strokes, with decreased responsiveness, decreased appetite over the last 24 hours. She reports coughing with liquids yesterday and today. Chest x-ray shows right lower lobe pneumonia, plan to admit for CVA, aphasia, left-sided weakness, right lower lobe pneumonia, acute kidney injury speech eval in the a.m., start Zosyn for pneumonia. Dr. Landers consulted for neurology., Nephrology consult for acute on chronic kidney injury. ED course7 BP 123 / 90; Pulse 78; Resp 12; Temp 98.4(A); Pulse Ox 97% on R/A; laboratory evaluation WBCs normal, normocytic anemia hemoglobin 10.5, hematocrit 32.2, BUN 56, creatinine 2.2, glucose 168, BNP 2106, UA pending, brain CT no acute abnormality seen, MRI completed, results pending radiology report, chest x-ray MPRESSION: Mild opacities medial right lung base may represent confluence of pulmonary vessels or mild infiltrate 16:55 This 77 yrs old Female presents to ER via EMS with complaints of Altered Mental Status. Allergies No Known Allergies Allergy (Verified 12/29/18 08:25) Home medications list reviewed: Yes Home Medications: Donepezil [Aricept*] 10 mg PO BID 09/09/20 Escitalopram [Lexapro*] 10 mg PO DAILY 09/09/20 Glimepiride [Amaryl*] 4 mg PO BIDWM 09/09/20 Losartan Potassium [Cozaar*] 50 mg PO DAILY 09/09/20 Metformin HCl [Glucophage*] 500 mg PO BIDWM 09/09/20 Pioglitazone [Actos*] 15 mg PO DAILY 09/09/20 Pravastatin Sodium 40 mg PO DAILY 09/09/20 Ascorbic Acid [Vitamin C] 1 tab PO BID 05/14/22 Cranberry 1 tab PO BID 05/14/22 Ferrous Gluconate [Iron] 1 tab PO DAILY 05/14/22 Lactobacillus Acidophilus [Probiotic] 1 tab PO DAILY 05/14/22 Metoprolol Tartrate 1 tab PO DAILY 05/14/22 Multivitamin [Multiple Vitamins] 1 tab PO DAILY 05/14/22 - Past Medical/Surgical History Diabetic: Yes -: DEPRESSION -: HTN -: HLD -: NIDDMII -: Dementia -: CKD -: TNA -: Hysterectomy -: D&C -: RT HIP REPLACEMENT Psychosocial/ Personal History: Patient lives with her daughter at home. - Family History Mother Medical History: Heart disease, Stroke - Social History Smoking Status: Unknown if ever smoked Alcohol use: No CD- Drugs: No Caffeine use: Yes Place of Residence: Home Review of Systems 10-point ROS is otherwise unremarkable General: Weakness, Malaise Physical Examination Temp Pulse Resp BP Pulse Ox 96.9 F 62 16 140/75 95 04/26/23 08:00 04/26/23 08:00 04/26/23 08:00 04/26/23 08:00 04/26/23 08:00 General: In no apparent distress, Oriented x3, Cooperative HEENT: Atraumatic Neck: Supple Respiratory: Clear to auscultation bilaterally, Normal air movement Cardiovascular: No edema, Regular rate/rhythm Gastrointestinal: Soft and benign, Non-distended Musculoskeletal: No clubbing, No contractures Integumentary: No rashes, No cyanosis Neurological: Normal speech Laboratory Data (last 24 hrs) 04/25/23 04/25/23 04/25/23 16:55 16:55 16:55 WBC 5.90 Hgb 10.5 L Hct 32.2 L Plt Count 236 PT 13.0 H INR 1.18 Sodium 143 Potassium 4.0 BUN 56 H Creatinine 2.82 H Glucose 168 H Magnesium 2.0 Total Bilirubin 0.6 AST 11 L ALT 20 Alkaline Phosphatase 50 Imagings Data: EXAM DESCRIPTION: [facility] Single View04/25/2023 5:40 pm CLINICAL HISTORY: cough COMPARISON: 2021 FINDINGS: Mild opacities medial right lung base. The remainder of the lungs appear clear. Heart is normal size IMPRESSION: Mild opacities medial right lung base may represent confluence of pu lmonary vessels or mild infiltrate EXAM DESCRIPTION: MRI - Brain Wo Cont - 04/25/2023 6:12 pm CLINICAL HISTORY: Facial droop. Difficulty speaking COMPARISON: Head CT January 21, 2023 MRI brain 2021 TECHNIQUE: Axial, sagittal, and coronal magnetic resonance images of the brain were obtained. FINDINGS: Moderate signal within periventricular, deep and subcortical white matter probably ischemic changes secondary to small vessel disease Mild progression in abnormal signal right parietal lobe Stable cortical laminar necrosis left cerebrum. Old cerebellar and cerebral infarcts bilaterally. Diffusion-weighted/ADC mapping does not reveal evidence of acute infarction. Punctate old micro bleed periventricular white matter The ventricles are normal caliber. An extra-axial fluid collection is not noted. Sphenoid sinusitis IMPRESSION: Mild progression in abnormal signal right parietal lobe does not represent an acute infarction. Most likely it represents chronic ischemic changes No acute abnormality is displayed EXAM DESCRIPTION: USCarotid Artery Bilateral04/25/2023 8:06 pm CLINICAL HISTORY: Difficulty speaking COMPARISON: None FINDINGS: The velocity of the right internal carotid artery equals 62 cm/sec. The right ICA/CCA ratio normal limits The velocity of the left internal carotid artery equals 79 cm/sec. The left ICA/CCA ratio normal limits Mild plaque is present within the carotid arteries. The vertebral arteries demonstrate antegrade flow IMPRESSION: Mild plaque within the carotid arteries without evidence of a hemodynamically significant stenosis Conclusions/Impression: Stage I ELISE likely due to hypovolemia CKD III with Proteinuria -No NSAIDs -Change IVF 1/2NS HTN with CKD -Hold Losartan DM II with CKD -RISS -Hold metformin Anemia in chronic illness Iron Deficiency -Monitor H&H -Retacrit X1 CKD MBD -Start Ergo Hospitalist and ER notes reviewed Thank you kindly for the consultation
[2023-04-26] MEDS: NACHLORIDE 0.45% 1,000 ML IV SCH ×2 (12:01→23:37)
--- NOTE | 2023-04-26 14:15 | EKG ---
Test Date: 2023-04-25 Test Time: 16:51:26 Mine Safety Engineer: BHAVYA MEASUREMENT RESULTS: Intervals: Rate: 78 DC: 192 QRSD: 80 QT: 420 QTc: 478 [place]: P: 34 DC: 192 QRS: -63 T: 89 INTERPRETIVE STATEMENTS: Normal sinus rhythm Left axis deviation Inferior infarct, age undetermined Anterolateral infarct, age undetermined Abnormal ECG Electronically Signed On 04-26-23 14:14:08 CDT by Mike Kitchen
[2023-04-26] MEDS ORDERED: EPOETIN ALFA-EPBX 10,000 UNIT/ML VIAL SQ ONE (16:39)
[2023-04-26] MEDS ORDERED: DRISDOL (VITAMIN D=ERGOCALCIFEROL) 50000 UNIT CAP PO SCH (17:00)
[2023-04-26] MEDS: DOCUSATE NA 100 MG CAP PO SCH (20:27)
[2023-04-27] MEDS: HEPARIN 5000 UNIT/ML 1 ML VIAL SQ SCH ×3 (01:45→16:07)
[2023-04-27 03:31] LABS: Absolute Lymphocytes (CBC) 0.9 K/uL (0.7-4.9); Hematocrit 32.1 % (36.0-45.0); Lymphocytes % 16.9 % (15.3-44.8); MCV 94.5 fL (80-100); MPV 9.1 fL (7.6-11.3); Platelets 176 thou/uL (152-406); RBC Red Blood Cell Count 3.39 M/uL (3.86-4.86)
[2023-04-27 03:40] LABS: Magnesium 1.6 mg/dL (1.6-2.4); Potassium 3.8 mEq/L (3.5-5.1); Uric Acid 6.4 mg/dL (2.6-6.0)
[2023-04-27 04:31] LABS: Specific Gravity 1.018 (1.005-1.030); Urine Bacteria <20 /HPF (<20); Urine Bilirubin NEGATIVE (Negative); Urine Blood 2+ (Negative); Urine Clarity Extremely Turbid (Clear); Urine Color Light-Yellow (Yellow); Urine Crystals Unidentified Few /HPF (None Seen); Urine Glucose 2+ (Negative); Urine Mucus Slight /HPF (None Seen); Urine Protein 1+ (Negative); Urine RBC >50 /HPF (None Seen); Urine Urobilinogen Normal (Normal); Urine WBC Clump Rare /HPF (None Seen)
[2023-04-27 05:02] LABS: UR PROTEIN 55.3 mg/dL (<11.9); Urine Protein/Creatinine Ratio 0.83 ratio (<0.15)
[2023-04-27] MEDS: DOCUSATE NA 100 MG CAP PO SCH ×2 (08:47→21:50)
[2023-04-27] MEDS: HYDROCORTISONE SUC 100 MG INJ IV SCH ×2 (08:47→21:50)
[2023-04-27] MEDS: MULTIVITAMINS,THERAPEUT 1 TAB PO SCH (08:47)
[2023-04-27] MEDS: PIPER TAZO 3.375 GM in NA CHLORIDE 0.9% 100 ML IV SCH ×2 (08:48→21:49)
[2023-04-27] MEDS ORDERED: POTASSIUM 25 MEQ EFFERV TAB PO ONE (09:00)
[2023-04-27] MEDS ORDERED: MAGNESIUM SULFATE 1 gm IVPB 1 GM/100 ML BAG IV ONE (09:00)
[2023-04-27] MEDS: INSULIN -REGULAR HUMAN 50 UNIT/0.5 ML ML SQ SCH ×4 (09:16→21:54)
[2023-04-27] MEDS: NACHLORIDE 0.45% 1,000 ML IV SCH ×3 (11:12→21:51)
--- NOTE | 2023-04-27 18:57 | P.PN ---
Date of Service: 04/27/23 Vital Signs Temp Pulse Resp BP Pulse Ox 97.6 F 72 16 114/65 94 04/27/23 16:00 04/27/23 16:00 04/27/23 16:00 04/27/23 16:00 04/27/23 16:00 Medications Docusate Sodium (Docusate Na 100 Mg Cap) 100 mg PO BID [facility] Last Admin: 04/27/23 08:47 Dose: 100 mg Ergocalciferol (Drisdol (Vitamin D=Ergocalciferol) 81539 Unit Cap) 50,000 unit PO Q7D [facility] Last Admin: 04/26/23 17:56 Dose: 50,000 unit Heparin Sodium (Porcine) (Heparin 5000 Unit/Ml 1 Ml Vial) 5,000 unit SQ Q8HR [facility] Last Admin: 04/27/23 16:07 Dose: 5,000 unit Hydrocortisone Sodium Succinate (Hydrocortisone Suc 100 Mg Inj) 50 mg IV Q12HR [facility] Last Admin: 04/27/23 08:47 Dose: 50 mg Piperacillin Sod/Tazobactam (Sod 3.375 gm/ Sodium Chloride) 100 mls @ 25 mls/hr IV Q12HR [facility]; Protocol Last Admin: 04/27/23 08:48 Dose: 100 mls Sodium Chloride (Sodium Chloride 0.45%) 1,000 mls @ 85 mls/hr IV .[id number] [facility] Last Admin: 04/27/23 11:12 Dose: 1,000 mls Insulin Human Regular (Insulin -Regular Human 50 Unit/0.5 Ml Ml) 0 unit SQ ACHS [facility]; Protocol Last Admin: 04/27/23 16:15 Dose: 5 unit Ondansetron HCl (Ondansetron 4 Mg/2 Ml Vial) 4 mg IV Q6HP PRN PRN Reason: NAUSEA / VOMITING Sodium Chloride (Flush Normal Saline 10 Ml) 10 ml IV BID [facility] Last Admin: 04/27/23 08:48 Dose: 10 ml Vitamin B Complex/Vit C/Folic Acid (Multivitamins,Therapeut 1 Tab) 1 tab PO DAILY [facility] Last Admin: 04/27/23 08:47 Dose: 1 tab Microbiology Results 04/25/23 17:20 Blood - Blood Aerobic Blood Culture - Preliminary No growth in 24 hours. 04/25/23 17:20 Blood - Blood Anaerobic Blood Culture - Preliminary No growth in 24 hours. 04/25/23 17:00 Blood - Blood Aerobic Blood Culture - Preliminary No growth in 24 hours. 04/25/23 17:00 Blood - Blood Anaerobic Blood Culture - Preliminary No growth in 24 hours. Assessment/ Plan: Nephrology No dyspnea No chest pain Feeling better but did not work with PT yesterday No acute events overnight Vitals, medications, blood work and imaging reviewed in the chart. General: In no apparent distress, Oriented x3, Cooperative HEENT: Atraumatic Neck: Supple Respiratory: Clear to auscultation bilaterally, Normal air movement Cardiovascular: No edema, Regular rate/rhythm Gastrointestinal: Soft and benign, Non-distended Musculoskeletal: No clubbing, No contractures Integumentary: No rashes, No cyanosis Neurological: Normal speech Laboratory Data (last 24 hrs) 04/25/23 04/25/23 04/25/23 16:55 16:55 16:55 WBC 5.90 Hgb 10.5 L Hct 32.2 L Plt Count 236 PT 13.0 H INR 1.18 Sodium 143 Potassium 4.0 BUN 56 H Creatinine 2.82 H Glucose 168 H Magnesium 2.0 Total Bilirubin 0.6 AST 11 L ALT 20 Alkaline Phosphatase 50 Imagings Data: [facility] 5:40 pm CLINICAL HISTORY: cough COMPARISON: 2021 FINDINGS: Mild opacities medial right lung base. The remainder of the lungs appear clear. Heart is normal size IMPRESSION: Mild opacities medial right lung base may represent confluence of pulmonary vessels or mild infiltrate EXAM DESCRIPTION: MRI - Brain Wo Cont - 04/25/2023 6:12 pm CLINICAL HISTORY: Facial droop. Difficulty speaking COMPARISON: Head CT January 21, 2023 MRI brain 2021 TECHNIQUE: Axial, sagittal, and coronal magnetic resonance images of the brain were obtained. FINDINGS: Moderate signal within periventricular, deep and subcortical white matter probably ischemic changes secondary to small vessel disease Mild progression in abnormal signal right parietal lobe Stable cortical laminar necrosis left cerebrum. Old cerebellar and cerebral infarcts bilaterally. Diffusion-weighted/ADC mapping does not reveal evidence of acute infarction. Punctate old micro bleed periventricular white matter The ventricles are normal caliber. An extra-axial fluid collection is not noted. Sphenoid sinusitis IMPRESSION: Mild progression in abnormal signal right parietal lobe does not represent an acute infarction. Most likely it represents chronic ischemic changes No acute abnormality is displayed EXAM DESCRIPTION: USCarotid Artery Bilateral04/25/2023 8:06 pm CLINICAL HISTORY: Difficulty speaking COMPARISON: None FINDINGS: The velocity of the right internal carotid artery equals 62 cm/sec. The right ICA/CCA ratio normal limits The velocity of the left internal carotid artery equals 79 cm/sec. The left ICA/CCA ratio normal limits Mild plaque is present within the carotid arteries. The vertebral arteries demonstrate antegrade flow IMPRESSION: Mild plaque within the carotid arteries without evidence of a hemodynamically significant stenosis Conclusions/Impression: Stage I ELISE likely due to hypovolemia CKD III with Proteinuria -No NSAIDs -Reduce IVF 1/2NS HTN with CKD -Hold Losartan DM II with CKD -RISS -Hold metformin Anemia in chronic illness Iron Deficiency -Monitor H&H -Retacrit prn CKD MBD -Continue Ergo Hospitalist note reviewed
--- NOTE | 2023-04-28 01:12 | P.PN ---
Date of Service: 04/26/23 Subjective Patient continues to do well. Patient denies any new complaints. Patient's mental status has improved. MRI of the brain was unremarkable. Physical therapy evaluation pending. Physical Examination - Vitals Reviewed - Physical Exam General: Oriented x1, Other (pale, eyes open to verbal, ) Respiratory: Diminished Cardiovascular: No edema, Normal pulses, Regular rate/rhythm Gastrointestinal: Normal bowel sounds, Soft and benign Musculoskeletal: No clubbing, No swelling Integumentary: No rashes, No breakdown Neurological: Patient is awake and alert and following commands. Patient moving all extremities. Assessment and Plan - Assessment Assessment 1. Multifocal infarct 2. Acute on chronic cerebral infarction right parietal lobe 3. Aphasia 4. Left hemiparesis 5. Dementia 6. Right lower lobe pneumonia, 7. Acute kidney injury 8. Normocytic anemia - Plan Plan Multifocal infarct Acute on chronic cerebral infarction right parietal lobe Aphasia Dementia MRI of the brain was negative. We will continue with physical therapy and speech therapy evaluation. Depending on how well patient is doing we will make arrangements for discharge planning. Right lower lobe pneumonia Continue with IV antibiotic therapy; repeat chest x-ray Acute kidney injury Continue with gentle hydration and renal function is stabilizing. Normocytic anemia Patient's hemoglobin is stable. DNR DVT heparin Discharge Plan: Home (HH, PT at home per daughter request) Plan to discharge in: 48 Hours - Advance Directives Does patient have a Living Will: No Does patient have a Durable POA for Healthcare: Yes - Code Status/Comfort Care Code Status: Do Not Attempt Resuscitat Physician Review: Patient Assessed, Agree with Above Assessment and Plan Critical Care: No Time Spent Managing Pts Care (In Minutes): 30
--- NOTE | 2023-04-28 01:16 | P.PN ---
Date of Service: 04/27/23 Subjective Patient is doing well. 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 Her dementia is fairly advanced. She stays at home in bed for most of the day. We will continue with physical therapy. Arranging for HH with PT and discharge planning Physical Examination - Vitals Reviewed - Physical Exam General: Oriented x1 to person only, Other (pale, eyes open to verbal, ) Respiratory: Clear bilaterally Cardiovascular: Regular rate/rhythm without murmur Gastrointestinal: Normal bowel sounds, Soft and benign Musculoskeletal: No clubbing, No swelling Integumentary: No rashes, No breakdown Neurological: Patient is awake and alert and following commands. Patient moving all extremities. Generalized weakness Assessment and Plan - Assessment Assessment 1. AMS 2. Chronic cerebral infarction right parietal lobe 3. Aphasia 4. Left hemiparesis 5. Dementia 6. Right lower lobe pneumonia, 7. Acute kidney injury 8. Normocytic anemia - Plan Plan AMS Chronic cerebral infarction; right parietal lobe Aphasia Dementia MRI of the brain was negative. We will continue with physical therapy and speech therapy evaluation. Depending on how well patient is doing we will make arrangements for discharge planning. Right lower lobe pneumonia Continue with IV antibiotic therapy; repeat chest x-ray Acute kidney injury Continue with gentle hydration and renal function is stabilizing. Normocytic anemia Patient's hemoglobin is stable. DNR DVT heparin Discharge Plan: Home (HH, PT at home per daughter request) Plan to discharge in: 48 Hours - Advance Directives Does patient have a Living Will: No Does patient have a Durable POA for Healthcare: Yes - Code Status/Comfort Care Code Status: Do Not Attempt Resuscitat Physician Review: Patient Assessed, Agree with Above Assessment and Plan Critical Care: No Time Spent Managing Pts Care (In Minutes): 30
[2023-04-28] MEDS: HEPARIN 5000 UNIT/ML 1 ML VIAL SQ SCH ×3 (02:11→16:24)
[2023-04-28 03:27] LABS: Absolute Lymphocytes (CBC) 1.6 K/uL (0.7-4.9); Hematocrit 28.4 % (36.0-45.0); Lymphocytes % 21.1 % (15.3-44.8); MCV 93.8 fL (80-100); MPV 9.2 fL (7.6-11.3); Platelets 210 thou/uL (152-406); RBC Red Blood Cell Count 3.03 M/uL (3.86-4.86)
--- NOTE | 2023-04-28 07:27 | RAD REPORT ---
EXAM DESCRIPTION: RAD - Chest Single View - 04/28/2023 5:55 am CLINICAL HISTORY: pneumonia COMPARISON: Chest Single View dated 04/25/2023; Chest Single View dated 12/09/2021; Chest Single View d ated 10/08/2021; Chest Single View dated 02/15/2019 FINDINGS: Lines: None. Lungs: Mild opacities in the lung bases, left greater than right. Pleural: No significant pleural effusions or pneumothorax. Cardiac: The heart size is within normal limits. Loop recorder overlies the heart. Mediastinum: Within normal limits. Bones: No acute fractures. Plate and screw at the right humerus. Other: None IMPRESSION: Mild opacities lung bases which could reflect atelectasis and/or pneumonia.
[2023-04-28 07:59] LABS: Magnesium 2.1 mg/dL (1.6-2.4); Potassium 3.7 mEq/L (3.5-5.1)
[2023-04-28] MEDS: PIPER TAZO 3.375 GM in NA CHLORIDE 0.9% 100 ML IV SCH ×2 (08:05→21:04)
[2023-04-28] MEDS: HYDROCORTISONE SUC 100 MG INJ IV SCH (08:06)
[2023-04-28] MEDS: INSULIN -REGULAR HUMAN 50 UNIT/0.5 ML ML SQ SCH ×4 (08:14→21:02)
[2023-04-28] MEDS: MULTIVITAMINS,THERAPEUT 1 TAB PO SCH (08:18)
[2023-04-28] MEDS: DOCUSATE NA 100 MG CAP PO SCH ×2 (08:18→20:54)
[2023-04-28] MEDS ORDERED: POTASSIUM CL SA 10 MEQ TAB PO ONE (11:40)
--- NOTE | 2023-04-28 12:22 | RAD REPORT ---
EXAM DESCRIPTION: CT - Head Brain Wo Cont - 04/28/2023 12:15 pm CLINICAL HISTORY: aphasia COMPARISON: Ct Stroke Brain Wo Cont dated 04/25/2023; Head Brain Wo Cont dated 05/15/2022 TECHNIQUE: All CT scans are performed using dose optimization technique as appropriate and may inclu de automated exposure control or mA/KV adjustment according to patient size. FINDINGS: No intracranial hemorrhage, hydrocephalus or extra-axial fluid collection.No areas of brai n edema or evidence of midline shift. Remote left parietal and occipital lobe infarct. Age advanced c erebral atrophy. Advanced chronic small vessel ischemic changes. Remote left and right cerebellar infarcts. The paranasal sinuses and mastoids are clear. The calvarium is intact. IMPRESSION: No acute intracranial abnormality. Multiple remote infarcts.
[2023-04-28] MEDS ORDERED: levETIRAcetam 1,000 MG in NA CHLORIDE 0.9% 100 ML IV ONE (13:30)
[2023-04-28] MEDS: NACHLORIDE 0.45% 1,000 ML IV SCH (14:01)
--- NOTE | 2023-04-28 17:07 | P.PN ---
Subjective Date of Service: 04/28/23 Chief Complaint: CVA She was seen this morning alongside bedside RN, Ronnie. She is minimally verbal this morning. Per RN, she is typically quite talkative. I spoke with her daughter, Ms. Espinoza, who stated that she has been having frequent episodes of being nonverbal, which can last anywhere from minutes to hours. She was noted to have a right hand tremor this morning. I reviewed her case with Dr. Landers, who believes that these may be episodes of partial seizures and has recommended that we initiate levetiracetam. Review of Systems is unable to be obtained Physical Examination - Vital Signs Temperature: 97.4 F Blood Pressure: 153/79 Pulse: 66 Respirations: 16 Pulse Ox (%): 96 - Physical Exam General: Alert, In no apparent distress, Other (Minimally verbal) HEENT: Atraumatic, Sclerae nonicteric Neck: JVD not distended Respiratory: Clear to auscultation bilaterally, Normal air movement Cardiovascular: No edema, Regular rate/rhythm, Normal S1 S2, No gallops, No rubs, No murmurs Gastrointestinal: Normal bowel sounds, Soft and benign, Non-distended, No tenderness, No rebound, No guarding Musculoskeletal: No clubbing Integumentary: No rashes Neurological: Other (tracking eyes, but nonverbal - possible expressive aphasia. Right hand tremor noted.) Assessment And Plan - Plan # Altered Mental Status on Dementia # Chronic Right Parietal Lobe Cerebrovascular Accident with Intermittent Aphasia - Leading differential as of now is partial seizures - Consulted Neurology and spoke with Dr. Landers - recommendations appreciated - Recommended starting levetiracetam - EEG currently unavailable at our facility - Radiology: - CT head (04/25) = "no acute intracranial abnormality is seen. If patient's symptoms persist MRI of the brain would be recommended" - Carotid ultrasound = "mild plaque within the carotid arteries without evidence of a hemodynamically significant stenosis" - MRI brain (04/25) = "mild progression in abnormal signal right parietal lobe does not represent an acute infarction. Most likely it represents chronic ischemic changes No acute abnormality is displayed" # Suspect Aspiration Pneumonia Does not meet sepsis criteria - Radiology: - Chest x-ray (04/25) = "mild opacities medial right lung base may represent confluence of pulmonary vessels or mild infiltrate" - Chest x-ray (04/28) = "mild opacities lung bases which could reflect atelectasis and/or pneumonia" - Continue piperacillin-tazobactam # KDIGO Stage I Acute Kidney Injury on Chronic Kidney Disease Stage III # Likely Anemia of Chronic Kidney Disease - Consulted Nephrology and spoke with Dr. Shea - recommendations appreciated - Creatinine = 2.82 -> 2.46 -> 2.29 -> 2.00 (creatinine was 1.62 on 05/15/2022) - Urinalysis = 2+ glucose, 2+ blood, 500 leukocyte esterase, >50 RBCs, >50 WBCs, 1+ protein - Monitor creatinine and urine output - If worsening, obtain renal ultrasound - Renally dose medications # Type II Diabetes Mellitus # Hypertension # Hyperlipidemia # Depression - Reconcile home medications once verified Bernardo Marlow M.D.
[2023-04-28] MEDS: levETIRAcetam 500 MG in NA CHLORIDE 0.9% 100 ML IV SCH (20:58)
--- NOTE | 2023-04-28 21:28 | P.PN ---
Date of Service: 04/28/23 Vital Signs Temp Pulse Resp BP Pulse Ox 97.4 F 66 16 153/79 H 96 04/28/23 17:31 04/28/23 17:31 04/28/23 17:31 04/28/23 17:31 04/28/23 17:31 Medications Docusate Sodium (Docusate Na 100 Mg Cap) 100 mg PO BID [facility] Last Admin: 04/28/23 20:54 Dose: Not Given Ergocalciferol (Drisdol (Vitamin D=Ergocalciferol) 19987 Unit Cap) 50,000 unit PO Q7D [facility] Last Admin: 04/26/23 17:56 Dose: 50,000 unit Heparin Sodium (Porcine) (Heparin 5000 Unit/Ml 1 Ml Vial) 5,000 unit SQ Q8HR [facility] Last Admin: 04/28/23 16:24 Dose: 5,000 unit Piperacillin Sod/Tazobactam (Sod 3.375 gm/ Sodium Chloride) 100 mls @ 25 mls/hr IV Q12HR [facility]; Protocol Last Admin: 04/28/23 21:04 Dose: 100 mls Sodium Chloride (Sodium Chloride 0.45%) 1,000 mls @ 50 mls/hr IV .Q20H [facility] Last Admin: 04/28/23 14:01 Dose: 1,000 mls Levetiracetam 500 mg/ Sodium (Chloride) 105 mls @ 420 mls/hr IV BID [facility] Last Admin: 04/28/23 20:58 Dose: 105 mls Insulin Human Regular (Insulin -Regular Human 50 Unit/0.5 Ml Ml) 0 unit SQ ACHS [facility]; Protocol Last Admin: 04/28/23 21:02 Dose: 5 unit Ondansetron HCl (Ondansetron 4 Mg/2 Ml Vial) 4 mg IV Q6HP PRN PRN Reason: NAUSEA / VOMITING Sodium Chloride (Flush Normal Saline 10 Ml) 10 ml IV BID [facility] Last Admin: 04/28/23 21:00 Dose: Not Given Vitamin B Complex/Vit C/Folic Acid (Multivitamins,Therapeut 1 Tab) 1 tab PO DAILY [facility] Last Admin: 04/28/23 08:18 Dose: Not Given Microbiology Results 04/25/23 17:20 Blood - Blood Aerobic Blood Culture - Preliminary No growth in 24 hours. 04/25/23 17:20 Blood - Blood Anaerobic Blood Culture - Preliminary No growth in 24 hours. 04/25/23 17:00 Blood - Blood Aerobic Blood Culture - Preliminary No growth in 24 hours. 04/25/23 17:00 Blood - Blood Anaerobic Blood Culture - Preliminary No growth in 24 hours. Assessment/ Plan: Nephrology No dyspnea No chest pain Mental status change this morning with reduced communication No acute events overnight Vitals, medications, blood work and imaging reviewed in the chart. General: In no apparent distress, Oriented x3, Cooperative HEENT: Atraumatic Neck: Supple Respiratory: Clear to auscultation bilaterally, Normal air movement Cardiovascular: No edema, Regular rate/rhythm Gastrointestinal: Soft and benign, Non-distended Musculoskeletal: No clubbing, No contractures Integumentary: No rashes, No cyanosis Neurological: Normal speech Laboratory Data (last 24 hrs) 04/25/23 04/25/23 04/25/23 16:55 16:55 16:55 WBC 5.90 Hgb 10.5 L Hct 32.2 L Plt Count 236 PT 13.0 H INR 1.18 Sodium 143 Potassium 4.0 BUN 56 H Creatinine 2.82 H Glucose 168 H Magnesium 2.0 Total Bilirubin 0.6 AST 11 L ALT 20 Alkaline Phosphatase 50 Imagings Data: [facility] CLINICAL HISTORY: cough COMPARISON: 2021 FINDINGS: Mild opacities medial right lung base. The remainder of the lungs appear clear. Heart is normal size IMPRESSION: Mild opacities medial right lung base may represent confluence of pulmonary vessels or mild infiltrate EXAM DESCRIPTION: MRI - Brain Wo Cont - 04/25/2023 6:12 pm CLINICAL HISTORY: Facial droop. Difficulty speaking COMPARISON: Head CT January 21, 2023 MRI brain 2021 TECHNIQUE: Axial, sagittal, and coronal magnetic resonance images of the brain were obtained. FINDINGS: Moderate signal within periventricular, deep and subcortical white matter probably ischemic changes secondary to small vessel disease Mild progression in abnormal signal right parietal lobe Stable cortical laminar necrosis left cerebrum. Old cerebellar and cerebral infarcts bilaterally. Diffusion-weighted/ADC mapping does not reveal evidence of acute infarction. Punctate old micro bleed periventricular white matter The ventricles are normal caliber. An extra-axial fluid collection is not noted. Sphenoid sinusitis IMPRESSION: Mild progression in abnormal signal right parietal lobe does not represent an acute infarction. Most likely it represents chronic ischemic changes No acute abnormality is displayed EXAM DESCRIPTION: USCarotid Artery Bilateral04/25/2023 8:06 pm CLINICAL HISTORY: Difficulty speaking COMPARISON: None FINDINGS: The velocity of the right internal carotid artery equals 62 cm/sec. The right ICA/CCA ratio normal limits The velocity of the left internal carotid artery equals 79 cm/sec. The left ICA/CCA ratio normal limits Mild plaque is present within the carotid arteries. The vertebral arteries demonstrate antegrade flow IMPRESSION: Mild plaque within the carotid arteries without evidence of a hemodynamically significant stenosis Conclusions/Impression: Stage I ELISE likely due to hypovolemia CKD III with Proteinuria -No NSAIDs -Continue gentle IVF 1/2NS HTN with CKD -Hold Losartan DM II with CKD -RISS -Hold metformin Anemia in chronic illness Iron Deficiency -Monitor H&H -Retacrit prn CKD MBD -Continue Ergo Hospitalist note reviewed Case reviewed with Dr. Marlow
[2023-04-29] MEDS: HEPARIN 5000 UNIT/ML 1 ML VIAL SQ SCH ×3 (01:08→16:21)
--- NOTE | 2023-04-29 02:31 | CON ---
Reason For Consultation: Consultation called because of possible seizure. Note, the history is obta ined by speaking with hospitalist, Dr. Marlow and chart review as the patient is not verbally communic ative due to ongoing aphasia. History Of Present Illness: Ms. Lozano is a 77-year-old patient who was admitted to [facility] on 04/25/2023 with worsening confusion, aspiration, slurred speech, and pneumonia. There was re ported history of multiple small strokes, ruled out by CT scan of the head. While in the hospital, t he patient has had episodes of coming in and out, being unable to communicate. At times, she would s tare blankly and may have some tremoring activity in the right hand, which when I evaluated the patie nt was held outstretched with increased tone and tremoring noted to the right hand. She did actually track visually, but did not follow any commands to move her arms or legs, open or close the eyes, ra ise her lower hands, and the right upper and lower extremity had increased tone compared to the left side. She did receive treatment for aspiration pneumonia with IV antibiotics. She has had a brain M RI on 04/25/2023, showing no acute ischemic or hemorrhagic changes, but remote strokes. Her most rec ent scan is a CT scan of the head done earlier today, which shows evidence of chronic left parietal a nd occipital lobe infarcts along with advanced cerebral small-vessel ischemic disease. Past Medical History: As noted above in addition to diabetes mellitus, depression, dyslipidemia, chr onic kidney disease, and dementia. Past Surgical History: D and C, hysterectomy, right hip replacement, total knee arthroplasty. Allergies: NO KNOWN DRUG ALLERGIES. Medications: Aricept 10 mg twice daily, Lexapro 10 mg daily, Amaryl 4 mg twice daily, Cozaar 50 mg d aily, Glucophage 500 mg twice daily, Actos 15 mg daily, pravastatin 40 mg daily, vitamin C twice zahra y, cranberry pills twice daily, ferrous sulfate daily. Family History: Mother with heart disease and stroke. Social History: No alcohol, tobacco, or IV drug use. Patient resides with family. Review of Systems: Unable to perform a review of systems as the patient is not medicated as she is aphasic without any m eaningful communication. Physical Examination: Vital Signs: Blood pressure range 126 to 153 over 79 to 86, pulse ranged from 66 to 95, temperature 97.4, oxygen saturation 96%, and respiratory rate 15 to 18. She is 122 pounds, 5 feet 2 inches, BMI 22.3. General: Ms. Lozano is lying in bed. Eyes open and she does track visually. HEENT: She appears to be normocephalic, atraumatic. Sclerae anicteric. Oropharynx is moist. Neck: Supple. Chest: Good air movement. Abdomen: No noted issues there. Extremities: The right hand is held extended with fingers extended and tremoring noted. She has inc reased tone in the right upper and lower compared to the left upper and lower extremities. She has d epressed reflexes, actually around trace to 1 in the upper and lower extremities. Unable to fully as sess sensation, coordination, and gait as the patient as noted as aphasic. She does track faces visu ally and responds to visual threat. Laboratory Studies: Complete blood count differential shows white blood cell count 7.7, hemoglobin 9 .6, platelets 210. INR 1.18. Chemistries are unremarkable except creatinine elevated to 2, glucose 182, calcium 8.3, magnesium 2.1. Procalcitonin less than 0.05. Her urinalysis from the shows g reater than 500 esterase, greater than 50 red blood cells, greater than 50 white blood cells, occasio nal budding yeast, elevated random total protein in the urine of 55.3. Random microalbumin elevated to 14, extremely turbid clarity and COVID-19 testing is negative. Chest x-ray from 04/28 shows mild opacities of lung bases, which could represent atelectasis or pneumonia. Assessment: Ms. Lozano is a 77-year-old patient with multiple medical problems as noted above inclu ding diabetes mellitus, hypertension, and who appears to have complex partial seizures that are ongoi ng. The hospital has no EEG available to determine the patient's electrical status in terms of the b rain activity. I discussed the case with Dr. Marlow and the plan is to load her with Keppra 1000 mg I V and continue 500 mg twice daily. The patient is actually best suited where there is EEG to evaluat e and monitor brain activity. She has no evidence of an acute stroke, but remote strokes in the left hemisphere, which potentially could be sources for her right-sided focal seizures impacting her comm unication, making it complex. Plan: 1.As noted Keppra load and continue 500 mg twice daily. 2.At some point, the patient would benefit from an EEG and perhaps EEG monitoring study. 3.May give Ativan 1 mg every 3 to 4 hours as appropriate for controlling seizure-like activity. 4.Good to treat aggressively any infection as seizure threshold could be potentially lowered due to systemic infections or pneumonia or urinary tract infection. 5.Patient will be followed while in the hospital. ISHMAEL/ANGEL Voice ID: [id number] Report ID: [id number]
[2023-04-29] MEDS: NACHLORIDE 0.45% 1,000 ML IV SCH ×2 (05:05→10:54)
[2023-04-29 07:01] LABS: Potassium 3.4 mEq/L (3.5-5.1)
[2023-04-29] MEDS: INSULIN -REGULAR HUMAN 50 UNIT/0.5 ML ML SQ SCH ×4 (08:50→21:55)
[2023-04-29] MEDS: levETIRAcetam 500 MG in NA CHLORIDE 0.9% 100 ML IV SCH ×2 (08:51→19:53)
[2023-04-29] MEDS: DOCUSATE NA 100 MG CAP PO SCH ×2 (08:52→19:58)
[2023-04-29] MEDS: MULTIVITAMINS,THERAPEUT 1 TAB PO SCH (08:52)
[2023-04-29] MEDS: PIPER TAZO 3.375 GM in NA CHLORIDE 0.9% 100 ML IV SCH ×2 (08:53→19:57)
[2023-04-29] MEDS ORDERED: POTASSIUM 25 MEQ EFFERV TAB PO ONE ×2 (09:00→18:30)
--- NOTE | 2023-04-29 20:13 | P.PN ---
Subjective Date of Service: 04/29/23 Chief Complaint: CVA She is much more awake this morning. She is alert and oriented x 2. She has not had any recurrent aphasic episodes since the levetiracetam was initiated. She denies any concerns this morning. Review of Systems 10-point ROS is otherwise unremarkable General: Weakness (generalized) Physical Examination - Vital Signs Temperature: 97.3 F Blood Pressure: 106/79 Pulse: 86 Respirations: 18 Pulse Ox (%): 96 Assessment And Plan - Plan - Physical Exam General: Alert, In no apparent distress, Oriented x 2 HEENT: Atraumatic, Sclerae nonicteric Respiratory: Clear to auscultation bilaterally, Normal air movement Cardiovascular: No edema, Regular rate/rhythm, No murmurs Gastrointestinal: Normal bowel sounds, Soft, Non-distended, No tenderness Musculoskeletal: No clubbing Integumentary: No rashes Neurological: Alert, cooperative, oriented x 2. 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 Landers - recommendations appreciated - Continue levetiracetam - EEG currently unavailable at our facility - Radiology: - CT head (04/25) = "no acute intracranial abnormality is seen. If patient's symptoms persist MRI of the brain would be recommended" - Carotid ultrasound = "mild plaque within the carotid arteries without evidence of a hemodynamically significant stenosis" - MRI brain (04/25) = "mild progression in abnormal signal right parietal lobe does not represent an acute infarction. Most likely it represents chronic ischemic changes No acute abnormality is displayed" # Suspect Aspiration Pneumonia Does not meet sepsis criteria - Radiology: - Chest x-ray (04/25) = "mild opacities medial right lung base may represent confluence of pulmonary vessels or mild infiltrate" - Chest x-ray (04/28) = "mild opacities lung bases which could reflect atelectasis and/or pneumonia" - Continue piperacillin-tazobactam # KDIGO Stage I Acute Kidney Injury on Chronic Kidney Disease Stage III # Likely Anemia of Chronic Kidney Disease - Consulted Nephrology and spoke with Dr. Shea - recommendations appreciated - Creatinine = 2.82 -> 2.46 -> 2.29 -> 2.00 (creatinine was 1.62 on 05/15/2022) - Urinalysis = 2+ glucose, 2+ blood, 500 leukocyte esterase, >50 RBCs, >50 WBCs, 1+ protein - Monitor creatinine and urine output - If worsening, obtain renal ultrasound - Renally dose medications # Type II Diabetes Mellitus # Hypertension # Hyperlipidemia # Depression - Reconcile home medications once verified Bernardo Marlow M.D.
--- NOTE | 2023-04-29 21:14 | P.PN ---
Date of Service: 04/29/23 Vital Signs Temp Pulse Resp BP Pulse Ox 97.3 F 86 18 106/79 96 04/29/23 20:12 04/29/23 20:12 04/29/23 20:12 04/29/23 20:12 04/29/23 20:12 Medications Docusate Sodium (Docusate Na 100 Mg Cap) 100 mg PO BID [facility] Last Admin: 04/29/23 19:58 Dose: 100 mg Ergocalciferol (Drisdol (Vitamin D=Ergocalciferol) 91777 Unit Cap) 50,000 unit PO Q7D [facility] Last Admin: 04/26/23 17:56 Dose: 50,000 unit Heparin Sodium (Porcine) (Heparin 5000 Unit/Ml 1 Ml Vial) 5,000 unit SQ Q8HR [facility] Last Admin: 04/29/23 16:21 Dose: 5,000 unit Piperacillin Sod/Tazobactam (Sod 3.375 gm/ Sodium Chloride) 100 mls @ 25 mls/hr IV Q12HR [facility]; Protocol Last Admin: 04/29/23 19:57 Dose: 100 mls Sodium Chloride (Sodium Chloride 0.45%) 1,000 mls @ 50 mls/hr IV .Q20H [facility] Last Admin: 04/29/23 10:54 Dose: Not Given Levetiracetam 500 mg/ Sodium (Chloride) 105 mls @ 420 mls/hr IV BID [facility] Last Admin: 04/29/23 19:53 Dose: 105 mls Insulin Human Regular (Insulin -Regular Human 50 Unit/0.5 Ml Ml) 0 unit SQ ACHS [facility]; Protocol Last Admin: 04/29/23 16:30 Dose: Not Given Ondansetron HCl (Ondansetron 4 Mg/2 Ml Vial) 4 mg IV Q6HP PRN PRN Reason: NAUSEA / VOMITING Sodium Chloride (Flush Normal Saline 10 Ml) 10 ml IV BID [facility] Last Admin: 04/29/23 19:57 Dose: 10 ml Vitamin B Complex/Vit C/Folic Acid (Multivitamins,Therapeut 1 Tab) 1 tab PO DAILY [facility] Last Admin: 04/29/23 08:52 Dose: 1 tab Microbiology Results 04/25/23 17:20 Blood - Blood Aerobic Blood Culture - Preliminary No growth in 24 hours. 04/25/23 17:20 Blood - Blood Anaerobic Blood Culture - Preliminary No growth in 24 hours. 04/25/23 17:00 Blood - Blood Aerobic Blood Culture - Preliminary No growth in 24 hours. 04/25/23 17:00 Blood - Blood Anaerobic Blood Culture - Preliminary No growth in 24 hours. Assessment/ Plan: Nephrology No dyspnea No chest pain More awake and verbal today No acute events overnight Vitals, medications, blood work and imaging reviewed in the chart. General: In no apparent distress, Oriented x3, Cooperative HEENT: Atraumatic Neck: Supple Respiratory: Clear to auscultation bilaterally, Normal air movement Cardiovascular: No edema, Regular rate/rhythm Gastrointestinal: Soft and benign, Non-distended Musculoskeletal: No clubbing, No contractures Integumentary: No rashes, No cyanosis Neurological: Normal speech Laboratory Data (last 24 hrs) 04/25/23 04/25/23 04/25/23 16:55 16:55 16:55 WBC 5.90 Hgb 10.5 L Hct 32.2 L Plt Count 236 PT 13.0 H INR 1.18 Sodium 143 Potassium 4.0 BUN 56 H Creatinine 2.82 H Glucose 168 H Magnesium 2.0 Total Bilirubin 0.6 AST 11 L ALT 20 Alkaline Phosphatase 50 Imagings Data: EXAM DESCRIPTION: RADChest Single View04/25/2023 5:40 pm CLINICAL HISTORY: cough COMPARISON: 2021 FINDINGS: Mild opacities medial right lung base. The remainder of the lungs appear clear. Heart is normal size IMPRESSION: Mild opacities medial right lung base may represent confluence of pulmonary vessels or mild infiltrate EXAM DESCRIPTION: MRI - Brain Wo Cont - 04/25/2023 6:12 pm CLINICAL HISTORY: Facial droop. Difficulty speaking COMPARISON: Head CT January 21, 2023 MRI brain 2021 TECHNIQUE: Axial, sagittal, and coronal magnetic resonance images of the brain were obtained. FINDINGS: Moderate signal within periventricular, deep and subcortical white matter probably ischemic changes secondary to small vessel disease Mild progression in abnormal signal right parietal lobe Stable cortical laminar necrosis left cerebrum. Old cerebellar and cerebral infarcts bilaterally. Diffusion-weighted/ADC mapping does not reveal evidence of acute infarction. Punctate old micro bleed periventricular white matter The ventricles are normal caliber. An extra-axial fluid collection is not noted. Sphenoid sinusitis IMPRESSION: Mild progression in abnormal signal right parietal lobe does not represent an acute infarction. Most likely it represents chronic ischemic changes No acute abnormality is displayed EXAM DESCRIPTION: USCarotid Artery Bilateral04/25/2023 8:06 pm CLINICAL HISTORY: Difficulty speaking COMPARISON: None FINDINGS: The velocity of the right internal carotid artery equals 62 cm/sec. The right ICA/CCA ratio normal limits The velocity of the left internal carotid artery equals 79 cm/sec. The left ICA/CCA ratio normal limits Mild plaque is present within the carotid arteries. The vertebral arteries demonstrate antegrade flow IMPRESSION: Mild plaque within the carotid arteries without evidence of a hemodynamically significant stenosis Conclusions/Impression: Stage I ELISE likely due to hypovolemia CKD III with Proteinuria -No NSAIDs -Continue gentle IVF 1/2NS HTN with CKD -Hold Losartan DM II with CKD -RISS -Hold metformin Anemia in chronic illness Iron Deficiency -Monitor H&H -Retacrit X1 CKD MBD -Continue Ergo Hospitalist note reviewed
[2023-04-30] MEDS: HEPARIN 5000 UNIT/ML 1 ML VIAL SQ SCH ×3 (00:25→17:43)
[2023-04-30 00:52] VITALS: O2SAT 95
[2023-04-30] MEDS: NACHLORIDE 0.45% 1,000 ML IV SCH (02:25)
[2023-04-30 03:06] LABS: Hematocrit 25.9 % (36.0-45.0)
[2023-04-30 03:28] LABS: Potassium 3.8 mEq/L (3.5-5.1)
[2023-04-30] MEDS ORDERED: POTASSIUM 25 MEQ EFFERV TAB PO ONE (05:32)
[2023-04-30] MEDS ORDERED: KCL 20 MEQ/100 mL IVPB 20 MEQ/100 ML BAG IV SCH (07:00)
[2023-04-30] MEDS: INSULIN -REGULAR HUMAN 50 UNIT/0.5 ML ML SQ SCH ×4 (07:30→21:00)
[2023-04-30] MEDS ORDERED: EPOETIN ALFA-EPBX 10,000 UNIT/ML VIAL SQ SCH (09:00)
[2023-04-30] MEDS: PIPER TAZO 3.375 GM in NA CHLORIDE 0.9% 100 ML IV SCH (10:07)
[2023-04-30] MEDS: DOCUSATE NA 100 MG CAP PO SCH ×2 (10:13→22:42)
[2023-04-30] MEDS: levETIRAcetam 500 MG in NA CHLORIDE 0.9% 100 ML IV SCH ×2 (10:13→22:41)
[2023-04-30] MEDS: MULTIVITAMINS,THERAPEUT 1 TAB PO SCH (10:13)
--- NOTE | 2023-04-30 20:35 | P.PN ---
Subjective Date of Service: 04/30/23 Chief Complaint: CVA No new events. Although she reports feeling better, she is quite weak and not able to do much with PT. Per her daughter, they are not interested in SNF at this time. Will continue to work with PT and see if she can get strong enough to safely discharge to home with Home Health. Review of Systems 10-point ROS is otherwise unremarkable General: Weakness (generalized) Physical Examination - Vital Signs Temperature: 97.4 F Blood Pressure: 143/82 Pulse: 80 Respirations: 16 Pulse Ox (%): 98 - Studies Microbiology Data (last 24 hrs): 04/25/23 17:20 Blood - Blood Aerobic Blood Culture - Final No growth in 5 days. 04/25/23 17:20 Blood - Blood Anaerobic Blood Culture - Final No growth in 5 days. 04/25/23 17:00 Blood - Blood Aerobic Blood Culture - Final No growth in 5 days. 04/25/23 17:00 Blood - Blood Anaerobic Blood Culture - Final No growth in 5 days. Assessment And Plan - Plan - Physical Exam General: Alert, In no apparent distress, Oriented x 2 HEENT: Atraumatic, Sclerae nonicteric Respiratory: Clear to auscultation bilaterally, Normal air movement Cardiovascular: No edema, Regular rate/rhythm, No murmurs Gastrointestinal: Normal bowel sounds, Soft, Non-distended, No tenderness Musculoskeletal: No clubbing Integumentary: No rashes Neurological: Alert, cooperative, oriented x 2. 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 Landers - recommendations appreciated - Continue levetiracetam - EEG currently unavailable at our facility - Radiology: - CT head (04/25) = "no acute intracranial abnormality is seen. If patient's symptoms persist MRI of the brain would be recommended" - Carotid ultrasound = "mild plaque within the carotid arteries without evidence of a hemodynamically significant stenosis" - MRI brain (04/25) = "mild progression in abnormal signal right parietal lobe does not represent an acute infarction. Most likely it represents chronic ischemic changes No acute abnormality is displayed" # Suspect Aspiration Pneumonia Does not meet sepsis criteria - Radiology: - Chest x-ray (04/25) = "mild opacities medial right lung base may represent confluence of pulmonary vessels or mild infiltrate" - Chest x-ray (04/28) = "mild opacities lung bases which could reflect atelectasis and/or pneumonia" - Continue piperacillin-tazobactam # KDIGO Stage I Acute Kidney Injury on Chronic Kidney Disease Stage III # Likely Anemia of Chronic Kidney Disease - Consulted Nephrology and spoke with Dr. Shea - recommendations appreciated - Creatinine = 2.82 -> 2.46 -> 2.29 -> 2.00 -> 1.95 (creatinine was 1.62 on 05/15/2022) - Urinalysis = 2+ glucose, 2+ blood, 500 leukocyte esterase, >50 RBCs, >50 WBCs, 1+ protein - Monitor creatinine and urine output - If worsening, obtain renal ultrasound - Renally dose medications # Deconditioning - PT consulted - recs appreciated - Per daughter, they are not interested in SNF placement # Type II Diabetes Mellitus # Hypertension # Hyperlipidemia # Depression - Reconcile home medications once verified Bernardo Marlow M.D.
--- NOTE | 2023-04-30 21:42 | P.PN ---
Date of Service: 04/30/23 Vital Signs Temp Pulse Resp BP Pulse Ox 97.4 F 80 16 143/82 H 98 04/30/23 20:35 04/30/23 20:35 04/30/23 20:35 04/30/23 20:35 04/30/23 20:35 Medications Amoxicillin/Clavulanate Potassium (Amox/K Clav 500 Mg Tab) 500 mg PO BID [facility] Stop: 05/02/23 21:01 Docusate Sodium (Docusate Na 100 Mg Cap) 100 mg PO BID [facility] Last Admin: 04/30/23 10:13 Dose: 100 mg Ergocalciferol (Drisdol (Vitamin D=Ergocalciferol) 12076 Unit Cap) 50,000 unit PO Q7D [facility] Last Admin: 04/26/23 17:56 Dose: 50,000 unit Heparin Sodium (Porcine) (Heparin 5000 Unit/Ml 1 Ml Vial) 5,000 unit SQ Q8HR [facility] Last Admin: 04/30/23 17:43 Dose: 5,000 unit Sodium Chloride (Sodium Chloride 0.45%) 1,000 mls @ 50 mls/hr IV .Q20H [facility] Last Admin: 04/30/23 02:25 Dose: 1,000 mls Levetiracetam 500 mg/ Sodium (Chloride) 105 mls @ 420 mls/hr IV BID [facility] Last Admin: 04/30/23 10:13 Dose: 105 mls Insulin Human Regular (Insulin -Regular Human 50 Unit/0.5 Ml Ml) 0 unit SQ ACHS [facility]; Protocol Last Admin: 04/30/23 17:42 Dose: 3 unit Ondansetron HCl (Ondansetron 4 Mg/2 Ml Vial) 4 mg IV Q6HP PRN PRN Reason: NAUSEA / VOMITING Sodium Chloride (Flush Normal Saline 10 Ml) 10 ml IV BID [facility] Last Admin: 04/30/23 10:14 Dose: 10 ml Vitamin B Complex/Vit C/Folic Acid (Multivitamins,Therapeut 1 Tab) 1 tab PO DAILY [facility] Last Admin: 04/30/23 10:13 Dose: 1 tab Microbiology Results 04/25/23 17:20 Blood - Blood Aerobic Blood Culture - Final No growth in 5 days. 04/25/23 17:20 Blood - Blood Anaerobic Blood Culture - Final No growth in 5 days. 04/25/23 17:00 Blood - Blood Aerobic Blood Culture - Final No growth in 5 days. 04/25/23 17:00 Blood - Blood Anaerobic Blood Culture - Final No growth in 5 days. Assessment/ Plan: Nephrology No dyspnea No chest pain No acute events overnight Vitals, medications, blood work and imaging reviewed in the chart. General: In no apparent distress, Oriented x3, Cooperative HEENT: Atraumatic Neck: Supple Respiratory: Clear to auscultation bilaterally, Normal air movement Cardiovascular: No edema, Regular rate/rhythm Gastrointestinal: Soft and benign, Non-distended Musculoskeletal: No clubbing, No contractures Integumentary: No rashes, No cyanosis Neurological: Normal speech Laboratory Data (last 24 hrs) 04/25/23 04/25/23 04/25/23 16:55 16:55 16:55 WBC 5.90 Hgb 10.5 L Hct 32.2 L Plt Count 236 PT 13.0 H INR 1.18 Sodium 143 Potassium 4.0 BUN 56 H Creatinine 2.82 H Glucose 168 H Magnesium 2.0 Total Bilirubin 0.6 AST 11 L ALT 20 Alkaline Phosphatase 50 Imagings Data: EXAM DESCRIPTION: RADChest Single View04/25/2023 5:40 pm CLINICAL HISTORY: cough COMPARISON: 2021 FINDINGS: Mild opacities medial right lung base. The remainder of the lungs appear clear. Heart is normal size IMPRESSION: Mild opacities medial right lung base may represent confluence of pulmonary vessels or mild infiltrate EXAM DESCRIPTION: MRI - Brain Wo Cont - 04/25/2023 6:12 pm CLINICAL HISTORY: Facial droop. Difficulty speaking COMPARISON: Head CT January 21, 2023 MRI brain 2021 TECHNIQUE: Axial, sagittal, and coronal magnetic resonance images of the brain were obtained. FINDINGS: Moderate signal within periventricular, deep and subcortical white matter probably ischemic changes secondary to small vessel disease Mild progression in abnormal signal right parietal lobe Stable cortical laminar necrosis left cerebrum. Old cerebellar and cerebral infarcts bilaterally. Diffusion-weighted/ADC mapping does not reveal evidence of acute infarction. Punctate old micro bleed periventricular white matter The ventricles are normal caliber. An extra-axial fluid collection is not noted. Sphenoid sinusitis IMPRESSION: Mild progression in abnormal signal right parietal lobe does not represent an acute infarction. Most likely it represents chronic ischemic changes No acute abnormality is displayed EXAM DESCRIPTION: USCarotid Artery Bilateral04/25/2023 8:06 pm CLINICAL HISTORY: Difficulty speaking COMPARISON: None FINDINGS: The velocity of the right internal carotid artery equals 62 cm/sec. The right ICA/CCA ratio normal limits The velocity of the left internal carotid artery equals 79 cm/sec. The left ICA/CCA ratio normal limits Mild plaque is present within the carotid arteries. The vertebral arteries demonstrate antegrade flow IMPRESSION: Mild plaque within the carotid arteries without evidence of a hemodynamically significant stenosis Conclusions/Impression: Stage I ELISE likely due to hypovolemia CKD III with Proteinuria -No NSAIDs -Continue gentle IVF 1/2NS HTN with CKD -Hold Losartan DM II with CKD -RISS -Hold metformin Anemia in chronic illness Iron Deficiency -Monitor H&H -Retacrit prn CKD MBD -Continue Ergo Case reviewed with Dr. Marlow Hospitalist note reviewed
[2023-04-30] MEDS: AMOX/K CLAV 500 MG TAB PO SCH (22:42)
[2023-05-01] MEDS: NACHLORIDE 0.45% 1,000 ML IV SCH ×2 (02:08→02:54)
[2023-05-01] MEDS: HEPARIN 5000 UNIT/ML 1 ML VIAL SQ SCH ×3 (02:08→16:58)
[2023-05-01 03:23] LABS: Hematocrit 26.4 % (36.0-45.0)
[2023-05-01 04:03] LABS: Potassium 4.2 mEq/L (3.5-5.1)
[2023-05-01] MEDS: INSULIN -REGULAR HUMAN 50 UNIT/0.5 ML ML SQ SCH ×4 (07:30→20:36)
[2023-05-01] MEDS: DOCUSATE NA 100 MG CAP PO SCH ×2 (08:55→20:36)
[2023-05-01] MEDS: AMOX/K CLAV 500 MG TAB PO SCH ×2 (08:55→20:36)
[2023-05-01] MEDS: MULTIVITAMINS,THERAPEUT 1 TAB PO SCH (08:55)
[2023-05-01] MEDS: levETIRAcetam 500 MG in NA CHLORIDE 0.9% 100 ML IV SCH ×2 (09:32→20:36)
[2023-05-01] MEDS: SOD FERRIC GLUC COMPLX/SUCROSE 250 MG in NA CHLORIDE 0.9% 250 ML IV SCH (11:43)
--- NOTE | 2023-05-01 19:33 | P.PN ---
Subjective Date of Service: 05/01/23 Chief Complaint: CVA No new events. She is alert and oriented x 2 this morning. She was working with PT this morning on rounds. She denies any concerns at this time. Review of Systems is unable to be obtained General: Weakness (generalized) Physical Examination - Vital Signs Temperature: 97.9 F Blood Pressure: 145/90 Pulse: 73 Respirations: 16 Pulse Ox (%): 100 - Studies Microbiology Data (last 24 hrs): 04/25/23 17:20 Blood - Blood Aerobic Blood Culture - Final No growth in 5 days. 04/25/23 17:20 Blood - Blood Anaerobic Blood Culture - Final No growth in 5 days. 04/25/23 17:00 Blood - Blood Aerobic Blood Culture - Final No growth in 5 days. 04/25/23 17:00 Blood - Blood Anaerobic Blood Culture - Final No growth in 5 days. Assessment And Plan - Plan - Physical Exam General: Alert, In no apparent distress, Oriented x 2 HEENT: Atraumatic, Sclerae nonicteric Respiratory: Clear to auscultation bilaterally, Normal air movement Cardiovascular: No edema, Regular rate/rhythm, No murmurs Gastrointestinal: Normal bowel sounds, Soft, Non-distended, No tenderness Musculoskeletal: No clubbing Integumentary: No rashes Neurological: Alert, cooperative, oriented x 2. 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 Landers - recommendations appreciated - Continue levetiracetam - EEG currently unavailable at our facility - Radiology: - CT head (04/25) = "no acute intracranial abnormality is seen. If patient's symptoms persist MRI of the brain would be recommended" - Carotid ultrasound = "mild plaque within the carotid arteries without evidence of a hemodynamically significant stenosis" - MRI brain (04/25) = "mild progression in abnormal signal right parietal lobe does not represent an acute infarction. Most likely it represents chronic ischemic changes No acute abnormality is displayed" # Suspect Aspiration Pneumonia Does not meet sepsis criteria - Radiology: - Chest x-ray (04/25) = "mild opacities medial right lung base may represent confluence of pulmonary vessels or mild infiltrate" - Chest x-ray (04/28) = "mild opacities lung bases which could reflect atelectasis and/or pneumonia" - Continue amoxicillinclavulanate # KDIGO Stage I Acute Kidney Injury on Chronic Kidney Disease Stage III # Likely Anemia of Chronic Kidney Disease - Consulted Nephrology and spoke with Dr. Shea - recommendations appreciated - Creatinine = 2.82 -> 2.46 -> 2.29 -> 2.00 -> 1.95 (creatinine was 1.62 on 05/15/2022) - Urinalysis = 2+ glucose, 2+ blood, 500 leukocyte esterase, >50 RBCs, >50 WBCs, 1+ protein - Monitor creatinine and urine output - If worsening, obtain renal ultrasound - Renally dose medications # Deconditioning - PT consulted - recs appreciated - Per daughter, they are not interested in SNF placement - Continue PT to see if she can become strong enough to be safely discharged home with Home Health # Type II Diabetes Mellitus # Hypertension # Hyperlipidemia # Depression - Reconcile home medications once verified Bernardo Marlow M.D.
--- NOTE | 2023-05-01 19:49 | P.PN ---
Date of Service: 05/01/23 Vital Signs Temp Pulse Resp BP Pulse Ox 97.9 F 73 16 145/90 H 100 05/01/23 19:32 05/01/23 19:32 05/01/23 19:32 05/01/23 19:32 05/01/23 19:32 Medications Amoxicillin/Clavulanate Potassium (Amox/K Clav 500 Mg Tab) 500 mg PO BID [facility] Stop: 05/02/23 21:01 Last Admin: 05/01/23 08:55 Dose: 500 mg Docusate Sodium (Docusate Na 100 Mg Cap) 100 mg PO BID [facility] Last Admin: 05/01/23 08:55 Dose: 100 mg Enteral Nutritional Formula (Glucerna Shake 237 Ml Can) 237 ml PO BID [facility] Ergocalciferol (Drisdol (Vitamin D=Ergocalciferol) 96511 Unit Cap) 50,000 unit PO Q7D [facility] Last Admin: 04/26/23 17:56 Dose: 50,000 unit Heparin Sodium (Porcine) (Heparin 5000 Unit/Ml 1 Ml Vial) 5,000 unit SQ Q8HR [facility] Last Admin: 05/01/23 16:58 Dose: 5,000 unit Sodium Chloride (Sodium Chloride 0.45%) 1,000 mls @ 50 mls/hr IV .Q20H [facility] Last Admin: 05/01/23 02:54 Dose: Not Given Levetiracetam 500 mg/ Sodium (Chloride) 105 mls @ 420 mls/hr IV BID [facility] Last Admin: 05/01/23 09:32 Dose: 105 mls Ferric Sodium Gluconate Complex 250 mg/ Sodium Chloride 270 mls @ 135 mls/hr IV DAILY [facility] Stop: 05/04/23 10:59 Last Admin: 05/01/23 11:43 Dose: 270 mls Insulin Human Regular (Insulin -Regular Human 50 Unit/0.5 Ml Ml) 0 unit SQ ACHS [facility]; Protocol Last Admin: 05/01/23 16:30 Dose: Not Given Ondansetron HCl (Ondansetron 4 Mg/2 Ml Vial) 4 mg IV Q6HP PRN PRN Reason: NAUSEA / VOMITING Sodium Chloride (Flush Normal Saline 10 Ml) 10 ml IV BID [facility] Last Admin: 05/01/23 08:56 Dose: 10 ml Vitamin B Complex/Vit C/Folic Acid (Multivitamins,Therapeut 1 Tab) 1 tab PO DAILY [facility] Last Admin: 05/01/23 08:55 Dose: 1 tab Microbiology Results 04/25/23 17:20 Blood - Blood Aerobic Blood Culture - Final No growth in 5 days. 04/25/23 17:20 Blood - Blood Anaerobic Blood Culture - Final No growth in 5 days. 04/25/23 17:00 Blood - Blood Aerobic Blood Culture - Final No growth in 5 days. 04/25/23 17:00 Blood - Blood Anaerobic Blood Culture - Final No growth in 5 days. Assessment/ Plan: Nephrology No dyspnea No chest pain Feeling better No acute events overnight Case reviewed with the daughter Vitals, medications, blood work and imaging reviewed in the chart. General: In no apparent distress, Oriented x3, Cooperative HEENT: Atraumatic Neck: Supple Respiratory: Clear to auscultation bilaterally, Normal air movement Cardiovascular: No edema, Regular rate/rhythm Gastrointestinal: Soft and benign, Non-distended Musculoskeletal: No clubbing, No contractures Integumentary: No rashes, No cyanosis Neurological: Normal speech Laboratory Data (last 24 hrs) 04/25/23 04/25/23 04/25/23 16:55 16:55 16:55 WBC 5.90 Hgb 10.5 L Hct 32.2 L Plt Count 236 PT 13.0 H INR 1.18 Sodium 143 Potassium 4.0 BUN 56 H Creatinine 2.82 H Glucose 168 H Magnesium 2.0 Total Bilirubin 0.6 AST 11 L ALT 20 Alkaline Phosphatase 50 Imagings Data: EXAM DESCRIPTION: [facility] Single View04/25/2023 5:40 pm CLINICAL HISTORY: cough COMPARISON: 2021 FINDINGS: Mild opacities medial right lung base. The remainder of the lungs appear clear. Heart is normal size IMPRESSION: Mild opacities medial right lung base may represent confluence of pulmonary vessels or mild infiltrate EXAM DESCRIPTION: MRI - Brain Wo Cont - 04/25/2023 6:12 pm CLINICAL HISTORY: Facial droop. Difficulty speaking COMPARISON: Head CT January 21, 2023 MRI brain 2021 TECHNIQUE: Axial, sagittal, and coronal magnetic resonance images of the brain were obtained. FINDINGS: Moderate signal within periventricular, deep and subcortical white matter probably ischemic changes secondary to small vessel disease Mild progression in abnormal signal right parietal lobe Stable cortical laminar necrosis left cerebrum. Old cerebellar and cerebral infarcts bilaterally. Diffusion-weighted/ADC mapping does not reveal evidence of acute infarction. Punctate old micro bleed periventricular white matter The ventricles are normal caliber. An extra-axial fluid collection is not noted. Sphenoid sinusitis IMPRESSION: Mild progression in abnormal signal right parietal lobe does not represent an acute infarction. Most likely it represents chronic ischemic changes No acute abnormality is displayed EXAM DESCRIPTION: USCarotid Artery Bilateral04/25/2023 8:06 pm CLINICAL HISTORY: Difficulty speaking COMPARISON: None FINDINGS: The velocity of the right internal carotid artery equals 62 cm/sec. The right ICA/CCA ratio normal limits The velocity of the left internal carotid artery equals 79 cm/sec. The left ICA/CCA ratio normal limits Mild plaque is present within the carotid arteries. The vertebral arteries demonstrate antegrade flow IMPRESSION: Mild plaque within the carotid arteries without evidence of a hemodynamically significant stenosis Conclusions/Impression: Stage I ELISE likely due to hypovolemia CKD III with Proteinuria -No NSAIDs -Continue gentle IVF 1/2NS HTN with CKD -Hold Losartan DM II with CKD -RISS -Hold metformin Anemia in chronic illness Iron Deficiency -Monitor H&H -Retacrit prn -Start IV iron CKD MBD -Continue Ergo Case reviewed with Dr. Marlow Hospitalist note reviewed
[2023-05-01] MEDS: GLUCERNA SHAKE 237 ML CAN PO SCH (20:38)
[2023-05-02] MEDS: HEPARIN 5000 UNIT/ML 1 ML VIAL SQ SCH ×3 (00:55→16:36)
[2023-05-02 04:12] LABS: Magnesium 1.9 mg/dL (1.6-2.4); Phosphorus 3.8 mg/dL (2.5-4.9); Potassium 4.4 mEq/L (3.5-5.1)
[2023-05-02] MEDS: INSULIN -REGULAR HUMAN 50 UNIT/0.5 ML ML SQ SCH ×2 (07:30→11:30)
[2023-05-02] MEDS: levETIRAcetam 500 MG in NA CHLORIDE 0.9% 100 ML IV SCH (09:10)
[2023-05-02] MEDS: DOCUSATE NA 100 MG CAP PO SCH (09:10)
[2023-05-02] MEDS: MULTIVITAMINS,THERAPEUT 1 TAB PO SCH (09:10)
[2023-05-02] MEDS: AMOX/K CLAV 500 MG TAB PO SCH (09:10)
[2023-05-02] MEDS: SOD FERRIC GLUC COMPLX/SUCROSE 250 MG in NA CHLORIDE 0.9% 250 ML IV SCH (10:20)
--- NOTE | 2023-05-02 12:09 | P.PN ---
Nephrology (S) No acute complaints, pt denies CP, dyspnea, abd pain or N/V Vitals, medications, blood work and imaging reviewed in the chart. General: In no apparent distress, responsive, Cooperative HEENT: Atraumatic, not needing O2 Neck: Supple Respiratory: Clear to auscultation bilaterally mostly, Normal air movement Cardiovascular: No sig edema, Regular rate/rhythm mostly Gastrointestinal: Soft and benign, Non-distended Musculoskeletal: Shins are non tender Integumentary: No rashes Neurological: Normal speech, no tremors or focal weakness noted Imagings Data: EXAM DESCRIPTION: [facility] Single View04/25/2023 5:40 pm CLINICAL HISTORY: cough COMPARISON: 2021 FINDINGS: Mild opacities medial right lung base. The remainder of the lungs appear clear. 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 Holding NICK inhibitors currently Anemia in chronic illness, CKD Iron Deficiency -Monitor H&H -IV iron series ordered by Dr. Shabbir Cruz MD, JUN
[2023-05-02] MEDS: GLUCERNA SHAKE 237 ML CAN PO SCH (12:52)
--- NOTE | 2023-05-02 15:52 | P.DS ---
Admission Date: 04/25/23 Discharge Date: 05/02/23 Disposition: DC HOME/HOME HEALTH CARE Discharge Condition: GOOD Reason for Admission: CVA Consultations: 1. Neurology 2. 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 Lazara Lozano is a pleasant 77 year old female with a past medical history significant for prior cerebrovascular accident, chronic kidney disease stage III, type II diabetes mellitus, hypertension, hyperlipidemia, and depression who was admitted to the [facility] on 04/25/2023 for altered mental status. She was admitted to the Medicine service. Upon further evaluation, she was found to have an acute kidney injury as well as episodes of aphasia. Her CT head revealed, "no acute intracranial abnormality is seen. If patient's symptoms persist MRI of the brain would be recommended." Her MRI brain revealed, "mild progression in abnormal signal right parietal lobe does not represent an acute infarction. Most likely it represents chronic ischemic changes. No acute abnormality is displayed." On 04/28/2023, she had a recurrent aphasic episode. A STAT CT head revealed, "no acute intracranial abnormality. Multiple remote infarcts." Neurology was consulted and she was evaluated by Dr. Landers. He felt that these episodes were secondary to partial seizures, and she was started on levetiracetam. Since being started on this medication, her symptoms have improved significantly and she has had no recurrent episodes of aphasia. He has cleared her for discharge with levetiracetam and outpatient follow-up. In regards to her kidney injury, Nephrology was consulted and she was evaluated by Dr. Shea. Over the course of her hospitalization, her renal function improved and stabilized. He has cleared her for discharge with outpatient follow-up. In regards to her deconditioning, she was quite weak. Physical Therapy was consulted and it was thought that she would benefit from continued therapy services at a half-way facility. I had multiple discussions with her daughter, Ms. Espinoza, regarding my concerns for safety at home. Ms. Espinoza stated that she would never want to be admitted to a SNF and stated that she would prefer she be discharged with Home Health. She assured me that they have significant family support and that they are able to care for her at home. She was advised that should she change her mind or need any assistance, she can call us and we would be happy to help with the SNF application process. Incidentally, her chest x-ray revealed, "mild opacities medial right lung base may represent confluence of pulmonary vessels or mild infiltrate." She was started on antibiotics and completed a 7-day course prior to discharge. On 05/02/2023, she was seen on rounds and deemed medically stable for discharge. She was discharged with instructions to schedule follow-up appointments with her PCP/Chemical Recovery Operator (Dr. Shea) and with Neurology (Dr. Landers). She was provided a prescription for levetiracetam. She and her daughter were given the opportunity to ask questions and reported no further questions. Furthermore, all questions were answered to the best of my ability. A copy of this discharge summary will be sent to the above providers to facilitate continuity of care. Today, I personally spent 35 minutes on her case, of which greater than 50% of t he time was spent in patient education, counseling, and coordination of care as described above. - Physical Exam General: Alert, In no apparent distress, Oriented x 2 HEENT: Atraumatic, Sclerae nonicteric Respiratory: Clear to auscultation bilaterally, Normal air movement Cardiovascular: No edema, Regular rate/rhythm, No murmurs Gastrointestinal: Normal bowel sounds, Soft, Non-distended, No tenderness Musculoskeletal: No clubbing Integumentary: No rashes Neurological: Alert, cooperative, oriented x 2. Normal speech, normal affect Vital Signs/Physical Exam: Temp Pulse Resp BP Pulse Ox 97.6 F 116 H 20 128/80 98 05/02/23 12:00 05/02/23 12:00 05/02/23 12:00 05/02/23 12:05/02/23 12:00 Laboratory Data at Discharge: WBC 7.70 thou/uL (4.3-10.9) 04/28/23 02:35 Hgb 9.1 g/dL (12.0-15.0) L 05/01/23 02:27 Hct 26.4 % (36.0-45.0) L 05/01/23 02:27 Plt Count 210 thou/uL (152-406) 04/28/23 02:35 PT 13.0 SECONDS (9.5-12.5) H 04/25/23 16:55 INR 1.18 04/25/23 16:55 Sodium 140 mEq/L (136-145) 05/02/23 03:34 Potassium 4.4 mEq/L (3.5-5.1) 05/02/23 03:34 BUN 22 mg/dL (7-18) H 05/02/23 03:34 Creatinine 2.02 mg/dL (0.55-1.02) H 05/02/23 03:34 Glucose 128 mg/dL (74-106) H 05/02/23 03:34 Uric Acid 6.4 mg/dL (2.6-6.0) H 04/27/23 02:46 Phosphorus 3.8 mg/dL (2.5-4.9) 05/02/23 03:34 Magnesium 1.9 mg/dL (1.6-2.4) 05/02/23 03:34 Total Bilirubin 0.6 mg/dL (0.2-1.0) 04/25/23 16:55 AST 11 U/L (15-37) L 04/25/23 16:55 ALT 20 U/L (13-56) 04/25/23 16:55 Alkaline Phosphatase 50 U/L (45-117) 04/25/23 16:55 Home Medications: Donepezil [Aricept*] 10 mg PO BID 09/09/20 Escitalopram [Lexapro*] 10 mg PO DAILY 09/09/20 Glimepiride [Amaryl*] 4 mg PO BIDWM 09/09/20 Losartan Potassium [Cozaar*] 50 mg PO DAILY 09/09/20 Metformin HCl [Glucophage*] 500 mg PO BIDWM 09/09/20 Pravastatin Sodium 40 mg PO DAILY 09/09/20 Ascorbic Acid [Vitamin C] 1 tab PO BID 05/14/22 Cranberry 1 tab PO BID 05/14/22 Ferrous Gluconate [Iron] 1 tab PO DAILY 05/14/22 Lactobacillus Acidophilus [Probiotic] 1 tab PO DAILY 05/14/22 Metoprolol Tartrate 1 tab PO DAILY 05/14/22 Multivitamin [Multiple Vitamins] 1 tab PO DAILY 05/14/22 Aspirin Chewable [Aspirin Chewable*] 81 mg PO DAILY 04/29/23 Docusate [Colace Cap*] 100 mg PO BID cap 05/02/23 Glucerna Shake [Glucerna*] 237 ml PO BID can 05/02/23 levETIRAcetam [Levetiracetam] 500 mg PO BID #60 tab 05/02/23 New Medications: levETIRAcetam [Levetiracetam] 500 mg PO BID #60 tab Physician Discharge Instructions: 1. Please call and schedule a follow-up appointment with your PCP/Chemical Recovery Operator (Dr. Shea) in 3-5 days - Your blood work showed anemia. Please discuss further evaluation with your PCP. - Please have him schedule a repeat chest x-ray in 2-3 weeks to make sure your pneumonia has fully healed. - There was blood in your urine sample. Please discuss further evaluation with your PCP. 2. Please call and schedule a follow-up appointment with Neurology (Dr. Landers) in 5-7 days - As we discussed, he will schedule for an EEG in his office Medication changes: 1. Please take levetiracetam (Keppra) 500 mg two times per day You have been given a 1 month prescription for this medication. Please follow-up with your PCP for medication refills/adjustments Diet: AHA Activity: Fall precautions Followup: Jovani Shea DO [ACTIVE - CAN ADMIT] - Oliverio Landers MD [ASSOCIATE-ACTIVE - CAN ADMIT] - Time spent managing pt's care (in minutes): 25
[2023-05-02 16:38] VITALS: BP 120/81; TEMP 98
== END 2023-05-02 17:45 | disposition home health service (06) | DRG 100 ==
LOC: ER 16:38 → ERHOLD 18:32 → 2ND 20:24
PROVIDERS: ADMIT Hospitalist; ATTEND Internal Medicine
DX: G40.209 Localization-related (focal) (partial) symptomatic epilepsy and epileptic syndromes with complex partial seizures, not intractable, without status epilepticus (principal); J69.0 Pneumonitis due to inhalation of food and vomit; I69.954 Hemiplegia and hemiparesis following unspecified cerebrovascular disease affecting left non-dominant side; N17.9 Acute kidney failure, unspecified; N18.4 Chronic kidney disease, stage 4 (severe); F03.93 Unspecified dementia, unspecified severity, with mood disturbance; D63.8 Anemia in other chronic diseases classified elsewhere; E11.22 Type 2 diabetes mellitus with diabetic chronic kidney disease; J01.30 Acute sphenoidal sinusitis, unspecified; Z79.4 Long term (current) use of insulin; E11.65 Type 2 diabetes mellitus with hyperglycemia; I12.9 Hypertensive chronic kidney disease with stage 1 through stage 4 chronic kidney disease, or unspecified chronic kidney disease; E78.5 Hyperlipidemia, unspecified; I69.920 Aphasia following unspecified cerebrovascular disease; Z66 Do not resuscitate; Z20.822 Contact with and (suspected) exposure to COVID-19; R53.1 Weakness; Z82.3 Family history of stroke
CPT/HCPCS: 36415; 70450; 70551; 71045; 80048; 80076; 81001; 82043; 82140; 82565; 82570; 82607; 82947; 83540; 83605; 83735; 83880; 84100; 84132; 84145; 84156; 84466; 84484; 84550; 85014; 85018; 85025; 85610; 87040; 87086; 87088; 87804; 87811; 92507; 92523; 92526; 92610; 93005; 93880; 97110; 97116; 97161; 97165; 97530; 99285; J0696; J1644; J1720; J1815; J1953; J2543; J2916; J3411; J3475; J3480; J7030; J7050; Q5106